=== PATIENT | female | born 1950 | race Caucasian/White ===

== ENCOUNTER 2020-04-19 12:47 | Outpatient (REF) | payer MEDICARE, SELFPAY ==
[2020-04-19 14:05] LABS: MANUAL DIFF FLAG NO
[2020-04-19 14:19] LABS: Basophils Percent Auto 0.8 % (0-2); Eosinophils Absolute Auto 0.1 X10*3/uL (0.0-0.4); Eosinophils Percent Auto 1.4 % (0-4); Hematocrit 38.6 % (37-47); Hemoglobin 12.7 g/dl (12.0-16.0); Imm Gran Abs Auto 0.01 X10*3/uL (0.00-0.03); Imm Gran Pct Auto 0.3 % (0.0-0.4); Lymphocytes Absolute Auto 1.3 X10*3/uL (1.2-4.9); Lymphocytes Percent Auto 35.4 % (20-40); Mean Corpuscular HGB Conc 32.9 g/dl (31.0-35.0); Mean Corpuscular Hemoglobin 33.9 pg (27.0-33.0); Mean Corpuscular Volume 102.9 fL (80-98); Mean Platelet Volume 9.9 fL (9.4-12.3); Monocytes Absolute Auto 0.3 X10*3/uL (0.1-1.2); Monocytes Percent Auto 8.6 % (2-11); Neutrophils Percent Auto 53.5 % (45-73); Platelet Count 273 X10*3/uL (160-400); Red Blood Count 3.75 X10*6/uL (4.20-5.50); Red Cell Distribution Width 13.2 % (11.0-16.0); White Blood Count 3.7 X10*3/uL (4.8-10.8)
[2020-04-19 14:24] LABS: Estimated Average Glucose 123 mg/dL; Hemoglobin A1c % 5.9 %
[2020-04-19 14:44] LABS: B Type Natriuretic Peptide 52 pg/mL (<100); Glucose Urine UA NEG (NEG); Leukocyte Esterase Urine NEG (NEG); Nitrite Urine NEG (NEG); Specific Gravity - Urine 1.025 (1.005-1.025); Urine Blood 1+ (NEG); Urine Ketones NEG (NEG); Urine Protein NEG (NEG-TRACE)
[2020-04-19 14:49] LABS: Alanine Aminotransferase 15 U/L (0-31); Alkaline Phosphatase 57 U/L (39-117); Anion Gap 13 (12-20); Aspartate Amino Transferase 17 U/L (5-31); Bilirubin Total 0.8 mg/dL (0.0-1.0); Blood Urea Nitrogen 22 mg/dL (9-16); Calcium 9.2 mg/dL (8.4-10.2); Carbon Dioxide 27 mmol/L (22-29); Chloride 104 mmol/L (96-108); Estimated Glomerular Filt Rate > 60; Glucose Random 115 mg/dL (60-115); Potassium 4.4 mmol/l (3.3-5.1); Sodium 140 mmol/L (135-145); Total Protein 6.9 g/dL (6.5-8.0)
[2020-04-19 14:50] LABS: Appearance Urine HAZY; Color Urine YELLOW
[2020-04-19 14:57] LABS: Mucus Urine 1+ /LPF; Squamous Epithelial Cell Urine 1+ /LPF; WBC Urine 0 /HPF (0-4)
[2020-04-19 15:10] LABS: TSH reflex Free T4 0.91 mIU/mL (0.32-4.0); Vitamin D 25-OH Total 26.2 ng/mL (>30)
[2020-04-19 15:11] LABS: Vitamin B12 515 pg/mL (200-900)
[2020-04-19 15:25] LABS: Cholesterol 230 mg/dL; HDL Cholesterol 84 mg/dL; LDL Cholesterol Calculated 129 mg/dl; Triglycerides 85 mg/dL
== END 2020-04-19 12:48 | disposition home or self-care (01) ==
LOC: HO.10HDL 12:47
PROVIDERS: Visit Provider Internal Medicine
DX: E11.65 Type 2 diabetes mellitus with hyperglycemia (principal); I42.9 Cardiomyopathy, unspecified; E78.00 Pure hypercholesterolemia, unspecified; F41.9 Anxiety disorder, unspecified; F32.9 Major depressive disorder, single episode, unspecified; R35.0 Frequency of micturition
CPT/HCPCS: 36415; 80053; 80061; 81001; 82306; 82607; 83036; 83880; 84443; 85025

== ENCOUNTER → 2020-06-22 10:16 | Outpatient (BNVA) | payer MEDICARE, SELFPAY | PROVIDERS: PCP Internal Medicine; Visit Provider Urology | DX: N32.81 Overactive bladder (principal) | CPT/HCPCS: 81002; 99202 ==

== ENCOUNTER → 2020-07-22 14:57 | Outpatient (BNVA) | payer MEDICARE, SELFPAY | PROVIDERS: PCP Internal Medicine; Visit Provider Urology | DX: Z13.89 Encounter for screening for other disorder (principal) | CPT/HCPCS: 99212 ==

== ENCOUNTER → 2020-08-10 14:52 | Outpatient (BNVA) | payer MEDICARE, SELFPAY | PROVIDERS: PCP Internal Medicine; Visit Provider Surgery | DX: C50.911 Malignant neoplasm of unspecified site of right female breast (principal); Z91.89 Other specified personal risk factors, not elsewhere classified; Z80.3 Family history of malignant neoplasm of breast; Z86.000 Personal history of in-situ neoplasm of breast | CPT/HCPCS: 99212 ==

== ENCOUNTER → 2020-08-22 12:58 | Outpatient (REF) | payer MEDICARE, SELFPAY ==
--- NOTE | 2020-08-22 13:11 | CA_ITS ---
Transthoracic Echocardiogram Patient (Last, First, Middle): Susan Raya A Gender: Female Date of : 1950 Age: 70 Procedure Date: 08/22/2020 Procedure Type: Transthoracic Echocardiogram Location: OP Height: 172.72 cm Weight: 61.24 kg BSA: 1.73 m2 Heart Rate: bpm BP: 134 / 80 mmHg Cutter Operator: Referring MD: Heber King MD Symptoms: LBBB,CARDIOMYOPATHY Study Quality: Good ECG Rhythm: Sinus with extra beats Conclusions: - 1. [id number] LV systolic dysfunction with impaired relaxation filling pattern 2. Mild mitral regurgitation 3. Normal RV systolic pressure 4. No pericardial effusion Findings Left Ventricle Normal left ventricular cavity size. There is normal left ventricular wall thickness. The left ventricular systolic function is mild to moderately decreased. The visually estimated ejection fraction is between 40-45%. There is paradoxical septal motion consistent with a left bundle branch block. Spectral Doppler is indicative of an impaired relaxation filling pattern. E/E prime ratio is between 8 and 15 consistent with indeterminate filling pressures. Right Ventricle Normal right ventricular cavity size and systolic function. Atria The left atrium is normal in size. There is no evidence of interatrial shunt. The right atrium is normal in size. Aortic Valve The aortic valve was not well visualized. There is no aortic valve stenosis. There is no aortic valve regurgitation. Mitral Valve Normal mitral valve structure and function. There is mild mitral valve regurgitation. There is no mitral valve stenosis. Pulmonic Valve The pulmonic valve was not well visualized. Tricuspid Valve Likely normal tricuspid valve structure and function. There is trace tricuspid valve regurgitation. The right ventricular systolic pressure is normal. The right ventricular systolic pressure is 26 mmHg. Normal right atrial pressure. There is no evidence of pulmonary hypertension. Great Vessels All visible segments of the aorta are normal in size. The pulmonary artery was not well visualized. Venous The inferior vena cava is normal in size and collapses greater than 50% with inspiration. Pericardium/Pleural There is no evidence of pericardial effusion. Prior Study Comparison Changes noted compared to prior study dated: 07/30/2018. LV systolic function appears to be further reduced Measurements 2D Linear Measurements IVSd: 0.86 0.6-0.9/0.6-1.0 cm LVIDd: 3.84 3.9-5.3/4.2-5.9 cm LVIDd Index: 2.22 2.4-3.2/2.2-3.1 cm/m2 LVIDs: 2.86 2.0-3.6 cm LVPWd: 0.79 0.7-1.1 cm Ao Root: 2.60 2.1-3.5 cm LA Diam: 3.20 2.7-3.8/3.0-4.0 cm LAIDs Index: 1.85 1.5-2.3 cm/m2 LV Mass: 202.40 67-162/88-224 g LV Mass Index: 116.99 43-95/49-115 g/m2 LVOT Diam: 1.90 3.0+(-)1.3 cm 2D Systolic Function EF 4C: 39.60 >55% EF 2C: 33.80 >55% Mitral Valve MV Pk E: 0.68 MV PK A: 0.90 MV Decel Time: 169.00 E/A: 0.80 E'Lateral: 7.06 E'Medial: 5.32 E/E' Med: 12.90 E/E' Lat: 9.70 PHT: 49.00 MVA PHT: 4.49 Decel [place]: 4.05 Aortic Valve AoV Pk Reed: 1.45 AoV Mn Reed: 0.96 AoV VTI: 0.30 AoV Pk Grad: 8.00 Aov Mn Grad: 4.00 CALEB Cont.VTI: 1.84 LVOT LVOT Pk Reed: 0.90 LVOT Mn Reed: 0.59 LVOT VTI: 0.19 LVOT Pk Grad: 3.00 LVOT Mn Grad: 2.00 LVOT Diam: 1.90 LVOT Area: 2.84 Diastolic Function MV Pk E: 0.68 MV Pk A: 0.90 E/A: 0.80 E'Medial: 5.32 E/E' Med: 12.90 E' Laterial: 7.06 E/E' Lat: 9.70 Tricuspid Valve TR Pk Reed: 2.42 TR Pk Grad: 23.00 RA Press: 3.00 RVSP: 26.00 Great Vessels Aorta Ao Root-2D: 2.60 2.0-3.7 cm Updated in Other Vendor System with Status of Final Oswaldo Tracy MD electronically signed on 08/22/2020 5:46:32 PM with status of Final
== END ==
LOC: HO.CARD 12:58
PROVIDERS: Visit Provider Internal Medicine
DX: I42.8 Other cardiomyopathies (principal)
CPT/HCPCS: 93306

== ENCOUNTER → 2020-09-07 13:57 | Outpatient (BNVA) | payer MEDICARE, SELFPAY | PROVIDERS: PCP Internal Medicine; Visit Provider Internal Medicine | DX: I42.8 Other cardiomyopathies (principal); I44.7 Left bundle-branch block, unspecified | CPT/HCPCS: 93005; 99212 ==

== ENCOUNTER 2020-12-07 13:07 | Outpatient (REF) | payer MEDICARE, SELFPAY ==
--- NOTE | ~2020-12-07 | MM_ITS ---
EXAMINATION: MM SCREENING DIGITAL BREAST TOMOSYNTHESIS, BILATERAL CLINICAL INFORMATION: Screening. Asymptomatic. Right breast cancer 1999. 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 Due for yearly. COMPARISON: Mammography: 11/02/2019, 10/30/2019, 07/24/2018, 01/22/2018, 07/25/2017 TECHNIQUE: Digital breast tomosynthesis is performed in both the craniocaudal and mediolateral oblique views along with computer-aided detection (CAD). Synthesized 2D images are generated from the tomosynthesis. Additional exaggerated right CC view is provided. FINDINGS: There are scattered areas of fibroglandular density (ACR BI-RADS breast composition Category b). Parenchymal pattern is similar to prior exams. There is no interval mass or architectural abnormality or interval abnormal calcifications. Left breast has biopsy clip marker central 3:00 position. Right breast has stable post therapy changes including scarring and old biopsy clip marker and reduced breast size. There are no significant changes. MM/MM tomosynthesis screening BI IMPRESSION: No significant changes from prior studies. ASSESSMENT: BI-RADS 2: Benign RECOMMENDATION: Routine annual mammography screening. This patient's information was entered into a reminder system with a target due date for their next mammogram.
--- NOTE | ~2020-12-07 | MM_ITS ---
EXAMINATION: BONE DENSITOMETRY CLINICAL INDICATION: Asymptomatic menopausal state. COMPARISON: Previous BD dated 06/26/2018 and baseline BD dated 08/05/2015. TECHNIQUE: Using a [employer] DXA System (software version: 13.1) manufactured by [employer], dual-energy x-ray absorptiometry was performed of the lumbar spine and left hip. The images are of good technical quality. Summary results are attached. FINDINGS: AP SPINE L1-L4: Current: BMD 1.078 g/cm2, Z-score 1.0, T-score -0.8, normal, 3.0% decrease from previous, 4.5% decrease from baseline (<5% change is not significant). Prior: BMD 1.111 g/cm2. Baseline: BMD 1.129 g/cm2. LEFT FEMUR, NECK: Current: BMD 0.764 g/cm2, Z-score -0.1, T-score -2.0, osteopenia. Prior: BMD 0.855 g/cm2. Baseline: BMD 0.908 g/cm2. LEFT FEMUR, TOTAL: Current: BMD 0.827 g/cm2, Z-score 0.2, T-score -1.4, osteopenia, 9.6% decrease from previous, 14.7% decrease from baseline (<5% change is not significant). Prior: BMD 0.915 g/cm2. Baseline: BMD 0.969 g/cm2. IDENTIFIED RISK FACTORS: Osteoporosis. Early menopause, secondary osteoporosis. HISTORY OF FRACTURE: None listed. MEDICATIONS: Calcium supplements or multivitamin, vitamin D. MM/XR DEXA axial skeleton IMPRESSION: 1. DIAGNOSIS: Osteopenia based on the lowest T-score value of -2.0 in the femoral neck applying World Health Organization criteria. 2. 10-YEAR FRACTURE RISK PREDICTION, FRAX: Major osteoporotic fracture (clinical spine, forearm, hip or shoulder) 10.7%. Hip fracture 2.2%. 3. Treatment Recommendations: NOF guidelines recommend consideration for treatment in postmenopausal women and men age 50 and older presenting with the following: -A hip or vertebral (clinical or morphometric) fracture. -T-score less than or equal to -2.5 at the femoral neck or spine after appropriate evaluation to exclude secondary causes. -Low bone mass at the hip or spine and a 10-year fracture probability by FRAX of greater than or equal to 3% for hip fracture or greater than or equal to 20% for major osteoporotic fracture based on the [place] adapted WHO algorithm. 4. Other Recommendations: All treatment decisions require clinical judgment and consideration of individual patient factors, including patient preferences, comorbidities, previous drug use, risk factors not captured in the FRAX model (e.g. frailty, falls, vitamin D deficiency, increased bone turnover, interval significant decline in bone density) and possible under or overestimation of fracture risk by FRAX. Additional medical evaluation for secondary cause of low bone mineral density may be appropriate. FUTURE SCAN RECOMMENDATION: People with diagnosed cases of osteoporosis or at high risk for fracture should have regular bone mineral density tests. For patients eligible for Medicare, routine testing is allowed once every 2 years. The testing frequency can be increased to one year for patients who have rapidly progressing disease, those who are receiving or discontinuing medical therapy to restore bone mass, or have additional risk factors.
== END 2020-12-07 13:08 | disposition home or self-care (01) ==
LOC: HO.MAMMO 13:07
PROVIDERS: PCP Internal Medicine; Visit Provider Nurse Practitioner Family
DX: Z12.31 Encounter for screening mammogram for malignant neoplasm of breast (principal); Z13.820 Encounter for screening for osteoporosis; M81.0 Age-related osteoporosis without current pathological fracture; M85.80 Other specified disorders of bone density and structure, unspecified site; Z78.0 Asymptomatic menopausal state; Z79.899 Other long term (current) drug therapy
CPT/HCPCS: 77063; 77067; 77080

== ENCOUNTER 2020-12-08 14:52 | Outpatient (REF) | payer MEDICARE, SELFPAY ==
--- NOTE | ~2020-12-08 | CT_ITS ---
EXAMINATION: CT HEAD WITHOUT CONTRAST CLINICAL INFORMATION: Vertigo, tinnitus. COMPARISON: None TECHNIQUE: Contiguous axial imaging was performed from the skull base to vertex without intravenous administration of contrast. This CT examination was performed using dose optimization techniques as appropriate, variously including the following: *Automated exposure control *Adjustment of mA and/or kV according to patient size (this includes techniques or standardized protocols for targeted exams where dose is matched to indication/reason for exam; i.e. extremities or head) *Use of iterative reconstruction technique DLP: 638 mGy-cm FINDINGS: There is no evidence of acute intracranial hemorrhage or territorial infarction. No abnormal mass effect or midline shift is seen. Wang to white matter differentiation is well preserved. No extra-axial fluid collections are identified. The ventricles are normal in size. There is no abnormal attenuation within the brain parenchyma. The osseous structures and soft tissues are normal. The mastoid air cells and visualized portions of the paranasal sinuses are well aerated. CT/CT head/brain wo con IMPRESSION: No acute intracranial process seen.
== END 2020-12-08 14:53 | disposition home or self-care (01) ==
LOC: HO.CT 14:52
PROVIDERS: Visit Provider Otolaryngology
DX: H81.4 Vertigo of central origin (principal); H93.19 Tinnitus, unspecified ear; R51.9 Headache, unspecified
CPT/HCPCS: 70450

== ENCOUNTER 2020-12-16 08:04 | Day surgery (SDC) | payer MEDICARE, SELFPAY ==
--- NOTE | 2020-12-15 08:25 | P.CONAN_ITS ---
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 (Acute) Tinnitus (Acute) COVID-19 vaccine series completed (Acute) NICM (nonischemic cardiomyopathy) (Acute) Adult general medical exam (Acute) Post-menopausal (Acute) Infiltrating ductal carcinoma of right breast (Acute) Anxiety and depression (Acute) Hypercholesterolemia (Acute) Cardiomyopathy (Acute) Type 2 diabetes mellitus with hyperglycemia (Acute) Past Medical History Medical History (Updated 12/09/20 @ 14:02 by Ivana Mead) Anxiety and depression Cardiomyopathy History of breast cancer History of breast cancer Hypercholesterolemia Infiltrating ductal carcinoma of right breast Left bundle branch block Post-menopausal Tubular adenoma of colon Type 2 diabetes mellitus with hyperglycemia Family History Family History Father CVD (cardiovascular disease) Myocardial infarct Mother HTN (hypertension) Cancer Uterine cancer Paternal Aunt Myocardial infarct Paternal Uncle Myocardial infarct Brother No problems noted. Surgical History Surgical History (Updated 12/09/20 @ 14:02 by Ivana Mead) H/O left breast biopsy History of colonoscopy History of lumpectomy of right breast Social History Social History Alcohol intake: current Alcohol intake frequency: holidays/special occasions only Patient Tobacco Use Status: Never used Tobacco Cigarette Packs Per Day: 0 Cigarettes Per Day: 0 Years Smoked: 0 Use of substances other than those prescribed or required for medical reasons: No Are you DNR?: No Advance Directives: No Advance Directives Information Provided: Yes Meds Allergies Allergy/AdvReac Type Severity Reaction Status Date / Time morphine [MORPHINE] AdvReac Mild VOMITING, Verified 12/09/20 14:04 sensitivity atorvastatin AdvReac Unknown Unknown Verified 12/09/20 14:04 rosuvastatin [Crestor] AdvReac Unknown muscle ache Verified 12/09/20 14:04 simvastatin AdvReac Unknown Unknown Verified 12/09/20 14:04 Home Medications Medication Instructions Recorded Confirmed Last Taken Type aspirin 81 mg tablet,delayed 81 mg PO DAILY 02/23/20 12/09/20 Unknown History release (Adult Aspirin Regimen) lisinopril 2.5 mg tablet 2.5 mg PO DAILY 02/23/20 12/09/20 Unknown History melatonin 3 mg capsule 3 mg PO BEDTIME PRN 02/23/20 12/09/20 Unknown History multivitamin 1 tab PO DAILY 02/23/20 12/09/20 Unknown History Exam Exam Date and Time: December 15, 2020 0825 Narrative Narrative: EKG 08/2020 sinus rhythm at 80/Min; nonspecific intraventricular defect but appearing more towards left bundle. Per recent cardiac visit: Recent echocardiogram shows LVEF 40-45%.? In 2019, it was 45-50%.? In 2018, it was 35-40%.? In 2014, 40-45%.? Overall, it has been up and down.? Coronary CTA did not reveal any significant coronary disease.? There was mild eccentric distal left main plaque; minimal disease elsewhere. ECHO 08/2020 Conclusions: -? 1. [id number]-[id number] LV systolic dysfunction with impaired ? ? relaxation filling pattern, EF 40-45%? 2. Mild mitral regurgitation ? 3. Normal RV systolic pressure ? 4. No pericardial effusion ? ? Assessment and Plan Assessment Anesthesia Assessment: Chart Reviewed Documented by User: Julisa Littlejohn 12/16/20 08:36 [facility] Past Medical History Medical History (Updated 12/09/20 @ 14:02 by Ivana Mead) Anxiety and depression Cardiomyopathy History of breast cancer History of breast cancer Hypercholesterolemia Infiltrating ductal carcinoma of right breast Left bundle branch block Post-menopausal Tubular adenoma of colon Type 2 diabetes mellitus with hyperglycemia Family History Family History Father CVD (cardiovascular disease) Myocardial infarct Mother HTN (hypertension) Cancer Uterine cancer Paternal Aunt Myocardial infarct Paternal Uncle Myocardial infarct Brother No problems noted. Family history of problems with anesthesia: No Surgical History Surgical History (Updated 12/09/20 @ 14:02 by Ivana Mead) H/O left breast biopsy History of colonoscopy History of lumpectomy of right breast History of Problems with Anesthesia: No Social History Social History Alcohol intake: current Alcohol intake frequency: holidays/special occasions only Patient Tobacco Use Status: Never used Tobacco Cigarette Packs Per Day: 0 Cigarettes Per Day: 0 Years Smoked: 0 Use of substances other than those prescribed or required for medical reasons: No Are you DNR?: No Advance Directives: No Advance Directives Information Provided: Yes Meds Allergies Allergy/AdvReac Type Severity Reaction Status Date / Time morphine [MORPHINE] AdvReac Mild VOMITING, Verified 12/09/20 14:04 sensitivity atorvastatin AdvReac Unknown Unknown Verified 12/09/20 14:04 rosuvastatin [Crestor] AdvReac Unknown muscle ache Verified 12/09/20 14:04 simvastatin AdvReac Unknown Unknown Verified 12/09/20 14:04 Home Medications Medication Instructions Recorded Confirmed Last Taken Type aspirin 81 mg tablet,delayed 81 mg PO DAILY 02/23/20 12/09/20 Unknown History release (Adult Aspirin Regimen) lisinopril 2.5 mg tablet 2.5 mg PO DAILY 02/23/20 12/09/20 Unknown History melatonin 3 mg capsule 3 mg PO BEDTIME PRN 02/23/20 12/09/20 Unknown History multivitamin 1 tab PO DAILY 02/23/20 12/09/20 Unknown History Exam Airway Mallampati Class: II (Implant and cap top) TM Dist: >3cm Neck ROM: Full Heart: rrr Lungs: cta Assessment and Plan Assessment Anesthesia Assessment: Anesthesia Plan Discussed and Chart Reviewed Final Anesthetic Review Family History of Problems with Anesthesia: No History of Problems with Anesthesia: No NPO: Yes ASA Class: III Final Preanesthetic Review: No Changes in Pt Med Stat, Meds/Allgs Chart Reviewed and Consent Obtained/Reviewed Patient Risk: Intermediate Procedure Risk: Intermediate Anesthetic Plan Anesthetic Plan: MAC: Disposition: Standard PACU
[2020-12-16 08:26] VITALS: BP 117/57; PULSE 84; RESP 16; TEMP 36.3; O2SAT 96; BMI 20.9
[2020-12-16 08:35] LABS: Glucose, Whole Blood 135 mg/dL (60-115)
[2020-12-16] MEDS: Lactated Ringers 1,000 ML 50 ML IVCONT (08:39)
[2020-12-16 10:40] VITALS: BP 100/47; PULSE 78; RESP 16; TEMP 36.2; O2SAT 97
--- NOTE | 2020-12-16 10:43 | P.BOP_ITS ---
Brief Operative Note Date of Service: 12/16/20 Pre-op diagnosis: Screening, Hx of polyps Post-op diagnosis: other (Diverticulosis, Internal hemorrhoids) Procedure: Colonoscopy to cecum and TI Surgeon: Noel Blanco Anesthesia: MAC Was an Animal Control Specialist used for this Procedure?: No Estimated blood loss (mL): 0 Pathology: none sent Condition: stable Disposition: PACU
[2020-12-16 10:55] VITALS: BP 115/55; PULSE 65; RESP 17; TEMP 36.2; O2SAT 100
--- NOTE | 2020-12-16 11:01 | OP_ITS ---
SURGEON: Noel Blanco MD INDICATIONS: The patient presents for evaluation of personal history of tubular adenoma of the colon, and need for colorectal cancer screening. Full consent has been obtained from her for this, including risks of bleeding and perforation. PREOPERATIVE DIAGNOSIS: POSTOPERATIVE DIAGNOSIS: PROCEDURE PERFORMED: Colonoscopy to the cecum and terminal ileum. ESTIMATED BLOOD LOSS: COMPLICATIONS: ANESTHESIA: Monitored anesthesia care. ASSISTANTS: SPECIMENS: PREOPERATIVE DIAGNOSES: Colorectal cancer screening and personal history of tubular adenoma of the colon. POSTOPERATIVE DIAGNOSES: Colorectal cancer screening and personal history of tubular adenoma of the colon, diverticulosis and internal hemorrhoids. DESCRIPTION OF PROCEDURE: The patient was placed in the left lateral decubitus position. The digital rectal exam revealed no abnormalities. The Olympus video pediatric colonoscope was entered into the rectum and advanced easily to the cecum. Once in the cecum, I did identify normal-appearing cecal pouch with appendiceal orifice and a normal-appearing ileocecal valve. The terminal ileum was cannulated and appeared normal. Scope was withdrawn back in the colon. The entire cecum and ileocecal valve appeared normal. The scope was then slowly withdrawn assessing all mucosal surfaces carefully. Preparation was excellent. I did not visualize any sign of polyps, colitis, nor angiodysplasias. There was a mild amount of sigmoid diverticulosis. In the rectum, scope was retroflexed visualizing internal hemorrhoids, but no other pathology. The rectal mucosa appeared normal. The scope was straightened out and withdrawn from the patient. She tolerated the procedure well and was returned to the recovery area in stable condition. IMPRESSION: 1. Diverticulosis. 2. Internal hemorrhoids. PLAN: I would recommend a repeat colonoscopy in 5 years for further screening and surveillance. She will otherwise see me on a p.r.n. basis. She was advised to resume her aspirin today. MD GABRIELE Lira/DEJA / [phone]
== END 2020-12-16 11:45 | disposition home or self-care (01) ==
PROVIDERS: PCP Internal Medicine; Visit Provider Internal Medicine
PROC: 0DJD8ZZ Inspection of Lower Intestinal Tract, Via Natural or Artificial Opening Endoscopic (ICD-10-PCS; CPT 45378; principal; 2020-12-16 09:20)
DX: Z12.11 Encounter for screening for malignant neoplasm of colon (principal); Z86.010 Personal history of colon polyps; K57.30 Diverticulosis of large intestine without perforation or abscess without bleeding; K64.8 Other hemorrhoids; I10 Essential (primary) hypertension; E11.9 Type 2 diabetes mellitus without complications; Z85.3 Personal history of malignant neoplasm of breast; Z92.21 Personal history of antineoplastic chemotherapy; Z92.3 Personal history of irradiation; Z79.82 Long term (current) use of aspirin; Z79.899 Other long term (current) drug therapy
CPT/HCPCS: G0105; 82947

== ENCOUNTER 2020-12-19 10:35 | Outpatient (REF) | payer MEDICARE, SELFPAY ==
[2020-12-19 11:37] LABS: MANUAL DIFF FLAG NO
[2020-12-19 11:51] LABS: Basophils Percent Auto 0.3 % (0-2); Eosinophils Absolute Auto 0.1 X10*3/uL (0.0-0.4); Eosinophils Percent Auto 1.2 % (0-4); Hematocrit 38.2 % (37-47); Hemoglobin 12.5 g/dl (12.0-16.0); Imm Gran Abs Auto 0.02 X10*3/uL (0.00-0.03); Imm Gran Pct Auto 0.3 % (0.0-0.4); Lymphocytes Absolute Auto 1.1 X10*3/uL (1.2-4.9); Lymphocytes Percent Auto 14.7 % (20-40); Mean Corpuscular HGB Conc 32.7 g/dl (31.0-35.0); Mean Corpuscular Volume 103.8 fL (80-98); Mean Platelet Volume 9.8 fL (9.4-12.3); Monocytes Absolute Auto 0.4 X10*3/uL (0.1-1.2); Monocytes Percent Auto 5.4 % (2-11); NRBC Pct Auto 0.3 /100WBC (0.0-0.2); Neutrophils Absolute Auto 5.6 X10*3/uL (2.0-8.3); Neutrophils Percent Auto 78.1 % (45-73); Platelet Count 279 X10*3/uL (160-400); Red Blood Count 3.68 X10*6/uL (4.20-5.50); Red Cell Distribution Width 13.1 % (11.0-16.0); White Blood Count 7.2 X10*3/uL (4.8-10.8)
[2020-12-19 11:52] LABS: Glucose Urine UA NEG (NEG); Leukocyte Esterase Urine NEG (NEG); Nitrite Urine NEG (NEG); PH 5.5 (5.0-8.0); Specific Gravity - Urine >= 1.030 (1.005-1.025); Urine Blood TRACE (NEG); Urine Ketones NEG (NEG); Urine Protein NEG (NEG-TRACE)
[2020-12-19 12:30] LABS: Alanine Aminotransferase 12 U/L (0-31); Albumin Level 4.3 g/dL (3.5-5.0); Alkaline Phosphatase 50 U/L (39-117); Anion Gap 15 (12-20); Aspartate Amino Transferase 17 U/L (5-31); Bilirubin Total 0.5 mg/dL (0.0-1.0); Blood Urea Nitrogen 19 mg/dL (9-16); Calcium 10.2 mg/dL (8.4-10.2); Carbon Dioxide 25 mmol/L (22-29); Chloride 106 mmol/L (96-108); Estimated Glomerular Filt Rate > 60; Glucose Random 126 mg/dL (60-115); Potassium 4.6 mmol/L (3.3-5.1); Sodium 141 mmol/L (135-145); Total Protein 7.3 g/dL (6.5-8.0)
[2020-12-19 12:51] LABS: Thyroid Stimulating Hormone 1.12 uIU/mL (0.32-4.0)
[2020-12-19 12:52] LABS: Appearance Urine CLEAR; Color Urine YELLOW
[2020-12-19 13:04] LABS: RBC Urine 0-2 /HPF (0); Squamous Epithelial Cell Urine TRACE /LPF
[2020-12-19 13:05] LABS: Mucus Urine 1+ /LPF
[2020-12-19 13:20] LABS: Folate > 20.0 ng/mL (> or = 4.0); Vitamin B12 884 pg/mL (200-900)
== END 2020-12-19 10:36 | disposition home or self-care (01) ==
LOC: HO.LAB 10:35
PROVIDERS: PCP Internal Medicine; Visit Provider Internal Medicine
DX: H93.19 Tinnitus, unspecified ear (principal)
CPT/HCPCS: 36415; 80053; 81001; 82607; 82746; 84443; 85025

== ENCOUNTER 2021-02-25 14:12 | Emergency (ER) | payer MEDICARE, SELFPAY ==
--- NOTE | ~2021-02-25 | XR_ITS ---
EXAMINATION: XR ELBOW, LEFT CLINICAL INFORMATION: Pain after fall COMPARISON: None TECHNIQUE: AP, lateral, and oblique views of the left elbow. FINDINGS: Bones have normal alignment and joint spaces are maintained. No fracture, subluxation or elbow joint effusion. Incidentally noted is mild osseous hypertrophy of the radial tuberosity (the site of insertion of the biceps tendon). There are no avulsion fractures. XR/XR elbow LT 2V IMPRESSION: No acute abnormality. No fracture or subluxation at the left elbow.
--- NOTE | ~2021-02-25 | XR_ITS ---
EXAMINATION: LEFT HAND AND WRIST X-RAY CLINICAL INFORMATION: Fall COMPARISON: Previous x-ray May 2018 TECHNIQUE: 4 views of the left hand and wrist FINDINGS: There is a transverse slightly impacted fracture of the left distal radius. No other fracture is seen. There is arthritis at the first LONG-TERM and trapezoid trapezium scaphoid joints. There is mild soft tissue swelling about the wrist. XR/XR hand wrist LT IMPRESSION: Transverse slightly impacted left distal radius fracture.
[2021-02-25 14:57] VITALS: BP 133/61; PULSE 83; RESP 18; TEMP 36.2; O2SAT 100; BMI 19.8
[2021-02-25] MEDS: Acetaminophen 325 MG TABLET 650 MG PO (15:01)
--- NOTE | 2021-02-25 16:29 | ED.FALL ---
HPI - Fall General Chief Complaint: Fall Stated Complaint: lt hand injury Time Seen by Provider: 02/25/21 16:06 Source: patient Mode of arrival: ambulatory Limitations: no limitations History of Present Illness HPI Narrative: 70-year-old female here with complaints of left wrist pain after a mechanical fall today. NO head strike or LOC. Not on AC therapy. Related Data Home Medications Medication Instructions Recorded Confirmed aspirin 81 mg tablet,delayed 81 mg PO DAILY 02/23/20 12/22/20 release (Adult Aspirin Regimen) melatonin 3 mg capsule 3 mg PO BEDTIME PRN 02/23/20 12/22/20 multivitamin 1 tab PO DAILY 02/23/20 12/22/20 Previous Rx's Medication Instructions Recorded ezetimibe 10 mg tablet 10 mg PO DAILY #30 tab 05/17/20 carvedilol 3.125 mg tablet 3.125 mg PO BID #180 tab 12/04/20 alprazolam 0.5 mg tablet 0.5 mg PO BID 90 Days #180 tab 12/22/20 paroxetine HCl 10 mg tablet 10 mg PO DAILY #30 tab 12/22/20 lisinopril 2.5 mg tablet 2.5 mg PO DAILY #90 tab 01/11/21 amitriptyline 25 mg tablet 25 mg PO BEDTIME #30 tab 01/13/21 hydrochlorothiazide 12.5 mg tablet 12.5 mg PO DAILY #30 tab 01/13/21 mastectomy bra #6 ea 01/27/21 oxycodone 5 mg tablet 5 mg PO Q6H PRN #8 tab 02/25/21 Allergies Allergy/AdvReac Type Severity Reaction Status Date / Time morphine [MORPHINE] AdvReac Mild VOMITING, Verified 12/22/20 16:08 sensitivity atorvastatin AdvReac Unknown Unknown Verified 12/22/20 16:08 rosuvastatin [Crestor] AdvReac Unknown muscle ache Verified 12/22/20 16:08 simvastatin AdvReac Unknown Unknown Verified 12/22/20 16:08 Review of Systems Review of Systems: Yes all other systems are reviewed and are negative Constitutional: Constitutional: Reports no additional constitutional complaints, Denies body ache(s), Denies chills, Denies fever(s), Denies headache(s) and Denies weakness Eyes: Eyes: Reports no additional eye complaints and Denies change in vision ENT: Reports system reviewed and no additional complaints, except as documented, Denies dizziness, Denies headache(s), Denies nasal congestion, Denies nasal discharge and Denies neck pain Cardiovascular: Cardiovascular: Reports no additional cardiovascular complaints, Denies chest pain, Denies leg edema and Denies dyspnea Respiratory: Respiratory: Reports no additional respiratory complaints, Denies cough and Denies dyspnea Gastrointestinal: Gastrointestinal: Reports no additional gastrointestinal complaints, Denies abdominal pain, Denies diarrhea, Denies nausea and Denies vomiting Genitourinary: Genitourinary: Reports no additional female genitourinary complaints and Denies urinary incontinence Musculoskeletal: Musculoskeletal: Reports no additional musculoskeletal complaints, Denies back pain, Reports arthralgias, Reports joint swelling, Reports limited range of motion, Denies neck pain, Denies numbness and Denies tingling Integumentary/Breasts: Skin/Breast: Reports system reviewed and no additional complaints, except as docu and Denies rash Neurologic: Reports system reviewed and no additional complaints, except as documented, Denies Abnormal speech present, Denies dizziness, Denies headache(s), Denies numbness, Denies tingling and Denies weakness PMFSH Past Medical History Attestation statement: The following information was validated with the patient. Source: old records reviewed and nursing notes reviewed Medical History Anxiety and depression Cardiomyopathy History of breast cancer History of breast cancer Hypercholesterolemia Infiltrating ductal carcinoma of right breast Left bundle branch block Post-menopausal Tubular adenoma of colon Type 2 diabetes mellitus with hyperglycemia Surgical History (Updated 12/09/20 @ 14:02 by Ivana Mead RN) H/O left breast biopsy History of colonoscopy History of lumpectomy of right breast Family History Family History Father CVD (cardiovascular disease) Myocardial infarct Mother HTN (hypertension) Cancer Uterine cancer Paternal Aunt Myocardial infarct Paternal Uncle Myocardial infarct Brother No problems noted. Social History Social History Housing: House Alcohol intake: current Alcohol intake frequency: holidays/special occasions only Patient Tobacco Use Status: Never used Tobacco Cigarette Packs Per Day: 0 Cigarettes Per Day: 0 Years Smoked: 0 e-Cigarette/Vaping Use: Never Used Second Hand Smoke Exposure: No Advance Directives: No Advance Directives Information Provided: Yes service: No Current occupational status: retired Physical Exam Vital Signs: Vital Signs: Last Vital Signs Temp 97.1 F 02/25/21 14:57 Pulse 83 02/25/21 14:57 Resp 18 02/25/21 14:57 BP 133/61 02/25/21 14:57 Pulse Ox 100 02/25/21 14:57 Body Mass Index 19.8 Const: General: cooperative, healthy appearing, comfortable and no acute distress Orientation/consciousness: patient oriented x3 Limitations: no limitations HENMT: Head: Yes normal to inspection Ears: hearing grossly normal bilaterally General nose exam: Normal external nose present Face and sinus: Yes normal facial exam Mouth: Normal oral and palatal mucosa present Throat: Yes posterior oropharynx normal Eyes: General: appearance normal, both eyes and all related structures Pupils: Equal, round and reactive pupils present Neck: Neck: Yes normal visual inspection Chest: Chest palpation & inspection: normal inspection of the chest Resp: Effort & Inspection: normal respiratory effort Auscultation: clear to auscultation bilaterally Cardio: Rate: regular rate Rhythm: regular rhythm Peripheral pulses: Peripheral pulses 2+ throughout GI: Inspection: Yes normal to inspection Palpation (GI): Soft to palpation and nontender Auscultation: normal bowel sounds Back/Spine/Pelvis: Thoracic/Lumbar Spine: thoracic and lumbar spine normal to inspection Skin: General skin exam: no rashes or lesions noted Neuro: General: patient oriented x3, no focal motor deficits and normal sensation to monofilament Cranial nerves: Yes CN's II-XII intact bilaterally, Yes Equal, round and reactive pupils present, Yes Bilaterally intact EOM present, Yes Nystagmus not present, Yes Normal facial strength present and Yes Midline tongue present Cognition (Neuro): normal cognition Speech: No Abnormal speech present Gait exam (Neuro): Normal gait present Motor exam (neuro): 5/5 motor strength present throughout Sensory Exam: Normal double simultaneous stimulation for sensation Coordination: dlrhlb-nq-[id number] test normal, qroq-cu-[id number] test normal and tandem gait normal Extrem: Other: swelling, ecchymosis, tenderness to left dorsal wrist with limited ROM d/t pain +distal pulse Mild tenderness over lateral elbow. FROM. NO swelling or deformity noted. General: Yes normal to inspection Course Course Course Narrative: 70yo female here with LUE pain s/p mechanical fall. No head strike or loss of consciousness. Normal neurological exam. Will need x-rays. 1739-x-ray of the left wrist shows Transverse slightly impacted left distal radius fracture.? Patient was placed in a sugar tongs splint and a sling. She will be referred to Orthopedics for follow-up.. Procedures Orthopedic Splinting/Casting Injury #1: Side: left Upper Extremity Injury Location: wrist Upper Extremity Immobilizer: sugar tong splint Additional Comments: Sling MDM - Fall Medical Records Attestation: I reviewed the patient's medical records. Lab Data Attestation: I reviewed the patient's lab results. Imaging Data left wrist xray: Attestation: I personally reviewed and interpreted this imaging study as follows: Radiologist's impression: [address] [address] XRay Report Signed Patient: Susan Raya MR#: [id number] : 1950 Acct:[id number] Age/Sex: 70 / F ADM Date: 02/25/21 Loc: .ED Attending Dr: Ordering Physician: Generic ED Physician Date of Service: 02/25/21 Procedure(s): XR hand wrist LT Accession Number(s): [id number] cc: Generic ED Physician~ EXAMINATION: LEFT HAND AND WRIST X-RAY CLINICAL INFORMATION: Fall? COMPARISON: Previous x-ray May 2018? TECHNIQUE: 4 views of the left hand and wrist? FINDINGS: There is a transverse slightly impacted fracture of the left distal radius. No other fracture is seen. There is arthritis at the first INTERMEDIATE and trapezoid trapezium scaphoid joints. There is mild soft tissue swelling about the wrist.? XR/XR hand wrist LT IMPRESSION: Transverse slightly impacted left distal radius fracture.? left elbow xray: Attestation: I personally reviewed and interpreted this imaging study as follows: Radiologist's impression: COMPARISON: None? TECHNIQUE: AP, lateral, and oblique views of the left elbow. FINDINGS: Bones have normal alignment and joint spaces are maintained. No fracture, subluxation or elbow joint effusion. Incidentally noted is mild osseous hypertrophy of the radial tuberosity (the site of insertion of the biceps tendon). There are no avulsion fractures. XR/XR elbow LT 2V IMPRESSION: No acute abnormality. No fracture or subluxation at the left elbow. Discharge Plan Discharge Clinical Impression: Fracture of wrist Patient Disposition: Home, Self-Care Instructions: Wrist Fracture in Adults (ED) Additional Instructions: Sling for comfort only Splint on at all times. DO not get it wet Call orthopedics Saturday for a follow-up appointment Take tylenol every four hours for pain as discussed Prescriptions: New oxycodone 5 mg tablet 5 mg PO Q6H PRN (Reason: pain) Qty: 8 RF: 0 No Action ezetimibe 10 mg tablet 10 mg PO DAILY Qty: 30 RF: 11 carvedilol 3.125 mg tablet 3.125 mg PO BID Qty: 180 RF: 2 lisinopril 2.5 mg tablet 2.5 mg PO DAILY Qty: 90 RF: 3 hydrochlorothiazide 12.5 mg tablet 12.5 mg PO DAILY Qty: 30 RF: 0 amitriptyline 25 mg tablet 25 mg PO BEDTIME Qty: 30 RF: 0 (DME) mastectomy bra Crystals See Rx Instructions .Route Qty: 6 RF: 0 multivitamin Tablet 1 tab PO DAILY RF: 0 melatonin 3 mg capsule 3 mg PO BEDTIME PRN (Reason: Sleep) RF: 0 aspirin [Adult Aspirin Regimen] 81 mg tablet,delayed release (DR/EC) 81 mg PO DAILY RF: 0 paroxetine HCl 10 mg tablet 10 mg PO DAILY Qty: 30 RF: 2 alprazolam 0.5 mg tablet 0.5 mg PO BID 90 Days Qty: 180 RF: 1 Referrals: Sarbjit Sawyer MD [Physician] - 2 days Interventions: ED Discharge Assessment Last Done: 02/25/21 17:22 Discharge Date/Time: 02/25/21 17:36
== END 2021-02-25 17:36 | disposition home or self-care (01) ==
PROVIDERS: Emergency Provider Emergency Medicine; PCP Internal Medicine
DX: S62.102A Fracture of unspecified carpal bone, left wrist, initial encounter for closed fracture (principal); M25.532 Pain in left wrist; W01.0XXA Fall on same level from slipping, tripping and stumbling without subsequent striking against object, initial encounter; Y93.9 Activity, unspecified; Y92.9 Unspecified place or not applicable; Y99.9 Unspecified external cause status
CPT/HCPCS: 29125; 73070; 73110; 73130; 99284

== ENCOUNTER 2021-02-26 17:20 | Emergency (ER) | payer MEDICARE, SELFPAY ==
--- NOTE | ~2021-02-26 | XR_ITS ---
EXAMINATION: XR FOREARM, LEFT CLINICAL INFORMATION: Pain status post fall COMPARISON: 02/25/2021 TECHNIQUE: AP and lateral views of the left forearm were obtained. FINDINGS: The distal radial metaphyseal fracture is again noted. Alignment is unchanged with mild impaction. No additional fractures are seen. Alignment at the elbow maintained. Soft tissue swelling of the wrist. XR/XR forearm LT 2V IMPRESSION: Unchanged alignment of the mildly impacted distal radial fracture. No additional fractures.
[2021-02-26 17:40] VITALS: BP 138/69; PULSE 74; RESP 18; TEMP 36.6; O2SAT 99; BMI 19.8
--- NOTE | 2021-02-26 19:07 | PC.NURSE ---
WHILE WAITING FOR DOCTOR CHECKED CASE AND LOOSEN THE AIRAM WRAP CASTE NOT ON TIGHT ABLE TO PUT 2 FINGERS IN LOOSENED TO AIRAM WRAP. FINGER PINK AND WARM THEY DO APPEAR SWOLLEN AND SOME BRUISING AT THUMB AREA.
[2021-02-26] MEDS: Acetaminophen 325 MG TABLET 975 MG PO (20:06)
--- NOTE | 2021-02-26 21:35 | PC.NURSE ---
PT SPLINT REMOVED VOLAR SPLINT IN PLACE +CMS TO FINGERS CHECKED BY YARITZA CEE.
--- NOTE | 2021-02-26 21:41 | ED_ITS ---
HPI - Extremity Problem General Chief complaint: Extremity Injury, Upper Stated complaint: Hand swelling Time Seen by Provider: 02/26/21 19:16 Source: patient Mode of arrival: ambulatory Limitations: no limitations History of Present Illness HPI Narrative: 70-year-old female who presents to emergency room for wrist fracture yesterday and was found to have a left transverse impacted distal radius fracture and was put in a sugar-tong splint with a sling, presents today for worsening left forearm pain. Patient has been taking Tylenol, but was unable to fill her oxycodone until this afternoon. Patient took 1 oxycodone at 4:00 p.m. this afternoon, this is our 1st opioid for this injury. Patient states the pain is worse than it was during her original fall, and her fingers are swollen. No numbness or tingling. Her forearm is painful. Related Data Home Medications Medication Instructions Recorded Confirmed aspirin 81 mg tablet,delayed 81 mg PO DAILY 02/23/20 12/22/20 release (Adult Aspirin Regimen) melatonin 3 mg capsule 3 mg PO BEDTIME PRN 02/23/20 12/22/20 multivitamin 1 tab PO DAILY 02/23/20 12/22/20 Previous Rx's Medication Instructions Recorded ezetimibe 10 mg tablet 10 mg PO DAILY #30 tab 05/17/20 carvedilol 3.125 mg tablet 3.125 mg PO BID #180 tab 12/04/20 alprazolam 0.5 mg tablet 0.5 mg PO BID 90 Days #180 tab 12/22/20 paroxetine HCl 10 mg tablet 10 mg PO DAILY #30 tab 12/22/20 lisinopril 2.5 mg tablet 2.5 mg PO DAILY #90 tab 01/11/21 amitriptyline 25 mg tablet 25 mg PO BEDTIME #30 tab 01/13/21 hydrochlorothiazide 12.5 mg tablet 12.5 mg PO DAILY #30 tab 01/13/21 mastectomy bra #6 ea 01/27/21 oxycodone 5 mg tablet 5 mg PO Q6H PRN #8 tab 02/25/21 Allergies Allergy/AdvReac Type Severity Reaction Status Date / Time morphine [MORPHINE] AdvReac Mild VOMITING, Verified 02/26/21 17:40 sensitivity atorvastatin AdvReac Unknown Unknown Verified 02/26/21 17:40 rosuvastatin [Crestor] AdvReac Unknown muscle ache Verified 02/26/21 17:40 simvastatin AdvReac Unknown Unknown Verified 02/26/21 17:40 Review of Systems Review of Systems: Constitutional : No Weight loss, No Fever, No Chills, No Night Sweats,No Fatigue, No Malaise ENT/Mouth : No Hearing loss, No Ear Pain, No Nasal Congestion, NoSinus Pain, No Hoarseness, No sore throat, No Rhinorrhea, NoSwallowing Difficulty Eyes: No Eye Pain, No Swelling, No Redness, No Foreign Body, NoDischarge, No Vision Changes Cardiovascular : No Chest Pain, No SOB, No Dyspnea on Exertion, NoOrthopnea, No Edema, No Palpitations Respiratory : No Cough, No Sputum, No Wheezing, No Smoke Exposure, No Dyspnea Gastrointestinal : No Nausea, No Vomiting, No Diarrhea, NoConstipation, No abdominal Pain, No Hematochezia, No Melena Musculoskeletal : left wrist and forearm pain Skin : No Skin Lesions, No rash Neuro : No Weakness, No Numbness, No Paresthesias, No Loss ofConsciousness, No Dizziness, No Headache Neurologic: Denies Sensory deficit (Neuro) [facility] Past Medical History Medical History Anxiety and depression Cardiomyopathy History of breast cancer History of breast cancer Hypercholesterolemia Infiltrating ductal carcinoma of right breast Left bundle branch block Post-menopausal Tubular adenoma of colon Type 2 diabetes mellitus with hyperglycemia Surgical History (Updated 12/09/20 @ 14:02 by Ivana Mead RN) H/O left breast biopsy History of colonoscopy History of lumpectomy of right breast Family History Family History Father CVD (cardiovascular disease) Myocardial infarct Mother HTN (hypertension) Cancer Uterine cancer Paternal Aunt Myocardial infarct Paternal Uncle Myocardial infarct Brother No problems noted. Social History Social History Housing: House Alcohol intake: current Alcohol intake frequency: holidays/special occasions only Patient Tobacco Use Status: Never used Tobacco Cigarette Packs Per Day: 0 Cigarettes Per Day: 0 Years Smoked: 0 e-Cigarette/Vaping Use: Never Used Second Hand Smoke Exposure: No Advance Directives: No Advance Directives Information Provided: No service: No Current occupational status: retired Physical Exam Vital Signs: Vital Signs: Last Vital Signs Temp 97.9 F 02/26/21 17:40 Pulse 74 02/26/21 17:40 Resp 18 02/26/21 17:40 BP 138/69 02/26/21 17:40 Pulse Ox 99 02/26/21 17:40 Body Mass Index 19.8 Const: General: healthy appearing, well developed, alert and awake Nutritional Appearance: well nourished Orientation/consciousness: patient oriented x3 Limitations: no limitations Eyes: Pupils: Equal, round and reactive pupils present EOM: EOMs intact bilaterally Resp: Effort & Inspection: normal respiratory effort and able to speak in complete sentences Auscultation: clear to auscultation bilaterally, no crackles, no rales, no rhonchi and no wheezes Cardio: Rate: regular rate Rhythm: regular rhythm Heart sounds: S1 normal heart sound present and S2 normal heart sound present Skin: General skin exam: no rashes or lesions noted Neuro: General: patient oriented x3 Cranial nerves: Yes Equal, round and reactive pupils present Sensory Exam: No Sensory deficit (Neuro) Extrem: Left upper extremity: normal capillary refill, elbow/forearm Details: tenderness Location: of the mid-shaft forearm and wrist (distal radius); No no cyanosis and no edema Course Course Course Narrative: 70-year-old female presents with worsening pain after sustaining a left distal radius fracture yesterday. Patient is in a sugar-tong splint. Patient has only started taking oxycodone this afternoon. On exam, patient has mildly swollen left wrist, has intact sensation and pulses in left upper extremity. Patient is very tender over entire forearm. Forearm is not swollen or hard. XR forearm today: Unchanged alignment of the mildly impacted distal radial fracture. No additional fractures. X-ray elbow unremarkable yesterday. X-ray wrist shows transverse impacted left distal radius fracture. Discussed with Dr Diehl if this could be compartment syndrome, due to her increased pain Unlikely compartment syndrome due to be only fracture being in her distal radius. Splinted patient in volar splint, counseled her to use her sling, follow up with Ortho, and continue to take her oxycodone as scheduled. Encouraged patient to return if she had worsening pain that was uncontrolled with the oxycodone. Patient verbalized agreement understanding of the plan. ? Discharge Plan Discharge Clinical Impression: Distal radius fracture, right Qualifiers: Encounter type: initial encounter Fracture type: closed Fracture morphology: other fracture Qualified Code(s): S52.591A - Other fractures of lower end of right radius, initial encounter for closed fracture Patient Disposition: Home, Self-Care Instructions: Wrist Fracture in Adults (ED), Splint Care (ED), R.I.C.E. Treatment (ED) Additional Instructions: There are no new fractures from your x-rays today. Please take the oxycodone your prescribed. Please take 1 pill every 4-6 hours. Please return to the emergency room if you have pain out of proportion despite taking oxycodone. Please rest your left arm, elevate your left arm. Please you leave the splint on until you are seen and released by Orthopedics. Please call Orthopedics at [phone] as planned. Prescriptions: No Action ezetimibe 10 mg tablet 10 mg PO DAILY Qty: 30 RF: 11 carvedilol 3.125 mg tablet 3.125 mg PO BID Qty: 180 RF: 2 lisinopril 2.5 mg tablet 2.5 mg PO DAILY Qty: 90 RF: 3 hydrochlorothiazide 12.5 mg tablet 12.5 mg PO DAILY Qty: 30 RF: 0 amitriptyline 25 mg tablet 25 mg PO BEDTIME Qty: 30 RF: 0 (DME) mastectomy bra Crystals See Rx Instructions .Route Qty: 6 RF: 0 oxycodone 5 mg tablet 5 mg PO Q6H PRN (Reason: pain) Qty: 8 RF: 0 multivitamin Tablet 1 tab PO DAILY RF: 0 melatonin 3 mg capsule 3 mg PO BEDTIME PRN (Reason: Sleep) RF: 0 aspirin [Adult Aspirin Regimen] 81 mg tablet,delayed release (DR/EC) 81 mg PO DAILY RF: 0 paroxetine HCl 10 mg tablet 10 mg PO DAILY Qty: 30 RF: 2 alprazolam 0.5 mg tablet 0.5 mg PO BID 90 Days Qty: 180 RF: 1 Referrals: Sarbjit Sawyer MD [Physician] - 2 days Interventions: ED Discharge Assessment Last Done: 02/26/21 21:54 Discharge Date/Time: 02/26/21 21:56
== END 2021-02-26 21:56 | disposition home or self-care (01) ==
PROVIDERS: Emergency Provider Internal Medicine; PCP Internal Medicine
DX: S52.591A Other fractures of lower end of right radius, initial encounter for closed fracture (principal); E11.9 Type 2 diabetes mellitus without complications; X58.XXXA Exposure to other specified factors, initial encounter; Y93.9 Activity, unspecified; Y92.9 Unspecified place or not applicable; Y99.9 Unspecified external cause status
CPT/HCPCS: 29125; 73090; 99284

== ENCOUNTER 2021-02-28 10:57 | Outpatient (REF) | payer MEDICARE, SELFPAY ==
--- NOTE | ~2021-02-28 | XR_ITS ---
EXAMINATION: XR WRIST, LEFT CLINICAL INFORMATION: Left wrist pain. COMPARISON: Left hand and wrist radiographs dated 02/25/2021. TECHNIQUE: PA, lateral, and oblique views of the left wrist. FINDINGS: Mildly displaced and comminuted distal radial fracture in unchanged anatomic alignment. Severe joint space narrowing with subchondral sclerosis at the triscaphe joint with more mild osteophyte arthritis at the 1st carpometacarpal and radiocarpal joints. No osseous erosion. No abnormal soft tissue calcification. XR/XR wrist LT min 3V IMPRESSION: Distal radial fracture in unchanged anatomic alignment.
== END 2021-02-28 10:58 | disposition home or self-care (01) ==
LOC: HO.HOSX 10:57
PROVIDERS: Visit Provider Orthopaedic Surgery
DX: S52.502A Unspecified fracture of the lower end of left radius, initial encounter for closed fracture (principal)
CPT/HCPCS: 73110; 99202

== ENCOUNTER 2021-03-07 10:05 | Outpatient (REF) | payer MEDICARE, SELFPAY ==
--- NOTE | ~2021-03-07 | XR_ITS ---
EXAMINATION: XR WRIST, LEFT CLINICAL INFORMATION: Left wrist pain. COMPARISON: Left forearm radiographs 02/28/2021. TECHNIQUE: PA, lateral, and oblique views of the left wrist. FINDINGS: Again seen is a distal radial fracture which is comminuted with mild impaction and dorsal angulation of the distal fracture fragment. There has been no interval change when compared to the study from 7 days ago on 02/28/2021. No other fractures are seen. XR/XR wrist LT min 3V IMPRESSION: Distal left radial fracture unchanged.
== END 2021-03-07 10:06 | disposition home or self-care (01) ==
LOC: HO.HOSX 10:05
PROVIDERS: Visit Provider Orthopaedic Surgery
DX: M25.532 Pain in left wrist (principal)
CPT/HCPCS: 73110

== ENCOUNTER 2021-03-28 08:53 | Outpatient (REF) | payer MEDICARE, SELFPAY ==
--- NOTE | ~2021-03-28 | XR_ITS ---
EXAMINATION: XR WRIST, LEFT CLINICAL INFORMATION: Pain in left wrist COMPARISON: 02/25/2021 and 03/07/2021 TECHNIQUE: PA, lateral, and oblique views of the left wrist. FINDINGS: The bones appear to be diffusely osteopenic. Again noted is the transversely oriented impaction fracture of the distal radial metaphysis with increased sclerosis, consistent with healing response. No significant displacement of fragments. There is some persistent fracture lucency in the injured cortex. There is approximately 8 degrees dorsal tilt of the radial articular surface. No significant loss of the radial length. No carpal bone fracture. Soft tissues are mildly swollen around the injured radius. Mild osteoarthritis of the DRUJ and radioscaphoid joint. Moderate osteoarthritis of the triscaphe joint and mild osteoarthritis of the first carpometacarpal joint. XR/XR wrist LT min 3V IMPRESSION: There is a healing, mildly impacted fracture of the distal radial metaphysis.
== END 2021-03-28 08:54 | disposition home or self-care (01) ==
LOC: HO.HOSX 08:53
PROVIDERS: Visit Provider Orthopaedic Surgery
DX: S52.502D Unspecified fracture of the lower end of left radius, subsequent encounter for closed fracture with routine healing (principal); M25.632 Stiffness of left wrist, not elsewhere classified
CPT/HCPCS: 73110; 99212

== ENCOUNTER 2021-04-25 14:23 | Outpatient (REF) | payer MEDICARE, SELFPAY ==
--- NOTE | ~2021-04-25 | XR_ITS ---
EXAMINATION: XR HAND, LEFT CLINICAL INFORMATION: Left hand pain. COMPARISON: Left wrist radiographs dated 03/28/2021. TECHNIQUE: PA, lateral, and oblique views of the left hand. FINDINGS: There is generalized osteopenia. Mild interphalangeal and first carpometacarpal as well as moderate triscaphe degenerative joint changes are seen. There is no acute fracture or dislocation. The carpal bones are normally aligned. Mild deformity seen at the level of the distal radial metaphysis. The distal ulna is intact. Mild distal radial ulnar degenerative joint changes are seen. There is mild soft tissue swelling. XR/XR hand LT min 3V IMPRESSION: 1. Progressive healing of distal radial metaphysis fracture. The transverse fracture line is still visualized. 2. Mild to moderate degenerative joint changes suggesting osteoarthritis.
== END 2021-04-25 14:24 | disposition home or self-care (01) ==
LOC: HO.HOSX 14:23
PROVIDERS: PCP Internal Medicine; Visit Provider Orthopaedic Surgery
DX: S52.502D Unspecified fracture of the lower end of left radius, subsequent encounter for closed fracture with routine healing (principal)
CPT/HCPCS: 73130; 99212

== ENCOUNTER 2021-06-01 14:00 | Outpatient (RCR) | payer MEDICARE, SELFPAY ==
--- NOTE | 2021-04-04 13:24 | MHC.OT.OEV ---
[address] [phone] F: [phone] Occupational Therapy Evaluation Diagnosis: Left Distal Radius Fracture Date of Onset: 02/25/21 Date of Surgery: Attending Provider: Dr Damon Prescribed Treatment: Eval and Treat MD Follow Up Appointment: 04/25/21 History of Current Condition: 70 yo female fell while doing yard work, landed on outstretched hand resulting in left distal radius fracture. She was seen in the ED, splinted and referred to ortho, but returned to ED x2 for splint adjustments prior to visit. She has since been seen by Dr Damon and placed in cast until follow up 03/28/21, placed in removable prefab orthosis. Significant Medical History: HTN, OA, DM, Left BBB Precautions/Contraindications: 5 wks s/p fx Patient Goals: Be able to use hand normally like before the fracture Hand Dominance: Right Observations: Pre-giancarlo orthosis left wrist QuickDASH Score: 86 Prior Level of Function and Occupation Self Care, Employment, Leisure: Retired, goes to [employer] 3-5 x/wk, enjoys daily walking, volunteers at [facility] (in short stay surgery) Bowling, Pickleball Living Situation, Family and/or Social Support: Lives alone, recently Current Level of Function and Occupation Self Care, Employment, Leisure: Uses dominant right hand primarily, difficulty w/ bimanual tasks (opening jars, opening jeans) Not doing activities at this moment (bowling, pickleball) Sleep: Wakes her up at night, difficulty sleeping in general Driving: Unable to drive until [address] Damon Pain Assessment Pain Score: 2 Pain Scale Used: Numeric (0 - 10) Pain Location and Description: Low pain at rest, left hand dorsum, left ulnar wrist radiating to forearm Pain increased w/ movement Aggravating Factors: Light activities (dished, dusting) Alleviating Factors: Tylenol Wrist orthosis Skin and Soft Tissue Assessment Skin and Soft Tissue: Swelling Sensory Assessment Comments: Pt reports decreased light touch in median nerve distribution of left hand Edema Assessment Comments: Figure 8: R 38.5 L 41 Wrist crease: R 15.5 L 16.8 Dexterity Assessment Dexterity: B/L Impaired Comments: Difficulty w/ buttons AROM(PROM) Strength Shoulder Flexion: Extension: Abduction: Internal Rotation: External Rotation: Comments: WFL Flexion: Extension: Abduction: Internal Rotation: External Rotation: Comments: Elbow Flexion: Extension: Pronation: Supination: Comments: WFL Flexion: Extension: Pronation: R 85 L 65 Supination: R 85 L 55 Comments: Wrist Flexion: R 45 L 20 Extension: R 60 L 40 Ulnar Deviation: R 50 L 10 Radial Deviation: R 10 L 10 Comments: Flexion: Extension: Ulnar Deviation: Radial Deviation: Comments: Thumb Thumb CMC Flexion: Thumb MCP Flexion: Thumb IP Flexion: Radial Abduction: Palmar Abduction: [place] ([place] 0-10): R 10 L 7 Comments: Digits Index MCP: PIP: DIP: Long MCP: PIP: DIP: Ring MCP: PIP: DIP: Small MCP: PIP: DIP: Comments: Slight decreased end range composite flexion, intrinsic tightness B/L'ly, L > R Gross Grasp: Lateral Pinch: Two-Point Pinch: Three-Jaw Maulik: Comments: Patient Education Primary Language: Citizen Of [place] Service Correspondent Required: No Current Knowledge: Understands information with skills for self-management Teaching Method: Demonstration Handouts Verbal Education Needs Identified on Evaluation: ADL's Disease Information Equipment Use Exercise Pain Safety How did patient/family demonstrate learning? Patient demonstrates Patient verbalizes Barriers to Learning: None Readiness for Learning: Accepting Who was educated? Patient Comments: Plan of Care Assessment: 70 yo right hand dominant female presents just over five weeks s/p fall w/ FOOSH injury, resulting in left distal radius fracture w/ minimal displacement. She was casted for about four weeks, now wearing removable pre-giancarlo orthosis and cleared to start AROM and OT. On assessment, she has edema presents in digits, hand and wrist, with decreased range in all planes. She reports mild sensation changes, decreased light touch specificially in median nerve distribution of digits, not present in thenar eminance. She reports pain in hand dorsum, thumb base and ulnar wrist radiaitng at times to upper arm. She will benefit from cont'd therapy services to address these issues and regain optimal functional use of left hand. STG Duration: 2 weeks Short Term Goals: Ind w/ HEP Ind w/ edema management techniques Pt to complete gross grasp assessment w/ strength >10lb Left forearm AROM 70/70 Left wrist AROM 50/30 LTG Duration: 6 weeks Long-Term Goals: Pain free left hand/wrist w/ light daily activities Left gross grasp 35lb QuickDASH score <40 pts Wrist rotation 80/80 pain free Wrist AROM 55/45 Frequency and Duration: The patient will be seen 2x/wk for 6 weeks Treatment Plan: Therapeutic Exercise Therapeutic Activity Home Exercise Program Splinting Patient Education Edema Control ADL Training Ultrasound Iontophoresis Paraffin Fluidotherapy MHP Cold Packs Joint Mobilization Soft Tissue Mobilization Kinesiotaping Electronically Signed By: Jaelyn Hunter OTR/L Reviewed/agree with student documentation: N/A Therapist: Please sign and return to therapist, Thank you for your referral.
--- NOTE | 2021-04-24 14:55 | MHC.OT.OP ---
[address] [phone] F: [phone] Occupational Therapy Progress Note Diagnosis: Left Distal Radius Fracture Date of Evaluation: 04/04/21 Treatments to Date: 6 Subjective: It's not so bad today Pain Score: 3 Pain Location: Left ulnar wrist up to 7/10 w/ movement Objective Measures: Ext/Flex 42/42 (post-tx ext/flex 50/55) Pro/Sup 72/80 Gross grasp R 45lb L 12b Edema: Figure 8: 40 cm Wrist crease 16 cm Status: Progressing Assessment: Susan is now 8 weeks s/p left distal radius fracture w/ non-op conservative management. She is very motivated and good follow through w/ joint protection and HEP, she continues to report pain in ulnar wrist, but less than on initial assessment. She demos good improvements with range during treatment, but decreased carry over with gains between visits and still w/ low strength. She will benefit from cont'd therapy to progress range and strength for optimal functional return. Short Term Goals: Ind w/ HEP (met) Ind w/ edema management techniques (met) Pt to complete gross grasp assessment w/ strength >10lb Left forearm AROM 70/70 (met) Left wrist AROM 50/30 Risk Reduction Counselor Goals: Pain free left hand/wrist w/ light daily activities Left gross grasp 35lb QuickDASH score <40 pts Wrist rotation 80/80 pain free Wrist AROM 55/45 Frequency and Duration: The patient will be seen 2x/wk for 4 weeks Treatment Plan: Therapeutic Exercise Therapeutic Activity Home Exercise Program Patient Education Edema Control ADL Training Ultrasound Paraffin Fluidotherapy MHP Cold Packs Joint Mobilization Soft Tissue Mobilization Kinesiotaping Electronically Signed By: Jaelyn Hunter OTR/L Reviewed/agree with student documentation: N/A Therapist:
--- NOTE | 2021-06-01 14:57 | MHC.OT.DC ---
[address] [phone] F: [phone] Occupational Therapy Discharge Note Provider: Dr Damon Diagnosis: Left Distal Radius Fracture Date of Evaluation: 04/04/21 Date of Discharge: 06/01/21 Treatments to Date: 15 Discharge Status: Achieved Goals Improved Function Independent with HEP Discharge Summary: Susan is now 14 weeks s/p DRF, doing well w/ daily activities, progressing to light gym classes for conditioning and balance. Wrist range WFL, strength is functional but weak, continues to progress, some difficulties due to CMC arthritis. Goals met and independent with HEP. Electronically Signed By: Jaelyn Hunter OTR/Shoshana CHT Reviewed/agree with student documentation: N/A Please Sign and return to therapist, thank you for your referral.
== END 2021-06-01 14:58 | disposition home or self-care (01) ==
LOC: HO.OT 14:00
PROVIDERS: PCP Internal Medicine; Visit Provider Orthopaedic Surgery
DX: S52.502D Unspecified fracture of the lower end of left radius, subsequent encounter for closed fracture with routine healing (principal); M25.632 Stiffness of left wrist, not elsewhere classified
CPT/HCPCS: 29130; 97035; 97110; 97112; 97140; 97166; 97530; 97760

== ENCOUNTER → 2021-06-06 13:43 | Outpatient (BNVA) | payer MEDICARE, SELFPAY | PROVIDERS: PCP Internal Medicine; Visit Provider Orthopaedic Surgery | DX: S52.502D Unspecified fracture of the lower end of left radius, subsequent encounter for closed fracture with routine healing (principal); M79.642 Pain in left hand | CPT/HCPCS: 99212 ==

== ENCOUNTER 2021-06-09 13:07 | Outpatient (REF) | payer MEDICARE, SELFPAY ==
--- NOTE | ~2021-06-09 | MR_ITS ---
EXAMINATION: MR BREAST WITHOUT AND WITH CONTRAST, BILATERAL CLINICAL INFORMATION: Personal history of right breast carcinoma, status post lumpectomy. Personal history of left breast ALH, history of excision. COMPARISON: Bilateral breast MRI 12/22/2019, bilateral mammogram 12/07/2020. TECHNIQUE: Imaging was performed with a dedicated breast coil. Prior to the administration of contrast, bilateral axial T1 and bilateral axial T2 weighted sequences were obtained. After the uneventful administration of?6 mL of Gadavist, dynamic contrast-enhanced VIBRANT series through the breasts in the axial plane were performed. Subtracted images were performed and reviewed. A delayed sagittal sequence through both breasts was acquired. Additionally, CAD post-processing, including maximum intensity projections, 3-D reconstructions and kinetic analysis, were performed at an independent workstation and reviewed by the interpreting radiologist and is a portion of this exam. FINDINGS: The patient's fibroglandular tissue demonstrates moderate background enhancement. LEFT BREAST: There is clumped nodular [id number] enhancement in the 9 o'clock position, medial to the postsurgical scar and area of magnetic susceptibility artifact (in the 3 o'clock position) at a middle depth measuring 1.2 x 0.7 cm (subtracted sequence image 72 of 114). Although this does not demonstrate suspicious enhancement kinetics, the morphology of this finding is indeterminate. Review of most recent prior mammograms does not demonstrate a discrete mammographic correlate for this finding. There is no skin thickening or nipple retraction present. RIGHT BREAST: Postlumpectomy change is present centrally, the right breast is distorted in morphology due to postsurgical change. There is no suspicious enhancing mass or ductal-type enhancement on the right. No skin thickening or skin enhancement is seen. There is no suspicious internal mammary chain or axillary adenopathy. Postsurgical scarring is noted in the right axilla. Limited views of the chest and abdomen are unremarkable. There are a few scattered nonenhancing cysts in the left lobe of the liver. MR/MR breast BI wo/w con IMPRESSION: New olh-hths-ayak enhancement in the 9 o'clock position of the left breast is indeterminate in appearance. This medially abuts the area of postsurgical change and magnetic susceptibility in the 3 o'clock/central position. ASSESSMENT: LEFT BREAST: BI-RADS 4, suspicious. RIGHT BREAST: BI-RADS 2, benign findings. RECOMMENDATIONS: MR guided core biopsy of left breast [id number], nodular enhancement. Results were called to PIO Bangura on 06/15/21 at 10:04 am.
[2021-06-09 13:18] LABS: Blood Urea Nitrogen 17 mg/dL (9-16); Estimated Glomerular Filt Rate > 60
== END 2021-06-09 13:08 | disposition home or self-care (01) ==
LOC: HO.MRI 13:07
PROVIDERS: PCP Internal Medicine; Visit Provider Surgery
DX: C50.911 Malignant neoplasm of unspecified site of right female breast (principal)
CPT/HCPCS: 36415; 77049; 82565; 84520; A9585

== ENCOUNTER 2021-06-29 07:43 | Outpatient (REF) | payer MEDICARE, SELFPAY ==
--- NOTE | ~2021-06-29 | MR_ITS ---
EXAMINATION: MR GUIDED VACUUM-ASSISTED CORE BIOPSY BREAST, LEFT MM DIGITAL MAMMOGRAPHY POST BIOPSY, LEFT CLINICAL INFORMATION: Prior history right breast cancer status post lumpectomy. Prior history left breast ALH with fixation 2010. Recent MR shows enhancement medial to the prior benign biopsy clip marker central left breast, unremarkable kinetics. COMPARISON: Bilateral breast MR without and with gadolinium 06/09/2021, digital breast tomosynthesis 12/07/2020. TECHNIQUE/PROCEDURE: Informed consent was obtained from the patient after discussion of the benefits, risks, and alternatives to biopsy today. Patient appeared to understand. Gave opportunity for questions. Patient signed consent form. Biopsy is performed under MRI guidance using breast surface coil. Imaging is performed without and with use of 6 mL Gadavist gadolinium contrast. [employer]Seed introducer localization system is used with grid. LESION: Non mass enhancement central 9:00 right breast 0.7 x 1.2 cm. LOCAL ANESTHESIA: 7 mL carbonated 1% lidocaine; 10 mL 1% lidocaine with epinephrine. NEEDLE: [employer] 9-gauge vacuum assisted core biopsy device. APPROACH: Lateral medial. Grids were placed on both the medial and lateral sides. Unable to access targeted area from the medial side. CORES: 10. CLIP: TriMark barbell shaped. POSTPROCEDURE UNILATERAL DIGITAL MAMMOGRAM: Mammography is performed using digital mammography in CC and ML views. There are scattered areas of fibroglandular density (ACR BI-RADS breast composition Category b). The new barbell shaped clip marker is in position. There is a prior cylinder shaped clip marker also left breast mid depth lateral to midline. No gross hematoma. The patient tolerated the procedure well. No immediate complications. Home instructions reviewed with the patient. Final pathology results are pending. MR/MR guided breast biopsy LT IMPRESSION: 1. Status post MRI guided vacuum-assisted core biopsy left breast with clip placement. 2. Final pathology results pending. An addendum report will be issued.
[2021-06-29] MEDS: Lidocaine HCl 1%/Epi 1:100,000 20 ML VIAL INFILTRATI (10:17)
[2021-06-29] MEDS: Lidocaine HCl 1 % MPF 5 ML VIAL SUBCUT ×2 (10:25→10:26)
== END 2021-06-29 07:44 | disposition home or self-care (01) ==
LOC: HO.MRI 07:43
PROVIDERS: Visit Provider Surgery
DX: N63.25 Unspecified lump in the left breast, overlapping quadrants (principal); R92.8 Other abnormal and inconclusive findings on diagnostic imaging of breast; Z86.000 Personal history of in-situ neoplasm of breast
CPT/HCPCS: 19085; 77065; 88305; A4648; A9585

== ENCOUNTER → 2021-07-04 10:37 | Outpatient (BNVA) | payer MEDICARE, SELFPAY | PROVIDERS: PCP Internal Medicine; Visit Provider Surgery | DX: Z85.3 Personal history of malignant neoplasm of breast (principal); Z86.000 Personal history of in-situ neoplasm of breast; Z80.3 Family history of malignant neoplasm of breast; Z91.89 Other specified personal risk factors, not elsewhere classified; Z92.21 Personal history of antineoplastic chemotherapy; Z92.3 Personal history of irradiation | CPT/HCPCS: 99212 ==

== ENCOUNTER → 2021-10-09 15:03 | Outpatient (REF) | payer MEDICARE, SELFPAY ==
--- NOTE | 2021-10-09 15:07 | CA_ITS ---
Transthoracic Echocardiogram Patient (Last, First, Middle): Susan Raya A Gender: Female Date of : 1950 Age: 71 Procedure Date: 10/09/2021 Procedure Type: Transthoracic Echocardiogram Location: OP Height: 172.72 cm Weight: 58.97 kg BSA: 1.70 m2 Heart Rate: bpm BP: 132 / 80 mmHg Production Clerk: HADLEY Referring MD: Heber King MD Symptoms: I42.8 - Other cardiomyopathies Study Quality: Fair ECG Rhythm: Sinus Conclusions: - The left ventricular systolic function is mild to moderately decreased. The visually estimated ejection fraction is between 40-45%. - No obvious valvular pathology seen on this study. Findings Left Ventricle Normal left ventricular cavity size. There is normal left ventricular wall thickness. The left ventricular systolic function is mild to moderately decreased. The visually estimated ejection fraction is between 40-45%. There is paradoxical septal motion consistent with a left bundle branch block. Diastolic function is normal for age. Right Ventricle Normal right ventricular cavity size and systolic function. Atria Both atria are normal in size. Aortic Valve The aortic valve was not well visualized. There is no aortic valve stenosis. There is no aortic valve regurgitation. Mitral Valve The mitral valve appears normal. There is trace mitral valve regurgitation. There is no mitral valve stenosis. Pulmonic Valve The pulmonic valve is likely normal. Tricuspid Valve There is trace tricuspid valve regurgitation. The pulmonary artery systolic pressure is normal. Great Vessels The aortic annulus, sinuses of valsalva, asc aorta, and aortic arch are normal in size. Venous The inferior vena cava is normal in size and collapses greater than 50% with inspiration. Pericardium/Pleural There is no evidence of pericardial effusion. Prior Study Comparison No significant change compared to prior study dated: 08/22/2020. Recommendations, Care & Conclusions No obvious valvular pathology seen on this study. Measurements 2D Linear Measurements IVSd: 0.95 0.6-0.9/0.6-1.0 cm LVIDd: 4.12 3.9-5.3/4.2-5.9 cm LVIDd Index: 2.42 2.4-3.2/2.2-3.1 cm/m2 LVIDs: 3.18 2.0-3.6 cm LVPWd: 0.91 0.7-1.1 cm LA Diam: 3.00 2.7-3.8/3.0-4.0 cm LAIDs Index: 1.76 1.5-2.3 cm/m2 LV Mass: 149.11 67-162/88-224 g LV Mass Index: 87.71 43-95/49-115 g/m2 LVOT Diam: 2.00 3.0+(-)1.3 cm 2D Systolic Function EF 4C: 47.40 >55% EF 2C: 53.70 >55% EF BiP: 50.80 >55% Mitral Valve MV Pk E: 0.67 MV PK A: 0.72 MV Decel Time: 258.00 E/A: 0.90 E'Lateral: 7.51 E'Medial: 6.09 E/E' Med: 11.00 E/E' Lat: 8.90 PHT: 76.00 MVA PHT: 2.89 Decel Nelson: 2.59 Aortic Valve AoV Pk Reed: 1.46 AoV Mn Reed: 0.88 AoV VTI: 0.30 AoV Pk Grad: 9.00 Aov Mn Grad: 4.00 CALEB Cont.VTI: 2.00 LVOT LVOT Pk Reed: 0.96 LVOT Mn Reed: 0.63 LVOT VTI: 0.19 LVOT Pk Grad: 4.00 LVOT Mn Grad: 2.00 LVOT Diam: 2.00 LVOT Area: 3.14 Diastolic Function MV Pk E: 0.67 MV Pk A: 0.72 E/A: 0.90 E'Medial: 6.09 E/E' Med: 11.00 E' Laterial: 7.51 E/E' Lat: 8.90 Right Ventricle TAPSE (mm): 22.70 TVS' Reed: 12.90 Tricuspid Valve TR Pk Reed: 2.39 TR Pk Grad: 23.00 RA Press: 3.00 RVSP: 26.00 Great Vessels Aorta Ao Asc: 2.90 2.1-3.4 cm Ao Arch: 3.00 Updated in Other Vendor System with Status of Final Heber King MD electronically signed on 10/10/2021 4:22:47 PM with status of Final
== END ==
LOC: HO.CARD 15:03
PROVIDERS: Visit Provider Internal Medicine
DX: I42.8 Other cardiomyopathies (principal)
CPT/HCPCS: 93306

== ENCOUNTER → 2021-10-17 13:50 | Outpatient (BNVA) | payer MEDICARE, SELFPAY | PROVIDERS: PCP Internal Medicine; Referring Provider Internal Medicine; Visit Provider Internal Medicine | DX: I42.8 Other cardiomyopathies (principal); I44.7 Left bundle-branch block, unspecified; R20.9 Unspecified disturbances of skin sensation | CPT/HCPCS: 93005; 99212 ==

== ENCOUNTER → 2021-11-23 12:43 | Outpatient (BNVA) | payer MEDICARE, SELFPAY | PROVIDERS: PCP Internal Medicine; Visit Provider Surgery Vascular Surgery | DX: I73.00 Raynaud's syndrome without gangrene (principal) | CPT/HCPCS: 99202 ==

== ENCOUNTER 2021-12-18 15:49 | Outpatient (REF) | payer MEDICARE, SELFPAY ==
--- NOTE | ~2021-12-18 | MM_ITS ---
EXAMINATION: MM SCREENING DIGITAL BREAST TOMOSYNTHESIS, BILATERAL CLINICAL INFORMATION: Screening. Asymptomatic. Right breast cancer status post lumpectomy, 2000. 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 Benign left MR biopsy 06/29/2021. COMPARISON: Mammography: 06/29/2021, 06/09/2020, 11/02/2019, 1220, 07/24/2018 TECHNIQUE: Digital breast tomosynthesis is performed in both the craniocaudal and mediolateral oblique views along with computer-aided detection (CAD). Synthesized 2D images are generated from the tomosynthesis. Additional right CC and exaggerated right CC views are provided. FINDINGS: The breasts are heterogeneously dense, which may obscure small masses (ACR BI-RADS breast composition Category c). Breast tissue composition borders on average fibroglandular. Parenchymal pattern is similar to prior studies. There is no developing density or interval mass or architectural. There are again post therapy changes on the right with reduced breast size and stable scarring, and benign dystrophic calcification, surgical clips, and a biopsy clip marker. Left breast has 2 biopsy clip markers and some stable scattered fine calcifications. MM/MM tomosynthesis screening BI IMPRESSION: No significant changes from prior studies. ASSESSMENT: BI-RADS 2: Benign RECOMMENDATION: Routine annual mammography screening. This patient's information was entered into a reminder system with a target due date for their next mammogram.
== END 2021-12-18 15:50 | disposition home or self-care (01) ==
LOC: HO.MAMMO 15:49
PROVIDERS: Visit Provider Internal Medicine
DX: Z12.31 Encounter for screening mammogram for malignant neoplasm of breast (principal)
CPT/HCPCS: 77063; 77067

== ENCOUNTER 2022-02-12 09:41 | Outpatient (REF) | payer MEDICARE, SELFPAY ==
[2022-02-12 11:18] LABS: MANUAL DIFF FLAG NO
[2022-02-12 11:35] LABS: Basophils Percent Auto 0.5 % (0-2); Eosinophils Absolute Auto 0.1 X10*3/uL (0.0-0.4); Eosinophils Percent Auto 2.9 % (0-4); Hematocrit 37.7 % (37.0-47.0); Hemoglobin 12.2 g/dl (12.0-16.0); Imm Gran Abs Auto 0.01 X10*3/uL (0.00-0.03); Imm Gran Pct Auto 0.2 % (0.0-0.4); Lymphocytes Absolute Auto 0.8 X10*3/uL (1.2-4.9); Lymphocytes Percent Auto 18.4 % (20-40); Mean Corpuscular HGB Conc 32.4 g/dl (31.0-35.0); Mean Corpuscular Hemoglobin 33.4 pg (27.0-33.0); Mean Corpuscular Volume 103.3 fL (80.0-98.0); Mean Platelet Volume 9.7 fL (9.4-12.3); Monocytes Absolute Auto 0.3 X10*3/uL (0.1-1.2); NRBC Pct Auto 0.5 /100WBC (0.0-0.2); Neutrophils Absolute Auto 3.1 x10*3/uL (2.0-8.3); Platelet Count 297 X10*3/uL (160-400); Red Blood Count 3.65 X10*6/uL (4.20-5.50); Red Cell Distribution Width 13.5 % (11.0-16.0); White Blood Count 4.4 X10*3/uL (4.8-10.8)
[2022-02-12 12:15] LABS: Appearance Urine Clear; Color Urine Yellow; Glucose Urine UA Negative (Negative); Leukocyte Esterase Urine Small (1+) (Negative); Nitrite Urine Negative (Negative); UMIC TRIGGER UA YES; Urine Blood Moderate (2+) (Negative); Urine Ketones Negative (Negative); Urine Protein Negative (Neg-Trace)
[2022-02-12 12:17] LABS: Erythrocyte Sedimentation Rate 23 MM/HR (0-20)
[2022-02-12 12:47] LABS: Bacteria Urine None Seen (None Seen); Hyaline Casts Urine 0-2 /LPF (0-2); WBC Urine 0-5 /HPF (0-5)
[2022-02-12 13:00] LABS: Alanine Aminotransferase 14 U/L (0-31); Albumin Level 4.3 g/dL (3.5-5.0); Alkaline Phosphatase 61 U/L (39-117); Anion Gap 16 (12-20); Aspartate Amino Transferase 17 U/L (5-31); Bilirubin Total 0.4 mg/dL (0.0-1.0); Blood Urea Nitrogen 22 mg/dL (9-16); C Reactive Protein 0.07 mg/dL (< or = 0.50); Calcium 9.3 mg/dL (8.4-10.2); Carbon Dioxide 25 mmol/L (22-29); Chloride 105 mmol/L (96-108); Cholesterol 227 mg/dL; Estimated Glomerular Filt Rate > 60; Glucose Random 115 mg/dL (60-115); HDL Cholesterol 77 mg/dL; LDL Cholesterol Calculated 131 mg/dl; Potassium 4.4 mmol/L (3.3-5.1); Sodium 142 mmol/L (135-145); Total Protein 7.3 g/dL (6.5-8.0); Triglycerides 96 mg/dL
[2022-02-12 13:08] LABS: Free T4 (Free Thyroxine) 0.96 ng/dL (0.71-1.85); Thyroid Stimulating Hormone 2.01 uIU/mL (0.32-4.0); Vitamin D 25-OH Total 26.2 ng/mL (>30)
[2022-02-12 13:36] LABS: Folate 15.5 ng/mL (> or = 4.0); Vitamin B12 500 pg/mL (200-900)
== END 2022-02-12 09:42 | disposition home or self-care (01) ==
LOC: HO.WFDLDS 09:41
PROVIDERS: Visit Provider Internal Medicine
DX: E78.00 Pure hypercholesterolemia, unspecified (principal); M79.10 Myalgia, unspecified site; I42.8 Other cardiomyopathies
CPT/HCPCS: 36415; 80053; 80061; 81001; 82306; 82607; 82746; 84439; 84443; 85025; 85652; 86140

== ENCOUNTER 2022-04-06 14:37 | Outpatient (REF) | payer MEDICARE, SELFPAY ==
[2022-04-06 15:33] LABS: Appearance Urine Clear; Color Urine Yellow; Glucose Urine UA Negative (Negative); Leukocyte Esterase Urine Negative (Negative); Nitrite Urine Negative (Negative); UMIC TRIGGER UA YES; Urine Blood Trace (Negative); Urine Ketones Negative (Negative); Urine Protein Negative (Neg-Trace)
[2022-04-06 15:36] LABS: Bacteria Urine None Seen (None Seen); Hyaline Casts Urine 0-2 /LPF (0-2); Squamous Epithelial Cell Urine 0-2 /HPF (0-2); WBC Urine 0-5 /HPF (0-5)
[2022-04-06 16:08] LABS: Creatinine Urine 106.66 mg/dL; Total Protein Urine Random < 7 mg/dL (<12)
[2022-04-06 16:08] LABS: C Reactive Protein < 0.10 mg/dL (< or = 0.50); Lactate Dehydrogenase 197 U/L (122-220); Rheumatoid Factor < 13.0 IU/mL (<15.0)
[2022-04-06 16:59] LABS: Erythrocyte Sedimentation Rate 23 MM/HR (0-20)
[2022-04-07 23:27] LABS: Prot Elec - Albumin 4.5 g/dL (3.8-4.8); Prot Elec - Alpha1 0.3 g/dL (0.2-0.3); Prot Elec - Alpha2 0.7 g/dL (0.5-0.9); Prot Elec - Beta 1 0.6 g/dL (0.4-0.6); Prot Elec - Beta 2 0.5 g/dL (0.2-0.5); Prot Elec - Gamma 1.1 g/dL (0.8-1.7); Prot Elec - Total Protein 7.7 g/dL (6.1-8.1)
[2022-04-08 13:01] LABS: Cyclic Citrullinated Peptide <16 UNITS
[2022-04-09 05:15] LABS: HBS Num1 0.58 mIU/mL (0-7.99); HBc Num1 0.14 S/CO (0.00-0.79); HBsAGNum1 0.25 S/CO (0.00-0.99); Hepatitis B Core Antibody Nonreactive (Nonreactive); Hepatitis B Surface Antigen Negative (Negative); ~HepC Num1 0.07 S/CO (0.00-0.79); ~Hepatitis B Surface Antibody NONREACTIVE (Nonreactive); ~Hepatitis C Antibody Nonreactive (Nonreactive)
[2022-04-09 10:51] LABS: Complement C3 121 mg/dL (83-193)
[2022-04-09 13:46] LABS: Anti DNA DS Antibody <1 IU/mL; Antibody to SS-A Antigen <1.0 NEG AI (<1.0 NEG); Antibody to SS-B Antigen <1.0 NEG AI (<1.0 NEG); Myeloperoxidase Antibody <1.0 AI; Proteinase 3 PR3 Antibodies <1.0 AI; SM/Ribonucleoprotein Ab <1.0 NEG AI (<1.0 NEG); Scleroderma 70 Antibody <1.0 NEG AI (<1.0 NEG); Smith Protein <1.0 NEG AI (<1.0 NEG)
[2022-04-09 16:02] LABS: TS Negative Control Passed; TS Panel A 0; TS Panel B 0; TS Positive Control Passed; TSpotTB Negative (Negative)
[2022-04-10 12:11] LABS: IgA 422 mg/dL (70-320); IgG 1193 mg/dL (600-1540); IgM 89 mg/dL (50-300)
[2022-04-11 04:47] LABS: Hepatitis A Antibody IgM 0.14 Index (0-0.79); ~Hepatitis A Antibody IgM Nonreactive (Nonreactive)
[2022-04-11 05:26] LABS: Anti-Centromere B Antibodies <1.0 NEG AI (<1.0 NEG)
[2022-04-11 06:56] LABS: PTT (LAC) Screen 35 sec (<=40)
[2022-04-11 12:02] LABS: Anti Nuclear Antibody Pattern Nuclear, Homogeneous; Anti Nuclear Antibody Screen POSITIVE (NEGATIVE); Anti Nuclear Antibody Titer 1:40 titer
[2022-04-12 14:27] LABS: DNAds, Crithidia Antibody Negative (Negative)
[2022-04-13 12:26] LABS: Cardiolipin IgG Ab <2.0 GPL-U/mL; Cardiolipin IgM Ab <2.0 MPL-U/mL
[2022-04-13 20:41] LABS: Beta-2 Glycoprotein IgA <2.0 U/mL (<20.0); Beta-2 Glycoprotein IgG <2.0 U/mL (<20.0); Beta-2 Glycoprotein IgM <2.0 U/mL (<20.0)
[2022-04-14 05:17] LABS: Aldolase 4.3 U/L (<=8.1)
== END 2022-04-06 14:38 | disposition home or self-care (01) ==
LOC: HO.LAB 14:37
PROVIDERS: PCP Internal Medicine; Visit Provider Student in an Organized Health Care Education/Training Program
DX: Z11.59 Encounter for screening for other viral diseases (principal); Z11.7 Encounter for testing for latent tuberculosis infection; I73.00 Raynaud's syndrome without gangrene; M34.9 Systemic sclerosis, unspecified; G72.9 Myopathy, unspecified; M85.80 Other specified disorders of bone density and structure, unspecified site; F41.9 Anxiety disorder, unspecified; Z79.899 Other long term (current) drug therapy; Z72.89 Other problems related to lifestyle
CPT/HCPCS: 81001; 82085; 82784; 83615; 84156; 84165; 85597; 85613; 85652; 85730; 86021; 86038; 86039; 86140; 86146; 86147; 86160; 86200; 86225; 86235; 86255; 86334; 86431; 86481; 86704; 86706; 86709; 86803; 87340; 99202

== ENCOUNTER → 2022-04-10 14:09 | Outpatient (BNVA) | payer MEDICARE, SELFPAY | PROVIDERS: PCP Internal Medicine; Referring Provider Internal Medicine; Visit Provider Internal Medicine | DX: I42.8 Other cardiomyopathies (principal); I44.7 Left bundle-branch block, unspecified; I73.00 Raynaud's syndrome without gangrene | CPT/HCPCS: 99212 ==

== ENCOUNTER → 2022-05-08 08:47 | Outpatient (BNVA) | payer MEDICARE, SELFPAY | PROVIDERS: PCP Internal Medicine; Visit Provider Student in an Organized Health Care Education/Training Program | DX: I73.00 Raynaud's syndrome without gangrene (principal); M79.18 Myalgia, other site; M85.80 Other specified disorders of bone density and structure, unspecified site; D75.89 Other specified diseases of blood and blood-forming organs; Z78.0 Asymptomatic menopausal state | CPT/HCPCS: 36415; 80053; 82550; 85025; 99212 ==

== ENCOUNTER 2022-05-08 10:08 | Outpatient (REF) | payer MEDICARE, SELFPAY ==
[2022-05-08 13:55] LABS: MANUAL DIFF FLAG NO
[2022-05-08 13:58] LABS: Basophils Absolute Auto 0.1 X10*3/uL (0.0-0.2); Basophils Percent Auto 0.9 % (0-2); Eosinophils Absolute Auto 0.1 X10*3/uL (0.0-0.4); Eosinophils Percent Auto 2.1 % (0-4); Hematocrit 37.2 % (37.0-47.0); Hemoglobin 11.8 g/dl (12.0-16.0); Imm Gran Abs Auto 0.02 X10*3/uL (0.00-0.03); Imm Gran Pct Auto 0.4 % (0.0-0.4); Lymphocytes Absolute Auto 1.1 X10*3/uL (1.2-4.9); Mean Corpuscular HGB Conc 31.7 g/dl (31.0-35.0); Mean Corpuscular Volume 103.9 fL (80.0-98.0); Mean Platelet Volume 9.8 fL (9.4-12.3); Monocytes Absolute Auto 0.4 X10*3/uL (0.1-1.2); Monocytes Percent Auto 7.7 % (2-11); Neutrophils Absolute Auto 3.9 x10*3/uL (2.0-8.3); Neutrophils Percent Auto 69.9 % (45-73); Platelet Count 300 X10*3/uL (160-400); Red Blood Count 3.58 X10*6/uL (4.20-5.50); Red Cell Distribution Width 13.6 % (11.0-16.0); White Blood Count 5.6 X10*3/uL (4.8-10.8)
[2022-05-08 15:28] LABS: Alanine Aminotransferase 15 U/L (0-31); Albumin Level 4.2 g/dL (3.5-5.0); Alkaline Phosphatase 55 U/L (39-117); Anion Gap 12 (12-20); Aspartate Amino Transferase 18 U/L (5-31); Bilirubin Total 0.6 mg/dL (0.0-1.0); Blood Urea Nitrogen 24 mg/dL (9-16); Calcium 9.6 mg/dL (8.4-10.2); Carbon Dioxide 31 mmol/L (22-29); Chloride 106 mmol/L (96-108); Estimated Glomerular Filt Rate > 60; Glucose Random 119 mg/dL (60-115); Potassium 4.8 mmol/L (3.3-5.1); Sodium 144 mmol/L (135-145); Total Protein 6.9 g/dL (6.5-8.0)
== END 2022-05-08 10:09 | disposition home or self-care (01) ==
LOC: HO.10HDL 10:08
PROVIDERS: Visit Provider Student in an Organized Health Care Education/Training Program
DX: G72.9 Myopathy, unspecified (principal); M79.18 Myalgia, other site; I73.00 Raynaud's syndrome without gangrene; D75.89 Other specified diseases of blood and blood-forming organs; M85.80 Other specified disorders of bone density and structure, unspecified site; Z78.0 Asymptomatic menopausal state
CPT/HCPCS: 36415; 80053; 82550; 85025

== ENCOUNTER → 2022-05-18 11:24 | Outpatient (BNV) | payer MEDICARE, SELFPAY | PROVIDERS: PCP Internal Medicine; Referring Provider Student in an Organized Health Care Education/Training Program; Visit Provider Internal Medicine | DX: D75.89 Other specified diseases of blood and blood-forming organs (principal) | CPT/HCPCS: 99204; 99213; 99214; G2211 ==

== ENCOUNTER 2022-06-08 16:14 | Outpatient (REF) | payer MEDICARE, SELFPAY | END 2022-06-08 16:15 | disposition home or self-care (01) | LOC: HO.LAB 16:14 | PROVIDERS: PCP Internal Medicine; Visit Provider Internal Medicine | DX: M79.7 Fibromyalgia (principal); H93.19 Tinnitus, unspecified ear; D75.89 Other specified diseases of blood and blood-forming organs; M79.10 Myalgia, unspecified site | CPT/HCPCS: 36415; 82785; 86003 ==

== ENCOUNTER → 2022-07-06 14:13 | Outpatient (BNVA) | payer MEDICARE, SELFPAY | PROVIDERS: PCP Internal Medicine; Visit Provider Surgery | DX: C50.911 Malignant neoplasm of unspecified site of right female breast (principal); Z86.000 Personal history of in-situ neoplasm of breast; Z80.3 Family history of malignant neoplasm of breast; Z91.89 Other specified personal risk factors, not elsewhere classified | CPT/HCPCS: 99212 ==

== ENCOUNTER 2022-08-08 14:57 | Outpatient (REF) | payer MEDICARE, SELFPAY ==
--- NOTE | ~2022-08-08 | XR_ITS ---
EXAMINATION: XR THORACIC SPINE CLINICAL INFORMATION: Dorsalgia. COMPARISON: None available. TECHNIQUE: Frontal, lateral and swimmer's views of the thoracic spine were obtained. FINDINGS: There is bony demineralization. There is a moderate lower thoracic dextroscoliosis. The thoracic disc spaces are well-maintained. No acute fracture or spondylolisthesis is seen. This multi-level mild thoracic spondylosis. The posterior elements are intact. There are axillary surgical clips. XR/XR lumbar spine 4V min IMPRESSION: 1. No acute fracture or spondylolisthesis is seen. 2. There is a moderate lower thoracic dextroscoliosis. 3. The thoracic disc spaces are well-maintained. 4. There is multi-level mild thoracic spondylosis. EXAMINATION: XR LUMBOSACRAL SPINE CLINICAL INFORMATION: Back pain. COMPARISON: None TECHNIQUE: AP and lateral views of the lumbar spine and lateral view of the lumbosacral junction. FINDINGS: There is bony demineralization. Vertebral body heights and alignment are normal. At L3-L4, there is mild posterior disc space narrowing. There is moderately severe disc space narrowing L4-L5. The remaining disc spaces are relatively well-maintained. No acute fracture or spondylolisthesis is seen. There is multi-level mild lumbar spondylosis. There is facet arthropathy at L5-S1. There are aortoiliac atherosclerotic calcifications. IMPRESSION: 1. There is mild degenerative disc disease at L3-L4, and marked degenerative disc disease at L4-L5. 2. There is multi-level lumbar spondylosis. 3. There is facet arthropathy at L5-S1.
--- NOTE | ~2022-08-08 | XR_ITS ---
EXAMINATION: XR THORACIC SPINE CLINICAL INFORMATION: Dorsalgia. COMPARISON: None available. TECHNIQUE: Frontal, lateral and swimmer's views of the thoracic spine were obtained. FINDINGS: There is bony demineralization. There is a moderate lower thoracic dextroscoliosis. The thoracic disc spaces are well-maintained. No acute fracture or spondylolisthesis is seen. This multi-level mild thoracic spondylosis. The posterior elements are intact. There are axillary surgical clips. XR/XR elbow RT min 3V IMPRESSION: 1. No acute fracture or spondylolisthesis is seen. 2. There is a moderate lower thoracic dextroscoliosis. 3. The thoracic disc spaces are well-maintained. 4. There is multi-level mild thoracic spondylosis. EXAMINATION: XR LUMBOSACRAL SPINE CLINICAL INFORMATION: Back pain. COMPARISON: None TECHNIQUE: AP and lateral views of the lumbar spine and lateral view of the lumbosacral junction. FINDINGS: There is bony demineralization. Vertebral body heights and alignment are normal. At L3-L4, there is mild posterior disc space narrowing. There is moderately severe disc space narrowing L4-L5. The remaining disc spaces are relatively well-maintained. No acute fracture or spondylolisthesis is seen. There is multi-level mild lumbar spondylosis. There is facet arthropathy at L5-S1. There are aortoiliac atherosclerotic calcifications. IMPRESSION: 1. There is mild degenerative disc disease at L3-L4, and marked degenerative disc disease at L4-L5. 2. There is multi-level lumbar spondylosis. 3. There is facet arthropathy at L5-S1.
--- NOTE | ~2022-08-08 | XR_ITS ---
EXAMINATION: XR WRIST, RIGHT XR HAND, RIGHT CLINICAL INFORMATION: Pain. COMPARISON: None available. TECHNIQUE: PA, lateral, and oblique views of the right wrist and PA, lateral, and oblique views of the right hand FINDINGS: Bony alignment and mineralization are normal. There are mild to moderate osteoarthritic changes of the interphalangeal joints of the first through fifth fingers. Very mild osteoarthritic change is seen of the first through fifth metacarpophalangeal joints. There are periarticular calcifications of the second metacarpophalangeal joint. There is mild osteoarthritic change of the first carpometacarpal joint. There are degenerative changes of the triscaphe joint. The proximal and distal carpal rows are intact. No fracture or dislocation is seen. There is no abnormal bone erosion. No focal soft tissue swelling, gas or foreign body is seen. 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 No fracture or dislocation is seen. There is no abnormal bone erosion.
--- NOTE | ~2022-08-08 | XR_ITS ---
EXAMINATION: XR THORACIC SPINE CLINICAL INFORMATION: Dorsalgia. COMPARISON: None available. TECHNIQUE: Frontal, lateral and swimmer's views of the thoracic spine were obtained. FINDINGS: There is bony demineralization. There is a moderate lower thoracic dextroscoliosis. The thoracic disc spaces are well-maintained. No acute fracture or spondylolisthesis is seen. This multi-level mild thoracic spondylosis. The posterior elements are intact. There are axillary surgical clips. XR/XR thoracic spine 3V IMPRESSION: 1. No acute fracture or spondylolisthesis is seen. 2. There is a moderate lower thoracic dextroscoliosis. 3. The thoracic disc spaces are well-maintained. 4. There is multi-level mild thoracic spondylosis. EXAMINATION: XR LUMBOSACRAL SPINE CLINICAL INFORMATION: Back pain. COMPARISON: None TECHNIQUE: AP and lateral views of the lumbar spine and lateral view of the lumbosacral junction. FINDINGS: There is bony demineralization. Vertebral body heights and alignment are normal. At L3-L4, there is mild posterior disc space narrowing. There is moderately severe disc space narrowing L4-L5. The remaining disc spaces are relatively well-maintained. No acute fracture or spondylolisthesis is seen. There is multi-level mild lumbar spondylosis. There is facet arthropathy at L5-S1. There are aortoiliac atherosclerotic calcifications. IMPRESSION: 1. There is mild degenerative disc disease at L3-L4, and marked degenerative disc disease at L4-L5. 2. There is multi-level lumbar spondylosis. 3. There is facet arthropathy at L5-S1.
== END 2022-08-08 14:58 | disposition home or self-care (01) ==
LOC: HO.XRAY 14:57
PROVIDERS: PCP Internal Medicine; Visit Provider Student in an Organized Health Care Education/Training Program
DX: M25.541 Pain in joints of right hand (principal); M25.521 Pain in right elbow; M54.9 Dorsalgia, unspecified; M81.0 Age-related osteoporosis without current pathological fracture; I73.00 Raynaud's syndrome without gangrene; M79.18 Myalgia, other site; M85.80 Other specified disorders of bone density and structure, unspecified site; D75.89 Other specified diseases of blood and blood-forming organs; M54.6 Pain in thoracic spine; Z78.0 Asymptomatic menopausal state; Z79.899 Other long term (current) drug therapy
CPT/HCPCS: 72072; 72110; 73080; 73110; 73130; 99212

== ENCOUNTER 2022-08-20 10:12 | Outpatient (REF) | payer MEDICARE, SELFPAY ==
[2022-08-20 10:44] LABS: MANUAL DIFF FLAG NO
[2022-08-20 11:54] LABS: Estimated Average Glucose 126 mg/dL
[2022-08-20 12:01] LABS: Basophils Absolute Auto 0.1 X10*3/uL (0.0-0.2); Basophils Percent Auto 1.1 % (0-2); Eosinophils Absolute Auto 0.1 X10*3/uL (0.0-0.4); Eosinophils Percent Auto 2.2 % (0-4); Hematocrit 37.5 % (37.0-47.0); Hemoglobin 12.1 g/dl (12.0-16.0); Imm Gran Abs Auto 0.01 X10*3/uL (0.00-0.03); Imm Gran Pct Auto 0.2 % (0.0-0.4); Immature Retic Fraction 13.4 % (3.0-15.9); Lymphocytes Absolute Auto 1.1 X10*3/uL (1.2-4.9); Lymphocytes Percent Auto 24.9 % (20-40); Mean Corpuscular HGB Conc 32.3 g/dl (31.0-35.0); Mean Corpuscular Hemoglobin 33.6 pg (27.0-33.0); Mean Corpuscular Volume 104.2 fL (80.0-98.0); Mean Platelet Volume 9.7 fL (9.4-12.3); Monocytes Absolute Auto 0.4 X10*3/uL (0.1-1.2); Monocytes Percent Auto 7.9 % (2-11); Neutrophils Absolute Auto 2.8 x10*3/uL (2.0-8.3); Neutrophils Percent Auto 63.7 % (45-73); Platelet Count 277 X10*3/uL (160-400); Red Cell Distribution Width 13.9 % (11.0-16.0); Retic HGB Equivalent 37.6 pg (30.0-35.0); Reticulocyte Percent 1.4 % (0.5-1.8); White Blood Count 4.5 X10*3/uL (4.8-10.8)
[2022-08-20 12:15] LABS: Alanine Aminotransferase 16 U/L (0-31); Albumin Level 4.2 g/dL (3.5-5.0); Alkaline Phosphatase 52 U/L (39-117); Anion Gap 12 (12-20); Aspartate Amino Transferase 19 U/L (5-31); Bilirubin Total 0.7 mg/dL (0.0-1.0); Blood Urea Nitrogen 24 mg/dL (9-16); Calcium 9.8 mg/dL (8.4-10.2); Carbon Dioxide 30 mmol/L (22-29); Chloride 106 mmol/L (96-108); Cholesterol 251 mg/dL; Estimated Glomerular Filt Rate > 60; Glucose Random 131 mg/dL (60-115); HDL Cholesterol 86 mg/dL; Iron 139 mcg/dL (30-160); LDL Cholesterol Calculated 148 mg/dl; Percent Iron Saturation 43 % (15-50); Sodium 143 mmol/L (135-145); Total Iron Binding Capacity 323 mcg/dL (228-428); Triglycerides 87 mg/dL; Unsaturated Iron Binding 184 ug/dL
[2022-08-20 13:01] LABS: Ferritin 109 ng/mL (10-250); Folate > 20.0 ng/mL (> or = 4.0); Free T4 (Free Thyroxine) 0.84 ng/dL (0.71-1.85); Thyroid Stimulating Hormone 1.48 uIU/mL (0.32-4.0); Vitamin B12 860 pg/mL (200-900)
== END 2022-08-20 10:13 | disposition home or self-care (01) ==
LOC: HO.LAB 10:12
PROVIDERS: PCP Internal Medicine; Visit Provider Internal Medicine
DX: E11.65 Type 2 diabetes mellitus with hyperglycemia (principal); E78.00 Pure hypercholesterolemia, unspecified; E55.9 Vitamin D deficiency, unspecified
CPT/HCPCS: 36415; 80053; 80061; 82306; 82550; 82607; 82728; 82746; 83036; 83540; 84439; 84443; 85025; 85045

== ENCOUNTER 2022-12-12 12:49 | Outpatient (REF) | payer MEDICARE, SELFPAY ==
--- NOTE | ~2022-12-12 | MM_ITS ---
EXAMINATION: BONE DENSITOMETRY CLINICAL INDICATION: Other specified disorders of bone density and structure, unspecified site. COMPARISON: Previous BD dated 12/07/2020 and baseline BD dated 08/05/2015. TECHNIQUE: Using a [employer] DXA System (software version: 13.1) manufactured by [employer], dual-energy x-ray absorptiometry was performed of the lumbar spine and left hip. The images are of good technical quality. Summary results are attached. FINDINGS: LEFT FEMUR, NECK: Current: BMD 0.774 g/cm2, Z-score 0.0, T-score -1.9, osteopenia. Prior: BMD 0.764 g/cm2. Baseline: BMD 0.908 g/cm2. LEFT FEMUR, TOTAL: Current: BMD 0.833 g/cm2, Z-score 0.3, T-score -1.4, osteopenia, 0.7% increase from previous, 14.0% decrease from baseline (<5% change is not significant). Prior: BMD 0.827 g/cm2. Baseline: BMD 0.969 g/cm2. AP SPINE L1-L2 (excluding L3 and L4): The data of L1-L4 has been changed to exclude the L3 and L4 vertebral bodies, because degenerative changes at these levels may cause overestimation of lumbar spine density. Current: BMD 0.944 g/cm2, Z-score 0.1, T-score -1.8, osteopenia, 2.9% decrease from previous, 9.7% decrease from baseline (<5% change is not significant). Prior: BMD 0.972 g/cm2. Baseline: BMD 1.045 g/cm2. IDENTIFIED RISK FACTORS: Early menopause, history of fracture (adult), hyperthyroid, rheumatoid arthritis, secondary osteoporosis. HISTORY OF FRACTURE: Wrist. MEDICATIONS: History of radiation within tamoxifen, multivitamin. MM/XR DEXA axial skeleton IMPRESSION: 1. DIAGNOSIS: Osteopenia based on the lowest T-score value of -1.9 in the femoral neck applying World Health Organization criteria. 2. 10-YEAR FRACTURE RISK PREDICTION, FRAX: Major osteoporotic fracture (clinical spine, forearm, hip or shoulder) 21.0%. Hip fracture 5.0%. 3. Treatment Recommendations: NOF guidelines recommend consideration for treatment in postmenopausal women and men age 50 and older presenting with the following: -A hip or vertebral (clinical or morphometric) fracture. -T-score less than or equal to -2.5 at the femoral neck or spine after appropriate evaluation to exclude secondary causes. -Low bone mass at the hip or spine and a 10-year fracture probability by FRAX of greater than or equal to 3% for hip fracture or greater than or equal to 20% for major osteoporotic fracture based on the [place] adapted WHO algorithm. 4. Other Recommendations: All treatment decisions require clinical judgment and consideration of individual patient factors, including patient preferences, comorbidities, previous drug use, risk factors not captured in the FRAX model (e.g. frailty, falls, vitamin D deficiency, increased bone turnover, interval significant decline in bone density) and possible under or overestimation of fracture risk by FRAX. Additional medical evaluation for secondary cause of low bone mineral density may be appropriate. FUTURE SCAN RECOMMENDATION: People with diagnosed cases of osteoporosis or at high risk for fracture should have regular bone mineral density tests. For patients eligible for Medicare, routine testing is allowed once every 2 years. The testing frequency can be increased to one year for patients who have rapidly progressing disease, those who are receiving or discontinuing medical therapy to restore bone mass, or have additional risk factors.
== END 2022-12-12 12:50 | disposition home or self-care (01) ==
LOC: HO.MAMMO 12:49
PROVIDERS: PCP Internal Medicine; Visit Provider Nurse Practitioner Family
DX: Z13.820 Encounter for screening for osteoporosis (principal); Z78.0 Asymptomatic menopausal state; M85.80 Other specified disorders of bone density and structure, unspecified site
CPT/HCPCS: 77080

== ENCOUNTER → 2022-12-12 12:56 | Outpatient (BNV) | payer MEDICARE, SELFPAY | PROVIDERS: PCP Internal Medicine; Visit Provider Radiology Diagnostic Radiology | DX: M85.80 Other specified disorders of bone density and structure, unspecified site (principal) | CPT/HCPCS: 77080 ==

== ENCOUNTER 2022-12-25 14:39 | Outpatient (REF) | payer MEDICARE, SELFPAY ==
--- NOTE | ~2022-12-25 | MM_ITS ---
EXAMINATION: MM SCREENING DIGITAL BREAST TOMOSYNTHESIS, BILATERAL CLINICAL INFORMATION: Screening. Asymptomatic. The patient has history of right breast cancer treated with lumpectomy in 1999. The patient also had left breast surgery in 2010 for atypical lobular hyperplasia. She has a history of a benign left breast MR biopsy in June 2021. COMPARISON: Mammography: This study is compared with prior exams dating back to 2019. TECHNIQUE: Digital breast tomosynthesis is performed in both the craniocaudal and mediolateral oblique views along with computer-aided detection (CAD). Synthesized 2D images are generated from the tomosynthesis. FINDINGS: There are scattered areas of fibroglandular density (ACR BI-RADS breast composition Category b). There are no significant masses, abnormal calcifications, or other abnormalities. There are 2 tissue markers in the left breast and one tissue marker in the right breast. These are from prior benign percutaneous biopsies. There is postsurgical change in the upper outer quadrant of the right breast. MM/MM tomosynthesis screening BI IMPRESSION: No mammographic evidence of malignancy. ASSESSMENT: BI-RADS BI-RADS 2 - Benign Findings RECOMMENDATION: Routine annual mammography screening. 1 year F/U This examination should not preclude the clinical evaluation of a suspicious palpable abnormality. This patient's information was entered into a reminder system with a target due date for their next mammogram.
== END 2022-12-25 14:40 | disposition home or self-care (01) ==
LOC: HO.MAMMO 14:39
PROVIDERS: PCP Internal Medicine; Visit Provider Internal Medicine
DX: Z12.31 Encounter for screening mammogram for malignant neoplasm of breast (principal)
CPT/HCPCS: 77063; 77067

== ENCOUNTER → 2022-12-25 14:45 | Outpatient (BNV) | payer MEDICARE, SELFPAY | PROVIDERS: PCP Internal Medicine; Visit Provider Radiology Diagnostic Radiology | DX: Z12.31 Encounter for screening mammogram for malignant neoplasm of breast (principal) | CPT/HCPCS: 77063; 77067 ==

== ENCOUNTER 2023-02-12 15:15 | Outpatient (AMB) | payer MEDICARE, SELFPAY ==
[2023-02-12 15:20] VITALS: BP 152/96; PULSE 70; O2SAT 97; BMI 19.9
--- NOTE | 2023-02-12 15:20 | A.OFFPC_ITS ---
Vital Signs 02/12/23 15:20 Height 5 ft 8 in Weight 131 lb BMI 19.9 BP 152/96 H Blood Pressure Location Lt brachial Position Sitting Pulse 70 Pulse Source Pulse Oximeter Pulse Oximetry (%) 97 Oxygen Delivery Method Room Air Intake Visit Reasons: HTN, cholesterol Charging Board Operator: Not Required per policy Accompanied by: Self / Same As Patient Allergies morphine [MORPHINE] Adverse Reaction (Mild, Verified 02/12/23 15:21) VOMITING, sensitivity atorvastatin Adverse Reaction (Unknown, Verified 02/12/23 15:21) Muscle cramps rosuvastatin [Crestor] Adverse Reaction (Unknown, Verified 02/12/23 15:21) muscle ache simvastatin Adverse Reaction (Unknown, Verified 02/12/23 15:21) Muscle cramps Tobacco use date assessed: 06/08/22 Fall risk assessment: No Falls in past year Last assessed Fall Risk: 02/12/23 Dental Screening Dental Screen Date: 02/12/23 Did you have a dental visit in the last 12 months?: No Did you have a dental problem in the last 6 months where you did not have access to dental care?: No Was dental information given to patient?: Patient has dentist HPI HTN, cholesterol HPI Details 72-year-old female with osteopenia hyper cholesterolemia diabetes mellitus controlled and generalized anxiety disorder last seen in October 2022. Patient is here for follow-up. Patient colonoscopy is up-to-date mammograms up-to-date bone density is up-to-date. teary in office due to husbands passing away- call this services -forgot ashes to be given to her. hence the BP elevated today. does exercises in Y. - joint pain- hand and knee - has seen rheuma- voltaren gel and advised glucosamine [facility] Medical History Screening for viral disease Distal radius fracture, left Post-menopausal Infiltrating ductal carcinoma of right breast History of breast cancer Anxiety and depression Left bundle branch block Tubular adenoma of colon History of breast cancer Hypercholesterolemia Cardiomyopathy Type 2 diabetes mellitus with hyperglycemia Surgical History History of colonoscopy H/O left breast biopsy History of lumpectomy of right breast Family History Father CVD (cardiovascular disease) Myocardial infarct Mother HTN (hypertension) Cancer Uterine cancer Arthritis Paternal Aunt Myocardial infarct Paternal Uncle Myocardial infarct Brother No problems noted. Social History Household Members: None Housing: House Alcohol intake: current Alcohol intake frequency: holidays/special occasions only Patient Tobacco Use Status: Never used Tobacco e-Cigarette/Vaping Use: Never Used Second Hand Smoke Exposure: No service: No Current occupational status: retired Current occupation: rt hand Cognitive needs: No Hearing needs: No Vision needs: Yes Questionnaire PHQ-9 Over the last 2 weeks, how often have you been bothered by any of the following problems? 1. Little interest or pleasure in doing things: not at all 2. Feeling down, depressed, or hopeless: not at all 3. Trouble falling or staying asleep, or sleeping too much: not at all 4. Feeling tired or having little energy: not at all 5. Poor appetite or overeating: not at all 6. Feeling bad about yourself - or that you are a failure or have let yourself or your family down: not at all 7. Trouble concentrating on things, such as reading the newspaper or watching television: not at all 8. Moving or speaking so slowly that other people could have noticed. Or the opposite - being so fidgety or restless that you have been moving around a lot more than usual: not at all 9. Thoughts that you would be better off or of hurting yourself in some way: not at all Total score: 0 Depression Screening Interpretation: Negative 18815 - PHQ-9 Billing: Yes Source: Developed by Drs. Noel Rouse, Gulshan Vidal and colleagues, with an educational [email or web address] from [employer]. Thrive Questionnaire Date Thrive assessed: 08/10/22 AUDIT C Alcohol Use Questionnaire (AUDIT-C) 1. How often do you have a drink containing alcohol?: Never Total Score: 0 ROBER-7 AMB Questionnaire ROBER-7 Date ROBER - 7 assessed: 08/10/22 Source: Developed by Drs. Noel Rouse, Brenda Sheffield, Gulshan Jamison and colleagues, with an educational kimberley from [employer]. Physical exam (Primary Care) Vital Signs: Last Vital Signs Pulse 70 02/12/23 15:20 BP 152/96 H 02/12/23 15:20 Pulse Ox 97 02/12/23 15:20 Oxygen Delivery Method Room Air 02/12/23 15:20 BMI result Body Mass Index 19.9 Tobacco/Smoking Status: Tobacco use Status Tobacco use date assessed 06/08/22 02/12/23 15:22 Patient Tobacco Use Status Never used Tobacco 02/12/23 15:22 e-Cigarette/Vaping Use Never Used 02/12/23 15:22 PHQ-9: PHQ-9 Score PHQ-9: Total score 0 02/12/23 15:41 Depression Screening Interpretation: Negative Thrive Assessment: Date of Thrive Assessment Date Thrive assessed 08/10/22 02/12/23 15:22 Const General: alert; No acute distress Eyes Conjunctivae: conjunctivae normal Resp Auscultation: clear to auscultation bilaterally Cardio Rate: regular rate Rhythm: regular rhythm GI Inspection: Yes normal to inspection Extrem General: Yes normal to inspection and No edema Results AMB Hemoglobin A1c AMB Hemoglobin A1c 6.3 % Last Edit by ADY Anthony on 02/12/23 15:54 Assessment and Plan Assessment & Plan (1) Type 2 diabetes mellitus with hyperglycemia: Code(s): E11.65 - Type 2 diabetes mellitus with hyperglycemia Qualifiers: Diabetes mellitus residential insulin use: without termination clerk use Qualified Code(s): E11.65 - Type 2 diabetes mellitus with hyperglycemia Plan: Decrease the amount of carbohydrate intake, pasta, bread, rice and potatoes are all sugar and that is aside from all the sweet stuff, remember that fruits are good but they are Sweet also. Hemoglobin A1c goal of less than 7.0 patient is diet controlled (2) Cardiomyopathy: Comment: Sees Dr. King Code(s): I42.9 - Cardiomyopathy, unspecified Qualifiers: Cardiomyopathy type: unspecified Qualified Code(s): I42.9 - Cardiomyopathy, unspecified Plan: Control the cholesterol, weight, blood pressure, diabetes (3) Hypercholesterolemia: Code(s): E78.00 - Pure hypercholesterolemia, unspecified Plan: Avoid fried foods, chicken skin, eggs, butter margarine, pastries and meat. Be it pork or beef they have a lot of cholesterol LDL goal of less than 100 and tr iglyceride of less than 150. Patient is statin intolerant and on Zetia only (4) Recurrent major depression: Comment: decline referral for now 07/2022 Code(s): F33.9 - Major depressive disorder, recurrent, unspecified Plan: Continue with therapy mirtazapine alprazolam (5) History of breast cancer: Comment: 2000 right lumpectomy chemo and radiation Dr. Moody, MRI November 2015 Code(s): Z85.3 - Personal history of malignant neoplasm of breast Plan: Patient is up-to-date with mammogram Orders: Orders Comprehensive Met. Panel Today E78.00 - Pure hypercholesterolemia, unspecified Free T4 (Free Thyroxine) Today E78.00 - Pure hypercholesterolemia, unspecified Thyroid Stimulating Hormone Today E78.00 - Pure hypercholesterolemia, unspecified Lipid Panel Today E78.00 - Pure hypercholesterolemia, unspecified IRON PROFILE Today E11.65 - Type 2 diabetes mellitus with hyperglycemia Reticulocyte Count Today E11.65 - Type 2 diabetes mellitus with hyperglycemia Microalbumin, Random (w Creat) Today E11.65 - Type 2 diabetes mellitus with hyperglycemia AMB Hemoglobin A1c Today E11.65 - Type 2 diabetes mellitus with hyperglycemia Complete Blood Count Auto Diff Today E78.00 - Pure hypercholesterolemia, unspecified Vitamin B12 and Folate Today E78.00 - Pure hypercholesterolemia, unspecified Ferritin Today E11.65 - Type 2 diabetes mellitus with hyperglycemia Creatinine Urine Today E11.65 - Type 2 diabetes mellitus with hyperglycemia Medications: New alprazolam 0.5 mg PO DAILY PRN 90 tabs 0RF Anxiety F41.9 - Anxiety disorder, unspecified Refilled mirtazapine (Remeron) 15 mg PO BEDTIME 90 tabs 1RF E11.65 - Type 2 diabetes mellitus with hyperglycemia Coding Level of Care Code Est Pt Level 4 (25232) Diagnoses Type 2 diabetes mellitus with hyperglycemia, without long-term current use of insulin E11.65 Diabetes mellitus termination clerk insulin use: without residential use Cardiomyopathy, unspecified type I42.9 Cardiomyopathy type: unspecified Hypercholesterolemia E78.00 Recurrent major depression F33.9 History of breast cancer Z85.3
== END 2023-02-12 16:09 | disposition home or self-care (01) ==
PROVIDERS: Visit Provider Internal Medicine
DX: E11.65 Type 2 diabetes mellitus with hyperglycemia (principal); I42.9 Cardiomyopathy, unspecified; F33.9 Major depressive disorder, recurrent, unspecified; Z85.3 Personal history of malignant neoplasm of breast; E78.00 Pure hypercholesterolemia, unspecified
CPT/HCPCS: 83036; 99214

== ENCOUNTER → 2023-03-29 14:56 | Outpatient (REF) | payer MEDICARE, SELFPAY ==
--- NOTE | 2023-03-29 14:59 | CA_ITS ---
Transthoracic Echocardiogram Patient (Last, First, Middle): Susan Raya A Gender: Female Date of : 1950 Age: 72 Procedure Date: 03/29/2023 Procedure Type: Transthoracic Echocardiogram Location: OP Height: 170.18 cm Weight: 58.97 kg BSA: 1.68 m2 Heart Rate: bpm BP: 122 / 70 mmHg Wrapper Layer: Referring MD: Heber King MD Android Programmer: Oswaldo Tracy MD Symptoms: I42.8 - Other cardiomyopathies Study Quality: Fair ECG Rhythm: Sinus, LBBB Conclusions: - 1. [id number] LV systolic dysfunction with LVEF of 40-45% with mild LVH with impaired relaxation filling pattern 2. Cardiac valvular Dopplers within normal limits 3. Normal RV systolic pressure 4. No gross pericardial effusion Findings Left Ventricle Normal left ventricular cavity size. There is mildly increased left ventricular wall thickness. The left ventricular systolic function is mild to moderately decreased. The visually estimated ejection fraction is between 40-45%. There is paradoxical septal motion consistent with a left bundle branch block. Spectral Doppler is indicative of an impaired relaxation filling pattern. E/E prime ratio is between 8 and 15 consistent with indeterminate filling pressures. Right Ventricle Normal right ventricular cavity size and systolic function. Atria The left atrium is likely dilated. There is lipomatous hypertrophy of the interatrial septum. There is no evidence of interatrial shunt. The right atrium is normal in size. Aortic Valve The aortic valve structure and function is likely normal. There is no aortic valve stenosis. There is no aortic valve regurgitation. Mitral Valve There is mild anterior and posterior mitral leaflet thickening. There is trace mitral valve regurgitation. There is no mitral valve stenosis. Pulmonic Valve The pulmonic valve is likely normal. Tricuspid Valve Normal tricuspid valve structure. There is trace tricuspid valve regurgitation. The right ventricular systolic pressure is normal. The right ventricular systolic pressure is 25 mmHg. Normal right atrial pressure. There is no evidence of pulmonary hypertension. Great Vessels The aorta was not well visualized. The pulmonary artery was not well visualized. Venous The inferior vena cava is normal in size and collapses greater than 50% with inspiration. Pericardium/Pleural There is no evidence of pericardial effusion. Prior Study Comparison No significant change compared to prior study dated: 10/09/2021. Measurements 2D Linear Measurements IVSd: 1.24 0.6-0.9/0.6-1.0 cm LVIDd: 4.07 3.9-5.3/4.2-5.9 cm LVIDd Index: 2.42 2.4-3.2/2.2-3.1 cm/m2 LVIDs: 3.04 2.0-3.6 cm LVPWd: 1.23 0.7-1.1 cm LA Diam: 3.50 2.7-3.8/3.0-4.0 cm LAIDs Index: 2.08 1.5-2.3 cm/m2 LV Mass: 220.80 67-162/88-224 g LV Mass Index: 131.43 43-95/49-115 g/m2 2D Systolic Function EF 4C: 43.00 >55% EF 2C: 44.50 >55% EF BiP: 41.60 >55% Mitral Valve MV Pk E: 0.50 MV PK A: 0.81 MV Decel Time: 70.00 E/A: 0.60 E'Lateral: 5.22 E'Medial: 4.46 E/E' Med: 11.20 E/E' Lat: 9.60 PHT: 20.00 MVA PHT: 11.00 Decel [place]: 7.18 Aortic Valve AoV Pk Reed: 1.35 AoV Mn Reed: 0.86 AoV VTI: 0.25 AoV Pk Grad: 7.00 Aov Mn Grad: 4.00 LVOT LVOT Pk Reed: 0.62 LVOT Mn Reed: 0.39 LVOT VTI: 0.13 LVOT Pk Grad: 2.00 LVOT Mn Grad: 1.00 Diastolic Function MV Pk E: 0.50 MV Pk A: 0.81 E/A: 0.60 E'Medial: 4.46 E/E' Med: 11.20 E' Laterial: 5.22 E/E' Lat: 9.60 Right Ventricle TAPSE (mm): 31.00 TVS' Reed: 11.00 Tricuspid Valve TR Pk Reed: 2.36 TR Pk Grad: 22.00 RA Press: 3.00 RVSP: 25.00 Pulmonary Valve PV Pk Reed: 1.42 Peak PV Grad: 8.00 Updated in Other Vendor System with Status of Final Oswaldo Tracy MD electronically signed on 03/29/2023 7:02:02 PM with status of Final
== END ==
LOC: HO.CARD 14:56
PROVIDERS: PCP Internal Medicine; Visit Provider Internal Medicine
DX: I42.8 Other cardiomyopathies (principal)
CPT/HCPCS: 93306

== ENCOUNTER → 2023-03-29 14:59 | Outpatient (BNV) | payer MEDICARE, SELFPAY | PROVIDERS: PCP Internal Medicine; Visit Provider Internal Medicine Cardiovascular Disease | DX: I34.89 Other nonrheumatic mitral valve disorders (principal); I42.8 Other cardiomyopathies | CPT/HCPCS: 93306 ==

== ENCOUNTER 2023-04-09 14:40 | Outpatient (AMB) | payer MEDICARE, SELFPAY ==
--- NOTE | 2023-04-09 14:46 | MHC.OFFVIS ---
Intake Vital Signs 04/09/23 14:47 Height 5 ft 8 in Weight 130 lb 1.164 oz BMI 19.8 BP 138/66 Blood Pressure Location Lt brachial Position Sitting Pulse 65 Intake Visit Reasons: 1 yr s/p echo Intake Note: 1 year follow up w/ EKG Dry Cure Worker Required: No Accompanied by: Self / Same As Patient Allergies morphine [MORPHINE] Adverse Reaction (Mild, Verified 04/09/23 14:50) VOMITING, sensitivity atorvastatin Adverse Reaction (Unknown, Verified 04/09/23 14:50) Muscle cramps rosuvastatin [Crestor] Adverse Reaction (Unknown, Verified 04/09/23 14:50) muscle ache simvastatin Adverse Reaction (Unknown, Verified 04/09/23 14:50) Muscle cramps Medication List - Last Reconciled 04/09/23 by Heber King MD alprazolam 0.5 mg PO DAILY PRN calcium carbonate (Oyster Shell Calcium) 500 mg PO DAILY carvedilol 3.125 mg PO BID cholecalciferol (vitamin D3) 25 mcg PO DAILY ezetimibe (Zetia) 10 mg PO DAILY lisinopril 2.5 mg PO DAILY mastectomy bra As directed mirtazapine (Remeron) 15 mg PO BEDTIME PRN multivitamin 1 tab PO DAILY HPI HPI Comments History of Present Illness Details Susan returns for follow-up regarding cardiomyopathy as well as left bundle-branch block. She lost her couple of years ago and since then has been quite depressed. She does not have any clear-cut cardiac symptoms. Some shortness of breath off and on but that has been the same for many years now. Otherwise, no issues like angina. Nonspecific aches and pains all over the body. Other issues like feeling tinnitus. She relates that to COVID vaccine. REPLACED BY [facility] Medical History Screening for viral disease Distal radius fracture, left Post-menopausal Infiltrating ductal carcinoma of right breast History of breast cancer Anxiety and depression Left bundle branch block Tubular adenoma of colon History of breast cancer Hypercholesterolemia Cardiomyopathy Type 2 diabetes mellitus with hyperglycemia Surgical History History of colonoscopy H/O left breast biopsy History of lumpectomy of right breast Family History Father CVD (cardiovascular disease) Myocardial infarct Mother HTN (hypertension) Cancer Uterine cancer Arthritis Paternal Aunt Myocardial infarct Paternal Uncle Myocardial infarct Brother No problems noted. Household Members: None Housing: House Alcohol intake: current Alcohol intake frequency: holidays/special occasions only Patient Tobacco Use Status: Never used Tobacco e-Cigarette/Vaping Use: Never Used Second Hand Smoke Exposure: No service: No Current occupational status: retired Current occupation: rt hand Cognitive needs: No Hearing needs: No Vision needs: Yes Review of Systems Const Denies weakness ENT Denies dizziness Card Denies chest pain, Denies chest pain with activity, Denies syncope, Denies rapid heart rate, Denies pedal edema, Denies edema, Denies leg edema, Denies lightheadedness, Denies palpitations, Denies dyspnea, Denies dyspnea on exertion and Denies orthopnea Resp Denies cough, Denies dyspnea and Denies dyspnea on exertion GI Denies hematochezia and Denies change in stool character Musc Denies abnormal gait, Denies muscle cramps, Denies muscle weakness, Denies numbness, Denies radiating pain into limb and Denies tingling Neuro Denies abnormal gait, Denies dizziness, Denies syncope, Denies numbness, Denies tingling and Denies weakness Endo Denies palpitations Physical Exam Vital Signs: Last Vital Signs Pulse 65 04/09/23 14:47 BP 138/66 04/09/23 14:47 BMI result Body Mass Index 19.8 Const General: comfortable and no acute distress Orientation/consciousness: patient oriented x3 HEENT Other: Unremarkable Head: Yes normal to inspection Neck Neck: Yes normal visual inspection Chest Chest palpation & inspection: normal inspection of the chest Resp Auscultation: clear to auscultation bilaterally Cardio Palpation: normal PMI Heart sounds: S1 normal heart sound present, S2 normal heart sound present, no gallops, no murmurs and no rubs GI Palpation (GI): Soft to palpation Back/Spine/Pelvis Other: unremarkable Skin General skin exam: no rashes or lesions noted Neuro General: patient oriented x3 Extrem General: Yes normal to inspection Psych Mental Status: mental status grossly normal Office Procedures EKG Details: EKG with sinus rhythm and left bundle-branch block. 65/min. [id number], Complete Assessment & Plan Assessment & Plan (1) NICM (nonischemic cardiomyopathy): Code(s): I42.8 - Other cardiomyopathies (2) Left bundle branch block: Code(s): I44.7 - Left bundle-branch block, unspecified Plan In the most recent echocardiogram, LVEF is 40-45%. Overall, the trend is mostly the same for the last few years with slight changes, up or down. Left bundle-branch block and septal movement also interferes with interpretation. Coronary CTA in the past did not reveal any significant coronary disease. There was mild eccentric distal left main plaque; minimal disease elsewhere. Overall, stable from cardiac standpoint. She is only on small dose of medications due to lowish blood pressures at different times. Hence no changes with the carvedilol/lisinopril. Total time spent including review of data, counseling, documentation, coordination of care-32 minutes. Medications: Changed From mirtazapine (Remeron) 15 mg PO BEDTIME 90 tabs 1RF E11.65 - Type 2 diabetes mellitus with hyperglycemia To mirtazapine (Remeron) 15 mg PO BEDTIME PRN E11.65 - Type 2 diabetes mellitus with hyperglycemia Coding Level of Care Code Est Pt Level 4 (68418) Diagnoses NICM (nonischemic cardiomyopathy) I42.8 Left bundle branch block I44.7 CPT Codes EKG - CPT: 13280-Xwmiczalybeltsioy, Complete ([id number])
[2023-04-09 14:47] VITALS: BP 138/66; PULSE 65; BMI 19.8
== END 2023-04-09 15:11 | disposition home or self-care (01) ==
PROVIDERS: Visit Provider Internal Medicine
DX: I42.8 Other cardiomyopathies (principal); I44.7 Left bundle-branch block, unspecified
CPT/HCPCS: 93010; 99214

== ENCOUNTER → 2023-04-09 14:40 | Outpatient (BNVA) | payer MEDICARE, SELFPAY | PROVIDERS: Visit Provider Internal Medicine | DX: I44.7 Left bundle-branch block, unspecified (principal); I42.8 Other cardiomyopathies; E11.65 Type 2 diabetes mellitus with hyperglycemia | CPT/HCPCS: 93005; 99212 ==

== ENCOUNTER 2023-05-08 15:00 | Outpatient (REF) | payer MEDICARE, SELFPAY ==
[2023-05-08 18:05] LABS: Appearance Urine Clear; Color Urine Yellow; Glucose Urine UA Negative (Negative); Leukocyte Esterase Urine Negative (Negative); Nitrite Urine Negative (Negative); PH 7.5 (5.0-9.0); Specific Gravity - Urine 1.025 (1.005-1.025); UMIC TRIGGER UACC YES; Urine Blood Trace (Negative); Urine Ketones Negative (Negative); Urine Protein Negative (Neg-Trace)
[2023-05-08 18:22] LABS: Bacteria Urine None Seen (None Seen); Hyaline Casts Urine 0-2 /LPF (0-2); Squamous Epithelial Cell Urine 0-2 /HPF (0-2); WBC Urine 0-5 /HPF (0-5)
== END 2023-05-08 15:01 | disposition home or self-care (01) ==
LOC: HO.LAB 15:00
PROVIDERS: PCP Internal Medicine; Visit Provider Internal Medicine
DX: G72.9 Myopathy, unspecified (principal)
CPT/HCPCS: 81001

== ENCOUNTER 2023-05-16 15:35 | Outpatient (REF) | payer MEDICARE, SELFPAY ==
[2023-05-16 17:15] LABS: Urine Cytology See Pathology rpt
[2023-05-16 17:21] LABS: Appearance Urine Clear; Color Urine Yellow; Glucose Urine UA Negative (Negative); Leukocyte Esterase Urine Negative (Negative); Nitrite Urine Negative (Negative); Specific Gravity - Urine 1.025 (1.005-1.025); Urine Blood Negative (Negative); Urine Ketones Negative (Negative); Urine Protein Negative (Neg-Trace)
== END 2023-05-16 15:36 | disposition home or self-care (01) ==
LOC: HO.LAB 15:35
PROVIDERS: PCP Internal Medicine; Visit Provider Internal Medicine
DX: R35.0 Frequency of micturition (principal); R39.9 Unspecified symptoms and signs involving the genitourinary system
CPT/HCPCS: 74018; 81003; 88112

== ENCOUNTER → 2023-06-04 15:39 | Outpatient (AMB) | payer MEDICARE, SELFPAY ==
--- NOTE | 2023-06-04 15:40 | MHC.PC.OV ---
Intake Visit Reasons: cholesterol / [phone] Palliative Medicine Physician Required: No Allergies morphine [MORPHINE] Adverse Reaction (Mild, Verified 06/04/23 15:40) VOMITING, sensitivity atorvastatin Adverse Reaction (Unknown, Verified 06/04/23 15:40) Muscle cramps rosuvastatin [Crestor] Adverse Reaction (Unknown, Verified 06/04/23 15:40) muscle ache simvastatin Adverse Reaction (Unknown, Verified 06/04/23 15:40) Muscle cramps Medication List - Last Reconciled 06/04/23 by Savana Del Castillo MD alprazolam 0.5 mg PO DAILY PRN amitriptyline 25 mg PO BEDTIME PRN calcium carbonate (Oyster Shell Calcium) 500 mg PO DAILY carvedilol 3.125 mg PO BID cholecalciferol (vitamin D3) 25 mcg PO DAILY ezetimibe (Zetia) 10 mg PO DAILY lisinopril 2.5 mg PO DAILY mastectomy bra As directed mirtazapine (Remeron) 15 mg PO BEDTIME PRN multivitamin 1 tab PO DAILY Tobacco use date assessed: 06/04/23 Fall risk assessment: No Falls in past year Last assessed Fall Risk: 06/04/23 Dental Screening Dental Screen Date: 06/04/23 Did you have a dental visit in the last 12 months?: Yes Did you have a dental problem in the last 6 months where you did not have access to dental care?: No Was dental information given to patient?: Patient has dentist HPI cholesterol / [phone] HPI Details 72-year-old female with controlled diabetes mellitus cardiomyopathy hypercholesterolemia depression and history of breast cancer last seen in January 2023. Patient is up-to-date with mammogram bone density and colonoscopy. Patient does follow-up with hematology oncology April 2023 right breast invasive ductal carcinoma 1999 patient also has macrocytosis since this anemia and leukopenia are mild continuing to monitor. Patient also follows up with Cardiology recent echocardiogram left ventricular ejection fraction 40-45% coronary CTA in the past did not reveal any coronary disease with the echocardiogram March [id number] LV systolic dysfunction with LVEF of 40-45% with mild LVH with impaired relaxation filling pattern 2. Cardiac valvular Dopplers within normal limits 3. Normal RV systolic pressure 4. No gross pericardial effusion states had dysuria but UA is negative. states after the rsv shot feels more dizzy. Patient was advised to hold off from any vaccinations for now and referral to be done to neurology. Does have some dysuria also although last urine that was done was negative. With the hematuria history referral to urology. [facility] Medical History Screening for viral disease Distal radius fracture, left Post-menopausal Infiltrating ductal carcinoma of right breast History of breast cancer Anxiety and depression Left bundle branch block Tubular adenoma of colon History of breast cancer Hypercholesterolemia Cardiomyopathy Type 2 diabetes mellitus with hyperglycemia Surgical History History of colonoscopy H/O left breast biopsy History of lumpectomy of right breast Family History Father CVD (cardiovascular disease) Myocardial infarct Mother HTN (hypertension) Cancer Uterine cancer Arthritis Paternal Aunt Myocardial infarct Paternal Uncle Myocardial infarct Brother No problems noted. Social History Household Members: None Housing: House Alcohol intake: current Alcohol intake frequency: holidays/special occasions only Patient Tobacco Use Status: Never used Tobacco e-Cigarette/Vaping Use: Never Used Second Hand Smoke Exposure: No service: No Current occupational status: retired Current occupation: rt hand Cognitive needs: No Hearing needs: No Vision needs: Yes Questionnaire Thrive Questionnaire Date Thrive assessed: 06/04/23 I am a: Patient What is your living situation today?: I have a steady place to live Within the past 12 months, did the food you bought not last and you didn't have the money to get more?: Never true Within the past 12 months, did you worry whether your food would run out before you got money to buy more?: Never true Do you have trouble paying for medicines?: No Do you have trouble getting transportation to medical appointments?: No Do you have trouble paying your heating and electricity bill?: No Do you have trouble taking care of your child, family member or friend?: No Do you have trouble with day-to-day activities such as bathing, preparing meals, shopping, managing finances, etc.?: No Are you currently unemployed and looking for a job?: No Are you interested in more education?: No AUDIT C Alcohol Use Questionnaire (AUDIT-C) 1. How often do you have a drink containing alcohol?: Never 3. How often do you have six or more drinks on one occasion?: Never Total Score: 0 ROBER-7 AMB Questionnaire ROBER-7 Date ROBER - 7 assessed: 06/04/23 Source: Developed by Drs. Noel Rouse, Brenda Sheffield, Gulshan Jamison and colleagues, with an educational [email or web address] from [employer] Physical exam (Primary Care) Tobacco/Smoking Status: Tobacco use Status Tobacco use date assessed 06/04/23 06/04/23 15:42 Patient Tobacco Use Status Never used Tobacco 06/04/23 15:42 e-Cigarette/Vaping Use Never Used 06/04/23 15:42 Thrive Assessment: Date of Thrive Assessment Date Thrive assessed 06/04/23 06/04/23 15:42 Telehealth Telehealth Location of provider rendering services: practice address Location of patient: address on file Patient Identification confirmed using: Name, : Yes Telehealth method: video Assessment and Plan Assessment & Plan (1) Cardiomyopathy: Comment: Sees Dr. King echocardiogram March 2023 Code(s): I42.9 - Cardiomyopathy, unspecified Qualifiers: Cardiomyopathy type: unspecified Qualified Code(s): I42.9 - Cardiomyopathy, unspecified Plan: Patient is being followed up by Cardiology. (2) Type 2 diabetes mellitus with hyperglycemia: Code(s): E11.65 - Type 2 diabetes mellitus with hyperglycemia Qualifiers: Diabetes mellitus correction insulin use: without terminal system operator use Qualified Code(s): E11.65 - Type 2 diabetes mellitus with hyperglycemia Plan: Decrease the amount of carbohydrate intake, pasta, bread, rice and potatoes are all sugar and that is aside from all the sweet stuff, remember that fruits are good but they are Sweet also. Hemoglobin A1c goal of less than 7.0. Patient is on diet control (3) Hypercholesterolemia: Code(s): E78.00 - Pure hypercholesterolemia, unspecified Plan: Avoid fried foods, chicken skin, eggs, butter margarine, pastries and meat. Be it pork or beef they have a lot of cholesterol LDL goal of less than 70 and triglyceride of less than 150. Patient is statin intolerant will need blood work for this year (4) Recurrent major depression: Comment: decline referral for now 07/2022 Code(s): F33.9 - Major depressive disorder, recurrent, unspecified Plan: Continue with mirtazapine and alprazolam as needed only (5) History of breast cancer: Comment: 2000 right lumpectomy chemo and radiation Dr. Moody, MRI November 2015 Code(s): Z85.3 - Personal history of malignant neoplasm of breast Plan: Up-to-date with mammogram (6) Dysuria: Code(s): R30.0 - Dysuria Plan: Referral to urology done as well as urinalysis repeat (7) Dizziness: Code(s): R42 - Dizziness and giddiness Plan: will do referral to neurology- has been having this for years and has not gotten any answer. Will do a referral to Neurology (8) Hematuria: Code(s): R31.9 - Hematuria, unspecified Plan: Referral to urology cytology is negative x-ray no stones noted. Patient has been seen by Urology before and has had workup revealing negative results. Orders: Orders Comprehensive Met. Panel 3 Months E11.65 - Type 2 diabetes mellitus with hyperglycemia Free T4 (Free Thyroxine) 3 Months E11.65 - Type 2 diabetes mellitus with hyperglycemia Creatinine Urine 3 Months E11.65 - Type 2 diabetes mellitus with hyperglycemia Microalbumin, Random (w Creat) 3 Months E11.65 - Type 2 diabetes mellitus with hyperglycemia Vitamin B12 and Folate 3 Months E11.65 - Type 2 diabetes mellitus with hyperglycemia UA CC w/rflx Micro + Cult Today R30.0 - Dysuria Complete Blood Count Auto Diff 3 Months E11.65 - Type 2 diabetes mellitus with hyperglycemia Hemoglobin A1c 3 Months E11.65 - Type 2 diabetes mellitus with hyperglycemia Lipid Panel 3 Months E11.65 - Type 2 diabetes mellitus with hyperglycemia, E78.00 - Pure hypercholesterolemia, unspecified Thyroid Stimulating Hormone 3 Months E11.65 - Type 2 diabetes mellitus with hyperglycemia Vitamin D 25-OH Total 3 Months E11.65 - Type 2 diabetes mellitus with hyperglycemia Referrals Neurology Referral H93.19 - Tinnitus, unspecified ear, R42 - Dizziness and giddiness Urology Referral R31.9 - Hematuria, unspecified Medications: New amitriptyline 25 mg PO BEDTIME PRN 20 tabs 0RF insomnia H93.19 - Tinnitus, unspecified ear Coding Level of Care Code Tele Est Pt Level 4 (04642) Diagnoses Cardiomyopathy, unspecified type I42.9 Cardiomyopathy type: unspecified Type 2 diabetes mellitus with hyperglycemia, without long-term current use of insulin E11.65 Diabetes mellitus terminal system operator insulin use: without terminal system operator use Hypercholesterolemia E78.00 Recurrent major depression F33.9 History of breast cancer Z85.3 Dysuria R30.0 Dizziness R42 Hematuria R31.9
== END ==
PROVIDERS: PCP Internal Medicine; Visit Provider Internal Medicine
DX: E78.00 Pure hypercholesterolemia, unspecified (principal); I42.9 Cardiomyopathy, unspecified; E11.65 Type 2 diabetes mellitus with hyperglycemia; F33.9 Major depressive disorder, recurrent, unspecified; Z85.3 Personal history of malignant neoplasm of breast; R30.0 Dysuria; R42 Dizziness and giddiness; R31.9 Hematuria, unspecified
CPT/HCPCS: 99214

== ENCOUNTER 2023-06-13 09:36 | Outpatient (REF) | payer MEDICARE, SELFPAY ==
[2023-06-13 11:48] LABS: MANUAL DIFF FLAG NO
[2023-06-13 11:55] LABS: Basophils Percent Auto 0.8 % (0-2); Eosinophils Absolute Auto 0.2 X10*3/uL (0.0-0.4); Eosinophils Percent Auto 3.8 % (0-4); Hematocrit 36.7 % (37.0-47.0); Hemoglobin 12.1 g/dl (12.0-16.0); Imm Gran Abs Auto 0.01 X10*3/uL (0.00-0.03); Imm Gran Pct Auto 0.3 % (0.0-0.4); Immature Retic Fraction 12.4 % (3.0-15.9); Lymphocytes Absolute Auto 0.9 X10*3/uL (1.2-4.9); Lymphocytes Percent Auto 23.8 % (20-40); Mean Corpuscular Hemoglobin 34.2 pg (27.0-33.0); Mean Corpuscular Volume 103.7 fL (80.0-98.0); Mean Platelet Volume 9.7 fL (9.4-12.3); Monocytes Absolute Auto 0.4 X10*3/uL (0.1-1.2); Monocytes Percent Auto 10.3 % (2-11); NRBC Pct Auto 0.5 /100WBC (0.0-0.2); Neutrophils Absolute Auto 2.4 x10*3/uL (2.0-8.3); Platelet Count 277 X10*3/uL (160-400); Red Blood Count 3.54 X10*6/uL (4.20-5.50); Red Cell Distribution Width 13.8 % (11.0-16.0); Retic HGB Equivalent 37.1 pg (30.0-35.0); Reticulocyte Percent 1.3 % (0.5-1.8); Reticulocytes Absolute 0.047 X10*6/uL (0.026-0.095); White Blood Count 3.9 X10*3/uL (4.8-10.8)
[2023-06-13 12:20] LABS: Estimated Average Glucose 128 mg/dL; Hemoglobin A1c % 6.1 % (<6.0)
[2023-06-13 12:32] LABS: Alanine Aminotransferase 14 U/L (0-31); Alkaline Phosphatase 54 U/L (39-117); Anion Gap 11 (12-20); Aspartate Amino Transferase 18 U/L (5-31); Bilirubin Total 0.4 mg/dL (0.0-1.0); Blood Urea Nitrogen 21 mg/dL (9-16); Calcium 9.3 mg/dL (8.4-10.2); Carbon Dioxide 28 mmol/L (22-29); Chloride 106 mmol/L (96-108); Cholesterol 224 mg/dL (<200); Estimated Glomerular Filt Rate 56; Glucose Random 138 mg/dL (60-115); HDL Cholesterol 78 mg/dL (>40); Iron 86 mcg/dL (30-160); LDL Cholesterol Calculated 129 mg/dL (<100); Percent Iron Saturation 29 % (15-50); Potassium 4.4 mmol/L (3.3-5.1); Sodium 141 mmol/L (135-145); Total Iron Binding Capacity 300 mcg/dL (228-428); Total Protein 7.3 g/dL (6.5-8.0); Triglycerides 85 mg/dL (<150); Unsaturated Iron Binding 214 ug/dL
[2023-06-13 12:47] LABS: Folate > 20.0 ng/mL (> or = 4.0); Vitamin B12 959 pg/mL (200-900)
[2023-06-13 12:51] LABS: Ferritin 69 ng/mL (10-250); Free T4 (Free Thyroxine) 0.89 ng/dL (0.71-1.85); Thyroid Stimulating Hormone 1.51 uIU/mL (0.32-4.0); Vitamin D 25-OH Total 35.8 ng/mL (>30)
== END 2023-06-13 09:37 | disposition home or self-care (01) ==
LOC: HO.WFDLDS 09:36
PROVIDERS: Visit Provider Internal Medicine
DX: E11.65 Type 2 diabetes mellitus with hyperglycemia (principal); E78.00 Pure hypercholesterolemia, unspecified
CPT/HCPCS: 36415; 80053; 80061; 82306; 82607; 82728; 82746; 83036; 83540; 84439; 84443; 85025; 85045

== ENCOUNTER 2023-06-14 12:06 | Outpatient (REF) | payer MEDICARE, SELFPAY ==
[2023-06-14 15:02] LABS: Appearance Urine Clear; Color Urine Dark Yellow; Glucose Urine UA Negative (Negative); Leukocyte Esterase Urine Negative (Negative); Nitrite Urine Negative (Negative); Specific Gravity - Urine 1.025 (1.005-1.025); Urine Blood Negative (Negative); Urine Ketones Negative (Negative); Urine Protein Negative (Neg-Trace)
[2023-06-14 17:14] LABS: Creatinine Urine 186.24 mg/dL
== END 2023-06-14 12:07 | disposition home or self-care (01) ==
LOC: HO.WFDLDS 12:06
PROVIDERS: Visit Provider Internal Medicine
DX: E11.65 Type 2 diabetes mellitus with hyperglycemia (principal); R30.0 Dysuria
CPT/HCPCS: 81003; 82043; 82570

== ENCOUNTER 2023-07-04 14:46 | Outpatient (AMB) | payer MEDICARE, SELFPAY ==
--- NOTE | 2023-07-04 14:49 | A.OFFVIS_ITS ---
Intake Vital Signs 3 07/04/23 15:20 Height 5 ft 8 in Weight 136 lb BMI 20.7 BP 130/68 Blood Pressure Location Lt brachial Position Sitting Pulse 66 Intake Visit Reasons: Yearly breast exam Intake Note: Patient is seen in office for yearly breast exam. Pt c/o: denies any concerns at the time of visit mm: 12/25/22 Management Aide Required: No Wing Mailer Machine Operator: Wing Mailer Machine Operator Present Accompanied by: Self / Same As Patient Allergies morphine [MORPHINE] Adverse Reaction (Mild, Verified 07/04/23 15:21) VOMITING, sensitivity atorvastatin Adverse Reaction (Unknown, Verified 07/04/23 15:21) Muscle cramps rosuvastatin [Crestor] Adverse Reaction (Unknown, Verified 07/04/23 15:21) muscle ache simvastatin Adverse Reaction (Unknown, Verified 07/04/23:) Muscle cramps HPI HPI Comments 2 History of Present Illness0 Details 72-year-old female patient presenting fo r her yearly breast examination after a previous right breast cancer. Patient was found to have a focus of invasive ductal carcinoma of the right breast measuring approximately 4 mm and subsequently underwent a right lumpectomy followed by chemotherapy. 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 She has been undergoing yearly mammograms and breast MRIs. She feels reasonably well but continues to complain of tinnitus which she feels may be related to a new antidepressant or the COVID (Moderna) vaccine. She is still dealing with the loss of her . She denies any new breast symptoms in either breast. She underwent a breast MRI on 06/09/2021 which revealed a suspicious non mass like enhancement in the left breast at the 9 o'clock position. This was felt to be suspicious for malignancy and biopsy recommended. A MRI guided core biopsy was performed on 06/29/2021 and pathology revealed benign breast tissue without atypia or malignancy. Screening mammogram of 12/25/2022 revealed no significant change from her prior mammogram (BI-RADS 2). Annual mammogram is recommended. [facility] Medical History Screening for viral disease Distal radius fracture, left Post-menopausal Infiltrating ductal carcinoma of right breast History of breast cancer Anxiety and depression Left bundle branch block Tubular adenoma of colon History of breast cancer Hypercholesterolemia Cardiomyopathy Type 2 diabetes mellitus with hyperglycemia Surgical History History of colonoscopy H/O left breast biopsy History of lumpectomy of right breast Family History Father CVD (cardiovascular disease) Myocardial infarct Mother HTN (hypertension) Cancer Uterine cancer Arthritis Paternal Aunt Myocardial infarct Paternal Uncle Myocardial infarct Brother No problems noted. Social History Household Members: None Housing: House Alcohol intake: current Alcohol intake frequency: holidays/special occasions only Patient Tobacco Use Status: Never used Tobacco e-Cigarette/Vaping Use: Never Used Second Hand Smoke Exposure: No service: No Current occupational status: retired Current occupation: rt hand Cognitive needs: No Hearing needs: No Vision needs: Yes Review of Systems Const All systems reviewed & are unremarkable except as noted in HPI and below Denies nipple discharge Skin/Breast Denies breast swelling, Denies breast skin changes, Denies breast pain, Denies breast mass and Denies nipple discharge Brandon/Lymph Denies lymphadenopathy Physical Exam Vital Signs: Last Vital Signs Pulse 66 07/04/23 15:20 BP 130/68 07/04/23 15:20 BMI result Body Mass Index 20.7 Const General: no acute distress and well developed Nutritional Appearance: well nourished Orientation/consciousness: patient oriented x3 Limitations: no limitations HEENT Head: Yes normocephalic and Yes atraumatic Ears: hearing grossly normal bilaterally Neck Neck: Yes normal visual inspection, Yes no lymphadenopathy, Yes trachea midline and Yes supple Chest Other: Left breast: No skin change, no nipple retraction, no nipple discharge, no palpable mass, no enlarged lymph nodes, well-healed periauricular incision Right breast: No skin change, no nipple retraction, no nipple discharge, no palpable mass, no enlarged lymph nodes, well-healed breast incisions as noted below Chest/axillae images: 2 1. 2. 3. 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 She is status post right breast lumpectomy with chemotherapy and radiation therapy. her most recent mammogram dated 12/25/2022 revealed no mammographic evidence of malignancy ( BI-RADS 2). She is due for an MRI but will wait until the new MRI is online. She will follow-up in 1 year, sooner p.r.n.. 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
[2023-07-04 15:20] VITALS: BP 130/68; PULSE 66; BMI 20.7
== END 2023-07-04 15:25 | disposition home or self-care (01) ==
PROVIDERS: PCP Internal Medicine; Visit Provider Surgery
DX: C50.911 Malignant neoplasm of unspecified site of right female breast (principal); Z86.000 Personal history of in-situ neoplasm of breast; Z80.3 Family history of malignant neoplasm of breast; Z91.89 Other specified personal risk factors, not elsewhere classified
CPT/HCPCS: 99213

== ENCOUNTER → 2023-07-04 14:46 | Outpatient (BNVA) | payer MEDICARE, SELFPAY | PROVIDERS: PCP Internal Medicine; Visit Provider Surgery | DX: C50.911 Malignant neoplasm of unspecified site of right female breast (principal); Z86.000 Personal history of in-situ neoplasm of breast; Z80.3 Family history of malignant neoplasm of breast; Z91.89 Other specified personal risk factors, not elsewhere classified | CPT/HCPCS: 99212 ==

== ENCOUNTER 2023-08-28 14:54 | Outpatient (AMB) | payer MEDICARE, SELFPAY ==
--- NOTE | 2023-08-28 15:12 | A.OFFVIS_ITS ---
Intake Intake Visit Reasons: Hematuria, unspecified Intake Note: New Patient presents for initial visit for hematuria Urology Medications: none Blood Thinner: none House Director Required: No Accompanied by: Self / Same As Patient Allergies morphine [MORPHINE] Adverse Reaction (Mild, Verified 08/28/23 21:29) VOMITING, sensitivity atorvastatin Adverse Reaction (Unknown, Verified 08/28/23 21:29) Muscle cramps rosuvastatin [Crestor] Adverse Reaction (Unknown, Verified 08/28/23 21:29) muscle ache simvastatin Adverse Reaction (Unknown, Verified 08/28/23 21:29) Muscle cramps Medication List - Last Reconciled 08/28/23 by LULU Costa- alprazolam 0.5 mg PO DAILY PRN amitriptyline 25 mg PO BEDTIME PRN calcium carbonate (Oyster Shell Calcium) 500 mg PO DAILY carvedilol 3.125 mg PO BID cholecalciferol (vitamin D3) 25 mcg PO DAILY ezetimibe (Zetia) 10 mg PO DAILY lisinopril 2.5 mg PO DAILY mastectomy bra As directed mirtazapine (Remeron) 15 mg PO BEDTIME PRN multivitamin 1 tab PO DAILY HPI HPI Comments History of Present Illness Details Susan Coronado is a 73-year-old female patient of Dr. Del Castillo. She has a past medical history of breast cancer undergoing right-sided lumpectomy in 2000, anxiety, depression, hypercholesteremia, cardiomyopathy, and borderline diabetes. She presents to the office today as a new patient for intermittent ongoing lower urinary tract symptoms she has been experiencing. In discussion with the patient today she reports to be doing and feeling well. She reports having followed up with her PCP recently has she had been feeling and experiencing UTI like symptoms at which time a urinalysis was obtain and noted microscopic blood however no infection. She reports a longstanding history of microscopic blood in her urine with previous cystoscopies in the past. She reports following up with Dr. Kumar approximately 6 years ago in his [place] office and undergoing in office cystoscopy that was normal. She reports in termittent episodes of dysuria however has not experienced this in the last 2 days. She discusses being very active in her health and goes to the [facility] in [place] where she works out. She otherwise denies urinary urgency, urinary frequency, incontinence, foul smelling urine, changes to urinary stream, flank pain, fever, and or chills. She does report episodes of nocturia however does not find this bothersome. She is happy with her current voiding parameters. In office urinalysis results reviewed with the patient today 2+ microscopic hematuria otherwise within normal limits. PVR 0 mL. Discussed at length potential causes for microscopic hematuria. When asked she denies any previous history of smoking and or known work place chemical exposure. Discussed reasons for blood in the urine may include but are not limited to kidney stones, cancer in the urinary tract, kidney stone disease or inflammatory conditions of the urinary tract. She discusses the loss of her right before COVID to cancer. She reports to be coping well. She discusses being active in [employer]. She otherwise offers no other issues or concerns at this time. [facility] Medical History Screening for viral disease Distal radius fracture, left Post-menopausal Infiltrating ductal carcinoma of right breast History of breast cancer Anxiety and depression Left bundle branch block Tubular adenoma of colon History of breast cancer Hypercholesterolemia Cardiomyopathy Type 2 diabetes mellitus with hyperglycemia Surgical History History of colonoscopy H/O left breast biopsy History of lumpectomy of right breast Family History Father CVD (cardiovascular disease) Myocardial infarct Mother HTN (hypertension) Cancer Uterine cancer Arthritis Paternal Aunt Myocardial infarct Paternal Uncle Myocardial infarct Brother No problems noted. Social History Household Members: None Housing: House Alcohol intake: current Alcohol intake frequency: holidays/special occasions only Patient Tobacco Use Status: Never used Tobacco e-Cigarette/Vaping Use: Never Used Second Hand Smoke Exposure: No service: No Current occupational status: retired Current occupation: rt hand Cognitive needs: No Hearing needs: No Vision needs: Yes Review of Systems Const Reports no additional complaints Eyes Reports no additional complaints ENT Reports no additional complaints Card Reports as per HPI Resp Reports no additional complaints GI Reports no additional complaints Reports as per HPI Musc Reports no additional complaints Skin/Breast Reports as per HPI Neuro Reports no additional complaints Psych Reports as per HPI Endo Reports no additional complaints Physical Exam Const General: cooperative, healthy appearing, comfortable, no acute distress, well developed, alert and awake Nutritional Appearance: thin Orientation/consciousness: patient oriented x3 Limitations: no limitations HEENT Head: Yes normal to inspection, Yes normocephalic and Yes atraumatic Ears: hearing grossly normal bilaterally Eyes General: appearance normal, both eyes and all related structures Neck Neck: Yes normal visual inspection and Yes trachea midline Chest Chest palpation & inspection: normal inspection of the chest Resp Effort & Inspection: normal respiratory effort and able to speak in complete sentences Cardio Rate: regular rate GI Inspection: Yes normal to inspection General: Yes no CVA tenderness Back/Spine/Pelvis Back: no CVA tenderness Skin General skin exam: no rashes or lesions noted Neuro General: patient oriented x3 Extrem General: Yes normal to inspection Psych Appearance: grossly normal and well kempt Mental Status: mental status grossly normal Speech and movement: Normal speech and movement present and Clear speech present Affect: normal affect Attitude: cooperative Thought process: Normal thought process present Thought content: Normal thought content present Insight: Fair insight present (Psych) Judgement: Fair judgement present (Psych) Results AMB Urinalysis, Automated UA Leukoctes 0 Richard/uL Last Edit by [employer] on 08/28/23 15:32 UA Nitrite Negative Last Edit by [employer] on 08/28/23 15:32 UA Urobilinogen 0.2 mg/dL Last Edit by [employer] on 08/28/23 15:32 UA Protein 0 mg/dL Last Edit by [employer] on 08/28/23 15:32 UA pH 5.5 Last Edit by [employer] on 08/28/23 15:32 UA Blood 80 Troy/uL Last Edit by [employer] on 08/28/23 15:32 UA Specific Wyckoff 1.025 Last Edit by [employer] on 08/28/23 15:32 UA Ketone Negative Last Edit by [employer] on 08/28/23 15:32 UA Bilirubin 0 mg/dL Last Edit by [employer] on 08/28/23 15:32 UA Glucose 0 mg/dL Last Edit by [employer] on 08/28/23 15:32 Results Reviewed Results Reviewed: Laboratory Last Values Urine pH (Auto) 5.5 08/28/23 15:19 Specific Wyckoff (Auto) 1.025 08/28/23 15:19 Urine Protein (Auto) 0 mg/dL 08/28/23 15:19 Glucose (UA)(Auto) 0 mg/dL 08/28/23 15:19 Urine Ketones (Auto) Negative 08/28/23 15:19 Urine Blood (Auto) 80 Troy/uL 08/28/23 15:19 Urine Nitrite (Auto) Negative 08/28/23 15:19 Urine Bilirubin (Auto) 0 mg/dL 08/28/23 15:19 Urine Urobilinogen (Auto) 0.2 mg/dL 08/28/23 15:19 Leukocyte Esterase (Auto) 0 Richard/uL 08/28/23 15:19 Assessment & Plan Assessment & Plan (1) Microscopic hematuria: Code(s): R31.29 - Other microscopic hematuria (2) Dysuria: Code(s): R30.0 - Dysuria Plan In office urinalysis results reviewed with the patient today; as noted above; will send for urine culture. PVR 0 mL. Discussed at length potential causes of microscopic hematuria; discussed further microscopic hematuria with imaging, cytology, and in office cystoscopy. Discussed and stressed the importance of drinking water daily. Patient with a history of breast cancer therefore will not initiate Estrace cream however this was discussed. She currently denies any bothersome urinary issues or concerns. She reports be happy with current voiding parameters. Will obtain retroperitoneal ultrasound for further assessment evaluation. Follow-up in 1-3 months with imaging to be completed prior; or sooner with any issues, concerns, and or questions. Orders: Orders AMB Urinalysis Automated Today Z13.9 - Encounter for screening, unspecified Urine Cytology Today R31.9 - Hematuria, unspecified US retroperitoneal comp Today R30.0 - Dysuria, R31.29 - Other microscopic hematuria Patient Instructions: The patient had an opportunity to ask questions regarding the treatment plan. All questions were answered. Physical exam, labs, and imaging were discussed and reviewed in detail. As well as risks, benefits, and discussion of treatment choices. No major barriers to understanding were identified. The patient expressed understanding and agreement with the above treatment plan. The patient was made aware they should contact our office by phone for worsening of their current condition, the appearance of new symptoms, or with any questions or concerns. Compliance is encouraged with any medications and follow up testing that is ordered. It is a privilege to be allowed the opportunity to participate in? your urological care.? Again, if you have any questions or concerns If you have any questions or concerns please do not hesitate to contact me. The office is [phone]. This note is constructed using voice recognition software. While every effort has been made to ensure accuracy bottom presser errors may have been included. Yours sincerely, DAE Costa Coding Level of Care Code New Pt Level 4 (43686) Diagnoses Microscopic hematuria R31.29 Dysuria R30.0 Time Spent (min) 30
== END 2023-08-28 15:56 | disposition home or self-care (01) ==
PROVIDERS: PCP Internal Medicine; Visit Provider Nurse Practitioner Family
DX: R31.29 Other microscopic hematuria (principal); R30.0 Dysuria
CPT/HCPCS: 99204

== ENCOUNTER 2023-08-28 14:54 | Outpatient (REF) | payer MEDICARE, SELFPAY ==
[2023-08-28 16:37] LABS: Urine Cytology See Pathology rpt
== END 2023-08-28 14:55 | disposition home or self-care (01) ==
LOC: HO.LNP 14:54
PROVIDERS: PCP Internal Medicine; Visit Provider Nurse Practitioner Family
DX: R31.29 Other microscopic hematuria (principal); R30.0 Dysuria; Z79.899 Other long term (current) drug therapy
CPT/HCPCS: 81003; 88112; 99202

== ENCOUNTER 2023-09-25 10:43 | Outpatient (AMB) | payer MEDICARE, SELFPAY ==
--- NOTE | 2023-09-25 11:02 | A.OFFVIS_ITS ---
Vital Signs 09/25/23 11:05 Height 5 ft 8 in Weight 135 lb BMI 20.5 BP 110/56 L Blood Pressure Location Lt brachial Position Sitting Respiration 16 Pulse 66 Pulse Source Pulse Oximeter Pulse Oximetry (%) 96 Intake Visit Reasons: INP-Dizziness/guiddiness/Tinnitus - LVM w/add Intake Note: Pt presents for new pt evaluation for tinnitus which she reports has been going on for 3 years. She also c/o dizziness intermittently for 3 years as well after getting the Covid vaccine. Corporate Treasurer Required: No Allergies morphine [MORPHINE] Adverse Reaction (Mild, Verified 09/25/23 11:04) VOMITING, sensitivity atorvastatin Adverse Reaction (Unknown, Verified 09/25/23 11:04) Muscle cramps rosuvastatin [Crestor] Adverse Reaction (Unknown, Verified 09/25/23 11:04) muscle ache simvastatin Adverse Reaction (Unknown, Verified 09/25/23 11:04) Muscle cramps HPI Comments Details: 73y/o female comes for evaluation of tinnitus and dizziness. SHe reports dizziness started about 7 years ago when she was started on lisinopril and carvedilol for left bundle branch block. she had an episode of syncope at that time and was seen by cardiology. Her dizziness has worsened since then. she feels like she is not stable in space. she has to concentrate when walking and usually bumps into others. she feels like she is in a fog. No spinning sensation.3 1/2 years when she had Moderna ( COVID)vaccine - 2 nd dose she had headaches , flu like symptoms and buzzing noise . she still has buzzing noise in her head and has headaches in her parietal region. she says it is constant and cannot sleep because of that. 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 No double vision SHe is depressed and anxious . she feels he rmemory is worse as well. 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 COUNTS INCLUDE 234 BEDS AT THE [facility] Medical History (Updated 09/25/23 @ 11:37 by Kerry Castro MD) Anxiety Depression Gait disorder Sleep disorder Screening for viral disease Distal radius fracture, left Post-menopausal Infiltrating ductal carcinoma of right breast History of breast cancer Anxiety and depression Left bundle branch block Tubular adenoma of colon History of breast cancer Hypercholesterolemia Cardiomyopathy Type 2 diabetes mellitus with hyperglycemia Surgical History History of colonoscopy H/O left breast biopsy History of lumpectomy of right breast Family History Father CVD (cardiovascular disease) Myocardial infarct Mother HTN (hypertension) Cancer Uterine cancer Arthritis Paternal Aunt Myocardial infarct Paternal Uncle Myocardial infarct Brother No problems noted. Social History Household Members: None Housing: House Alcohol intake: current Alcohol intake frequency: holidays/special occasions only Patient Tobacco Use Status: Never used Tobacco e-Cigarette/Vaping Use: Never Used Second Hand Smoke Exposure: No service: No Current occupational status: retired Current occupation: rt hand Cognitive needs: No Hearing needs: No Vision needs: Yes Physical Exam Vital Signs: Last Vital Signs Pulse 66 09/25/23 11:05 Resp 16 09/25/23 11:05 BP 110/56 L 09/25/23 11:05 Pulse Ox 96 09/25/23 11:05 BMI result Body Mass Index 20.5 Const General: cooperative, healthy appearing, comfortable and anxious Nutritional Appearance: average body habitus Orientation/consciousness: patient oriented x3 HEENT Head: Yes normal to inspection Neck Other: tight trapezius lauren , left laterocollis Neuro Other: retrognathia mallampatti grade 4 General: patient oriented x3, tone normal, moves all extremities and no focal motor deficits Cranial nerves: Yes Facial sensation intact/muscles of mastication intact, Yes Bilaterally intact EOM present, Yes Nystagmus not present, Yes Normal facial strength present, Yes Midline tongue present and Yes Ability to bilaterally elevate shoulders present Cognition (Neuro): normal cognition Gait exam (Neuro): Antalgic gait present Motor exam (neuro): 5/5 motor strength present throughout and Normal motor muscle tone present throughout Deep tendon reflexes (DTR's): Right triceps reflex intensity grade: 2+, Left triceps reflex intensity grade: 2+, Rt Biceps (C5, C6): 2+, Left biceps reflex intensity grade: 2+, Right brachioradialis reflex intensity grade: 2+, Left brachioradialis reflex intensity grade: 2+, Right patellar reflex intensity grade: 2+ and Left patellar reflex intensity grade: 2+ Coordination: [id number] test normal Psych Speech and movement: Pressured speech present Affect: Anxious affect present Assessment & Plan Assessment & Plan (1) Tinnitus: Comment: chronic - relate dto hearing loss, anxiety Code(s): H93.19 - Tinnitus, unspecified ear Category: Medical (2) Sleep disorder: Comment: snoring , frequent arousals and hypersomnia Code(s): G47.9 - Sleep disorder, unspecified Category: Medical (3) Gait disorder: Comment: off balance , slowness - multifactorial - musculoskeletal , ? neuropathy ? Code(s): R26.9 - Unspecified abnormalities of gait and mobility Category: Medical (4) Depression: Code(s): F32.A - Depression, unspecified Category: Medical (5) Anxiety: Code(s): F41.9 - Anxiety disorder, unspecified Category: Medical Plan MRI brain to evaluate gait abnormality , dizziness Psyhcology referral - for anxiety depression and tinnitus Home sleep test - to r/o sleep apnea Psychiatry evaluation PT for gait training and balance Alprazolam as needed Orders: Orders RT home sleep study Today G47.10 - Hypersomnia, unspecified, R06.83 - Snoring MR head/brain wo con Today H93.19 - Tinnitus, unspecified ear, R26.9 - Unspecified abnormalities of gait and mobility PT Evaluation and Treatment Today R26.9 - Unspecified abnormalities of gait and mobility Referrals Psychology Referral F32.A - Depression, unspecified, F41.9 - Anxiety disorder, unspecified, H93.19 - Tinnitus, unspecified ear Medications: Changed From mirtazapine (Remeron) 15 mg PO BEDTIME PRN Insomnia E11.65 - Type 2 diabetes mellitus with hyperglycemia, F32.A - Depression, unspecified To mirtazapine (Remeron) 15 mg PO BEDTIME 90 tabs 6RF Insomnia E11.65 - Type 2 diabetes mellitus with hyperglycemia, F32.A - Depression, unspecified Coding Level of Care Code New Pt Level 4 (19416) Diagnoses Tinnitus H93.19 Sleep disorder G47.9 Gait disorder R26.9 Depression F32.A Anxiety F41.9
[2023-09-25 11:05] VITALS: BP 110/56; PULSE 66; RESP 16; O2SAT 96; BMI 20.5
== END 2023-09-25 11:51 | disposition home or self-care (01) ==
PROVIDERS: PCP Internal Medicine; Visit Provider Psychiatry & Neurology Neurology
DX: H93.19 Tinnitus, unspecified ear (principal); G47.9 Sleep disorder, unspecified; R26.9 Unspecified abnormalities of gait and mobility; F32.A Depression, unspecified; F41.9 Anxiety disorder, unspecified
CPT/HCPCS: 99204

== ENCOUNTER → 2023-09-25 10:43 | Outpatient (BNVA) | payer MEDICARE, SELFPAY | PROVIDERS: PCP Internal Medicine; Visit Provider Psychiatry & Neurology Neurology | DX: H93.19 Tinnitus, unspecified ear (principal); G47.9 Sleep disorder, unspecified; R26.9 Unspecified abnormalities of gait and mobility; F32.A Depression, unspecified; F41.9 Anxiety disorder, unspecified | CPT/HCPCS: 99202 ==

== ENCOUNTER 2023-10-15 14:25 | Outpatient (REF) | payer MEDICARE, SELFPAY ==
--- NOTE | ~2023-10-15 | US_ITS ---
EXAMINATION: US RETROPERITONEAL COMPLETE (RENAL) CLINICAL INFORMATION: Other microscopic hematuria. COMPARISON: X-ray [facility] 05/16/2023 and 08/17/2014. CT abdomen and pelvis 02/26/2015. TECHNIQUE: Real-time imaging of the kidneys and bladder. FINDINGS: RIGHT KIDNEY: 10.7 x 4.9 x 5.1 cm (SAG x AP x TRV). The kidney is normal in size, contour, and echogenicity. Renal cortical thickness is normal. No renal calculi or hydronephrosis. Multiple parapelvic benign Bosniak class I renal cysts are noted the largest of which measures 2.1 cm which require no additional imaging or follow-up. No solid renal masses are seen. LEFT KIDNEY: 11.2 x 4.8 x 4.5 cm (SAG x AP x TRV). The kidney is normal in size, contour, and echogenicity. Renal cortical thickness is normal. No renal calculi or hydronephrosis. Multiple benign parapelvic and cortical Bosniak class I renal cysts are noted, the largest measuring 1.7 cm which require no additional imaging or follow-up. No solid renal masses are seen. BLADDER: Well distended and normal. Bilateral ureteral jets are demonstrated. Prevoid bladder volume is 177.0 mL. Postvoid bladder volume is 3.6 mL. US/US retroperitoneal comp IMPRESSION: Negative exam. A cause for the patient's microscopic hematuria has not been found.
== END 2023-10-15 14:26 | disposition home or self-care (01) ==
LOC: HO.US 14:25
PROVIDERS: PCP Internal Medicine; Visit Provider Nurse Practitioner Family
DX: R31.29 Other microscopic hematuria (principal); R30.0 Dysuria
CPT/HCPCS: 76770

== ENCOUNTER 2023-10-28 15:33 | Outpatient (REF) | payer MEDICARE, SELFPAY ==
--- NOTE | ~2023-10-28 | MR_ITS ---
EXAMINATION: MR BRAIN WITHOUT CONTRAST CLINICAL INFORMATION: Tinnitus. COMPARISON: MRI scan of the brain 01/06/2015. CT scan of the head 12/08/2020. TECHNIQUE: MRI of the brain was obtained using routine sequences without contrast. FINDINGS: No diffusion abnormalities are identified to suggest an acute or subacute infarct. No mass effect or midline shift is seen. There is mild commensurate prominence of the ventricles and sulci consistent with diffuse volume loss. There are a few nonspecific foci of hyperintense T2 and FLAIR signal in the deep white matter. No extra-axial fluid collections are seen. The brainstem appears normal. No pathologic magnetic susceptibility artifact is identified on the gradient refocused acquisition. The cerebellar tonsils have normal contour and position, and the craniocervical junction appears normal. There are degenerative changes of the bilateral temporomandibular joints. The midline structures appear normal. There is an area of low T1 signal in the right supraorbital calvarium with corresponding hyperintense T2 signal, new compared to prior imaging. There is coarse calcification of the 1.1 cm pituitary gland, seen on the more recent CT scan. There is no mass effect on the tectal plate. The major intracranial flow-voids at the level of the torres martinez of [place] are preserved. The dural venous sinus flow-voids are maintained. The mastoid air cells are well-aerated. There is mucoperiosteal thickening with likely proteinaceous secretions in the right maxillary sinus. There is opacification of the posterior right ethmoid air cells. MR/MR head/brain wo con IMPRESSION: 1. There are no acute bleeds or territorial infarcts. No masses are demonstrated. 2. There are chronic microvascular ischemic changes and there is diffuse volume loss. 3. There is an area of low T1 and hyperintense T2 signal in the right supraorbital calvarium, new compared to prior imaging, possibly consistent with an area of marrow infiltration. The patient has a history of right breast cancer. Recommend follow-up with nuclear medicine bone scan for further assessment.
== END 2023-10-28 15:34 | disposition home or self-care (01) ==
LOC: HO.MRI 15:33
PROVIDERS: PCP Internal Medicine; Visit Provider Psychiatry & Neurology Neurology
DX: H93.19 Tinnitus, unspecified ear (principal); R26.9 Unspecified abnormalities of gait and mobility
CPT/HCPCS: 70551

== ENCOUNTER 2023-10-29 13:29 | Outpatient (AMB) | payer MEDICARE, SELFPAY ==
--- NOTE | 2023-10-29 13:36 | MHC.OFFVIS ---
Intake Visit Reasons: 2M/US(set) Intake Note: Patient presents today for follow up visit on: Hematuria Urology Medications: none Blood Thinner: none Application Software Engineer Required: No Accompanied by: Self / Same As Patient Allergies morphine [MORPHINE] Adverse Reaction (Mild, Verified 10/29/23 15:11) VOMITING, sensitivity atorvastatin Adverse Reaction (Unknown, Verified 10/29/23 15:11) Muscle cramps rosuvastatin [Crestor] Adverse Reaction (Unknown, Verified 10/29/23 15:11) muscle ache simvastatin Adverse Reaction (Unknown, Verified 10/29/23 15:11) Muscle cramps Medication List - Last Reconciled 10/29/23 by LULU Costa- alprazolam 0.5 mg PO DAILY PRN calcium carbonate (Oyster Shell Calcium) 500 mg PO DAILY carvedilol 3.125 mg PO BID cholecalciferol (vitamin D3) 25 mcg PO DAILY ezetimibe (Zetia) 10 mg PO DAILY lisinopril 2.5 mg PO DAILY mastectomy bra As directed mirtazapine (Remeron) 15 mg PO BEDTIME multivitamin 1 tab PO DAILY HPI Comments Details: Susan Coronado is a 73-year-old female patient of Dr. Del Castillo. She has a past medical history of breast cancer undergoing right-sided lumpectomy in 2000, anxiety, depression, hypercholesteremia, cardiomyopathy, and borderline diabetes. She presents to the office today for follow-up. Of note, patient was seen approximately 2 months ago as a new patient for intermittent ongoing lower urinary tract symptoms she has been experiencing at which time a retroperitoneal ultrasound was ordered for further assessment evaluation. These results reviewed with the patient today. Bilateral kidneys with no hydronephrosis or renal calculi. Multiple bilateral peripelvic benign Bosniak class 1 Renal cysts are noted which require no imaging follow-up per radiology report. The bladder is well distended and normal. Bladder jets are demonstrated. Pre void bladder volume is approximately 180 mL. Postvoid bladder volume is approximately 5 mL. In discussion with the patient today she reports to be doing and feeling well. She currently denies any bothersome urinary issues or concerns. She has a longstanding history of microscopic hematuria and undergoing microscopic hematuria with Dr. José payne proximally 6 years ago in his [place] office and undergoing in office cystoscopy that was normal. She reports intermittent episodes of dysuria however has not experienced in the last 3 months. She discusses being very active in her health and goes to the [facility] in [place] where she works out. She otherwise denies urinary urgency, urinary frequency, incontinence, foul smelling urine, changes to urinary stream, flank pain, fever, and or chills. She does report episodes of nocturia however does not find this bothersome. She is happy with her current voiding parameters. In office urinalysis results reviewed with the patient today 2+ microscopic hematuria otherwise within normal limits. Urine cytology from last office visit reviewed with the patient today. 09/10 Negative for high-grade urothelial carcinoma. Discussed potential causes for microscopic hematuria. When asked she denies any previous history of smoking and or known work place chemical exposure. Discussed reasons for blood in the urine may include but are not limited to kidney stones, cancer in the urinary tract, kidney stone disease or inflammatory conditions of the urinary tract. She discusses the loss of her right before COVID to cancer. She reports to be coping well. She discusses being active in protestant. She otherwise offers no other issues or concerns at this time. [facility] Medical History Anxiety Depression Gait disorder Sleep disorder Screening for viral disease Distal radius fracture, left Post-menopausal Infiltrating ductal carcinoma of right breast History of breast cancer Anxiety and depression Left bundle branch block Tubular adenoma of colon History of breast cancer Hypercholesterolemia Cardiomyopathy Type 2 diabetes mellitus with hyperglycemia Surgical History History of colonoscopy H/O left breast biopsy History of lumpectomy of right breast Family History Father CVD (cardiovascular disease) Myocardial infarct Mother HTN (hypertension) Cancer Uterine cancer Arthritis Paternal Aunt Myocardial infarct Paternal Uncle Myocardial infarct Brother No problems noted. Social History Household Members: None Housing: House Alcohol intake: current Alcohol intake frequency: holidays/special occasions only Patient Tobacco Use Status: Never used Tobacco e-Cigarette/Vaping Use: Never Used Second Hand Smoke Exposure: No service: No Current occupational status: retired Current occupation: rt hand Cognitive needs: No Hearing needs: No Vision needs: Yes Review of Systems Const Reports no additional complaints Eyes Reports no additional complaints ENT Reports no additional complaints Card Reports as per [facility] Resp Reports no additional complaints GI Reports no additional complaints Reports as per [facility] Musc Reports no additional complaints Skin/Breast Reports as per [facility] Neuro Reports no additional complaints Psych Reports as per [facility] Endo Reports no additional complaints Physical Exam Const General: cooperative, healthy appearing, comfortable, no acute distress, well developed, alert and awake Nutritional Appearance: thin Orientation/consciousness: patient oriented x3 Limitations: no limitations HEENT Head: Yes normal to inspection, Yes normocephalic and Yes atraumatic Ears: hearing grossly normal bilaterally Eyes General: appearance normal, both eyes and all related structures Neck Neck: Yes normal visual inspection and Yes trachea midline Chest Chest palpation & inspection: normal inspection of the chest Resp Effort & Inspection: normal respiratory effort and able to speak in complete sentences Cardio Rate: regular rate GI Inspection: Yes normal to inspection General: Yes no CVA tenderness Back/Spine/Pelvis Back: no CVA tenderness Skin General skin exam: no rashes or lesions noted Neuro General: patient oriented x3 Extrem General: Yes normal to inspection Psych Appearance: grossly normal and well kempt Mental Status: mental status grossly normal Speech and movement: Normal speech and movement present and Clear speech present Affect: normal affect Attitude: cooperative Thought process: Normal thought process present Thought content: Normal thought content present Insight: Fair insight present (Psych) Judgement: Fair judgement present (Psych) Results AMB Urinalysis, Automated UA Leukoctes 0 Richard/uL Last Edit by [employer] [facility] [employer] on 10/29/23 13:51 UA Nitrite Negative Last Edit by [facility] on 10/29/23 13:51 UA Urobilinogen 0.2 mg/dL Last Edit by [facility] on 10/29/23 13:51 UA Protein 0 mg/dL Last Edit by [facility] on 10/29/23 13:51 UA pH 5.5 Last Edit by [facility] on 10/29/23 13:51 UA Blood 80 Troy/uL Last Edit by [facility] on 10/29/23 13:51 UA Specific Stafford 1.025 Last Edit by [facility] on 10/29/23 13:51 UA Ketone Negative Last Edit by [facility] on 10/29/23 13:51 UA Bilirubin 0 mg/dL Last Edit by [employer] [facility] on 10/29/23 13:51 UA Glucose 0 mg/dL Last Edit by [employer] [facility] on 10/29/23 13:51 Results Reviewed Results Reviewed: Laboratory Last Values Urine pH (Auto) 5.5 10/29/23 13:43 Specific Stafford (Auto) 1.025 10/29/23 13:43 Urine Protein (Auto) 0 mg/dL 10/29/23 13:43 Glucose (UA)(Auto) 0 mg/dL 10/29/23 13:43 Urine Ketones (Auto) Negative 10/29/23 13:43 Urine Blood (Auto) 80 Troy/uL 10/29/23 13:43 Urine Nitrite (Auto) Negative 10/29/23 13:43 Urine Bilirubin (Auto) 0 mg/dL 10/29/23 13:43 Urine Urobilinogen (Auto) 0.2 mg/dL 10/29/23 13:43 Leukocyte Esterase (Auto) 0 Richard/uL 10/29/23 13:43 Date of Service: 10/15/23 EXAMINATION: US RETROPERITONEAL COMPLETE (RENAL) FINDINGS: RIGHT KIDNEY: 10.7 x 4.9 x 5.1 cm (SAG x AP x TRV). The kidney is normal in size, contour, and echogenicity. Renal cortical thickness is normal. No renal calculi or hydronephrosis. Multiple parapelvic benign Bosniak class I renal cysts are noted the largest of which measures 2.1 cm which require no additional imaging or follow-up. No solid renal masses are seen. LEFT KIDNEY: 11.2 x 4.8 x 4.5 cm (SAG x AP x TRV). The kidney is normal in size, contour, and echogenicity. Renal cortical thickness is normal. No renal calculi or hydronephrosis. Multiple benign parapelvic and cortical Bosniak class I renal cysts are noted, the largest measuring 1.7 cm which require no additional imaging or follow-up. No solid renal masses are seen. BLADDER: Well distended and normal. Bilateral ureteral jets are demonstrated. Prevoid bladder volume is 177.0 mL. Postvoid bladder volume is 3.6 mL. IMPRESSION: Negative exam. A cause for the patient's microscopic hematuria has not been found. Assessment & Plan Assessment & Plan (1) Microscopic hematuria: Code(s): R31.29 - Other microscopic hematuria Category: Medical (2) Dysuria: Code(s): R30.0 - Dysuria Category: Medical (3) Renal cyst: Code(s): N28.1 - Cyst of kidney, acquired Category: Medical Plan In office urinalysis results reviewed with the patient today; as noted above. Recent retroperitoneal ultrasound results reviewed with the patient today; as noted above. Discussed classifications of renal cysts. Discussed at length potential causes of microscopic hematuria. Discussed and stressed the importance of drinking adequate amount of water daily. Patient with a history of breast cancer therefore will not initiate Estrace cream however this was discussed. She currently denies any bothersome urinary issues or concerns. She reports be happy with current voiding parameters. Follow-up in 1 year with [facility]; or sooner with any issues, concerns, and or questions. Orders: Orders AMB Urinalysis Automated 10/29/23 Z13.9 - Encounter for screening, unspecified Patient Instructions: The patient had an opportunity to ask questions regarding the treatment plan. All questions were answered. Physical exam, labs, and imaging were discussed and reviewed in detail. As well as risks, benefits, and discussion of treatment choices. No major barriers to understanding were identified. The patient expressed understanding and agreement with the above treatment plan. The patient was made aware they should contact our office by phone for worsening of their current condition, the appearance of new symptoms, or with any questions or concerns. Compliance is encouraged with any medications and follow up testing that is ordered. It is a privilege to be allowed the opportunity to participate in? your urological care.? Again, if you have any questions or concerns If you have any questions or concerns please do not hesitate to contact me. The office is [phone]. This note is constructed using voice recognition software. While every effort has been made to ensure accuracy graining press operator errors may have been included. Yours sincerely, DAE Costa Coding Level of Care Code Est Pt Level 3 (34291) Diagnoses Microscopic hematuria R31.29 Dysuria R30.0 Renal cyst N28.1
== END 2023-10-29 14:12 | disposition home or self-care (01) ==
PROVIDERS: PCP Internal Medicine; Visit Provider Nurse Practitioner Family
DX: R31.29 Other microscopic hematuria (principal); R30.0 Dysuria; N28.1 Cyst of kidney, acquired
CPT/HCPCS: 99213

== ENCOUNTER → 2023-10-29 13:29 | Outpatient (BNVA) | payer MEDICARE, SELFPAY | PROVIDERS: PCP Internal Medicine; Visit Provider Nurse Practitioner Family | DX: R31.29 Other microscopic hematuria (principal); R30.0 Dysuria; N28.1 Cyst of kidney, acquired | CPT/HCPCS: 81003; 99212 ==

== ENCOUNTER 2023-11-25 13:00 | Outpatient (RCR) | payer MEDICARE, SELFPAY ==
[2023-10-10 15:11] VITALS: BP 127/60; PULSE 69
--- NOTE | 2023-10-11 12:37 | MHC.PT.EP ---
[facility] [place] Office [place] Office [place] Office [address] [phone] F: [phone] F: [phone] F: [phone] F: [phone] Physical Therapy Plan of Care Date of Evaluation: 10/10/23 Date of Surgery: Diagnosis: gait instability/abnormality Assessment: Patient is a pleasant 73 y.o. female who is referred to PT by Dr. Kerry Castro MD with Dx of gait instability. Her PMHx includes DMT2 and hx of neuropathy in bilateral feet and lower legs from Hx of chemotherapy from breast cancer treatment. Patient impairments includes poor satic and dynamic balance, limited ROM and strength in ankles. Patient current functional limitations are walking at [employer] for communion, walking outside, prolonged standing. Patient will benefit from skilled PT to address aforementioned impairments and functional limitations to meet established goals. Frequency and Duration: The patient will be seen 2x/week for 4 weeks Short Term Goals: 2 weeks Patient demonstrates consistency and independence with HEP to self manage symptoms. Pulverizer Goals: 4 weeks 4 weeks Patient presents with increased ankle DF AROM to neutral to improve gait to reduce fall risk/tripping hazard. Patient presents with increased hip flexion strength 4+/5 to improve prolonged standing endurance. Treatment Plan: Modalities to reduce pain, spasms and effusion. Manual therapy to restore motion and function. Therapeutic exercise to improve strength and flexibility. Neuromuscular re-education for posture and balance. Therapeutic activities to return to functional activities of daily living. Electronically signed by: Cinthia Hernandez, PT, DPT Please sign and return to therapist. Thank you for your referral.
--- NOTE | 2024-01-15 10:58 | MHC.PT.DC ---
[facility] [place] Office [place] Office [place] Office [address] Marissa Rothman [address] [phone] F: [phone] F: [phone] F: [phone] F: [phone] Physical Therapy Discharge Report Diagnosis: gait instability/abnormalityx Date of Surgery: Date of Evaluation: 10/10/23 Date of Discharge: 01/15/24 Treatments to Date: 7 Cancellations to Date: 0 No Shows to Date: 0 Discharge Status: Improved Function Independent with HEP Patient Elected to Stop Discharge Summary: Pt did well with PT interventions. She ceased attending on her own accord. Her last visit was on 11/25/23 and the assessment reads, She did not need seated rest breaks today, notes soreness and fatigues in her legs to end session. She did need UE support when performing any single leg stance exercises on uneven surface. She is discharged from PT at this time. Electronically signed by: Cinthia Hernandez, PT, DPT Please sign and return to therapist. Thank you for your referral.
== END 2024-01-15 10:55 | disposition home or self-care (01) ==
LOC: HO.PT 13:00
PROVIDERS: PCP Internal Medicine; Visit Provider Psychiatry & Neurology Neurology
DX: R26.9 Unspecified abnormalities of gait and mobility (principal)
CPT/HCPCS: 97110; 97112; 97162; 97530

== ENCOUNTER 2023-12-31 15:06 | Outpatient (REF) | payer MEDICARE, SELFPAY ==
--- NOTE | ~2023-12-31 | MM_ITS ---
EXAMINATION: MM SCREENING DIGITAL BREAST TOMOSYNTHESIS, BILATERAL CLINICAL INFORMATION: Screening. Asymptomatic. Patient has a history of right breast cancer diagnosed in 1999 and atypical lobular hyperplasia of the left breast diagnosed in 2010. COMPARISON: Mammography: This study is compared with prior exams dating back to 2019. TECHNIQUE: Digital breast tomosynthesis is performed in both the craniocaudal and mediolateral oblique views along with computer-aided detection (CAD). Synthesized 2D images are generated from the tomosynthesis. FINDINGS: The breasts are heterogeneously dense, which may obscure small masses (ACR BI-RADS breast composition Category c). There are no significant masses, abnormal calcifications, or other abnormalities. Bilateral post surgical changes are present. There is a biopsy tissue marker in the right breast and 2 biopsy tissue markers in the left breast. Few, coarse, benign calcifications are also present. MM/MM tomosynthesis screening BI IMPRESSION: No mammographic evidence of malignancy. ASSESSMENT: BI-RADS BI-RADS 2 - Benign Findings RECOMMENDATION: Routine annual mammography screening. 1 year F/U This examination should not preclude the clinical evaluation of a suspicious palpable abnormality. This patient's information was entered into a reminder system with a target due date for their next mammogram.
== END 2023-12-31 15:07 | disposition home or self-care (01) ==
LOC: HO.MAMMO 15:06
PROVIDERS: PCP Internal Medicine; Visit Provider Surgery
DX: Z12.31 Encounter for screening mammogram for malignant neoplasm of breast (principal)
CPT/HCPCS: 77063; 77067

== ENCOUNTER → 2023-12-31 15:15 | Outpatient (BNV) | payer MEDICARE, SELFPAY | PROVIDERS: PCP Internal Medicine; Visit Provider Radiology Diagnostic Radiology | DX: Z12.31 Encounter for screening mammogram for malignant neoplasm of breast (principal) | CPT/HCPCS: 77063; 77067 ==

== ENCOUNTER → 2024-01-23 10:01 | Outpatient (REF) | payer MEDICARE, SELFPAY ==
--- NOTE | ~2024-01-23 | NM_ITS ---
EXAMINATION: NM BONE SCAN OF THE WHOLE BODY CLINICAL INFORMATION: Malignant neoplasm of breast. Abnormal brain MRI in the form of decreased T1 and increased T2 signal at the right supraorbital frontal calvarium seen on 10/28/2023. For follow-up. COMPARISON: MRI of the brain done on 10/28/2023. TECHNIQUE: Multiple gamma scintillation camera images of the whole body were performed 2.25 hours following the intravenous administration of 23 mCi Tc-99m MDP. The radiotracer was injected through a left hand superficial vein without complications. FINDINGS: In the head, there is indeed subtle asymmetric focal tracer activity identified at the site of previous MR detected abnormality of the left frontal calvarium in the supraorbital region, best seen in the AP projection. Subtle asymmetric increased tracer activity is also noted involving the right maxillary region, given the presence of mild mucoperiosteal thickening on recent MRI study done on 10/28/2023, may represent reactive changes. In the thoracic cage and upper extremities, no suspicious focal lesion. In the spine, no suspicious focal lesion. Lower thoracic dextroscoliosis is present. Mildly increased tracer activity at the right lower lumbar spine likely represent degenerative changes. In the pelvis, certainly subtle focal asymmetric increased tracer activity projecting in the region of the right SI joint corresponding to the posterosuperior aspect of the right iliac bone is nonspecific. In the lower extremities, no suspicious focal abnormality. No other definite bony abnormalities are noted. The urinary bladder and faint visualization of both kidneys are noted. NM/NM bone scan whole body IMPRESSION: * Compared to most recent prior MRI of the brain done on 10/28/2023, there is indeed subtle asymmetric increased focal tracer activity identified at the right frontal calvarium at the supra orbital region. Although nonspecific, subtle early changes of metastasis may have similar scintigraphic appearance. * There is symmetric mild increased is elevated involving the right maxilla, when correlating with the prior MRI study likely representing the images given the presence of nonspecific mucoperiosteal thickening. * Asymmetric subtle focal increased tracer activity involving the posterior superior medial aspect of the right iliac bone at the level of the SI joint is noted, for which follow-up anatomical imaging correlation is recommended (either CT or MRI as appropriate). Electronically signed by: Sharon Hanna MD 01/24/2024 01:00 PM EDT
== END ==
LOC: HO.NUCMED 10:01
PROVIDERS: PCP Internal Medicine; Visit Provider Internal Medicine
DX: Z85.3 Personal history of malignant neoplasm of breast (principal)
CPT/HCPCS: 78306; A9503

== ENCOUNTER 2024-02-03 08:55 | Outpatient (REF) | payer MEDICARE, SELFPAY ==
--- NOTE | ~2024-02-03 | CT_ITS ---
EXAMINATION: CT PELVIS WITHOUT CONTRAST CLINICAL INFORMATION: Abnormal bone scan. Breast cancer. COMPARISON: Bone scan 01/23/2024 TECHNIQUE: Helical scanning was performed with submillimeter collimation through the pelvis. Sagittal and coronal multiplanar 2-D reconstructions were obtained. This CT examination was performed using dose optimization techniques as appropriate, variously including the following: *Automated exposure control *Adjustment of mA and/or kV according to patient size (this includes techniques or standardized protocols for targeted exams where dose is matched to indication/reason for exam; i.e. extremities or head) *Use of iterative reconstruction technique DLP: 390 mGy-cm FINDINGS: There is an asymmetric focus of degenerative sclerosis at the posterior aspect of the right sacroiliac joint which most likely accounts for the focus of increased radiotracer uptake on the bone scan. No suspicious lesions are evident. Mild bilateral hip osteoarthritis. Enthesopathy of the greater trochanters. Severe degenerative disc disease at L4-L5. CT/CT bony pelvis IMPRESSION: No suspicious bone lesion is demonstrated. There is an asymmetric focus of degenerative sclerosis of the right sacroiliac joint which most likely corresponds to the abnormal radiotracer uptake on the recent bone scan. Electronically signed by: Buster Grajeda MD 02/07/2024 01:22 PM EDT RP
== END 2024-02-03 08:56 | disposition home or self-care (01) ==
LOC: HO.CT 08:55
PROVIDERS: PCP Internal Medicine; Visit Provider Internal Medicine
DX: Z85.3 Personal history of malignant neoplasm of breast (principal)
CPT/HCPCS: 72192

== ENCOUNTER 2024-02-25 14:25 | Outpatient (REF) | payer MEDICARE, SELFPAY ==
--- NOTE | ~2024-02-25 | CT_ITS ---
EXAMINATION: CT HEAD WITHOUT CONTRAST CLINICAL INFORMATION: Right supraorbital frontal bone lesions seen on MRI, evaluate lesion for potential biopsy. Patient has history of breast CA. COMPARISON: MR head 10/28/2023, CT head 12/08/2020, and 07/16/2017. TECHNIQUE: Contiguous axial imaging was performed from the skull base to vertex without intravenous administration of contrast. This CT examination was performed using dose optimization techniques as appropriate, variously including the following: *Automated exposure control *Adjustment of mA and/or kV according to patient size (this includes techniques or standardized protocols for targeted exams where dose is matched to indication/reason for exam; i.e. extremities or head) *Use of iterative reconstruction technique DLP: 662 mGy-cm FINDINGS: There is no evidence of intracranial hemorrhage or extra-axial fluid collection. There is no mass effect, or edema. No CT evidence of acute territorial infarct. Ventricles, sulci, and cisterns are normal in size and configuration for patient age. No hydrocephalus. No midline shift. There are relatively mild supratentorial white matter hypodensities, consistent with small vessel ischemic changes. There are old lacunar type infarcts in the bilateral ganglial capsular regions, including both caudate heads, and both thalami. Normal-appearing sella and pituitary. Heavy calcification of the pineal with a stable 7 mm pineal cyst with sclerotic calcified sesay. Stability suggests benignity. No mass affect upon the tectal plate. Midline structures are otherwise normal in appearance. Mild atheromatous calcification of the bilateral carotid siphons. Globes and orbital contents image normally. No extracranial soft tissue abnormalities. Within the right frontal bone just anterior to the coronal suture, above the orbit, there is a subtle sclerotic focus (series 3, image 13) within the calvarium without diploic expansion, distortion of the trabecular bone, endosteal scalloping or lytic changes. In comparison with 12/08/2020, this is unchanged and stable and most certainly benign. It may be an early sclerotic phase of Paget's, however is nonspecific. This correlates perfectly with the findings on MRI. There are no additional calvarial abnormalities or bony findings. There is a small benign calvarial osteoma in the paramedian left frontal region. There are findings of incompletely imaged chronic sinusitis in the right maxillary antrum, with thickened sclerotic sinus sesay, and partially imaged inspissated partially calcified dense material centrally, opacifying approximately 50% of the antrum. Mild opacification of a solitary posterior right ethmoid air cell is present. The remainder of the paranasal sinuses are normally aerated. There is mild left nasal septal deviation posteriorly. No spur. Mastoids and tympanic cavities are aerated normally. There are moderate to severe degenerative changes in both TM joints. No extracranial soft tissue abnormalities. CT/CT head/brain wo IV con IMPRESSION: 1. No acute intracranial abnormalities. Mild chronic small vessel ischemic findings as described. 2. Focus of extremely subtle sclerosis in the right frontal bone just anterior to the coronal suture correlates well with the finding on MRI, and has a benign appearance as described. It is unchanged from 12/08/2020 CT. This does NOT represent a metastasis. 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 3. Chronic-appearing sinusitis of the right maxillary antrum. 4. Moderate to severe degenerative TM joint changes. 5. 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 It has a benign appearance and is stable. Findings discussed with Dr. Longoria 02/25/2024 at 3:30 PM. Electronically signed by: Cezar Armas MD 02/26/2024 09:27 AM EDT
== END 2024-02-25 14:26 | disposition home or self-care (01) ==
LOC: HO.CT 14:25
PROVIDERS: PCP Internal Medicine; Visit Provider Internal Medicine
DX: M89.9 Disorder of bone, unspecified (principal)
CPT/HCPCS: 70450

== ENCOUNTER → 2024-02-25 14:26 | Outpatient (BNV) | payer MEDICARE, SELFPAY | PROVIDERS: PCP Internal Medicine; Visit Provider Radiology Diagnostic Radiology | DX: M85.88 Other specified disorders of bone density and structure, other site (principal) | CPT/HCPCS: 70450 ==

== ENCOUNTER 2024-04-01 12:14 | Outpatient (AMB) | payer MEDICARE, SELFPAY ==
--- NOTE | 2024-04-01 12:36 | A.OFFVIS_ITS ---
Vital Signs 04/01/24 12:37 Height 5 ft 8 in Weight 135 lb BMI 20.5 Intake Visit Reasons: 4 mon follow up Intake Note: patient presents for follow up. since seeing the doctor last she's had a lot of things going on patient seeing a neuro surgeon. Allergies morphine [MORPHINE] Adverse Reaction (Mild, Verified 04/01/24 12:38) VOMITING, sensitivity atorvastatin Adverse Reaction (Unknown, Verified 04/01/24 12:38) Muscle cramps rosuvastatin [Crestor] Adverse Reaction (Unknown, Verified 04/01/24 12:38) muscle ache simvastatin Adverse Reaction (Unknown, Verified 04/01/24 12:38) Muscle cramps Medication List - Last Reconciled 04/01/24 by Kerry Castro MD alprazolam 0.5 mg PO DAILY PRN calcium carbonate (Oyster Shell Calcium) 500 mg PO DAILY carvedilol 3.125 mg PO BID cholecalciferol (vitamin D3) 25 mcg PO DAILY ezetimibe (Zetia) 10 mg PO DAILY lisinopril 2.5 mg PO DAILY mastectomy bra As directed mirtazapine 30 mg PO BEDTIME multivitamin 1 tab PO DAILY HPI Comments Details: 73y/o female comes for f/u of tinnitus and dizziness. she is very anxious and says her tinnitus is worse, her neuropathy is worse. she reports tingling, pain and difficulty walking . she feels like she is in a fog . she has left parietal pain - with buzzing noise. she takes tylenol 2 tabs bid for 3 years . In the interim MRI brain-There is an area of low T1 and hyperintense T2 signal in the right supraorbital calvarium, new compared to prior imaging, possibly consistent with an area of marrow infiltration. The patient has a history of right breast cancer. she was evaluated by Dr. Longoria and found to have macrocytosis , had bone scan, seen by who thought it was benign. History from initial history- SHe reports dizziness started about 7 years ago when she was started on lisinopril and carvedilol for left bundle branch block. she had an episode of syncope at that time and was seen by cardiology. Her dizziness has worsened since then. she feels like she is not stable in space. she has to concentrate when walking and usually bumps into others. she feels like she is in a fog. No spinning sensation.3 1/2 years when she had Moderna ( COVID)vaccine - 2 nd dose she had headaches , flu like symptoms and buzzing noise . she still has buzzing noise in her head and has headaches in her parietal region. she says it is constant and cannot sleep because of that. 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 No double vision SHe is depressed and anxious . she feels he rmemory is worse as well. 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 [facility] Medical History (Updated 04/02/24 @ 08:29 by Kerry Castro MD) Alteration in cognition Neuropathy Cervicalgia Anxiety Depression Gait disorder Sleep disorder Screening for viral disease Distal radius fracture, left Post-menopausal Infiltrating ductal carcinoma of right breast History of breast cancer Anxiety and depression Left bundle branch block Tubular adenoma of colon History of breast cancer Hypercholesterolemia Cardiomyopathy Type 2 diabetes mellitus with hyperglycemia Surgical History History of colonoscopy H/O left breast biopsy History of lumpectomy of right breast Family History Father CVD (cardiovascular disease) Myocardial infarct Mother HTN (hypertension) Cancer Uterine cancer Arthritis Paternal Aunt Myocardial infarct Paternal Uncle Myocardial infarct Brother No problems noted. Social History Household Members: None Housing: House Alcohol intake: current Alcohol intake frequency: holidays/special occasions only Patient Tobacco Use Status: Never used Tobacco e-Cigarette/Vaping Use: Never Used Second Hand Smoke Exposure: No service: No Current occupational status: retired Current occupation: rt hand Cognitive needs: No Hearing needs: No Vision needs: Yes Physical Exam Vital Signs: BMI result Body Mass Index 20.5 Const General: healthy appearing, comfortable and anxious Nutritional Appearance: average body habitus Orientation/consciousness: patient oriented x3 HEENT Head: Yes normal to inspection Neck Other: tight trapezius lauren , left laterocollis Neuro Other: retrognathia mallampatti grade 4 General: patient oriented x3, tone normal, moves all extremities and no focal motor deficits Cranial nerves: Yes Facial sensation intact/muscles of mastication intact, Yes Bilaterally intact EOM present, Yes Nystagmus not present, Yes Normal facial strength present, Yes Midline tongue present and Yes Ability to bilaterally elevate shoulders present Gait exam (Neuro): Antalgic gait present Motor exam (neuro): 5/5 motor strength present throughout and Normal motor muscle tone present throughout Coordination: [id number] test normal Psych Speech and movement: Pressured speech present Affect: Anxious affect present Assessment & Plan Assessment & Plan (1) Tinnitus: Comment: chronic - relate dto hearing loss, anxiety Code(s): H93.19 - Tinnitus, unspecified ear Category: Medical Qualifiers: Laterality: bilateral Qualified Code(s): H93.13 - Tinnitus, bilateral (2) Sleep disorder: Comment: snoring , frequent arousals and hypersomnia Code(s): G47.9 - Sleep disorder, unspecified Category: Medical (3) Gait disorder: Comment: off balance , slowness - multifactorial - musculoskeletal , ? neuropathy ? Code(s): R26.9 - Unspecified abnormalities of gait and mobility Category: Medical (4) Depression: Code(s): F32.A - Depression, unspecified Category: Medical Qualifiers: Depression Type: other depression Qualified Code(s): F32.89 - Other specified depressive episodes (5) Anxiety: Code(s): F41.9 - Anxiety disorder, unspecified Category: Medical Plan This was a counseling predominated session- patient and her friend were very anxious and upset that she had to wait for 6 mths to r/o cancer in her brain . On checking her chart , there were multiple communications with the patient about her CT , MRI , referral to Hemonc , bone scan and neurosurgeon etc. Patient does not seem to recall any of this conversations. During todays visit she was worried about her family h/o dementia and her cognitive difficulties. she requested a scan - i ordered PET amyloid but declan did not recall this information while she was checking out. Call sleep lab to schedule home sleep test F/u oncology EMG/ NCS LE - to evaluate neuropathy Increase mirtazapine 30mg qhs PT for neck Psychiatry ref for mood- poorly controlled PET amyloid for fh/o dementia Orders: Orders NE nerve conduction velocity 04/01/24 G62.9 - Polyneuropathy, unspecified PET Brain beta amyloid 04/01/24 R41.89 - Other symptoms and signs involving cognitive functions and awareness PT Evaluation and Treatment 04/01/24 M54.2 - Cervicalgia NE electromyogram (EMG) 04/01/24 G62.9 - Polyneuropathy, unspecified Referrals Psychology Referral F32.A - Depression, unspecified, F41.9 - Anxiety disorder, unspecified Psychiatry Outpatient Consultation Service F32.A - Depression, unspecified, F41.9 - Anxiety disorder, unspecified Medications: Changed From mirtazapine (Remeron) 15 mg PO BEDTIME 90 tabs 6RF Insomnia F32.A - Depression, unspecified To mirtazapine 30 mg PO BEDTIME 30 tabs 6RF Insomnia F32.A - Depression, unspecified Coding Level of Care Code Est Pt Level 5 (61669) Complex EM visit Add On G2211 Diagnoses Tinnitus of both ears H93.13 Laterality: bilateral Sleep disorder G47.9 Gait disorder R26.9 Other depression F32.89 Depression Type: other depression Anxiety F41.9 Time Spent (min) 50
[2024-04-01 12:37] VITALS: BMI 20.5
== END 2024-04-01 13:45 | disposition home or self-care (01) ==
PROVIDERS: PCP Internal Medicine; Visit Provider Psychiatry & Neurology Neurology
DX: H93.13 Tinnitus, bilateral (principal); G47.9 Sleep disorder, unspecified; R26.9 Unspecified abnormalities of gait and mobility; F32.89 Other specified depressive episodes; F41.9 Anxiety disorder, unspecified
CPT/HCPCS: 99215; G2211

== ENCOUNTER → 2024-04-01 12:14 | Outpatient (BNVA) | payer MEDICARE, SELFPAY | PROVIDERS: PCP Internal Medicine; Visit Provider Physician Assistant Medical | DX: H93.13 Tinnitus, bilateral (principal); G47.9 Sleep disorder, unspecified; R26.9 Unspecified abnormalities of gait and mobility; F32.89 Other specified depressive episodes; F41.9 Anxiety disorder, unspecified; G62.9 Polyneuropathy, unspecified; R41.89 Other symptoms and signs involving cognitive functions and awareness; M54.2 Cervicalgia | CPT/HCPCS: 99212 ==

== ENCOUNTER 2024-04-07 14:43 | Outpatient (AMB) | payer MEDICARE, SELFPAY ==
[2024-04-07 14:46] VITALS: BP 122/62; PULSE 77; BMI 20.8
--- NOTE | 2024-04-07 14:46 | MHC.OFFVIS ---
Vital Signs 04/07/24 14:46 Height 5 ft 8 in Weight 136 lb 10.986 oz BMI 20.8 BP 122/62 Blood Pressure Location Lt brachial Position Sitting Pulse 77 Pulse Source Monitor Intake Visit Reasons: 1 yr f/up Allergies morphine [MORPHINE] Adverse Reaction (Mild, Verified 04/01/24 12:38) VOMITING, sensitivity atorvastatin Adverse Reaction (Unknown, Verified 04/01/24 12:38) Muscle cramps rosuvastatin [Crestor] Adverse Reaction (Unknown, Verified 04/01/24 12:38) muscle ache simvastatin Adverse Reaction (Unknown, Verified 04/01/24 12:38) Muscle cramps Medication List - Last Reconciled 04/07/24 by Heber King MD alprazolam 0.5 mg PO DAILY PRN calcium carbonate (Oyster Shell Calcium) 500 mg PO DAILY carvedilol 3.125 mg PO BID cholecalciferol (vitamin D3) 25 mcg PO DAILY ezetimibe (Zetia) 10 mg PO DAILY lisinopril 2.5 mg PO DAILY mastectomy bra As directed mirtazapine 30 mg PO BEDTIME multivitamin 1 tab PO DAILY HPI Comments Details: Susan returns for follow-up regarding cardiomyopathy as well as left bundle-branch block. She lost her few years ago and since then has been quite depressed. Lots of nonspecific complaints including tinnitus, musculoskeletal complaints extra. She does not have any clear-cut exertional angina. Some exertional intolerance which could be multifactorial. [facility] Medical History (Updated 04/02/24 @ 08:29 by Kerry Castro MD) Alteration in cognition Neuropathy Cervicalgia Anxiety Depression Gait disorder Sleep disorder Screening for viral disease Distal radius fracture, left Post-menopausal Infiltrating ductal carcinoma of right breast History of breast cancer Anxiety and depression Left bundle branch block Tubular adenoma of colon History of breast cancer Hypercholesterolemia Cardiomyopathy Type 2 diabetes mellitus with hyperglycemia Surgical History History of colonoscopy H/O left breast biopsy History of lumpectomy of right breast Family History Father CVD (cardiovascular disease) Myocardial infarct Mother HTN (hypertension) Cancer Uterine cancer Arthritis Paternal Aunt Myocardial infarct Paternal Uncle Myocardial infarct Brother No problems noted. Social History Household Members: None Housing: House Alcohol intake: current Alcohol intake frequency: holidays/special occasions only Patient Tobacco Use Status: Never used Tobacco e-Cigarette/Vaping Use: Never Used Second Hand Smoke Exposure: No service: No Current occupational status: retired Current occupation: rt hand Cognitive needs: No Hearing needs: No Vision needs: Yes Review of Systems Const Denies weakness ENT Denies dizziness Card Denies chest pain, Denies chest pain with activity, Denies syncope, Denies rapid heart rate, Denies pedal edema, Denies edema, Denies leg edema, Denies lightheadedness, Denies palpitations, Denies dyspnea, Denies dyspnea on exertion and Denies orthopnea Resp Denies cough, Denies dyspnea and Denies dyspnea on exertion GI Denies hematochezia and Denies change in stool character Musc Denies abnormal gait, Denies muscle cramps, Denies muscle weakness, Denies numbness, Denies radiating pain into limb and Denies tingling Neuro Denies abnormal gait, Denies dizziness, Denies syncope, Denies numbness, Denies tingling and Denies weakness Endo Denies palpitations Physical Exam Vital Signs: Last Vital Signs Pulse 77 04/07/24 14:46 BP 122/62 04/07/24 14:46 BMI result Body Mass Index 20.8 Const General: comfortable and no acute distress Orientation/consciousness: patient oriented x3 HEENT Other: Unremarkable Head: Yes normal to inspection Neck Neck: Yes normal visual inspection Chest Chest palpation & inspection: normal inspection of the chest Resp Auscultation: clear to auscultation bilaterally Cardio Palpation: normal PMI Heart sounds: S1 normal heart sound present, S2 normal heart sound present, no gallops, no murmurs and no rubs GI Palpation (GI): Soft to palpation Back/Spine/Pelvis Other: unremarkable Skin General skin exam: no rashes or lesions noted Neuro General: patient oriented x3 Extrem General: Yes normal to inspection Psych Mental Status: mental status grossly normal Office Procedures EKG Details: EKG with underlying sinus rhythm at 77/Min; left ventricle hypertrophy/repolarization changes. PVC. [id number], Complete Assessment & Plan Assessment & Plan (1) NICM (nonischemic cardiomyopathy): Code(s): I42.8 - Other cardiomyopathies Category: Medical (2) Left bundle branch block: Code(s): I44.7 - Left bundle-branch block, unspecified Category: Medical Plan In the echocardiogram from 2022, LVEF is 40-45%. Overall, the trend is mostly the same for the last few years with slight changes, up or down. Left bundle-branch block and septal movement also interferes with interpretation. Coronary CTA in the past did not reveal any significant coronary disease. There was mild eccentric distal left main plaque; minimal disease elsewhere. Overall, most of her complaints are noncardiac in nature. Some degree of exertional intolerance is likely multifactorial with possibly some cardiac components. However, clinically she has got no signs whatsoever to suggest congestive heart failure. She is on a small dose of carvedilol/lisinopril. Unable to tolerate higher doses because of low blood pressure issues. Hence no further changes today. Otherwise, advised her to contact us with any ongoing concerns. We will see her back in 1 year with an echocardiogram. Orders: Orders CA echo transthoracic complete 1 Year I42.8 - Other cardiomyopathies Coding Level of Care Code Est Pt Level 4 (62835) Diagnoses NICM (nonischemic cardiomyopathy) I42.8 Left bundle branch block I44.7 CPT Codes EKG - CPT: 86451-[id number], Complete ([id number])
== END 2024-04-07 15:25 | disposition home or self-care (01) ==
PROVIDERS: PCP Internal Medicine; Visit Provider Internal Medicine
DX: I42.8 Other cardiomyopathies (principal); I44.7 Left bundle-branch block, unspecified
CPT/HCPCS: 93010; 99214

== ENCOUNTER → 2024-04-07 14:43 | Outpatient (BNVA) | payer MEDICARE, SELFPAY | PROVIDERS: PCP Internal Medicine; Visit Provider Internal Medicine | DX: I42.8 Other cardiomyopathies (principal); I44.7 Left bundle-branch block, unspecified | CPT/HCPCS: 93005; 99212 ==

== ENCOUNTER 2024-04-13 13:03 | Outpatient (AMB) | payer MEDICARE, SELFPAY ==
--- NOTE | 2024-04-13 13:05 | MHC.PC.OV ---
Vital Signs 04/13/24 13:06 Height 5 ft 8 in Weight 137 lb BMI 20.8 BP 122/62 Blood Pressure Location Lt brachial Position Sitting Pulse 70 Pulse Source Pulse Oximeter Pulse Oximetry (%) 97 Oxygen Delivery Method Room Air Intake Visit Reasons: review mammogram screening, follow up Allergies gabapentin Adverse Reaction (Intermediate, Unverified 04/13/24 13:37) Nausea morphine [MORPHINE] Adverse Reaction (Mild, Verified 04/13/24 13:06) VOMITING, sensitivity atorvastatin Adverse Reaction (Unknown, Verified 04/13/24 13:06) Muscle cramps rosuvastatin [Crestor] Adverse Reaction (Unknown, Verified 04/13/24 13:06) muscle ache simvastatin Adverse Reaction (Unknown, Verified 04/13/24 13:06) Muscle cramps Tobacco use date assessed: 06/04/23 Fall risk assessment: No Falls in past year Last assessed Fall Risk: 04/13/24 Dental Screening Dental Screen Date: 06/04/23 HPI review mammogram screening, follow up HPI Details 73-year-old female with a history of cardiomyopathy diabetes mellitus hypercholesterolemia depression history of breast cancer coming in for follow-up. Last seen in June 04 2023. Mammogram is due colonoscopy is up-to-date 12/06/2020 bone density is up-to-date 01/06/2023. Review of the notes has seen Cardiology April 07 2024 echocardiogram in 2022 EF of 40-45% coronary CTA did not reveal any significant coronary disease.. Patient has also seen Neurology tinnitus MRI showing low T1 and hyperintense T2 signal right supraorbital calvarium question of marrow infiltration advised to schedule for sleep study increase mirtazapine done 230 mg at bedtime referral to Psychiatry. Neurosurgeon notes regarding the skull lesion continuing to monitor. Patient also has seen urology for the hematuria negative.Was told not pagets. PETSCAN pending. has hyperaesthesia. still having preoblem of tinnitus but has seen ENT multiple with no relief. Patient is very anxious discussing about friends passing away. [facility] Medical History (Updated 04/13/24 @ 13:31 by Savana Del Castillo MD) Alteration in cognition Neuropathy Cervicalgia Anxiety Depression Gait disorder Sleep disorder Screening for viral disease Distal radius fracture, left Post-menopausal Infiltrating ductal carcinoma of right breast History of breast cancer Anxiety and depression Left bundle branch block Tubular adenoma of colon History of breast cancer Hypercholesterolemia Cardiomyopathy Type 2 diabetes mellitus with hyperglycemia Surgical History History of colonoscopy H/O left breast biopsy History of lumpectomy of right breast Family History Father CVD (cardiovascular disease) Myocardial infarct Mother HTN (hypertension) Cancer Uterine cancer Arthritis Paternal Aunt Myocardial infarct Paternal Uncle Myocardial infarct Brother No problems noted. Social History Household Members: None Housing: House Alcohol intake: current Alcohol intake frequency: holidays/special occasions only Patient Tobacco Use Status: Never used Tobacco e-Cigarette/Vaping Use: Never Used Second Hand Smoke Exposure: No service: No Current occupational status: retired Current occupation: rt hand Cognitive needs: No Hearing needs: No Vision needs: Yes Questionnaire PHQ-9 Over the last 2 weeks, how often have you been bothered by any of the following problems? 1. Little interest or pleasure in doing things: not at all 2. Feeling down, depressed, or hopeless: not at all 3. Trouble falling or staying asleep, or sleeping too much: not at all 4. Feeling tired or having little energy: not at all 5. Poor appetite or overeating: not at all 6. Feeling bad about yourself - or that you are a failure or have let yourself or your family down: not at all 7. Trouble concentrating on things, such as reading the newspaper or watching television: not at all 8. Moving or speaking so slowly that other people could have noticed. Or the opposite - being so fidgety or restless that you have been moving around a lot more than usual: not at all 9. Thoughts that you would be better off or of hurting yourself in some way: not at all Total score: 0 Depression Screening Interpretation: Negative Depression Screening Done: Yes 66292 - PHQ-9 Billing: Yes Source: Developed by Drs. Noel Rouse, Brenda Sheffield, Guslhan Jamison and colleagues, with an educational kimberley from [employer]. Thrive Questionnaire Date Thrive assessed: 06/04/23 AUDIT C Alcohol Use Questionnaire (AUDIT-C) 1. How often do you have a drink containing alcohol?: Never 3. How often do you have six or more drinks on one occasion?: Never Total Score: 0 ROBER-7 AMB Questionnaire ROBER-7 Date ROBER - 7 assessed: 06/04/23 Source: Developed by Drs. Noel Rouse, Brenda Sheffield, Gulshan Jamison and colleagues, with an educational kimberley from [employer]. Physical exam (Primary Care) Vital Signs: Last Vital Signs Pulse 70 04/13/24 13:06 BP 122/62 04/13/24 13:06 Pulse Ox 97 04/13/24 13:06 Oxygen Delivery Method Room Air 04/13/24 13:06 BMI result Body Mass Index 20.8 Tobacco/Smoking Status: Tobacco use Status Tobacco use date assessed 06/04/23 04/13/24 13:07 Patient Tobacco Use Status Never used Tobacco 04/13/24 13:07 e-Cigarette/Vaping Use Never Used 04/13/24 13:07 PHQ-9: PHQ-9 Score PHQ-9: Total score 0 04/13/24 13:07 Depression Screening Interpretation: Negative Thrive Assessment: Date of Thrive Assessment Date Thrive assessed 06/04/23 04/13/24 13:07 Const General: alert; No acute distress Eyes Conjunctivae: conjunctivae normal Resp Auscultation: clear to auscultation bilaterally Cardio Rate: regular rate Rhythm: regular rhythm GI Inspection: Yes normal to inspection Extrem General: Yes normal to inspection and No edema Coding Level of Care Code Est Pt Level 4 (80309) Diagnoses History of breast cancer Z85.3 Cardiomyopathy, unspecified type I42.9 Cardiomyopathy type: unspecified Type 2 diabetes mellitus with hyperglycemia, without long-term current use of insulin E11.65 Diabetes mellitus retirement insulin use: without termite exterminator use Hypercholesterolemia E78.00 Moderate episode of recurrent major depressive disorder F33.1 Active/Remission status: currently active Major depression episode severity: moderate Additional Codes PHQ-9 - 85261 - PHQ-9 Billing: Yes ([id number]) Assessment & Plan Assessment & Plan (1) History of breast cancer: Comment: 2000 right lumpectomy chemo and radiation Dr. Moody, MRI November 2015 Code(s): Z85.3 - Personal history of malignant neoplasm of breast Category: Medical Plan: Continue to follow-up with Hematology-Oncology and the surgeon and reminded about the mammogram (2) Cardiomyopathy: Comment: Sees Dr. King echocardiogram March 2023 Code(s): I42.9 - Cardiomyopathy, unspecified Category: Medical Qualifiers: Cardiomyopathy type: unspecified Qualified Code(s): I42.9 - Cardiomyopathy, unspecified Plan: Patient follows up with Cardiology. Stable echocardiogram ordered (3) Type 2 diabetes mellitus with hyperglycemia: Code(s): E11.65 - Type 2 diabetes mellitus with hyperglycemia Category: Medical Qualifiers: Diabetes mellitus termite exterminator insulin use: without retirement use Qualified Code(s): E11.65 - Type 2 diabetes mellitus with hyperglycemia Plan: Decrease the amount of carbohydrate intake, pasta, bread, rice and potatoes are all sugar and that is aside from all the sweet stuff, remember that fruits are good but they are Sweet also. Hemoglobin A1c goal of less than 7.0. Diet controlled (4) Hypercholesterolemia: Code(s): E78.00 - Pure hypercholesterolemia, unspecified Category: Medical Plan: Avoid fried foods, chicken skin, eggs, butter margarine, pastries and meat. Be it pork or beef they have a lot of cholesterol LDL goal of less than 100 and triglyceride of less than 150. (5) Recurrent major depression: Comment: decline referral for now 07/2022 Code(s): F33.9 - Major depressive disorder, recurrent, unspecified Category: Medical Qualifiers: Active/Remission status: currently active Major depression episode severity: moderate Qualified Code(s): F33.1 - Major depressive disorder, recurrent, moderate Plan: This is continued to be monitored on mirtazapine Orders: Orders Hemoglobin A1c Today E11.65 - Type 2 diabetes mellitus with hyperglycemia Comprehensive Met. Panel Today E11.65 - Type 2 diabetes mellitus with hyperglycemia Thyroid Stimulating Hormone Today E11.65 - Type 2 diabetes mellitus with hyperglycemia Vitamin D 25-OH Total Today E11.65 - Type 2 diabetes mellitus with hyperglycemia Microalbumin, Random (w Creat) Today E11.65 - Type 2 diabetes mellitus with hyperglycemia Complete Blood Count Auto Diff Today E11.65 - Type 2 diabetes mellitus with hyperglycemia Lipid Panel Today E11.65 - Type 2 diabetes mellitus with hyperglycemia, E78.00 - Pure hypercholesterolemia, unspecified Vitamin B12 and Folate Today E11.65 - Type 2 diabetes mellitus with hyperglycemia Free T4 (Free Thyroxine) Today E11.65 - Type 2 diabetes mellitus with hyperglycemia Creatinine Urine Today E11.65 - Type 2 diabetes mellitus with hyperglycemia UA CC w/rflx Micro + Cult Today E11.65 - Type 2 diabetes mellitus with hyperglycemia, R30.0 - Dysuria
[2024-04-13 13:06] VITALS: BP 122/62; PULSE 70; O2SAT 97; BMI 20.8
== END 2024-04-13 13:53 | disposition home or self-care (01) ==
PROVIDERS: PCP Internal Medicine; Visit Provider Internal Medicine
DX: I42.9 Cardiomyopathy, unspecified (principal); E11.65 Type 2 diabetes mellitus with hyperglycemia; F33.1 Major depressive disorder, recurrent, moderate; Z85.3 Personal history of malignant neoplasm of breast; E78.00 Pure hypercholesterolemia, unspecified

== ENCOUNTER → 2024-04-13 13:03 | Outpatient (BNVA) | payer MEDICARE, SELFPAY | PROVIDERS: PCP Internal Medicine; Visit Provider Internal Medicine | DX: E11.65 Type 2 diabetes mellitus with hyperglycemia (principal); I42.9 Cardiomyopathy, unspecified; E78.00 Pure hypercholesterolemia, unspecified; F33.1 Major depressive disorder, recurrent, moderate; Z85.3 Personal history of malignant neoplasm of breast | CPT/HCPCS: 96127; 99212 ==

== ENCOUNTER 2024-04-21 09:58 | Outpatient (REF) | payer MEDICARE, SELFPAY ==
--- NOTE | 2024-04-21 10:01 | EMG_ITS ---
FINDINGS: Bilateral tibial and peroneal motor studies were performed. Bilateral superficial peroneal and sural sensory studies were performed. Tibial H reflexes were obtained and paraspinal muscles were tested with a needle. 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 MD OVIDIO Drake/DEJA / [id number]
== END 2024-04-21 09:59 | disposition home or self-care (01) ==
LOC: HO.NEURO 09:58
PROVIDERS: PCP Internal Medicine; Visit Provider Psychiatry & Neurology Neurology
DX: G62.9 Polyneuropathy, unspecified (principal); G61.81 Chronic inflammatory demyelinating polyneuritis
CPT/HCPCS: 95886; 95911

== ENCOUNTER 2024-04-24 14:02 | Outpatient (AMB) | payer MEDICARE, SELFPAY ==
--- NOTE | 2024-04-24 14:03 | A.OFFVIS_ITS ---
Intake Visit Reasons: MMSE Intake Note: Patient presents for MMSE Allergies gabapentin Adverse Reaction (Intermediate, Unverified 04/13/24 13:37) Nausea morphine [MORPHINE] Adverse Reaction (Mild, Verified 04/13/24 13:06) VOMITING, sensitivity atorvastatin Adverse Reaction (Unknown, Verified 04/13/24 13:06) Muscle cramps rosuvastatin [Crestor] Adverse Reaction (Unknown, Verified 04/13/24 13:06) muscle ache simvastatin Adverse Reaction (Unknown, Verified 04/13/24 13:06) Muscle cramps HPI Comments Details: 73 year old female f/u for cognitive decline. She is an active [email or web address], at her nondenominational and seen many members age and pass-away recently. Her Noble, passed 5 years ago, d/t Pancreatic Cancer, her brother passed 6 years ago. She c/o being more forgetful daily, misses appointments, tasks, walks into the bedroom 3 x forgets why she is there. ADLs indepent living, can bathe hersef, dress herself, cooks, cleans, pays bills, volunteers at the [facility]. NCS Neuropathy, EMG was done, now continues to have pain in R. Leg, back of the leg and all the way. No back surgery, had sciatica L leg, feels off balance when walking slow, and dizzy, off kilter, fast walking is good. Since Covid, she had RSV 2020, feels like she is in a fog, with memory difficulties. Her Symptoms worsened as she lost her support network. [facility] 3-5 x per week, introduces herself to new-comers at the [facility], the coaches call to follow up with and check on her. Has friends here, but no family and she goes out, takes care of her 92 year old neighbor as extended family. Mood is at baseline happy and jokes around all the time. Diet is good, she had syncope, A1c is well controlled now and still eats junk food like ice cream once in a while, knows she is genetically predisposed to th robbi diseases, run in her family, Parkinsons and dementia. Denies anxiety and depression, however gets very concerned about going out in public spaces, especially now with the winter season. Grief support group at [place] every saturday, and 2x a month, takes Alprazolam 0.5mg PRN. Sleep difficulties when she goes to the bathroom then at 2am difficulty tinnitus, takes Mirtazapine for sleep and mood. Motivation to work out dwindles, she tries very hard and pushes herself to go exercise. [facility] Medical History Alteration in cognition Neuropathy Cervicalgia Anxiety Depression Gait disorder Sleep disorder Screening for viral disease Distal radius fracture, left Post-menopausal Infiltrating ductal carcinoma of right breast History of breast cancer Anxiety and depression Left bundle branch block Tubular adenoma of colon History of breast cancer Hypercholesterolemia Cardiomyopathy Type 2 diabetes mellitus with hyperglycemia Surgical History History of colonoscopy H/O left breast biopsy History of lumpectomy of right breast Family History Father CVD (cardiovascular disease) Myocardial infarct Mother HTN (hypertension) Cancer Uterine cancer Arthritis Paternal Aunt Myocardial infarct Paternal Uncle Myocardial infarct Brother No problems noted. Social History Household Members: None Housing: House Alcohol intake: current Alcohol intake frequency: holidays/special occasions only Patient Tobacco Use Status: Never used Tobacco e-Cigarette/Vaping Use: Never Used Second Hand Smoke Exposure: No service: No Current occupational status: retired Current occupation: rt hand Cognitive needs: No Hearing needs: No Vision needs: Yes Review of Systems Const All systems reviewed & are unremarkable except as noted in HPI and below Physical Exam Patient is here for MMSE d/t Cognitive Decline. Const General: cooperative, comfortable and no acute distress Nutritional Appearance: average body habitus Orientation/consciousness: patient oriented x3 Resp Effort & Inspection: normal respiratory effort and able to speak in complete sentences Neuro General: patient oriented x3, tone normal and moves all extremities Motor exam (neuro): 5/5 motor strength present throughout Psych Appearance: grossly normal Speech and movement: Normal speech and movement present Affect: Anxious affect present Attitude: cooperative Insight: Fair insight present (Psych) Judgement: Fair judgement present (Psych) Orientation What is the (year) (season) (date) (day) (month)?: year, season, day and month Where are we (state) (county) (town or city) (hospital) (floor)?: state, county, town or city, hospital/clinic and floor Registration Name of 3 unrelated objects clearly and slowly, then ask patient to repeat all 3 of them. (1st repeat determines score. Make sure they can repeat all three): object 1, object 2 and object 3 Attention & Calculation (CHOOSE ONE) Ask pt to begin with 100 & count backward by 7. Stop after 5 repeats. If pt cannot ask them to spell the word WORLD backward.: 93, 86 and 79 Recall Ask patient to repeat the 3 items from question #3.: object 1, object 2 and object 3 Language Show patient a wristwatch & ask what it is. Repeat for pencil.: watch and pencil Ask the patient to repeat the phrase 'No ifs, ands, or buts' after you.: incorrect Ask the patient to 'take a piece of paper with their right hand' 'fold paper in half' 'place paper on floor': take paper in right hand, fold paper in half and place paper on floor Print the sentence 'CLOSE YOUR EYES' on a piece. If patient actually closes eyes then score.: followed written direction Give patient a blank piece of paper & ask to write a sentence. Score if it contains a noun & verb.: sentence contains subject and verb Score Score: 25 Assessment & Plan Assessment & Plan (1) Anxiety: Code(s): F41.9 - Anxiety disorder, unspecified Category: Medical (2) Alteration in cognition: Code(s): R41.89 - Other symptoms and signs involving cognitive functions and awareness Category: Medical (3) Memory change: Code(s): R41.3 - Other amnesia Category: Medical Plan MMSE per Cognitive Decline Patient Education: Anxiety and depression play a major role with memory deficits. Continue to stay actively engaged with the [employer] and social circles. Contine to take Alprazolam 0.5mg PRN Continue to take Mirtazapine 30mg PO at bedtime to help with mood and sleep. Complete all Labs, follow up with office via portal or phone call if you have any concerns. Coding Level of Care Code Est Pt Level 3 (60944) Diagnoses Anxiety F41.9 Alteration in cognition R41.89 Memory change R41.3 Time Spent (min) 30 Comment Baseline cognitive decline
== END 2024-04-24 14:44 | disposition home or self-care (01) ==
LOC: HO.HSMS 14:02
PROVIDERS: PCP Internal Medicine; Visit Provider Physician Assistant Medical
DX: F41.9 Anxiety disorder, unspecified (principal); R41.89 Other symptoms and signs involving cognitive functions and awareness; R41.3 Other amnesia
CPT/HCPCS: 99213

== ENCOUNTER → 2024-04-24 14:02 | Outpatient (BNVA) | payer MEDICARE, SELFPAY | PROVIDERS: PCP Internal Medicine; Visit Provider Physician Assistant Medical | DX: F41.9 Anxiety disorder, unspecified (principal); R41.89 Other symptoms and signs involving cognitive functions and awareness; R41.3 Other amnesia | CPT/HCPCS: 99212 ==

== ENCOUNTER 2024-05-26 13:01 | Outpatient (REF) | payer MEDICARE, SELFPAY ==
--- NOTE | ~2024-05-26 | MR_ITS ---
EXAMINATION: MR BREAST WITHOUT AND WITH CONTRAST, BILATERAL CLINICAL INFORMATION: History of right breast cancer in 2000 and status post lumpectomy and left breast atypical lobular hyperplasia in 2010. Status post excisional biopsy. COMPARISON: Mammography December 2023 January 06 09 January 2022. MRI June 2021, December 22, 2019. June 04 2018. TECHNIQUE: MR imaging of the breast was performed using T1, T2 and fat saturated techniques. Dynamic multiphase imaging was also performed after the administration of intravenous gadolinium contrast agent. Computer generated 3-D reconstruction was utilized by the radiologist. FINDINGS: There is heterogeneous fibroglandular breast tissue with moderate background enhancement. LEFT BREAST: Artifacts from marker clips. No suspicious enhancing mass or areas of nonmass enhancement. No architectural distortion. No internal mammary or axillary adenopathy. RIGHT BREAST: Artifact from marker clips. Postsurgical changes. No suspicious enhancing masses or areas of nonmass enhancement. No unexplained areas of architectural distortion. No internal mammary or axillary adenopathy. Limited views of the chest and abdomen are unremarkable. MR/MR breast BI wo/w con IMPRESSION: Status post bilateral postsurgical changes. No MRI evidence of malignancy bilateral breasts. ASSESSMENT: LEFT BREAST: BI-RADS 2 benign. RIGHT BREAST: BI-RADS 2 benign. RECOMMENDATIONS: Recommend yearly screening mammogram. Recommend yearly MRI screening surveillance. Electronically signed by: Analy Hall DO 05/27/2024 11:53 AM EST
[2024-05-26] MEDS: gadobutroL 7.5 ML VIAL IVPUSH (14:43)
== END 2024-05-26 13:02 | disposition home or self-care (01) ==
LOC: HO.MRI 13:01
PROVIDERS: PCP Internal Medicine; Visit Provider Surgery
DX: C50.911 Malignant neoplasm of unspecified site of right female breast (principal)
CPT/HCPCS: 77049; A9585

== ENCOUNTER → 2024-05-26 13:07 | Outpatient (BNV) | payer MEDICARE, SELFPAY | PROVIDERS: PCP Internal Medicine; Visit Provider Internal Medicine | DX: Z85.3 Personal history of malignant neoplasm of breast (principal) | CPT/HCPCS: 77049 ==

== ENCOUNTER 2024-06-19 13:56 | Outpatient (RCR) | payer MEDICARE, SELFPAY ==
--- NOTE | 2024-06-19 17:23 | MHC.PT.EP ---
[facility] [place] [facility] [place] [facility] [place] Office [address] Marissa Rothman [address] [phone] F: [phone] F: [phone] F: [phone] F: [phone] Physical Therapy Plan of Care Date of Evaluation: 05/26/24 Date of Surgery: Diagnosis: Cervicalgia Assessment: Pt is a 73 y/o female with Hx significant for osteoporosis, breast CA, Neuropathy, Anxiety and depression, Left bundle branch block, Type 2 diabetes who is referred to PT for eval and treat of cervicalgia who presents with L cervical and shoulder dysfunction resulting in decreased tolerance for driving, concentrating, reading, participating in senior exercise classes, reaching high shelves with her L arm, as well as disturbed sleep, NUNN and pain secondary to decreased cervical ROM, decreased scapular and cervical posture, TTP and increased tissue tension L UT area, decreased L shoulder ROM and strength, possible contributory sleeping habits and pain. Pt is deemed an appropriate candidate to receive skilled PT services to address their physical impairments in order to improve their functional ability. Frequency and Duration: The patient will be seen 2 x / wk x 4 wks. Short Term Goals: Initiate home program. improve baseline cervical pain to < 5/10; initial: 8/10. Longterm Goals: I with home program. Pt will report no longer disturbed d/t cervical pain; initial: 1/4 disturbed. Pt will be able to place objects on high shelf with L shoulder with managed Sx. Pt will improve NDI outcome by at least 9 points. Treatment Plan: Modalities to reduce pain, spasms and effusion. Manual therapy to restore motion and function. Therapeutic exercise to improve strength and flexibility. Neuromuscular re-education for posture and balance. Therapeutic activities to return to functional activities of daily living. Electronically signed by: Chun Sparrow PT. Please sign and return to therapist. Thank you for your referral.
== END 2024-06-19 17:22 | disposition home or self-care (01) ==
LOC: HO.PT 13:56
PROVIDERS: PCP Internal Medicine; Visit Provider Psychiatry & Neurology Neurology
DX: M54.2 Cervicalgia (principal)
CPT/HCPCS: 97110; 97140; 97161; 97535

== ENCOUNTER 2024-07-07 09:47 | Outpatient (REF) | payer MEDICARE, SELFPAY ==
--- OUTSIDE RECORDS SUMMARY | 2024-07-07 10:32 | XMS_ITS | Patient Health Record ---
Author Organization [facility] Address [address] [place] [address] Care Team Providers Care Oil Sprayer Name Role Phone Savana Del Castillo Primary Care Provider Rivera Chavarria Unavailable [phone] Allergies Allergen (clinical drug ingredient) Drug/Non Drug Allergy documented on EMR Reaction Allergy Type Onset Date Status morphine Morphine Unknown Drug Allergy Active Substance with 2-xjveetf-4-methylgluta ryl-coenzyme A reductase inhibitor mechanism of action (substance) Statins Unknown Drug Allergy Active Reason For Referral No Information Medications Medication SIG (Take, Route, Frequency, Duration) Notes Start Date End Date Status ALPRAZolam 0.5 MG TAKE 1 TABLET BY SEJAL TH TWICE A DAY FOR 90 DAYS Oral for 90 PRN Active Aspirin 81 Not-Takin g Amitriptyline HCl 25 MG Oral for 90 Active Nitro-Bid 2 % as directed Transder mal apply bid to toes for 90 days Active Physical Therapy . . . 2-3x/week for 3- 4 weeks 12/14/2021 Active Ezetimibe 10 MG 1 tablet Orally Once a day Active Carvedilol 3.125 MG 1 tablet with food O ral Twice a day Active Multivitamin Active Lisinopril 2.5 MG 1 tablet Oral Once a day Active Immunizations Vaccine Route Administration Date Status Comme nts COVID-19 Moderna Vaccine Unknown 05/10/2021 Administered 1st 06/16/2020 2nd 07/17/2020 Booster Pfizer 05/16/21 Social History Tobacco Use: Social History Observation Description Date Details (start date - stop date) Never Smoker NA - NA Tobacco Use/Smoking Question Answer Notes Are you a: nonsmoker Alcohol Screen Question Answer Notes Did you have a drink contain ing alcohol in the past year? Yes How often did you have a dri nk containing alcohol in the past year? Monthly or less (1 point) How many drinks did you have on a typical day when you were drinking in the past year? 1 or 2 drinks (0 point) Points 1 Interpretation Negative Tobacco use other than smoking: Question Answer Notes Are you an other tobacco user? No Problems Problem Type SNOMED Code ICD Code Onset Dates Problem Status W/U Status Risk Notes Problem Acquired hallux valgus (16705310) Hallux valgus (acquired), right foot (M20.11) Active confirmed Problem Acquired hallux rigidus (6654810) Hallux rigidus, left foot (M20.22) Active confirmed Problem 899212339 Raynaud's diseas e without gangrene (I73.00) Active confirmed Problem 703950571 Preproliferative diabetic retinopathy (E11.3499) Active confirmed Plan Of Treatment Pending Test Test Name Order Date X ray : Foot, left 3V 08/16/2021 X ray : Foot, right 3V 08/16/2021 Insurance Providers Payer Name Payer Address Payer Phone Subscriber Number Group Number Insured Name Patient Relationship to Insured Coverage Start Date Coverage End Date Medicare National [employer] [address] [place] [address] [id number] [employer] Self - patient is the insured [facility] [address] [place] [address] [phone] [id number] [employer] Self - patient is the insured Medical (General) History Medical History History ICD Code Anxiety Arthritis Back,Hip,and Knee pain Broken bones CAD (Cholesterol) Cancer Depression Headaches/Migraines Heart disease High blood pressure Numbness Rheumatic fever Measles Mumps tinnitus Hot flash Left bundle branch block (LBBB) Pre type II diabetes Surgical History Surgery Date(Month/Year) Hospitalization History Reason Date(Month/Year) [facility] Broke L Wrist 02/2021
--- OUTSIDE RECORDS SUMMARY | 2024-07-07 10:32 | XMS_ITS | Patient Health Record ---
Author Organization [facility] Address [address] [place] [address] Care Team Providers Care Head Men'S Golf Coach Name Role Phone Savana Del Castillo MD Primary Care Provider Noel Meraz [phone] ALLERGIES Allergen (clinical drug ingredient) Drug/Non Drug Allergy documented on EMR Reaction Allergy Type Onset Date Status morphine Morphine Sulfate Unknown Drug Allergy Active REASON FOR REFERRAL No Information MEDICATIONS Medication SIG (Take, Route, Frequency, Duration) Notes Start Date End Date Status Carvedilol 3.125 MG 1 tablet with food O rally Twice a day Active Lisinopril 2.5 MG 1 tablet Orally Once a day Active Ezetimibe Active Aspirin Adult Low Dose 81 MG 1 tablet Orally Once a day for 30 day(s) Active Multivitamin - 1 tablet Orally Once a day for 30 day(s) Active IMMUNIZATIONS Vaccine Route Administration Date Status Comme nts Influenza Unknown 01/19/2020 Administered SOCIAL HISTORY Sex Assigned At : Social History Observation Description Sex Assigned At Unknown PROBLEMS Problem Type ICD Code Onset Dates Problem Status W/U Status Risk SNOMED Code Notes Problem Encounter for screening for malignant neoplasm of colon (Z12.11) Active confirmed 939383460 Problem History of adenomatous polyp of colon (Z86.010) Active confirmed 755281956 Problem Personal history of colonic polyps (Z86.010) Active confirmed History of poly p of colon (situation) (969719048) Problem Diverticulosis of large intestine without perforation or abscess without bleeding (K57.30) Active confirmed Diverticul ar disease of colon (814813801) Problem Preprocedural examination (Z01.818) Active confirmed 192107972124236 Problem Aspirin long-term use (Z79.82) Active confirmed 211238642990226 PLAN OF TREATMENT Future Test Test Name Order Date COLONOSCOPY 02/04/2015 COLONOSCOPY 11/23/2020 Insurance Providers Payer Name Payer Address Payer Phone Subscriber Number Group Number Insured Name Patient Relationship to Insured Coverage Start Date Coverage End Date MEDICARE OF [place] [address] [place] [address] [id number] ROJELIO ANGLIN Self - patient is the insured [employer] CLAIMS [address] [place] [address] [id number] ROJELIO ANGLIN Self - patient is the insured MEDICAL (GENERAL) HISTORY Medical History History ICD Code Dizziness/Equilibrium issues--saw Dr. Rob fitzgerald Left bundle branch block-see s cardiology [place] [facility] [place]--had an ETT and a cardiac Echo-Dr. Knig Right-sided Breast cancer--1998--2 Lumpe ctomies, chemo and XRT Negative colonoscopy in 04/[address] Phipps, except for small internal hemorrhoids Hyperlipidemia HTN Denies SD,CVA,Lung disease,renal disease Persistent Tinnitus after he r 2nd Moderna vaccine in 06/2020--seeing Dr. Contreras Colonoscopy 05/2015 with a small tubular adenoma Diet-controlled DM Surgical History Surgery Date(Month/Year) 2 lumpectomies as above for breast cance r
[2024-07-07 10:59] LABS: MANUAL DIFF FLAG NO
[2024-07-07 11:18] LABS: Basophils Percent Auto 0.9 % (0-2); Eosinophils Absolute Auto 0.1 X10*3/uL (0.0-0.4); Eosinophils Percent Auto 2.6 % (0-4); Hematocrit 36.8 % (37.0-47.0); Hemoglobin 11.8 g/dl (12.0-16.0); Imm Gran Abs Auto 0.01 X10*3/uL (0.00-0.03); Imm Gran Pct Auto 0.2 % (0.0-0.4); Lymphocytes Absolute Auto 1.5 X10*3/uL (1.2-4.9); Lymphocytes Percent Auto 31.7 % (20-40); Mean Corpuscular HGB Conc 32.1 g/dl (31.0-35.0); Mean Corpuscular Hemoglobin 33.5 pg (27.0-33.0); Mean Corpuscular Volume 104.5 fL (80.0-98.0); Mean Platelet Volume 9.8 fL (9.4-12.3); Monocytes Absolute Auto 0.3 X10*3/uL (0.1-1.2); Monocytes Percent Auto 7.4 % (2-11); Neutrophils Absolute Auto 2.6 x10*3/uL (2.0-8.3); Neutrophils Percent Auto 57.2 % (45-73); Platelet Count 289 X10*3/uL (160-400); Red Blood Count 3.52 X10*6/uL (4.20-5.50); Red Cell Distribution Width 13.4 % (11.0-16.0); White Blood Count 4.6 X10*3/uL (4.8-10.8)
[2024-07-07 11:50] LABS: Estimated Average Glucose 140 mg/dL; Hemoglobin A1C 153.7464 umol/L; Hemoglobin A1c % 6.5 % (<6.0); Total Hemoglobin (HGBA1C) 3247.4689 umol/L
[2024-07-07 12:06] LABS: Alanine Aminotransferase 16 U/L (0-31); Alkaline Phosphatase 53 U/L (39-117); Anion Gap 11 (12-20); Aspartate Amino Transferase 23 U/L (5-31); Bilirubin Total 0.4 mg/dL (0.0-1.0); Blood Urea Nitrogen 30 mg/dL (9-16); Calcium 9.6 mg/dL (8.4-10.2); Carbon Dioxide 28 mmol/L (22-29); Chloride 107 mmol/L (96-108); Cholesterol 206 mg/dL (<200); Estimated Glomerular Filt Rate > 60; Glucose Random 127 mg/dL (60-115); HDL Cholesterol 70 mg/dL (>40); LDL Cholesterol Calculated 118 mg/dL (<100); Potassium 4.6 mmol/L (3.3-5.1); Sodium 141 mmol/L (135-145); Total Protein 7.5 g/dL (6.5-8.0); Triglycerides 92 mg/dL (<150)
[2024-07-07 12:30] LABS: Free T4 (Free Thyroxine) 0.97 ng/dL (0.71-1.85); Thyroid Stimulating Hormone 2.01 uIU/mL (0.32-4.0); Vitamin D 25-OH Total 36.5 ng/mL (>30)
[2024-07-07 12:50] LABS: Folate > 20.0 ng/mL (> or = 4.0); Vitamin B12 888 pg/mL (200-900)
[2024-07-07 14:26] LABS: Appearance Urine Clear; Color Urine Dark Yellow; Glucose Urine UA Negative (Negative); Leukocyte Esterase Urine Negative (Negative); Nitrite Urine Negative (Negative); Specific Gravity - Urine 1.025 (1.005-1.025); Urine Blood Negative (Negative); Urine Ketones Negative (Negative); Urine Protein Negative (Neg-Trace)
[2024-07-07 14:57] LABS: Creatinine Urine 147.03 mg/dL
[2024-07-07 15:00] LABS: Creatinine Urine 148.43 mg/dL; Microalbum/Creatinine Ratio Ur 6.7 ug/mg cr (<30)
== END 2024-07-07 09:48 | disposition home or self-care (01) ==
LOC: HO.WFDLDS 09:47
PROVIDERS: Visit Provider Internal Medicine
DX: E11.65 Type 2 diabetes mellitus with hyperglycemia (principal); R30.0 Dysuria; E78.00 Pure hypercholesterolemia, unspecified
CPT/HCPCS: 36415; 80053; 80061; 81003; 82043; 82306; 82570; 82607; 82746; 83036; 84439; 84443; 85025

== ENCOUNTER 2024-07-09 14:46 | Outpatient (AMB) | payer MEDICARE, SELFPAY ==
--- NOTE | 2024-07-09 15:15 | MHC.OFFVIS ---
Vital Signs 07/09/24 15:16 Height 5 ft 8 in Weight 137 lb BMI 20.8 BP 114/72 Blood Pressure Location Rt brachial Position Sitting Intake Visit Reasons: 3 mon follow up Intake Note: patient following up on results of Brain scan done 06/01/24 and EMG done 04/21/24 Allergies gabapentin Adverse Reaction (Intermediate, Unverified 07/09/24 15:17) Nausea morphine [MORPHINE] Adverse Reaction (Mild, Verified 07/09/24 15:17) VOMITING, sensitivity atorvastatin Adverse Reaction (Unknown, Verified 07/09/24 15:17) Muscle cramps rosuvastatin [Crestor] Adverse Reaction (Unknown, Verified 07/09/24 15:17) muscle ache simvastatin Adverse Reaction (Unknown, Verified 07/09/24 15:17) Muscle cramps Medication List - Last Reconciled 07/09/24 by Kerry Castro MD alpha lipoic acid 300 mg PO DAILY alprazolam 0.5 mg PO DAILY PRN calcium carbonate (Oyster Shell Calcium) 500 mg PO DAILY carvedilol 3.125 mg PO BID cholecalciferol (vitamin D3) 25 mcg PO DAILY ezetimibe (Zetia) 10 mg PO DAILY lisinopril 2.5 mg PO DAILY mastectomy bra As directed mirtazapine 30 mg PO BEDTIME multivitamin 1 tab PO DAILY HPI Comments Details: 73 year old female f/u for cognitive decline. AMyloid PET scan was not c/w Alzheimers.But patient is very unhappy that she did not get a call. she is asking if her chronic tinnitus is related to her vaccine - i asked her to discuss with ENT. Notes form last visit-She is an active [employer], at her jehovah's witness and seen many members age and pass-away recently. Her Noble, passed 5 years ago, d/t Pancreatic Cancer, her brother passed 6 years ago. She c/o being more forgetful daily, misses appointments, tasks, walks into the bedroom 3 x forgets why she is there. ADLs indepent living, can bathe hersef, dress herself, cooks, cleans, pays bills, volunteers at the [facility]. NCS Neuropathy, EMG was done, now continues to have pain in R. Leg, back of the leg and all the way. No back surgery, had sciatica L leg, feels off balance when walking slow, and dizzy, off kilter, fast walking is good. Since Covid, she had RSV 2020, feels like she is in a fog, with memory difficulties. Her Symptoms worsened as she lost her support network. [facility] 3-5 x per week, introduces herself to new-comers at the [facility], the coaches call to follow up with and check on her. Has friends here, but no family and she goes out, takes care of her 92 year old neighbor as extended family. Mood is at baseline happy and jokes around all the time. Diet is good, she had syncope, A1c is well controlled now and still eats junk food like ice cream once in a while, knows she is genetically predisposed to these diseases, run in her family, Parkinsons and dementia. Denies anxiety and depression, however gets very concerned about going out in public spaces, especially now with the winter season. Grief support group at [place] every saturday, and 2x a month, takes Alprazolam 0.5mg PRN. Sleep difficulties when she goes to the bathroom then at 2am difficulty tinnitus, takes Mirtazapine for sleep and mood. Motivation to work out dwindles, she tries very hard and pushes herself to go exercise. [facility] Medical History Alteration in cognition Neuropathy Cervicalgia Anxiety Depression Gait disorder Sleep disorder Screening for viral disease Distal radius fracture, left Post-menopausal Infiltrating ductal carcinoma of right breast History of breast cancer Anxiety and depression Left bundle branch block Tubular adenoma of colon History of breast cancer Hypercholesterolemia Cardiomyopathy Type 2 diabetes mellitus with hyperglycemia Surgical History History of colonoscopy H/O left breast biopsy History of lumpectomy of right breast Family History Father CVD (cardiovascular disease) Myocardial infarct Mother HTN (hypertension) Cancer Uterine cancer Arthritis Paternal Aunt Myocardial infarct Paternal Uncle Myocardial infarct Brother No problems noted. Social History Household Members: None Housing: House Alcohol intake: current Alcohol intake frequency: holidays/special occasions only Patient Tobacco Use Status: Never used Tobacco e-Cigarette/Vaping Use: Never Used Second Hand Smoke Exposure: No service: No Current occupational status: retired Current occupation: rt hand Cognitive needs: No Hearing needs: No Vision needs: Yes Physical Exam Vital Signs: Last Vital Signs BP 114/72 07/09/24 15:16 BMI result Body Mass Index 20.8 Patient is here for MMSE d/t Cognitive Decline. Const General: cooperative, comfortable and no acute distress Nutritional Appearance: average body habitus Orientation/consciousness: patient oriented x3 Resp Effort & Inspection: able to speak in complete sentences Neuro General: patient oriented x3, tone normal and moves all extremities Motor exam (neuro): 5/5 motor strength present throughout Psych Appearance: grossly normal Speech and movement: Normal speech and movement present Affect: Anxious affect present Attitude: cooperative Insight: Fair insight present (Psych) Judgement: Fair judgement present (Psych) Assessment & Plan Assessment & Plan (1) Anxiety: Code(s): F41.9 - Anxiety disorder, unspecified Category: Medical (2) Alteration in cognition: Code(s): R41.89 - Other symptoms and signs involving cognitive functions and awareness Category: Medical (3) Memory change: Code(s): R41.3 - Other amnesia Category: Medical Plan MMSE per Cognitive Decline Amyloid PET was negative - discussed with patient . Discussed other causes of cognitive decline including poor sleep, poorly controlled mood , vascular etc - she understands and will schedule with psychologist.. Contine to take Alprazolam 0.5mg PRN Continue to take Mirtazapine 30mg PO at bedtime to help with mood and sleep. suggested alpho lipoic acid 300mg qd Home sleep test to r/o sleep apnea Refer to [facility] for opinion regarding neuropathy Orders: Referrals Neurology Referral G62.9 - Polyneuropathy, unspecified Medications: New alpha lipoic acid 300 mg PO DAILY 90 caps 6RF Coding Level of Care Code Est Pt Level 4 (21411) Complex EM visit Add On G2211 Diagnoses Anxiety F41.9 Alteration in cognition R41.89 Memory change R41.3
[2024-07-09 15:16] VITALS: BP 114/72; BMI 20.8
--- OUTSIDE RECORDS SUMMARY | 2024-07-09 15:55 | XMS_ITS | Patient Health Record ---
Author Organization [facility] Address [address] [place] [address] Care Team Providers Care Cnc Lathe Machine Operator Name Role Phone Savana Del Castillo MD Primary Care Provider Noel Meraz [phone] ALLERGIES Allergen (clinical drug ingredient) Drug/Non Drug [...] malignant neoplasm of colon (Z12.11) Active confirmed 137097465 Problem History of adenomatous polyp of colon (Z86.010) Active confirmed 363295489 Problem Personal history of colonic polyps (Z86.010) Active confirmed History of poly p of colon (situation) (600294341) Problem Diverticulosis of large intestine without perforation or abscess without bleeding (K57.30) Active confirmed Diverticul ar disease of colon (964760630) Problem Preprocedural examination (Z01.818) Active confirmed 952115315528116 Problem Aspirin long-term use (Z79.82) Active confirmed 828830672752498 PLAN OF TREATMENT Future Test Test Name Order Date COLONOSCOPY 02/04/2015 COLONOSCOPY 11/23/2020 Insurance Providers Payer Name Payer Address Payer Phone Subscriber Number Group Number Insured Name Patient Relationship to Insured Coverage Start Date Coverage End Date MEDICARE OF [place] [address] [place] [address] [id number] ROJELIO ANGLIN Self - patient is the insured [employer] ATT[employer] CLAIMS [address] [place] [address] [id number] ROJELIO ANGLIN Self - patient is the insured MEDICAL (GENERAL) HISTORY Medical History History ICD Code Dizziness/Equilibrium issues--saw Dr. Rob fitzgerald Left bundle branch block-see s cardiology at [facility] [place]--had an ETT and a cardiac Echo-Dr. King Right-sided Breast cancer--1998--2 Lumpe ctomies, chemo and XRT Negative colonoscopy in 04/[address] Phipps, except for small internal hemorrhoids Hyperlipidemia HTN Denies [place],CVA,Lung disease,renal disease Persistent Tinnitus after he r 2nd Moderna vaccine in 06/2020--seeing Dr. Contreras Colonoscopy 05/2015 with a small tubular adenoma Diet-controlled DM Surgical History Surgery Date(Month/Year) 2 lumpectomies as above for breast cance r
--- OUTSIDE RECORDS SUMMARY | 2024-07-09 15:55 | XMS_ITS | Patient Health Record ---
Author Organization [facility] Address [address] [place] [address] Care Team Providers Care Transition Advisor Name Role Phone Savana Del Castillo Primary Care Provider Rivera Chavarria Unavailable [phone] Allergies Allergen (clinical drug ingredient) Drug/Non Drug Allergy documented on EMR Reaction Allergy Type Onset Date Status morphine Morphine Unknown Drug Allergy Active Substance with 6-ahfueso-2-methylgluta ryl-coenzyme A reductase inhibitor mechanism of action [...] Status Risk Notes Problem Acquired hallux valgus (34672640) Hallux valgus (acquired), right foot (M20.11) Active confirmed Problem Acquired hallux rigidus (5886575) Hallux rigidus, left foot (M20.22) Active confirmed Problem 816339718 Raynaud's diseas e without gangrene (I73.00) Active confirmed Problem 215872988 Preproliferative diabetic retinopathy (E11.3499) Active confirmed Plan Of Treatment Pending Test Test Name Order Date X ray : Foot, left 3V 08/16/2021 X ray : Foot, right 3V 08/16/2021 Insurance Providers Payer Name Payer Address Payer Phone Subscriber Number Group Number Insured Name Patient Relationship to Insured Coverage Start Date Coverage End Date Medicare National Govt Sv[employer] Inc [address] [facility] [place] [address] [id number] [place] Self - patient is the insured [facility] [address] [place] [address] [phone] [id number] [place] Self - patient is the insured Medical (General) History Medical History History ICD Code Anxiety Arthritis Back,Hip,and Knee pain Broken bones CAD (Cholesterol) Cancer Depression Headaches/Migraines Heart disease High blood pressure Numbness Rheumatic fever Measles Mumps tinnitus Hot flash Left bundle branch block (LBBB) Pre type II diabetes Surgical History Surgery Date(Month/Year) Hospitalization History Reason Date(Month/Year) [facility] [place] L Wrist 02/2021
== END 2024-07-09 15:53 | disposition home or self-care (01) ==
PROVIDERS: PCP Internal Medicine; Visit Provider Psychiatry & Neurology Neurology
DX: F41.9 Anxiety disorder, unspecified (principal); R41.89 Other symptoms and signs involving cognitive functions and awareness; R41.3 Other amnesia
CPT/HCPCS: 99214; G2211

== ENCOUNTER → 2024-07-09 14:46 | Outpatient (BNVA) | payer MEDICARE, SELFPAY | PROVIDERS: PCP Internal Medicine; Visit Provider Psychiatry & Neurology Neurology | DX: F41.9 Anxiety disorder, unspecified (principal); R41.89 Other symptoms and signs involving cognitive functions and awareness; R41.3 Other amnesia | CPT/HCPCS: 99212 ==

== ENCOUNTER 2024-07-13 13:38 | Outpatient (AMB) | payer MEDICARE, SELFPAY ==
--- NOTE | 2024-07-13 14:03 | A.OFFPC_ITS ---
Vital Signs 07/13/24 14:05 Height 5 ft 8 in Weight 137 lb 2 oz BMI 20.8 BP 110/70 Blood Pressure Location Lt brachial Position Sitting Pulse 67 Pulse Source Pulse Oximeter Temp 96.9 F Temp Source Temporal Artery Scan Pulse Oximetry (%) 97 Oxygen Delivery Method Room Air Intake Visit Reasons: anxiety hx of breast cancer Computer Applications Instructor Required: No Ramp Agent: Not Required per policy Accompanied by: Self / Same As Patient Allergies gabapentin Adverse Reaction (Intermediate, Verified 07/13/24 14:04) Nausea morphine [MORPHINE] Adverse Reaction (Mild, Verified 07/13/24 14:04) VOMITING, sensitivity atorvastatin Adverse Reaction (Unknown, Verified 07/13/24 14:04) Muscle cramps rosuvastatin [Crestor] Adverse Reaction (Unknown, Verified 07/13/24 14:04) muscle ache simvastatin Adverse Reaction (Unknown, Verified 07/13/24 14:04) Muscle cramps Medication List - Last Reconciled 07/13/24 by Savana Del Castillo MD alpha lipoic acid 300 mg PO DAILY alprazolam 0.5 mg PO DAILY PRN blood sugar diagnostic (FreeStyle Lite Strips) As directed check the BS QD calcium carbonate (Oyster Shell Calcium) 500 mg PO DAILY carvedilol 3.125 mg PO BID cholecalciferol (vitamin D3) 25 mcg PO DAILY ezetimibe (Zetia) 10 mg PO DAILY lisinopril 2.5 mg PO DAILY mastectomy bra As directed mirtazapine 30 mg PO BEDTIME multivitamin 1 tab PO DAILY Tobacco use date assessed: 07/13/24 Fall risk assessment: No Falls in past year Last assessed Fall Risk: 07/13/24 Dental Screening Dental Screen Date: 07/13/24 Did you have a dental visit in the last 12 months?: Yes Did you have a dental problem in the last 6 months where you did not have access to dental care?: No Was dental information given to patient?: Patient has dentist [facility] Medical History (Updated 07/09/24 @ 15:50 by Kerry Castro MD) Peripheral neuropathy Alteration in cognition Neuropathy Cervicalgia Anxiety Depression Gait disorder Sleep disorder Screening for viral disease Distal radius fracture, left Post-menopausal Infiltrating ductal carcinoma of right breast History of breast cancer Anxiety and depression Left bundle branch block Tubular adenoma of colon History of breast cancer Hypercholesterolemia Cardiomyopathy Type 2 diabetes mellitus with hyperglycemia Surgical History History of colonoscopy H/O left breast biopsy History of lumpectomy of right breast Family History Father CVD (cardiovascular disease) Myocardial infarct Mother HTN (hypertension) Cancer Uterine cancer Arthritis Paternal Aunt Myocardial infarct Paternal Uncle Myocardial infarct Brother No problems noted. Social History Household Members: None Housing: House Alcohol intake: current Alcohol intake frequency: holidays/special occasions only Patient Tobacco Use Status: Never used Tobacco e-Cigarette/Vaping Use: Never Used Second Hand Smoke Exposure: No service: No Current occupational status: retired Current occupation: rt hand Cognitive needs: No Hearing needs: No Vision needs: Yes (Glasses) Questionnaire PHQ-9 Over the last 2 weeks, how often have you been bothered by any of the following problems? 1. Little interest or pleasure in doing things: not at all 2. Feeling down, depressed, or hopeless: not at all 3. Trouble falling or staying asleep, or sleeping too much: not at all 4. Feeling tired or having little energy: not at all 5. Poor appetite or overeating: not at all 6. Feeling bad about yourself - or that you are a failure or have let yourself or your family down: not at all 7. Trouble concentrating on things, such as reading the newspaper or watching television: not at all 8. Moving or speaking so slowly that other people could have noticed. Or the opposite - being so fidgety or restless that you have been moving around a lot more than usual: not at all 9. Thoughts that you would be better off or of hurting yourself in some way: not at all Total score: 0 Depression Screening Interpretation: Negative Depression Screening Done: Yes Source: Developed by Drs. Noel Rouse, Brenda Sheffield, Gulshan Jamison and colleagues, with an educational kimberley from [employer] Thrive Questionnaire Date Thrive assessed: 07/13/24 I am a: Patient What is your living situation today?: I have a steady place to live Within the past 12 months, did the food you bought not last and you didn't have the money to get more?: Never true Within the past 12 months, did you worry whether your food would run out before you got money to buy more?: Never true Do you have trouble paying for medicines?: No Do you have trouble getting transportation to medical appointments?: No Do you have trouble paying your heating and electricity bill?: No Do you have trouble taking care of your child, family member or friend?: No Do you have trouble with day-to-day activities such as bathing, preparing meals, shopping, managing finances, etc.?: No Are you currently unemployed and looking for a job?: No Are you interested in more education?: No Please select the resources that you would like help with: None Currently or been in a relationship where the following occur: No concerns reported THRIVE Score: 0 AUDIT C Alcohol Use Questionnaire (AUDIT-C) 1. How often do you have a drink containing alcohol?: Never Total Score: 0 ROBER-7 AMB Questionnaire ROBER-7 Date ROBER - 7 assessed: 07/13/24 Feeling nervous, anxious, or on edge: 0 = Not at all Not being able to stop or control worryin = Not at all Worrying too much about different things: 0 = Not at all Trouble relaxin = Not at all Being so restless that it is hard to sit still: 0 = Not at all Becoming easily annoyed or irritable: 0 = Not at all Feeling afraid as if something awful might happen: 0 = Not at all Total ROBER-7 score (0-4 normal; 5-9 mild; 10-14 moderate; 15-21 severe): 0 Source: Developed by Drs. Noel Rouse, Brenda Sheffield, Gulshan Jamison and colleagues, with an educational kimberley from [employer] Physical exam (Primary Care) Vital Signs: Last Vital Signs Temp 96.9 F 07/13/24 14:05 Pulse 67 07/13/24 14:05 BP 110/70 07/13/24 14:05 Pulse Ox 97 07/13/24 14:05 Oxygen Delivery Method Room Air 07/13/24 14:05 BMI result Body Mass Index 20.8 Tobacco/Smoking Status: Tobacco use Status Tobacco use date assessed 07/13/24 07/13/24 14:10 Patient Tobacco Use Status Never used Tobacco 07/13/24 14:10 e-Cigarette/Vaping Use Never Used 07/13/24 14:10 PHQ-9: PHQ-9 Score PHQ-9: Total score 0 07/13/24 14:31 Depression Screening Interpretation: Negative Thrive Assessment: Date of Thrive Assessment Date Thrive assessed 07/13/24 07/13/24 14:10 Currently or been in a relationship where the following occur: No concerns reported Const General: alert; No acute distress Eyes Conjunctivae: conjunctivae normal Resp Auscultation: clear to auscultation bilaterally Cardio Rate: regular rate Rhythm: regular rhythm GI Inspection: Yes normal to inspection Extrem General: Yes normal to inspection and No edema Coding Level of Care Code Est Pt Level 4 (24430) Complex EM visit Add On G2211 Diagnoses Type 2 diabetes mellitus with hyperglycemia, without long-term current use of insulin E11.65 Diabetes mellitus joint terminal attack controller insulin use: without joint terminal attack controller use NICM (nonischemic cardiomyopathy) I42.8 Hypercholesterolemia E78.00 Moderate episode of recurrent major depressive disorder F33.1 Active/Remission status: currently active Major depression episode severity: moderate History of breast cancer Z85.3 Assessment & Plan Assessment & Plan (1) Type 2 diabetes mellitus with hyperglycemia: Code(s): E11.65 - Type 2 diabetes mellitus with hyperglycemia Category: Medical Qualifiers: Diabetes mellitus chcf insulin use: without joint terminal attack controller use Qualified Code(s): E11.65 - Type 2 diabetes mellitus with hyperglycemia Plan: Decrease the amount of carbohydrate intake, pasta, bread, rice and potatoes are all sugar and that is aside from all the sweet stuff, remember that fruits are good but they are Sweet also. Hemoglobin A1c goal of less than 7.0. Patient is diet controlled but noted increase in A1c (2) NICM (nonischemic cardiomyopathy): Code(s): I42.8 - Other cardiomyopathies Category: Medical Plan: Continue with carvedilol. Keep well hydrated, decrease salt intake (3) Hypercholesterolemia: Code(s): E78.00 - Pure hypercholesterolemia, unspecified Category: Medical Plan: Avoid fried foods, chicken skin, eggs, butter margarine, pastries and meat. Be it pork or beef they have a lot of cholesterol on Zetia but patient can not tolerate statins. LDL goal of less than 100 (4) Recurrent major depression: Comment: decline referral for now 07/2022 Code(s): F33.9 - Major depressive disorder, recurrent, unspecified Category: Medical Qualifiers: Active/Remission status: currently active Major depression episode severity: moderate Qualified Code(s): F33.1 - Major depressive disorder, recurrent, moderate Plan: Continue with present therapy discussed about counseling (5) History of breast cancer: Comment: 2000 right lumpectomy chemo and radiation Dr. Moody, MRI November 2015 Code(s): Z85.3 - Personal history of malignant neoplasm of breast Category: Medical Plan: Continue to be monitored by hematology oncology as well as the surgeon. Plan History of Present Illness The patient is a 73-year-old female presenting with a follow-up for multiple chronic health conditions and management of neuropathy and depression. The patient has a history of diabetes mellitus with an HbA1c of 6.5% in June 2024, signifying a slight increase yet still controlled. This condition is currently diet-controlled. Previous HbA1c reports: 5.9% in 2019, progressively increasing to 6.5%. The patient experiences worsening neuropathy, described as moderate to severe with tingling pain extending to the knees, potentially secondary to the long-standing diabetes. Gabapentin was previously trialed with nausea as a side effect. Cognitive decline was noted, with a recent Mini-Mental State Examination (MMSE) score of 25/30, although beta-amyloid testing was negative, suggesting non-Alzheimer's type involvement and hinting at possible vascular dementia. The patient?s anemia, with hemoglobin at 11.8 g/dL, was noted to be chronic but stable. Breast cancer in 2000 is in remission; she follows up with hematology/oncology. An MRI in May 2024 of the breast followed the same indications, and a head CT in February 2024 revealed benign bone scarring with no size increase since 2020, indicating absence of malignancy. The patient indicated dissatisfaction with past communication issues from healthcare professionals, resulting in anxiety and stress. Neurological symptoms include Tinnitus and dizziness with unremarkable objective findings. Health Maintenance - Last bone density test was in December 2022. - Mammogram was completed in December 2022. - Colonoscopy was last performed in 2020. - Regular follow-ups with hematology and oncology for breast cancer surveillance. Social History - The patient participates in exercise classes 5 days per week at a local [facility]. - Experiences anxiety and stress related to health management and communication with healthcare providers. - Cooks meals and controls diet due to diabetes; however, emotional eating is a concern. - Widowhood noted, with prior concerns about 's hospitalization contributing to distrust of certain medical facilities and providers. Review of Systems - Neurological: Reports dizziness, memory deterioration. - Musculoskeletal: Reports worsening neuropathy with burning and tingling sensation up to the knees. - Endocrine: Reports issues with blood sugar control. Physical Exam - Ears- Thin film of earwax noted, both ears open. Results - Labs: Hemoglobin 11.8 g/dL, A1c 6.5%, with normal electrolytes, normal renal and liver function. - Imaging: Breast MRI (May 2024) showed no malignant progression; bone scan noted asymmetric increased tracer in the right calvarium but otherwise negative. Plan - Discussed ongoing management of diabetes with diet control and monitoring HbA1c levels. - For neuropathy, patient to trial alpha-lipoic acid, with the potential introduction of duloxetine for nerve pain if no improvement. - Continue current management strategy for hypercholesterolemia, targeting LDL under 100 mg/dL without statins due to intolerance. - Cognitive decline to be managed with ongoing support and sleep improvement strategies. - Address anxiety as part of managing depression with therapeutic adjustments if necessary. Patient was informed and verbally consented to the use of an ambient scribe for clinic note documentation during this visit. Discussion Notes I discussed with the patient her history of anemia and the ongoing management of her chronic health conditions, emphasizing the need to maintain controlled glucose levels with dietary adjustments. Potential benefits of starting alpha- lipoic acid for neuropathy relief were proposed, assessing the effect over a month before escalating interventions. Duloxetine was discussed as an option for neuropathy and depression management. We reviewed the ramifications of cognitive decline, likely vascular dementia, and acknowledged the negative amyloid results. I encouraged the patient to continue regular screenings and to stay active with exercise to aid in overall health management. Reassurances were provided regarding non-progressive status of bone findings on imaging. The necessity of vigilant communication with healthcare teams was reiterated. Patient Instructions - Continue current diet control for diabetes and monitor blood sugar levels regularly. - Trial alpha-lipoic acid for neuropathy; evaluate response over one month. - Maintain exercise routine; stay well-hydrated and monitor symptoms. - Practice stress-reducing techniques and monitor mood for exacerbations of depression. - Report any significant changes in memory or new symptoms promptly. - Schedule timely follow-ups with neurology, and continue to engage with concerns related to previous healthcare interactions. Medications: New blood sugar diagnostic (FreeStyle Lite Strips) As directed check the BS QD 100 ea 3RF E11.65 - Type 2 diabetes mellitus with hyperglycemia
[2024-07-13 14:05] VITALS: BP 110/70; PULSE 67; TEMP 36.1; O2SAT 97; BMI 20.8
--- OUTSIDE RECORDS SUMMARY | 2024-07-13 15:38 | XMS_ITS | Patient Health Record ---
Author Organization [facility] Address [address] [place] [address] Care Team Providers Care Floor Winder Name Role Phone Savana Del Castillo MD Primary Care Provider Noel Meraz [phone] ALLERGIES Allergen (clinical drug ingredient) Drug/Non Drug [...] malignant neoplasm of colon (Z12.11) Active confirmed 460722919 Problem History of adenomatous polyp of colon (Z86.010) Active confirmed 989916105 Problem Personal history of colonic polyps (Z86.010) Active confirmed History of poly p of colon (situation) (035830282) Problem Diverticulosis of large intestine without perforation or abscess without bleeding (K57.30) Active confirmed Diverticul ar disease of colon (574046590) Problem Preprocedural examination (Z01.818) Active confirmed 053205732694542 Problem Aspirin long-term use (Z79.82) Active confirmed 081062589659658 PLAN OF TREATMENT Future Test Test Name Order Date COLONOSCOPY 02/04/2015 COLONOSCOPY 11/23/2020 Insurance Providers Payer Name Payer Address Payer Phone Subscriber Number Group Number Insured Name Patient Relationship to Insured Coverage Start Date Coverage End Date MEDICARE OF [place] [address] [place] [address] [id number] RJOELIO ANGLIN Self - patient is the insured [employer] ATT[employer] CLAIMS [address] [place] [address] [id number] ROJELIO ANGLIN Self - patient is the insured MEDICAL (GENERAL) HISTORY Medical History History ICD Code Dizziness/Equilibrium issues--saw Dr. Rob fitzgerald Left bundle branch block-see s cardiology at [facility] [place]--had an ETT and a cardiac Echo-Dr. King Right-sided Breast cancer--1998--2 Lumpe ctomies, chemo and XRT Negative colonoscopy in 04/[address] Phipps, except for small internal hemorrhoids Hyperlipidemia HTN Denies [place],CVA,Lung disease,renal disease Persistent Tinnitus after he r 2nd Moderna vaccine in 06/2020--seeing Dr. Contreras Colonoscopy 05/2015 with a small tubular adenoma Diet-controlled DM Surgical History Surgery Date(Month/Year) 2 lumpectomies as above for breast cance r
--- OUTSIDE RECORDS SUMMARY | 2024-07-13 15:38 | XMS_ITS | Patient Health Record ---
Author Organization [facility] Address [address] [place] [address] Care Team Providers Care Truant Officer Name Role Phone Savana Del Castillo Primary Care Provider Rivera Chavarria Unavailable [phone] Allergies Allergen (clinical drug ingredient) Drug/Non Drug Allergy documented on EMR Reaction Allergy Type Onset Date Status morphine Morphine Unknown Drug Allergy Active Substance with 5-wwuzmfd-3-methylgluta ryl-coenzyme A reductase inhibitor mechanism of action [...] Status Risk Notes Problem Acquired hallux valgus (72570615) Hallux valgus (acquired), right foot (M20.11) Active confirmed Problem Acquired hallux rigidus (3040409) Hallux rigidus, left foot (M20.22) Active confirmed Problem 505710885 Raynaud's diseas e without gangrene (I73.00) Active confirmed Problem 210060029 Preproliferative diabetic retinopathy (E11.3499) Active confirmed Plan Of Treatment Pending Test Test Name Order Date X ray : Foot, left 3V 08/16/2021 X ray : Foot, right 3V 08/16/2021 Insurance Providers Payer Name Payer Address Payer Phone Subscriber Number Group Number Insured Name Patient Relationship to Insured Coverage Start Date Coverage End Date Medicare National Govt Sv[employer] Inc [address] [place] [address] [id number] [place] Self - patient is the insured [facility] [address] [place] [address] [id number] [place] Self - patient is the insured Medical (General) History Medical History History ICD Code Anxiety Arthritis Back,Hip,and Knee pain Broken bones CAD (Cholesterol) Cancer Depression Headaches/Migraines Heart disease High blood pressure Numbness Rheumatic fever Measles Mumps tinnitus Hot flash Left bundle branch block (LBBB) Pre type II diabetes Surgical History Surgery Date(Month/Year) Hospitalization History Reason Date(Month/Year[place] [facility] [place]
== END 2024-07-13 15:00 | disposition home or self-care (01) ==
PROVIDERS: PCP Internal Medicine; Visit Provider Internal Medicine
DX: E11.65 Type 2 diabetes mellitus with hyperglycemia (principal); I42.8 Other cardiomyopathies; E78.00 Pure hypercholesterolemia, unspecified; F33.1 Major depressive disorder, recurrent, moderate; Z85.3 Personal history of malignant neoplasm of breast

== ENCOUNTER → 2024-07-13 13:38 | Outpatient (BNVA) | payer MEDICARE, SELFPAY | PROVIDERS: PCP Internal Medicine; Visit Provider Internal Medicine | DX: E11.65 Type 2 diabetes mellitus with hyperglycemia (principal); I42.8 Other cardiomyopathies; E78.00 Pure hypercholesterolemia, unspecified; F33.1 Major depressive disorder, recurrent, moderate; Z85.3 Personal history of malignant neoplasm of breast | CPT/HCPCS: 99212 ==

== ENCOUNTER 2024-07-23 14:22 | Outpatient (AMB) | payer MEDICARE, SELFPAY ==
--- NOTE | 2024-07-23 14:23 | MHC.OFFVIS ---
Vital Signs 07/23/24 14:33 Height 5 ft 8 in Weight 134 lb 8 oz BMI 20.4 BP 138/65 Blood Pressure Location Lt brachial Position Sitting Pulse 71 Intake Visit Reasons: yearly breast exam Intake Note: Patient is seen in office for yearly breast exam. Pt c/o: couple of wks ago while sleeping felt a stabbing pain in the left breast near the axilla, pain continued on and off for a few days MRI:06/01/24 MM: 12/31/23 Missile Technician Required: No Crime Analyst: Crime Analyst Present Accompanied by: Self / Same As Patient Allergies gabapentin Adverse Reaction (Intermediate, Verified 07/23/24 14:33) Nausea morphine [MORPHINE] Adverse Reaction (Mild, Verified 07/23/24 14:33) VOMITING, sensitivity atorvastatin Adverse Reaction (Unknown, Verified 07/23/24 14:33) Muscle cramps rosuvastatin [Crestor] Adverse Reaction (Unknown, Verified 07/23/24 14:33) muscle ache simvastatin Adverse Reaction (Unknown, Verified 07/23/24 14:33) Muscle cramps HPI Comments Details: 72-year-old female patient presenting for her yearly breast examination after a previous right breast cancer. Patient was found to have a focus of invasive ductal carcinoma of the right breast measuring approximately 4 mm and subsequently underwent a right lumpectomy followed by chemotherapy. 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 She has been undergoing yearly mammograms and breast MRIs. She feels reasonably well but continues to complain of tinnitus which she feels may be related to a new antidepressant or the COVID (Moderna) vaccine. She is still dealing with the loss of her . She denies any new breast symptoms in either breast. She underwent a breast MRI on 06/09/2021 which revealed a suspicious non mass like enhancement in the left breast at the 9 o'clock position. This was felt to be suspicious for malignancy and biopsy recommended. A MRI guided core biopsy was performed on 06/29/2021 and pathology revealed benign breast tissue without atypia or malignancy. Screening mammogram of 12/25/2022 revealed no significant change from her prior mammogram (BI-RADS 2). Annual mammogram is recommended. [facility] Medical History (Updated 07/09/24 @ 15:50 by Kerry Castro MD) Peripheral neuropathy Alteration in cognition Neuropathy Cervicalgia Anxiety Depression Gait disorder Sleep disorder Screening for viral disease Distal radius fracture, left Post-menopausal Infiltrating ductal carcinoma of right breast History of breast cancer Anxiety and depression Left bundle branch block Tubular adenoma of colon History of breast cancer Hypercholesterolemia Cardiomyopathy Type 2 diabetes mellitus with hyperglycemia Surgical History History of colonoscopy H/O left breast biopsy History of lumpectomy of right breast Family History Father CVD (cardiovascular disease) Myocardial infarct Mother HTN (hypertension) Cancer Uterine cancer Arthritis Paternal Aunt Myocardial infarct Paternal Uncle Myocardial infarct Brother No problems noted. Social History Household Members: None Housing: House Alcohol intake: current Alcohol intake frequency: holidays/special occasions only Patient Tobacco Use Status: Never used Tobacco e-Cigarette/Vaping Use: Never Used Second Hand Smoke Exposure: No service: No Current occupational status: retired Current occupation: rt hand Cognitive needs: No Hearing needs: No Vision needs: Yes (Glasses) Review of Systems Const All systems reviewed & are unremarkable except as noted in HPI and below Denies nipple discharge Skin/Breast Denies breast swelling, Denies breast skin changes, Denies breast pain, Denies breast mass and Denies nipple discharge Brandon/Lymph Denies lymphadenopathy Physical Exam Const General: no acute distress and well developed Nutritional Appearance: well nourished Orientation/consciousness: patient oriented x3 Limitations: no limitations HEENT Head: Yes normocephalic and Yes atraumatic Ears: hearing grossly normal bilaterally Neck Neck: Yes normal visual inspection, Yes no lymphadenopathy, Yes trachea midline and Yes supple Chest Other: Left breast: No skin change, no nipple retraction, no nipple discharge, no palpable mass, no enlarged lymph nodes, well-healed periauricular incision Right breast: No skin change, no nipple retraction, no nipple discharge, no palpable mass, no enlarged lymph nodes, well-healed breast incisions; volume loss right breast Resp Effort & Inspection: normal respiratory effort, no audible wheezes, no cough and no respiratory distress GI Inspection: Yes normal to inspection Skin General skin exam: no rashes or lesions noted Neuro Other: Mobility Assessment: 1. 3 meter assessment time (seconds) 6 2. 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 She is status post right breast lumpectomy with chemotherapy and radiation therapy. Her most recent mammogram dated 12/31/2023 revealed no mammographic evidence of malignancy (BI-RADS 2). Her most recent breast MRI performed on 05/26/2024 also revealed no MR specific evidence of malignancy (BI-RADS 2 bilaterally). She continues to complain of tinnitus after a immunization and feels more unsteady on her feet. She also complains of neuropathy. She is now on alpha lipoic acid for the neuropathy. She will follow-up in 1 year for routine breast examination. Coding Level of Care Code Est Pt Level 3 (61792) Complex EM visit Add On G2211 Diagnoses Infiltrating ductal carcinoma of right breast C50.911 History of lobular carcinoma in situ (LCIS) of breast Z86.000 Family history of breast cancer Z80.3 At high risk for breast cancer Z91.89
[2024-07-23 14:33] VITALS: BP 138/65; PULSE 71; BMI 20.4
--- OUTSIDE RECORDS SUMMARY | 2024-07-23 17:39 | XMS_ITS | Patient Health Record ---
Author Organization [facility] Address [address] [place] [address] Care Team Providers Care Diesel Motor Mechanic Name Role Phone Savana Del Castillo Primary Care Provider Rivera Chavarria Unavailable [phone] Allergies Allergen (clinical drug ingredient) Drug/Non Drug Allergy documented on EMR Reaction Allergy Type Onset Date Status morphine Morphine Unknown Drug Allergy Active Substance with 9-iyrqhqo-0-methylgluta ryl-coenzyme A reductase inhibitor mechanism of action [...] Status Risk Notes Problem Acquired hallux valgus (97331823) Hallux valgus (acquired), right foot (M20.11) Active confirmed Problem Acquired hallux rigidus (3750497) Hallux rigidus, left foot (M20.22) Active confirmed Problem 907529367 Raynaud's diseas e without gangrene (I73.00) Active confirmed Problem 272438926 Preproliferative diabetic retinopathy (E11.3499) Active confirmed Plan Of Treatment Pending Test Test Name Order Date X ray : Foot, left 3V 08/16/2021 X ray : Foot, right 3V 08/16/2021 Insurance Providers Payer Name Payer Address Payer Phone Subscriber Number Group Number Insured Name Patient Relationship to Insured Coverage Start Date Coverage End Date Medicare National [employer] [address] [place] [address] [id number] [place] Self - patient is the insured [facility] [address] [place] [address] [phone] [id number] [place] Self - patient is the insured Medical (General) History Medical History History ICD Code Anxiety Arthritis Back,Hip,and Knee pain Broken bones CAD (Cholesterol) Cancer Depression Headaches/Migraines Heart disease High blood pressure Numbness Rheumatic fever Measles Mumps tinnitus Hot flash Left bundle branch block (LBBB) Pre type II diabetes Surgical History Surgery Date(Month/Year) Hospitalization History Reason Date(Month/Year) [facility] [place] ER- Broke L Wrist 02/2021
--- OUTSIDE RECORDS SUMMARY | 2024-07-23 17:39 | XMS_ITS | Patient Health Record ---
Author Organization [facility] Address [address] [place] [address] [place] [address] Care Team Providers Care Client Services Vice President Name Role Phone Savana Del Castillo MD Primary Care Provider Noel Meraz [phone] Allergies Allergen (clinical drug ingredient) Drug/Non Drug Allergy documented on EMR Reaction Allergy Type Onset Date Status morphine Morphine Sulfate Unknown Drug Allergy Active Reason For Referral [...] Once a day for 30 day(s) Active Immunizations Vaccine Route Administration Date Status Comme nts Influenza Unknown 01/19/2020 Administered Problems Problem Type SNOMED Code ICD Code Onset Dates Problem Status W/U Status Risk Notes Problem 555701156 Encounter for screening for malignant neoplasm of colon (Z12.11) Active confirmed Problem 899518870 History of adenomatous polyp of colon (Z86.010) Active confirmed Problem History of polyp of colon (situation) (235661875) Personal history of colonic polyps (Z86.010) Active confirmed Problem Diverticular disease of colon (408975115) Diverticulosis of large intestine without perforation or abscess without bleeding (K57.30) Active confirmed Problem 058422038060342 Preprocedural examination (Z01.818) Active confirmed Problem 244434440025779 Aspirin long-ter m use (Z79.82) Active confirmed Plan Of Treatment Future Test Test Name Order Date COLONOSCOPY 02/04/2015 COLONOSCOPY 11/23/2020 Insurance Providers Payer Name Payer Address Payer Phone Subscriber Number Group Number Insured Name Patient Relationship to Insured Coverage Start Date Coverage End Date MEDICARE OF [place] [address] [place] [address] [phone] [id number] ROJELIO ANGLIN Self - patient is the insured [employer] [address] [place] [address] [id number] ROJELIO ANGLIN Self - patient is the insured Medical (General) History Medical History History ICD Code Dizziness/Equilibrium issues--saw Dr. Rob fitzgerald Left bundle branch block-see s cardiology at [facility] [place]--had an ETT and a cardiac Echo-Dr. King Right-sided Breast cancer--1998--2 Lumpe ctomies, chemo and XRT Negative colonoscopy in 04/[address] Phipps, except for small internal hemorrhoids Hyperlipidemia HTN Denies ND,CVA,Lung disease,renal disease Persistent Tinnitus after he r 2nd Moderna vaccine in 06/2020--seeing Dr. Contreras Colonoscopy 05/2015 with a small tubular adenoma Diet-controlled DM Surgical History Surgery Date(Month/Year) 2 lumpectomies as above for breast cance r
== END 2024-07-23 14:51 | disposition home or self-care (01) ==
PROVIDERS: PCP Internal Medicine; Visit Provider Surgery
DX: C50.911 Malignant neoplasm of unspecified site of right female breast (principal); Z86.000 Personal history of in-situ neoplasm of breast; Z80.3 Family history of malignant neoplasm of breast; Z91.89 Other specified personal risk factors, not elsewhere classified
CPT/HCPCS: 99213; G2211

== ENCOUNTER → 2024-07-23 14:22 | Outpatient (BNVA) | payer MEDICARE, SELFPAY | PROVIDERS: PCP Internal Medicine; Visit Provider Surgery | DX: Z85.3 Personal history of malignant neoplasm of breast (principal); Z86.000 Personal history of in-situ neoplasm of breast; Z80.3 Family history of malignant neoplasm of breast; Z91.89 Other specified personal risk factors, not elsewhere classified; Z92.21 Personal history of antineoplastic chemotherapy; Z92.3 Personal history of irradiation | CPT/HCPCS: 99212 ==

== ENCOUNTER 2024-09-16 14:02 | Outpatient (AMB) | payer MEDICARE, SELFPAY ==
[2024-09-16 14:25] VITALS: BP 132/62; PULSE 69; TEMP 36.3; O2SAT 97; BMI 20.2
--- NOTE | 2024-09-16 14:25 | MHC.PC.OV ---
Vital Signs 09/16/24 14:25 Height 5 ft 8 in Weight 133 lb 2 oz BMI 20.2 BP 132/62 Blood Pressure Location Lt brachial Position Sitting Pulse 69 Pulse Source Pulse Oximeter Temp 97.3 F Temp Source Temporal Artery Scan Pulse Oximetry (%) 97 Oxygen Delivery Method Room Air Intake Visit Reasons: [facility] - Brain bleed, remove roni Product Safety Associate Required: No Accompanied by: Friend Allergies gabapentin Adverse Reaction (Intermediate, Verified 09/16/24 14:25) Nausea morphine [MORPHINE] Adverse Reaction (Mild, Verified 09/16/24 14:25) VOMITING, sensitivity atorvastatin Adverse Reaction (Unknown, Verified 09/16/24 14:25) Muscle cramps rosuvastatin [Crestor] Adverse Reaction (Unknown, Verified 09/16/24 14:25) muscle ache simvastatin Adverse Reaction (Unknown, Verified 09/16/24 14:25) Muscle cramps Tobacco use date assessed: 07/13/24 Fall risk assessment: 1 Fall in past year Last assessed Fall Risk: 09/16/24 Dental Screening Dental Screen Date: 07/13/24 [facility] Medical History Peripheral neuropathy Alteration in cognition Neuropathy Cervicalgia Anxiety Depression Gait disorder Sleep disorder Screening for viral disease Distal radius fracture, left Post-menopausal Infiltrating ductal carcinoma of right breast History of breast cancer Anxiety and depression Left bundle branch block Tubular adenoma of colon History of breast cancer Hypercholesterolemia Cardiomyopathy Type 2 diabetes mellitus with hyperglycemia Surgical History History of colonoscopy H/O left breast biopsy History of lumpectomy of right breast Family History Father CVD (cardiovascular disease) Myocardial infarct Mother HTN (hypertension) Cancer Uterine cancer Arthritis Paternal Aunt Myocardial infarct Paternal Uncle Myocardial infarct Brother No problems noted. Social History Household Members: None Housing: House Alcohol intake: current Alcohol intake frequency: holidays/special occasions only Patient Tobacco Use Status: Never used Tobacco e-Cigarette/Vaping Use: Never Used Second Hand Smoke Exposure: No service: No Current occupational status: retired Current occupation: rt hand Cognitive needs: No Hearing needs: No Vision needs: Yes (Glasses) Questionnaire PHQ-9 Over the last 2 weeks, how often have you been bothered by any of the following problems? 1. Little interest or pleasure in doing things: more than half the days 2. Feeling down, depressed, or hopeless: more than half the days 3. Trouble falling or staying asleep, or sleeping too much: more than half the days 4. Feeling tired or having little energy: more than half the days 5. Poor appetite or overeating: several days 6. Feeling bad about yourself - or that you are a failure or have let yourself or your family down: not at all 7. Trouble concentrating on things, such as reading the newspaper or watching television: several days 8. Moving or speaking so slowly that other people could have noticed. Or the opposite - being so fidgety or restless that you have been moving around a lot more than usual: not at all 9. Thoughts that you would be better off or of hurting yourself in some way: not at all Total score: 10 Source: Developed by Drs. Noel Rouse, Brenda Sheffield, Gulshan Jamison and colleagues, with an educational kimberley from [employer]. Thrive Questionnaire Date Thrive assessed: 07/13/24 I am a: Patient What is your living situation today?: I have a steady place to live Within the past 12 months, did the food you bought not last and you didn't have the money to get more?: Never true Within the past 12 months, did you worry whether your food would run out before you got money to buy more?: Never true Do you have trouble paying for medicines?: No Do you have trouble getting transportation to medical appointments?: No Do you have trouble paying your heating and electricity bill?: No Do you have trouble taking care of your child, family member or friend?: No Do you have trouble with day-to-day activities such as bathing, preparing meals, shopping, managing finances, etc.?: Yes Are you currently unemployed and looking for a job?: No Are you interested in more education?: No Please select the resources that you would like help with: None Currently or been in a relationship where the following occur: No concerns reported THRIVE Score: 0 AUDIT C Alcohol Use Questionnaire (AUDIT-C) 1. How often do you have a drink containing alcohol?: Never Total Score: 0 ROBER-7 AMB Questionnaire ROBER-7 Date ROBER - 7 assessed: 07/13/24 Feeling nervous, anxious, or on edge: 1 = Several days Not being able to stop or control worryin = Several days Worrying too much about different things: 1 = Several days Trouble relaxin = Several days Being so restless that it is hard to sit still: 0 = Not at all Becoming easily annoyed or irritable: 1 = Several days Feeling afraid as if something awful might happen: 0 = Not at all Total ROBER-7 score (0-4 normal; 5-9 mild; 10-14 moderate; 15-21 severe): 5 Source: Developed by Drs. Noel Rouse, Brenda Sheffield, Gulshan Jamison and colleagues, with an educational kimberley from [employer]. Physical exam (Primary Care) Vital Signs: Last Vital Signs Temp 97.3 F 09/16/24 14:25 Pulse 69 09/16/24 14:25 BP 132/62 09/16/24 14:25 Pulse Ox 97 09/16/24 14:25 Oxygen Delivery Method Room Air 09/16/24 14:25 BMI result Body Mass Index 20.2 Tobacco/Smoking Status: Tobacco use Status Tobacco use date assessed 07/13/24 09/16/24 14:26 Patient Tobacco Use Status Never used Tobacco 09/16/24 14:26 e-Cigarette/Vaping Use Never Used 09/16/24 14:26 PHQ-9: PHQ-9 Score PHQ-9: Total score 10 09/16/24 15:04 Thrive Assessment: Date of Thrive Assessment Date Thrive assessed 07/13/24 09/16/24 14:26 Currently or been in a relationship where the following occur: No concerns reported Const General: alert; No acute distress Eyes Conjunctivae: conjunctivae normal Neck Neck images: 1. 3 roni taken off Resp Auscultation: clear to auscultation bilaterally Cardio Rate: regular rate Rhythm: regular rhythm GI Inspection: Yes normal to inspection Extrem General: Yes normal to inspection and No edema Coding Level of Care Code Est Pt Level 4 (30605) Diagnoses Syncope R55 CVA (cerebral vascular accident) I63.9 History of breast cancer Z85.3 Cardiomyopathy, unspecified type I42.9 Cardiomyopathy type: unspecified Type 2 diabetes mellitus with hyperglycemia, without long-term current use of insulin E11.65 Diabetes mellitus continuous churn buttermaker insulin use: without prison use Hypercholesterolemia E78.00 Dizziness R42 Scalp laceration S01.01XA Removal of staple Z48.02 Assessment & Plan Assessment & Plan (1) Syncope: Code(s): R55 - Syncope and collapse Category: Medical Plan: Patient has a follow-up with Neurology. Had EEG showing slowing diffuse but no epileptiform signals (2) CVA (cerebral vascular accident): Comment: August 2024 intraparenchymal hemorrhage with SAH Code(s): I63.9 - Cerebral infarction, unspecified Category: Medical Plan: Patient is advised to follow-up with Neurology. Concern about a skull lesion question of relation to breast cancer (3) History of breast cancer: Comment: 2000 right lumpectomy chemo and radiation Dr. Moody, MRI November 2015 Code(s): Z85.3 - Personal history of malignant neoplasm of breast Category: Medical Plan: Patient was advised to follow-up with Hematology-Oncology (4) Cardiomyopathy: Comment: Sees Dr. King echocardiogram March 2023 Code(s): I42.9 - Cardiomyopathy, unspecified Category: Medical Qualifiers: Cardiomyopathy type: unspecified Qualified Code(s): I42.9 - Cardiomyopathy, unspecified Plan: Continue with present medication carvedilol (5) Type 2 diabetes mellitus with hyperglycemia: Code(s): E11.65 - Type 2 diabetes mellitus with hyperglycemia Category: Medical Qualifiers: Diabetes mellitus continuous churn buttermaker insulin use: without continuous churn buttermaker use Qualified Code(s): E11.65 - Type 2 diabetes mellitus with hyperglycemia Plan: Decrease the amount of carbohydrate intake, pasta, bread, rice and potatoes are all sugar and that is aside from all the sweet stuff, remember that fruits are good but they are Sweet also. Hemoglobin A1c goal of less than 7.0. (6) Hypercholesterolemia: Code(s): E78.00 - Pure hypercholesterolemia, unspecified Category: Medical Plan: Avoid fried foods, chicken skin, eggs, butter margarine, pastries and meat. Be it pork or beef they have a lot of cholesterol LDL goal of less than 70 and triglyceride of less than 150 patient can not tolerate statins (7) Dizziness: Code(s): R42 - Dizziness and giddiness Category: Medical (8) Scalp laceration: Comment: 08/2024 Code(s): S01.01XA - Laceration without foreign body of scalp, initial encounter Category: Medical Plan: 3 roni taken off (9) Removal of staple: Code(s): Z48.02 - Encounter for removal of sutures Category: Medical Plan History of Present Illness The patient is a 74-year-old female presenting with a follow-up consultation for intracranial hemorrhage and associated dizziness. In August 2024, she experienced a syncope while performing exercises, specifically jumping jacks, which led to subsequent head trauma and intracranial hemorrhage affecting the right parietal region and a trace of subarachnoid hemorrhage. The incident was followed by persistent nausea, vomiting, and vertigo, which gradually improved after a week-long hospital treatment. A recent MRI identified an acute infarct with hemorrhagic characteristics and a lesion within the right frontal bone, raising concerns about potential linkage to previous breast cancer history. Meanwhile, an EEG demonstrated mild generalized slowing, indicating potential diffuse cerebral disturbances, though lacking focal epileptiform activity. The patient?s diabetes mellitus remains well-controlled with an A1c of 6.4%, whereas hypercholesterolemia management via statins proves challenging. Bloodwork from July 07 showed anemia and mild leukopenia. She reported a concern about the tinnitus she has had over five years, noting a potential correlation with cranial lesions seen on imaging, though not confirmed. Health Maintenance - Diabetes mellitus controlled with current A1c at 6.4% - Blood pressure management with caution for orthostasis - Annual follow-up with cardiology noted - Monitoring of cholesterol levels with LDL goal below 70 mg/dL - Continuation of statins despite tolerance issues - Continued surveillance of weight and hydration status advised Social History - Regular engagement in exercise, specifically noted incidents during exercise activities at a gym or class setting - Utilizes a walker and occasionally a cane for stability indoors - Reports having community support and interactions with peers Review of Systems - Neurologic: Reports dizziness, vertigo; denies convulsions - Ears: Reports tinnitus - Skin: Denies rashes or lesions - Musculoskeletal: Reports use of mobility aids - Vascular: Reports history of syncope Physical Exam - Neurologic- Shown to squeeze provider's finger and shrug shoulders appropriately - Cranial- Observed roni in place, removal without complications. Results - CT head: Right parietal interparenchymal hemorrhage, trace subarachnoid hemorrhage - MRI brain: Acute infarct with hemorrhage, 18mm x 5mm enhancing right frontal bone lesion - EEG: Mild generalized slowing, no epileptiform activity - Bloodwork (Jul 07): Anemia with Hb 11.8, mild leukopenia, normal electrolytes, and renal function Plan 1. 4%, whereas cholesterol management may need alternative strategies pending statin tolerance. Further emphasis on consistent healthcare access, especially regarding after-hours medication requisition, should align with her well-being and proactive disease management.: Patient was informed and verbally consented to the use of an ambient scribe for clinic note documentation during this visit. Discussion Notes In our discussion, we reviewed the patient's ongoing management post-occurrence of intracranial hemorrhage and explored options concerning her neurological symptoms. I advised continuing with neurology consultations given her EEG results reflecting generalized slowing. We examined the syncopal episodes linked with physical activities and reiterated the importance of hydration and possible modifications to antihypertensive therapy. Concerns about the discovered frontal bone lesion were addressed, coordinating oncology follow-up to ascertain cancer correlation. Pharmacological interventions for vertigo, such as meclizine, alongside weighing sedation risks, were discussed. I emphasized cholesterol management with possible alternatives to consider her statin intolerance issue, balancing the benefits and potential need for additional cardiovascular risk mitigation. We also addressed care continuity, especially in the event of after-hours emergent medication needs. Patient Instructions - Continue follow-up with neurology for cerebral symptoms and monitoring - Stay hydrated, especially during activities - Use the walker or cane as needed for stability - Follow up with oncology for further assessment of the brain lesion - Take prescribed medications as directed, including managing vertigo with advised meclizine - Monitor blood pressure, report significant variations or concerns - Maintain cholesterol and glucose levels with ongoing management and diet control - Adhere to all medical follow-ups and precautions with return instructions if symptoms worsen or new symptoms arise Orders: Orders Complete Blood Count Auto Diff Today R42 - Dizziness and giddiness Lipid Panel Today E78.00 - Pure hypercholesterolemia, unspecified, R42 - Dizziness and giddiness Vitamin B12 and Folate Today R42 - Dizziness and giddiness Vitamin D 25-OH Total Today R42 - Dizziness and giddiness Creatinine Urine Today E11.65 - Type 2 diabetes mellitus with hyperglycemia, R42 - Dizziness and giddiness Microalbumin, Random (w Creat) Today E11.65 - Type 2 diabetes mellitus with hyperglycemia, R42 - Dizziness and giddiness Magnesium Today R42 - Dizziness and giddiness Comprehensive Met. Panel Today R42 - Dizziness and giddiness Free T4 (Free Thyroxine) Today R42 - Dizziness and giddiness Thyroid Stimulating Hormone Today R42 - Dizziness and giddiness Hemoglobin A1c Today R42 - Dizziness and giddiness Referrals Neurology Referral I63.9 - Cerebral infarction, unspecified Medications: New meclizine 25 mg PO TID 30 tabs 0RF R42 - Dizziness and giddiness
--- OUTSIDE RECORDS SUMMARY | 2024-09-16 15:15 | XMS_ITS | Patient Health Record ---
Author Organization [facility] Address [address] [place] [address] Care Team Providers Care Elevators Inspector Name Role Phone Savana Del Castillo Primary Care Provider Rivera Chavarria Unavailable [phone] Allergies Allergen (clinical drug ingredient) Drug/Non Drug Allergy documented on EMR Reaction Allergy Type Onset Date Status morphine Morphine Unknown Drug Allergy Active Substance with 4-csthwsv-9-methylgluta ryl-coenzyme A reductase inhibitor mechanism of action [...] Status Risk Notes Problem Acquired hallux valgus (50620359) Hallux valgus (acquired), right foot (M20.11) Active confirmed Problem Acquired hallux rigidus (6654412) Hallux rigidus, left foot (M20.22) Active confirmed Problem [id number] Raynaud's diseas e without gangrene (I73.00) Active confirmed Problem [id number] Preproliferative diabetic retinopathy (E11.3499) Active confirmed Plan Of Treatment Pending Test Test Name Order Date X ray : Foot, left 3V 08/16/2021 X ray : Foot, right 3V 08/16/2021 Insurance Providers Payer Name Payer Address Payer Phone Subscriber Number Group Number Insured Name Patient Relationship to Insured Coverage Start Date Coverage End Date Medicare [employer] [address] [place] [address] [id number] [place] Self - patient is the insured [facility] [address] [place] [address] [id number] [place] Self - patient is the insured Medical (General) History Medical History History ICD Code Anxiety Arthritis Back,Hip,and Knee pain Broken bones CAD (Cholesterol) Cancer Depression Headaches/Migraines Heart disease High blood pressure Numbness Rheumatic fever Measles Mumps tinnitus Hot flash Left bundle branch block (LBBB) Pre type II diabetes Surgical History Surgery Date(Month/Year) Hospitalization History Reason Date(Month/Year) [facility] [place] [facility]- Broke L Wrist 02/2021
== END 2024-09-16 15:37 | disposition home or self-care (01) ==
LOC: HO.HMCH 14:03
PROVIDERS: PCP Internal Medicine; Visit Provider Internal Medicine
DX: E11.65 Type 2 diabetes mellitus with hyperglycemia (principal); I63.9 Cerebral infarction, unspecified; I42.9 Cardiomyopathy, unspecified; R55 Syncope and collapse; Z85.3 Personal history of malignant neoplasm of breast; E78.00 Pure hypercholesterolemia, unspecified; R42 Dizziness and giddiness; S01.01XA Laceration without foreign body of scalp, initial encounter; Z48.02 Encounter for removal of sutures

== ENCOUNTER → 2024-09-16 14:02 | Outpatient (BNVA) | payer MEDICARE, SELFPAY | PROVIDERS: PCP Internal Medicine; Visit Provider Internal Medicine | DX: Z48.02 Encounter for removal of sutures (principal); S01.01XD Laceration without foreign body of scalp, subsequent encounter; R55 Syncope and collapse; I63.9 Cerebral infarction, unspecified; I42.9 Cardiomyopathy, unspecified; E11.65 Type 2 diabetes mellitus with hyperglycemia; E78.00 Pure hypercholesterolemia, unspecified; R42 Dizziness and giddiness; Z86.2 Personal history of diseases of the blood and blood-forming organs and certain disorders involving the immune mechanism | CPT/HCPCS: 99212 ==

== ENCOUNTER → 2024-09-23 23:59 | Outpatient (BNV) | payer MEDICARE, SELFPAY | PROVIDERS: PCP Internal Medicine; Visit Provider Internal Medicine | DX: I95.1 Orthostatic hypotension (principal); N17.9 Acute kidney failure, unspecified; I10 Essential (primary) hypertension | CPT/HCPCS: G0180 ==

== ENCOUNTER 2024-09-24 12:34 | Outpatient (AMB) | payer MEDICARE, SELFPAY ==
[2024-09-24 12:48] VITALS: BP 128/78; PULSE 78; BMI 20.1
--- NOTE | 2024-09-24 12:48 | A.OFFVIS_ITS ---
Vital Signs 09/24/24 12:48 Height 5 ft 8 in Weight 132 lb 4.438 oz BMI 20.1 BP 128/78 Blood Pressure Location Lt brachial Position Sitting Pulse 78 Pulse Source Pulse Oximeter Intake Visit Reasons: follow up bmc d/c Allergies gabapentin Adverse Reaction (Intermediate, Verified 09/16/24 14:25) Nausea morphine [MORPHINE] Adverse Reaction (Mild, Verified 09/16/24 14:25) VOMITING, sensitivity atorvastatin Adverse Reaction (Unknown, Verified 09/16/24 14:25) Muscle cramps rosuvastatin [Crestor] Adverse Reaction (Unknown, Verified 09/16/24 14:25) muscle ache simvastatin Adverse Reaction (Unknown, Verified 09/16/24 14:25) Muscle cramps Medication List - Last Reconciled 09/24/24 by Heber King MD alpha lipoic acid 300 mg PO DAILY alprazolam 0.5 mg PO DAILY PRN blood sugar diagnostic (FreeStyle Lite Strips) As directed check the BS QD calcium carbonate (Oyster Shell Calcium) 500 mg PO DAILY carvedilol 3.125 mg PO BID cholecalciferol (vitamin D3) 25 mcg PO DAILY ezetimibe (Zetia) 10 mg PO DAILY lisinopril 2.5 mg PO DAILY mastectomy bra As directed meclizine 25 mg PO TID mirtazapine 30 mg PO BEDTIME multivitamin 1 tab PO DAILY HPI Comments Details: Susan returns for follow-up regarding cardiomyopathy as well as left bundle- branch block. She lost her few years ago and since then has been quite depressed. In prior visits, she has had lots of nonspecific complaints including tinnitus, musculoskeletal complaints extra. Recently, it seems that she was in an exercise class that she has done for a long time. She was doing jumping jacks and in that setting, had a syncopal episode. She fell down and was taken to [facility]. Workup had shown intraparenchymal hemorrhage /subarachnoid hemorrhage. However, with conservative care she improved and she was eventually discharged home. not entirely clear if it is like an orthostatic type picture that led to the syncope. However, blood pressure is rather in the normal range and not too low. She is however on Coreg/ lisinopril for the cardiomyopathy itself. She has also had some chest tightness off and on. However, atypical for angina. [facility] Medical History Peripheral neuropathy Alteration in cognition Neuropathy Cervicalgia Anxiety Depression Gait disorder Sleep disorder Screening for viral disease Distal radius fracture, left Post-menopausal Infiltrating ductal carcinoma of right breast History of breast cancer Anxiety and depression Left bundle branch block Tubular adenoma of colon History of breast cancer Hypercholesterolemia Cardiomyopathy Type 2 diabetes mellitus with hyperglycemia Surgical History History of colonoscopy H/O left breast biopsy History of lumpectomy of right breast Family History Father CVD (cardiovascular disease) Myocardial infarct Mother HTN (hypertension) Cancer Uterine cancer Arthritis Paternal Aunt Myocardial infarct Paternal Uncle Myocardial infarct Brother No problems noted. Social History Household Members: None Housing: House Alcohol intake: current Alcohol intake frequency: holidays/special occasions only Patient Tobacco Use Status: Never used Tobacco e-Cigarette/Vaping Use: Never Used Second Hand Smoke Exposure: No service: No Current occupational status: retired Current occupation: rt hand Cognitive needs: No Hearing needs: No Vision needs: Yes (Glasses) Review of Systems Const Denies weakness ENT Reports dizziness Card Denies chest pain, Denies chest pain with activity, Denies syncope, Denies rapid heart rate, Denies pedal edema, Denies edema, Denies leg edema, Denies lightheadedness, Denies palpitations, Denies dyspnea, Denies dyspnea on exertion and Denies orthopnea Resp Denies cough, Denies dyspnea and Denies dyspnea on exertion GI Denies hematochezia and Denies change in stool character Musc Denies abnormal gait, Denies muscle cramps, Denies muscle weakness, Denies numbness, Denies radiating pain into limb and Denies tingling Neuro Denies abnormal gait, Reports dizziness, Denies syncope, Denies numbness, Denies tingling and Denies weakness Endo Denies palpitations Physical Exam Vital Signs: Last Vital Signs Pulse 78 09/24/24 12:48 BP 128/78 09/24/24 12:48 BMI result Body Mass Index 20.1 Const General: comfortable and no acute distress Orientation/consciousness: patient oriented x3 HEENT Other: Unremarkable Head: Yes normal to inspection Neck Neck: Yes normal visual inspection Chest Chest palpation & inspection: normal inspection of the chest Resp Auscultation: clear to auscultation bilaterally Cardio Palpation: normal PMI Heart sounds: S1 normal heart sound present, S2 normal heart sound present, no gallops, no murmurs and no rubs GI Palpation (GI): Soft to palpation Back/Spine/Pelvis Other: unremarkable Skin General skin exam: no rashes or lesions noted Neuro General: patient oriented x3 Extrem General: Yes normal to inspection Psych Mental Status: mental status grossly normal Office Procedures EKG Details: Error [id number], Complete (Do not bill) Assessment & Plan Assessment & Plan (1) Syncope and collapse: Code(s): R55 - Syncope and collapse Category: Medical (2) NICM (nonischemic cardiomyopathy): Code(s): I42.8 - Other cardiomyopathies Category: Medical (3) Left bundle branch block: Code(s): I44.7 - Left bundle-branch block, unspecified Category: Medical Plan In the echocardiogram from [facility] 08/2024, LVEF is 50-55%. Mild mitral regurgitation. Previously, LVEF 40-45% from [place] echocardiogram 2022. Carotid ultrasound from [facility] with no significant stenosis. Coronary CTA in the past did not reveal any significant coronary disease. There was mild eccentric distal left main plaque; minimal disease elsewhere. Overall, recent syncope leading to intracranial hemorrhage in the setting of jumping jacks type physical activity in the gym. Not clear if she had any orthostatic type presentation as she essentially states that she did not eat breakfast that day. Hence we will plan on stopping her carvedilol/ lisinopril completely and see how she does. With the blood pressure does rebound, then may have to initiate at least one of these. We will do a 30 day monitor for completion but doubt any true arrhythmogenic etiology like complete heart block. With regard to the chest tightness type symptoms, doubt if it is truly cardiac but again because of the left bundle-branch block as well as recent syncope, worthwhile repeating her stress test as it has been a few years since her last coronary assessment. Discussion Notes During our discussion, I explained the rationale for using a heart monitor and conducting a stress test to evaluate potential cardiac arrhythmias. The discontinuation of lisinopril and carvedilol was discussed concerning their side effect profile, and I advised careful monitoring of blood pressure to guide future medication needs. We discussed the need for hydration as a dorantes strategy to manage her dizziness, especially during exercise. The patient expressed understanding and compliance with the outlined plan and adjustments in her current therapy. Patient was informed and verbally consented to the use of an ambient scribe for clinic note documentation during this visit. Orders: Orders ECG 30 day event monitor Today I44.7 - Left bundle-branch block, unspecified, R55 - Syncope and collapse NM cardiolite stress test Today R07.2 - Precordial pain CA lexiscan stress w tamia Today I20.9 - Angina pectoris, unspecified Medications: Discontinued carvedilol Discontinued Reason: Doctor's Order 3.125 mg PO BID 180 tabs 2RF lisinopril Discontinued Reason: Doctor's Order 2.5 mg PO DAILY 90 tabs 3RF Patient Instructions: - Monitor your blood pressure regularly and ensure it stays below 140/80 mmHg. - Increase your fluid intake daily to help with dizziness. - Use the heart monitor as instructed and keep notes of any symptoms. - Rest when feeling dizzy and move slowly when changing positions. - Attend your scheduled stress test appointment. - Follow up with your neurology appointment as needed. - Report any new or worsening symptoms, such as severe dizziness or syncope, immediately. Coding Level of Care Code Est Pt Level 4 (53126) Complex EM visit Add On G2211 Diagnoses Syncope and collapse R55 NICM (nonischemic cardiomyopathy) I42.8 Left bundle branch block I44.7 CPT Codes EKG - CPT: 11017-[id number], Complete ([id number])
--- OUTSIDE RECORDS SUMMARY | 2024-09-24 13:43 | XMS_ITS | Patient Health Record ---
Author Organization [facility] Address [address] [place] [address] Care Team Providers Care Yard Pilot Name Role Phone Savana Del Castillo Primary Care Provider Rivera Chavarria Unavailable [phone] Allergies Allergen (clinical drug ingredient) Drug/Non Drug Allergy documented on EMR Reaction Allergy Type Onset Date Status morphine Morphine Unknown Drug Allergy Active Substance with 8-kbzacfw-3-methylgluta ryl-coenzyme A reductase inhibitor mechanism of action [...] Status Risk Notes Problem Acquired hallux valgus (20116494) Hallux valgus (acquired), right foot (M20.11) Active confirmed Problem Hallux rigidus, left foot (M20.22) Active confirmed Problem 831446941 Raynaud's diseas e without gangrene (I73.00) Active confirmed Problem 036781095 Preproliferative diabetic retinopathy (E11.3499) Active confirmed Plan Of Treatment Pending Test Test Name Order Date X ray : Foot, left 3V 08/16/2021 X ray : Foot, right 3V 08/16/2021 Insurance Providers Payer Name Payer Address Payer Phone Subscriber Number Group Number Insured Name Patient Relationship to Insured Coverage Start Date Coverage End Date Medicare National Govt [employer] [facility] [address] [place] [address] [phone] [id number] St[place] feldman Self - patient is the insured [employer] [facility] [address] [place] [address] [phone] [id number] StGSusan feldman Self - patient is the insured Medical (General) History Medical History History ICD Code Anxiety Arthritis Back,Hip,and Knee pain Broken bones CAD (Cholesterol) Cancer Depression Headaches/Migraines Heart disease High blood pressure Numbness Rheumatic fever Measles Mumps tinnitus Hot flash Left bundle branch block (LBBB) Pre type II diabetes Surgical History Surgery Date(Month/Year) Hospitalization History Reason Date(Month/Year) [facility] [place] [facility]- Broke L Wrist 02/2021
--- OUTSIDE RECORDS SUMMARY | 2024-09-24 13:43 | XMS_ITS | Patient Health Record ---
Author Organization [facility] Address [address] [place] [address] Care Team Providers Care Lot Worker Name Role Phone Savana Del Castillo MD Primary Care Provider Noel Meraz [phone] Allergies Allergen (clinical drug ingredient) Drug/Non Drug [...] Problem Status W/U Status Risk Notes Problem 908625015 Encounter for screening for malignant neoplasm of colon (Z12.11) Active confirmed Problem 580205256 History of adenomatous polyp of colon (Z86.010) Active confirmed Problem History of polyp of colon (situation) (283057082) Personal history of colonic polyps (Z86.010) Active confirmed Problem Diverticular disease of colon (893037015) Diverticulosis of large intestine without perforation or abscess without bleeding (K57.30) Active confirmed Problem 359554114226627 Preprocedural examination (Z01.818) Active confirmed Problem 710166534303116 Aspirin long-ter m use (Z79.82) Active confirmed Plan Of Treatment Future Test Test Name Order Date COLONOSCOPY 02/04/2015 COLONOSCOPY 11/23/2020 Insurance Providers Payer Name Payer Address Payer Phone Subscriber Number Group Number Insured Name Patient Relationship to Insured Coverage Start Date Coverage End Date MEDICARE OF [place] [address] [place] [address] [id number] ROJELIO ANGLIN Self - patient is the insured [employer] CLAIMS [address] [place] [address] [id number] ROJELIO ANGLIN Self - patient is the insured Medical (General) History Medical History History ICD Code Dizziness/Equilibrium issues--saw Dr. Rob fitzgerald Left bundle branch block-see s cardiology at [facility]--had an ETT and a cardiac Echo-Dr. King Right-sided Breast cancer--1998--2 Lumpe ctomies, chemo and XRT Negative colonoscopy in 04/[address] Phipps, except for small internal hemorrhoids Hyperlipidemia HTN Denies MD,CVA,Lung disease,renal disease Persistent Tinnitus after he r 2nd Moderna vaccine in 06/2020--seeing Dr. Contreras Colonoscopy 05/2015 with a small tubular adenoma Diet-controlled DM Surgical History Surgery Date(Month/Year) 2 lumpectomies as above for breast cance r
== END 2024-09-24 13:26 | disposition home or self-care (01) ==
LOC: HO.HCS 12:35
PROVIDERS: PCP Internal Medicine; Visit Provider Internal Medicine
DX: R55 Syncope and collapse (principal); I42.8 Other cardiomyopathies; I44.7 Left bundle-branch block, unspecified
CPT/HCPCS: 93010; 99214; G2211

== ENCOUNTER → 2024-09-24 12:34 | Outpatient (BNVA) | payer MEDICARE, SELFPAY | PROVIDERS: PCP Internal Medicine; Visit Provider Internal Medicine | DX: I44.7 Left bundle-branch block, unspecified (principal); I42.8 Other cardiomyopathies; I20.9 Angina pectoris, unspecified; R55 Syncope and collapse; R07.2 Precordial pain | CPT/HCPCS: 93005; 99212 ==

== ENCOUNTER → 2024-10-02 10:50 | Outpatient (REF) | payer MEDICARE, SELFPAY ==
--- OUTSIDE RECORDS SUMMARY | 2024-10-02 11:22 | XMS_ITS | Patient Health Record ---
Author Organization [facility] Address [address] [place] [address] Care Team Providers Care Office Support Specialist Name Role Phone Savana Del Castillo Primary Care Provider Rivera Chavarria Unavailable [phone] Allergies Allergen (clinical drug ingredient) Drug/Non Drug Allergy documented on EMR Reaction Allergy Type Onset Date Status morphine Morphine Unknown Drug Allergy Active Substance with 6-mggqqyr-6-methylgluta ryl-coenzyme A reductase inhibitor mechanism of action [...] Status Risk Notes Problem Acquired hallux valgus (56634526) Hallux valgus (acquired), right foot (M20.11) Active confirmed Problem Acquired hallux rigidus (2191601) Hallux rigidus, left foot (M20.22) Active confirmed Problem 871529552 Raynaud's diseas e without gangrene (I73.00) Active confirmed Problem 754492709 Preproliferative diabetic retinopathy (E11.3499) Active confirmed Plan Of Treatment Pending Test Test Name Order Date X ray : Foot, left 3V 08/16/2021 X ray : Foot, right 3V 08/16/2021 Insurance Providers Payer Name Payer Address Payer Phone Subscriber Number Group Number Insured Name Patient Relationship to Insured Coverage Start Date Coverage End Date Medicare National Govt [employer] [address] [place] [address] [id number] [place] Self - patient is the insured [facility] [address] [place] [address] [id number] [place] Susan Self - patient is the insured Medical (General) History Medical History History ICD Code Anxiety Arthritis Back,Hip,and Knee pain Broken bones CAD (Cholesterol) Cancer Depression Headaches/Migraines Heart disease High blood pressure Numbness Rheumatic fever Measles Mumps tinnitus Hot flash Left bundle branch block (LBBB) Pre type II diabetes Surgical History Surgery Date(Month/Year) Hospitalization History Reason Date(Month/Year[place] [facility] [place]
--- OUTSIDE RECORDS SUMMARY | 2024-10-02 11:22 | XMS_ITS | Patient Health Record ---
Author Organization [facility] Address [address] [place] [address] Care Team Providers Care Valve Seater Operator Name Role Phone Savana Del Castlilo MD Primary Care Provider Noel Meraz [phone] Allergies Allergen (clinical drug ingredient) Drug/Non Drug [...] Problem Status W/U Status Risk Notes Problem 679280982 Encounter for screening for malignant neoplasm of colon (Z12.11) Active confirmed Problem 087089060 History of adenomatous polyp of colon (Z86.010) Active confirmed Problem History of polyp of colon (situation) (982937174) Personal history of colonic polyps (Z86.010) Active confirmed Problem Diverticulosis o f large intestine without perforation or abscess without bleeding (K57.30) Active confirmed Problem 738320779358645 Preprocedural examination (Z01.818) Active confirmed Problem 545215512492930 Aspirin long-ter m use (Z79.82) Active confirmed Plan Of Treatment Future Test Test Name Order Date COLONOSCOPY 02/04/2015 COLONOSCOPY 11/23/2020 Insurance Providers Payer Name Payer Address Payer Phone Subscriber Number Group Number Insured Name Patient Relationship to Insured Coverage Start Date Coverage End Date MEDICARE OF [place] [address] [place] [address] [phone] [id number] ROJELIO ANGLIN Self - patient is the insured MED[employer] ATT[employer] CLAIMS [address] [place] [address] [id number] ROJELIO ANGLIN Self - patient is the insured Medical (General) History Medical History History ICD Code Dizziness/Equilibrium issues--saw Dr. Rob fitzgerald Left bundle branch block-see s cardiology at [facility]--had an ETT and a cardiac Echo-Dr. King Right-sided Breast cancer--1998--2 Lumpe ctomies, chemo and XRT Negative colonoscopy in 04/[address] Phipps, except for small internal hemorrhoids Hyperlipidemia HTN Denies [place],CVA,Lung disease,renal disease Persistent Tinnitus after he r 2nd Moderna vaccine in 06/2020--seeing Dr. Contreras Colonoscopy 05/2015 with a small tubular adenoma Diet-controlled DM Surgical History Surgery Date(Month/Year) 2 lumpectomies as above for breast cance r
== END ==
LOC: HO.CARD 10:50
PROVIDERS: PCP Internal Medicine; Visit Provider Internal Medicine
DX: R55 Syncope and collapse (principal); I44.7 Left bundle-branch block, unspecified
CPT/HCPCS: 93270

== ENCOUNTER → 2024-10-02 10:53 | Outpatient (BNV) | payer MEDICARE, SELFPAY | PROVIDERS: PCP Internal Medicine; Visit Provider Internal Medicine | DX: I44.0 Atrioventricular block, first degree (principal) | CPT/HCPCS: 93272 ==

== ENCOUNTER 2024-10-16 14:25 | Outpatient (AMB) | payer MEDICARE, SELFPAY ==
--- OUTSIDE RECORDS SUMMARY | 2024-10-16 14:28 | XMS_ITS | Patient Health Record ---
Author Organization [facility] Address [address] [place] [address] Care Team Providers Care Waiter And Cashier Name Role Phone Savana Del Castillo Primary Care Provider Rivera Chavarria Unavailable [phone] Allergies Allergen (clinical drug ingredient) Drug/Non Drug Allergy documented on EMR Reaction Allergy Type Onset Date Status morphine Morphine Unknown Drug Allergy Active Substance with 7-wwkoxvj-3-methylgluta ryl-coenzyme A reductase inhibitor mechanism of action [...] Status Risk Notes Problem Acquired hallux valgus (44191505) Hallux valgus (acquired), right foot (M20.11) Active confirmed Problem Acquired hallux rigidus (0286963) Hallux rigidus, left foot (M20.22) Active confirmed Problem 137709733 Raynaud's diseas e without gangrene (I73.00) Active confirmed Problem 937965614 Preproliferative diabetic retinopathy (E11.3499) Active confirmed Plan Of Treatment Pending Test Test Name Order Date X ray : Foot, left 3V 08/16/2021 X ray : Foot, right 3V 08/16/2021 Insurance Providers Payer Name Payer Address Payer Phone Subscriber Number Group Number Insured Name Patient Relationship to Insured Coverage Start Date Coverage End Date Medicare National Govt Sv[employer] Inc [address] [facility] [place] [address] [id number] [place] Self - patient is the insured [facility] [address] [place] [address] [id number] [place] Self - patient is the insured Medical (General) History Medical History History ICD Code Anxiety Arthritis Back,Hip,and Knee pain Broken bones CAD (Cholesterol) Cancer Depression Headaches/Migraines Heart disease High blood pressure Numbness Rheumatic fever Measles Mumps tinnitus Hot flash Left bundle branch block (LBBB) Pre type II diabetes Surgical History Surgery Date(Month/Year) Hospitalization History Reason Date(Month/Year) [facility] [place]- Broke L Wrist 02/2021
[2024-10-16 14:34] VITALS: BP 114/68; PULSE 68; O2SAT 97; BMI 21.0
--- NOTE | 2024-10-16 14:34 | A.OFFPC_ITS ---
Vital Signs 10/16/24 14:34 Height 5 ft 8 in Weight 138 lb BMI 21.0 BP 114/68 Blood Pressure Location Lt brachial Position Sitting Pulse 68 Pulse Source Pulse Oximeter Pulse Oximetry (%) 97 Oxygen Delivery Method Room Air Intake Visit Reasons: 3month follow up Intake Note: Standing BP is 122/70 Allergies gabapentin Adverse Reaction (Intermediate, Verified 10/16/24 14:35) Nausea morphine [MORPHINE] Adverse Reaction (Mild, Verified 10/16/24 14:35) VOMITING, sensitivity atorvastatin Adverse Reaction (Unknown, Verified 10/16/24 14:35) Muscle cramps rosuvastatin [Crestor] Adverse Reaction (Unknown, Verified 10/16/24 14:35) muscle ache simvastatin Adverse Reaction (Unknown, Verified 10/16/24 14:35) Muscle cramps Medication List - Last Reconciled 10/16/24 by Savana Del Castillo MD alpha lipoic acid 300 mg PO DAILY alprazolam 0.5 mg PO DAILY PRN blood sugar diagnostic (FreeStyle Lite Strips) As directed check the BS QD calcium carbonate (Oyster Shell Calcium) 500 mg PO DAILY cholecalciferol (vitamin D3) 25 mcg PO DAILY ezetimibe (Zetia) 10 mg PO DAILY mastectomy bra As directed meclizine 25 mg PO TID mirtazapine 30 mg PO BEDTIME multivitamin 1 tab PO DAILY Tobacco use date assessed: 07/13/24 Fall risk assessment: No Falls in past year Last assessed Fall Risk: 10/16/24 Dental Screening Dental Screen Date: 07/13/24 HPI 3month follow up HPI Details event monitor presently has, November work for the xray. stopped carvedilol and other antihypertenstive. [facility] Medical History (Updated 10/16/24 @ 14:49 by Savana Del Castillo MD) Peripheral neuropathy Alteration in cognition Neuropathy Cervicalgia Gait disorder Sleep disorder Screening for viral disease Distal radius fracture, left Post-menopausal Infiltrating ductal carcinoma of right breast History of breast cancer Anxiety and depression Left bundle branch block Tubular adenoma of colon History of breast cancer Hypercholesterolemia Cardiomyopathy Type 2 diabetes mellitus with hyperglycemia Surgical History History of colonoscopy H/O left breast biopsy History of lumpectomy of right breast Family History Father CVD (cardiovascular disease) Myocardial infarct Mother HTN (hypertension) Cancer Uterine cancer Arthritis Paternal Aunt Myocardial infarct Paternal Uncle Myocardial infarct Brother No problems noted. Social History Household Members: None Housing: House Alcohol intake: current Alcohol intake frequency: holidays/special occasions o nly Patient Tobacco Use Status: Never used Tobacco Tobacco use type: Cigarette e-Cigarette/Vaping Use: Never Used Second Hand Smoke Exposure: No service: No Current occupational status: retired Current occupation: rt hand Cognitive needs: No Hearing needs: No Vision needs: Yes (Glasses) Questionnaire PHQ-9 Over the last 2 weeks, how often have you been bothered by any of the following problems? 1. Little interest or pleasure in doing things: more than half the days 2. Feeling down, depressed, or hopeless: more than half the days 3. Trouble falling or staying asleep, or sleeping too much: more than half the days 4. Feeling tired or having little energy: more than half the days 5. Poor appetite or overeating: several days 6. Feeling bad about yourself - or that you are a failure or have let yourself or your family down: not at all 7. Trouble concentrating on things, such as reading the newspaper or watching television: several days 8. Moving or speaking so slowly that other people could have noticed. Or the opposite - being so fidgety or restless that you have been moving around a lot more than usual: not at all 9. Thoughts that you would be better off or of hurting yourself in some way: not at all Total score: 10 Depression Screening Interpretation: Positive Depression Screening Done: Yes Source: Developed by Drs. Noel Rouse, Brenda Sheffield, Gulshan Jamison and colleagues, with an educational [email or web address] from [employer]. Thrive Questionnaire Date Thrive assessed: 09/16/24 I am a: Patient What is your living situation today?: I have a steady place to live Within the past 12 months, did the food you bought not last and you didn't have the money to get more?: Never true Within the past 12 months, did you worry whether your food would run out before you got money to buy more?: Never true Do you have trouble paying for medicines?: No Do you have trouble getting transportation to medical appointments?: No Do you have trouble paying your heating and electricity bill?: No Do you have trouble taking care of your child, family member or friend?: No Do you have trouble with day-to-day activities such as bathing, preparing meals, shopping, managing finances, etc.?: Yes Are you currently unemployed and looking for a job?: No Are you interested in more education?: No Please select the resources that you would like help with: None Currently or been in a relationship where the following occur: No concerns reported THRIVE Score: 0 AUDIT C Alcohol Use Questionnaire (AUDIT-C) 2. How many drinks containing alcohol do you have on a typical day when you are drinking?: 1 or 2 3. How often do you have six or more drinks on one occasion?: Never Total Score: 0 ROBER-7 AMB Questionnaire ROBER-7 Date ROBER - 7 assessed: 07/13/24 Source: Developed by Drs. Noel Rouse, Brenda Sheffield, Gulshan Jamison and colleagues, with an educational kimberley from [employer]. Physical exam (Primary Care) Vital Signs: Last Vital Signs Pulse 68 10/16/24 14:34 BP 114/68 10/16/24 14:34 Pulse Ox 97 10/16/24 14:34 Oxygen Delivery Method Room Air 10/16/24 14:34 BMI result Body Mass Index 21.0 Tobacco/Smoking Status: Tobacco use Status Tobacco use date assessed 07/13/24 10/16/24 14:36 Patient Tobacco Use Status Never used Tobacco 10/16/24 14:36 Tobacco use type Cigarette 10/16/24 14:36 e-Cigarette/Vaping Use Never Used 10/16/24 14:36 PHQ-9: PHQ-9 Score PHQ-9: Total score 10 10/16/24 14:55 Depression Screening Interpretation: Positive Thrive Assessment: Date of Thrive Assessment Date Thrive assessed 09/16/24 10/16/24 14:36 Currently or been in a relationship where the following occur: No concerns reported Const General: alert; No acute distress Eyes Conjunctivae: conjunctivae normal Resp Auscultation: clear to auscultation bilaterally Cardio Rate: regular rate Rhythm: regular rhythm GI Inspection: Yes normal to inspection Extrem General: Yes normal to inspection and No edema Results AMB Hemoglobin A1c AMB Hemoglobin A1c 6.6 % Last Edit by Glenys Ellis CMA on 10/16/24 14 :55 Results Reviewed Results Reviewed: Laboratory Last Values Hgb A1c (Clinic) 6.6 % (4.0-6.0) H 10/16/24 14:36 Coding Level of Care Code Est Pt Level 4 (00723) Complex EM visit Add On G2211 Diagnoses Type 2 diabetes mellitus with hyperglycemia, without long-term current use of insulin E11.65 Diabetes mellitus manager long term care insulin use: without manager long term care use NICM (nonischemic cardiomyopathy) I42.8 Hypercholesterolemia E78.00 Moderate episode of recurrent major depressive disorder F33.1 Active/Remission status: currently active Major depression episode severity: moderate History of breast cancer Z85.3 CVA (cerebral vascular accident) I63.9 Memory change R41.3 Assessment & Plan Assessment & Plan (1) Type 2 diabetes mellitus with hyperglycemia: Code(s): E11.65 - Type 2 diabetes mellitus with hyperglycemia Category: Medical Qualifiers: Diabetes mellitus longterm insulin use: without manager long term care use Qualified Code(s): E11.65 - Type 2 diabetes mellitus with hyperglycemia Plan: Decrease the amount of carbohydrate intake, pasta, bread, rice and potatoes are all sugar and that is aside from all the sweet stuff, remember that fruits are good but they are Sweet also. hemoglobin A1c goal of less than 7.0. (2) NICM (nonischemic cardiomyopathy): Code(s): I42.8 - Other cardiomyopathies Category: Medical Plan: Continue follow-up with Cardiology and workup being done (3) Hypercholesterolemia: Comment: danae Code(s): E78.00 - Pure hypercholesterolemia, unspecified Category: Medical Plan: Avoid fried foods, chicken skin, eggs, butter margarine, pastries and meat. Be it pork or beef they have a lot of cholesterol patient is not able to take the statins only on Zetia (4) Recurrent major depression: Comment: decline referral for now 07/2022 Code(s): F33.9 - Major depressive disorder, recurrent, unspecified Category: Medical Qualifiers: Active/Remission status: currently active Major depression episode severity: moderate Qualified Code(s): F33.1 - Major depressive disorder, recurrent, moderate Plan: continue with present therapy as needed (5) History of breast cancer: Comment: 2000 right lumpectomy chemo and radiation Dr. Moody, MRI November 2015 Code(s): Z85.3 - Personal history of malignant neoplasm of breast Category: Medical Plan: continue to follow-up with Hematology-[facility] (6) CVA (cerebral vascular accident): Comment: August 2024 intraparenchymal hemorrhage with SAH Code(s): I63.9 - Cerebral infarction, unspecified Category: Medical Plan: stable (7) Memory change: Code(s): R41.3 - Other amnesia Category: Medical Plan: MMSE 29/30 advised that stress is causing any problem . Plan History of Present Illness The patient is a 74-year-old female presenting with follow-up for cardiomyopathy and diabetes. Her cardiomyopathy has been documented with a Cardiolite stress test and echocardiogram in August 2024, demonstrating an ejection fraction between 50 to 55% with abnormal septal motion indicative of a left bundle branch block. She does not have any valve disease. The patient's diabetes is characterized by mild anemia and elevated blood glucose levels, with a hemoglobin A1c of 6.5% from labs in June. Her treatment plan includes maintaining an A1c below 7.0%. She continues management with cardiology and hematology oncology due to her cardiac and diabetic conditions. She is unable to tolerate statins, currently taking Xeria, and is scheduled for a 30-day event monitor for further cardiac evaluation. Health Maintenance - Scheduled 30-day event monitor for cardiac evaluation. - Continuous follow-up and workup with cardiology. - Hemoglobin A1c monitoring with target of less than 7.0%. - Continue management with Xeria for hypercholesterolemia. - Scheduled follow-up with hematology/oncology. Social History Review of Systems - Cardiovascular: Reports abnormal septal motion consistent with left bundle branch block. - Hematologic: Reports mild anemia. - Metabolic: Reports elevated blood sugar with a hemoglobin A1c of 6.5%. Physical Exam Results - Tests and Diagnostics: Cardiolite stress test and echocardiogram done August 2024 showing EF 50 to 55% and abnormal septal motion consistent with left bundle branch block. - Labs: Last blood work in June indicated mild anemia and an elevated hemoglobin A1c of 6.5%. Plan 1. 0%, with current levels noted at 6.5%. Continued use of Xeria is recommended, as the patient cannot tolerate statins. Regular follow-up with cardiology and hematology/oncology will help in maintaining and controlling these health aspects. Monitoring of mild anemia and hyperglycemia will continue, with any necessary adjustments to her treatment regimen.: Patient was informed and verbally consented to the use of an ambient scribe for clinic note documentation during this visit. Discussion Notes During our discussion, I reviewed the patient's cardiac condition and diabetes management strategies. I explained the purpose and benefit of the scheduled 30- day event monitor to assess her current cardiac function further. Her cardiac history, including the ejection fraction and left bundle branch block findings, were reviewed in detail to address potential triggers and appropriate management strategies. The patient?s hemoglobin A1c target was emphasized, with current levels discussed to ensure understanding of diabetes control. The reasons for continuing Xeria instead of statins due to intolerance were shared. Plans for continued follow-up with cardiology and hematology/oncology were discussed to optimize her care management. Future visits will involve monitoring her anemia and diabetes progression to make informed adjustments to her therapy. Patient Instructions - Use the 30-day event monitor as scheduled. - Continue to take Xeria as prescribed. - Keep follow-up appointments with cardiology and hematology/oncology. - Monitor blood sugar levels regularly to maintain a hemoglobin A1c below 7.0%. - Report any new symptoms or concerns immediately. Orders: Orders AMB Hemoglobin A1c Today Z13.9 - Encounter for screening, unspecified
== END 2024-10-16 15:13 | disposition home or self-care (01) ==
LOC: HO.HMCH 14:26
PROVIDERS: PCP Internal Medicine; Visit Provider Internal Medicine
DX: E11.65 Type 2 diabetes mellitus with hyperglycemia (principal); I42.8 Other cardiomyopathies; F33.1 Major depressive disorder, recurrent, moderate; I63.9 Cerebral infarction, unspecified; E78.00 Pure hypercholesterolemia, unspecified; Z85.3 Personal history of malignant neoplasm of breast; R41.3 Other amnesia

== ENCOUNTER → 2024-10-16 14:25 | Outpatient (BNVA) | payer MEDICARE, SELFPAY | PROVIDERS: PCP Internal Medicine; Visit Provider Internal Medicine | DX: E11.65 Type 2 diabetes mellitus with hyperglycemia (principal); I42.8 Other cardiomyopathies; E78.00 Pure hypercholesterolemia, unspecified; F33.1 Major depressive disorder, recurrent, moderate; I63.9 Cerebral infarction, unspecified; R41.3 Other amnesia; Z85.3 Personal history of malignant neoplasm of breast | CPT/HCPCS: 83036; 99212 ==

== ENCOUNTER → 2024-11-04 08:39 | Outpatient (REF) | payer MEDICARE, SELFPAY ==
--- NOTE | ~2024-11-04 | NM_ITS ---
Lexiscan Myocardial perfusion study Indication: Cardiomyopathy, left bundle branch block Technique: The patient was brought in for a Lexiscan perfusion study on 11/04/2024 and was injected 0.4 mg of Lexiscan intravenously. Within a minute of this injection 25 mCi of sestamibi was given intravenously. Images were obtained using the SPECT gamma camera interlaced with the gating device. Images were obtained in supine position. Resting perfusion study was performed on 11/05/2024. Patient was administered 25 mCi of sestamibi intravenously at rest. Images were then obtained in supine position. Total DLP 60 mGy-cm. Images were processed with the software and compared side to side in short axis, horizontal long axis and vertical long axis views. Findings: Raw aquisition reviewed. The stress perfusion study showed diminished tracer uptake in the distal part of anterior wall, apex and distal part of inferior wall. No major improvement with CT attenuation artifact. The gated study shows low normal LV systolic function with calculated LVEF of 53%. LV cavity is normal in size. The gated study shows reduced thickening and contractility in the distal part of anterior wall. Resting study shows diminished tracer uptake in the distal part of anterior wall, apex. No significant improvement with CT attenuation correction. Gating at rest reveals reduced thickening in the distal part of anterior wall with ejection fraction at 53%. The findings are consistent with fixed perfusion defect in the distal part of anterior wall, apex and distal inferior wall. No clear reversible defects. NM/NM cardiolite stress test Impression: 1. Myocardial perfusion imaging study shows no clear evidence of ischemia or infarction. Fixed defects possibly from left bundle branch block. 2. Gated LVEF is 53% during stress and rest. 3. Transient ischemic dilatation not present. EKG component of the test reported separately. Electronically signed by: Heber King MD 11/05/2024 04:05 PM EDT
--- NOTE | 2024-11-04 08:42 | CA_ITS ---
Acquisition Time: 2024-11-04 09:02:22 Total Exercise Time: 00:02:02 Test Indications: SYNCOPE, CARDIOMYOPATHY Medications: Protocol: TOMMY Max HR: 114 BPM 78% of Pred: 146 BPM Max BP: 140/60 mmHG Max Work Load: 1.0 METS Pharmacological stress test with Lexiscan while pt marches in her chair, with reports of SOB and lightheadedness, with frequent PVCs, with normotensive response to injection. Nondiagnostic eKG for ischemia. In recovery, pt treated with IVP Aminophylline 75 mg to reverse Lexiscan after which pt feeling back to baseline. Nuclear images pending. Test reviewed with Dr. Santizo. Referred By: Heber King Electronically Signed By: Rico Vincetn
--- OUTSIDE RECORDS SUMMARY | 2024-11-04 09:06 | XMS_ITS | Patient Health Record ---
Author Organization [facility] Address [address] [place] [address] Care Team Providers Care Slagger Name Role Phone Savana Del Castillo Primary Care Provider Rivera Chavarria Unavailable [phone] Allergies Allergen (clinical drug ingredient) Drug/Non Drug Allergy documented on EMR Reaction Allergy Type Onset Date Status morphine Morphine Unknown Drug Allergy Active Substance with 5-tyiokpx-9-methylgluta ryl-coenzyme A reductase inhibitor mechanism of action [...] Status Risk Notes Problem Acquired hallux valgus (44989416) Hallux valgus (acquired), right foot (M20.11) Active confirmed Problem Acquired hallux rigidus (8867230) Hallux rigidus, left foot (M20.22) Active confirmed Problem 821739920 Raynaud's diseas e without gangrene (I73.00) Active confirmed Problem [id number] Preproliferative diabetic retinopathy (E11.3499) Active confirmed Plan Of Treatment Pending Test Test Name Order Date X ray : Foot, left 3V 08/16/2021 X ray : Foot, right 3V 08/16/2021 Insurance Providers Payer Name Payer Address Payer Phone Subscriber Number Group Number Insured Name Patient Relationship to Insured Coverage Start Date Coverage End Date Medicare National [employer] [address] [place] [address] [id number] [place] Self - patient is the insured [facility] [address] [place] [address] [id number] [place] Self - patient is the insured Medical (General) History Medical History History ICD Code Anxiety Arthritis Back,Hip,and Knee pain Broken bones CAD (Cholesterol) Cancer Depression Headaches/Migraines Heart disease High blood pressure Numbness Rheumatic fever Measles Mumps tinnitus Hot flash Left bundle branch block (LBBB) Pre type II diabetes Surgical History Surgery Date(Month/Year) Hospitalization History Reason Date(Month/Year) [facility] [place]- Broke L Wrist 02/2021
== END ==
LOC: HO.CARD 08:39
PROVIDERS: PCP Internal Medicine; Visit Provider Internal Medicine
DX: R07.2 Precordial pain (principal); I20.9 Angina pectoris, unspecified
CPT/HCPCS: 78452; 93017; A9500; J0280; J2785

== ENCOUNTER → 2024-11-04 08:42 | Outpatient (BNV) | payer MEDICARE, SELFPAY | PROVIDERS: PCP Internal Medicine | DX: R06.02 Shortness of breath (principal); I49.3 Ventricular premature depolarization | CPT/HCPCS: 93016; 93018 ==

== ENCOUNTER 2024-11-14 08:51 | Outpatient (REF) | payer MEDICARE, SELFPAY ==
--- NOTE | ~2024-11-14 | CT_ITS ---
CLINICAL HISTORY: Syncope and collapse CT head without contrast Comparison: CT/MD/SR - CT HEAD/BRAIN WO IV CON - 02/25/24 14:54 EDT Findings: No evidence of acute territorial infarct. There is patchy low density in the periventricular and subcortical white matter. Mild volume loss is noted. No hydrocephalus. No hemorrhage, mass effect, mass lesion or midline shift. No abnormal extra-axial fluid. No calvarial fracture. Partial opacification of the right maxillary sinus, otherwise paranasal sinuses and mastoid air cells are clear. Impression: No acute intracranial process. Chronic changes as detailed. This document has been electronically signed by: Param Garcia MD on 11/17/2024 11:48:02
--- OUTSIDE RECORDS SUMMARY | 2024-11-14 08:54 | XMS_ITS | Patient Health Record ---
Author Organization [facility] Address [address] [place] [address] Care Team Providers Care Frame Builder Name Role Phone Savana Del Castillo Primary Care Provider Rivera Chavarria Unavailable [phone] Allergies Allergen (clinical drug ingredient) Drug/Non Drug Allergy documented on EMR Reaction Allergy Type Onset Date Status morphine Morphine Unknown Drug Allergy Active Substance with 1-kzarsmw-4-methylgluta ryl-coenzyme A reductase inhibitor mechanism of action (substance) Statins Unknown Drug Allergy Active Reason For Referral No Information Medications Medication SIG (Take, Route, Frequency, Duration) Notes Start Date End Date Status ALPRAZolam 0.5 MG TAKE 1 TABLET BY SEJAL TH TWICE A DAY FOR 90 DAYS Oral; Duration: 90 PRN Active Aspirin 81 Not-Takin g Amitriptyline HCl 25 MG Oral; Duration: 90 Active Nitro-Bid 2 % as directed Transder mal apply bid to toes; Duration: 90 days Active Physical Therapy . . . 2-3x/week; Durat ion: 3-4 weeks 12/14/2021 Active Ezetimibe 10 MG 1 [...] Status Risk Notes Problem Acquired hallux valgus (71427807) Hallux valgus (acquired), right foot (M20.11) Active confirmed Problem Acquired hallux rigidus (9392548) Hallux rigidus, left foot (M20.22) Active confirmed Problem Raynaud's diseas e without gangrene (I73.00) Active confirmed Problem Preproliferative diabetic retinopathy (891988193) Preproliferative diabetic retinopathy (E11.3499) Active confirmed Plan Of Treatment Pending Test Test Name Order Date X ray : Foot, left 3V 08/16/2021 X ray : Foot, right 3V 08/16/2021 Insurance Providers Payer Name Payer Address Payer Phone Subscriber Number Group Number Insured Name Patient Relationship to Insured Coverage Start Date Coverage End Date Medicare National [employer] [address] [place] [address] [id number] Susan Ann Self - patient is the insured [facility] [address] [place] [address] [phone] [id number] [place] Self - patient is the insured Medical (General) History Medical History History ICD Code Anxiety Arthritis Back,Hip,and Knee pain Broken bones CAD (Cholesterol) Cancer Depression Headaches/Migraines Heart disease High blood pressure Numbness Rheumatic fever Measles Mumps tinnitus Hot flash Left bundle branch block (LBBB) Pre type II diabetes Surgical History Surgery Date(Month/Year) Hospitalization History Reason Date(Month/Year) [facility] [place] Broke L Wrist 02/2021
== END 2024-11-14 08:52 | disposition home or self-care (01) ==
LOC: HO.CT 08:51
PROVIDERS: PCP Internal Medicine; Visit Provider Psychiatry & Neurology Neurology
DX: R55 Syncope and collapse (principal); S06.0XAA Concussion with loss of consciousness status unknown, initial encounter; X58.XXXA Exposure to other specified factors, initial encounter; Y93.9 Activity, unspecified; Y92.9 Unspecified place or not applicable; Y99.9 Unspecified external cause status
CPT/HCPCS: 70450

== ENCOUNTER → 2024-11-14 09:15 | Outpatient (BNV) | payer MEDICARE, SELFPAY | PROVIDERS: PCP Internal Medicine; Visit Provider Radiology Vascular & Interventional Radiology | DX: R55 Syncope and collapse (principal) | CPT/HCPCS: 70450 ==

== ENCOUNTER 2024-12-15 13:52 | Outpatient (AMB) | payer MEDICARE, SELFPAY ==
--- OUTSIDE RECORDS SUMMARY | 2019-06-29 16:15 | XMS_ITS | Encounter Summary ---
Author Organization [facility] Address [address] [facility] [address] [place] [address] Phone Care Team Providers Care Aircraft Manager Name Role Phone Savana Del Castillo MD Primary Care Provider [phone] Encounter Details Date Type Department Care Team (Late st Contact Info) Description 06/29/2019 3:15 PM EST Hospital Encounter [facility] [address] [place] [address] Philipp Melara, GUILLAUME [address] [place] [address] [place] [address] Social History Tobacco Use Types Packs/Day Years [...] the knee. No acute bony injury. POS [id number] Narrative 06/29/2019 3:35 PM EST 5 views. [...] the knee. No acute bony injury. POS [id number] Philipp Melara HEADRIG SAWYER IMG XR LOWER EXTREMITY Final Re sult documented in this encounter Visit Diagnoses Not on filedocumented in this encounter Additional Health Concerns Infection Onset Date Last Indicated Resolved Time CoV-Risk 07/17/2023 07/17/2023 07/28/2023 1:21 AM EST documented as of this encounter Care Teams Aircraft Manager Relationship Specialty Start Date End Date Savana Del Castillo MD [address] [place] [address] Drive [address] [place] [address] [phone] PCP - General Internal Medicine 06/29/19 documented as of this encounter Additional Source Comments The information contained in this document represents components of the legal health record. It is not the complete legal health record.[facility]
[2024-12-15 13:58] VITALS: BP 122/68; PULSE 80; BMI 20.1
--- NOTE | 2024-12-15 13:58 | A.OFFVIS_ITS ---
Vital Signs 12/15/24 13:58 Height 5 ft 8 in Weight 132 lb 4.438 oz BMI 20.1 BP 122/68 Blood Pressure Location Lt brachial Position Sitting Pulse 80 Pulse Source Pulse Oximeter Intake Visit Reasons: follow up/event monitor/holter Allergies gabapentin Adverse Reaction (Intermediate, Verified 10/16/24 14:35) Nausea morphine (MORPHINE) Adverse Reaction (Mild, Verified 10/16/24 14:35) VOMITING, sensitivity atorvastatin Adverse Reaction (Unknown, Verified 10/16/24 14:35) Muscle cramps rosuvastatin (Crestor) Adverse Reaction (Unknown, Verified 10/16/24 14:35) muscle ache simvastatin Adverse Reaction (Unknown, Verified 10/16/24 14:35) Muscle cramps Medication List - Last Reconciled 12/15/24 by Heber King MD alpha lipoic acid 300 mg PO DAILY alprazolam 0.5 mg PO DAILY PRN blood sugar diagnostic (FreeStyle Lite Strips) As directed check the BS QD calcium carbonate (Oyster Shell Calcium) 500 mg PO DAILY cholecalciferol (vitamin D3) 25 mcg PO DAILY ezetimibe (Zetia) 10 mg PO DAILY mastectomy bra As directed meclizine 25 mg PO TID mirtazapine 30 mg PO BEDTIME multivitamin 1 tab PO DAILY HPI Comments Details: Susan returns for follow-up regarding cardiomyopathy as well as left bundle- branch block. She lost her few years ago and since then has been quite depressed. In prior visits, she has had lots of nonspecific complaints including tinnitus, musculoskeletal complaints extra. More recently, she had a syncopal episode during jumping jacks exercise and in that setting she was taken to [facility]. Workup had shown intraparenchymal hemorrhage /subarachnoid hemorrhage. However, with conservative care she improved and she was eventually discharged home. Not entirely clear if it is like an orthostatic type picture that led to the syncope. However, blood pressure is rather in the normal range and not too low. Last visit, we had actually stopped her Coreg or lisinopril and she states she feels just about the same as before and no different. She thinks as though she is living in a 'fog' all the time. I am not entirely clear if she is just having balance issues extra rather than true cardiogenic syncope. [facility] Medical History (Updated 10/16/24 @ 14:49 by Savana Del Castillo MD) Peripheral neuropathy Alteration in cognition Neuropathy Cervicalgia Gait disorder Sleep disorder Screening for viral disease Distal radius fracture, left Post-menopausal Infiltrating ductal carcinoma of right breast History of breast cancer Anxiety and depression Left bundle branch block Tubular adenoma of colon History of breast cancer Hypercholesterolemia Cardiomyopathy Type 2 diabetes mellitus with hyperglycemia Surgical History History of colonoscopy H/O left breast biopsy History of lumpectomy of right breast Family History Father CVD (cardiovascular disease) Myocardial infarct Mother HTN (hypertension) Cancer Uterine cancer Arthritis Paternal Aunt Myocardial infarct Paternal Uncle Myocardial infarct Brother No problems noted. Social History Household Members: None Housing: House Alcohol intake: current Alcohol intake frequency: holidays/special occasions only Patient Tobacco Use Status: Never used Tobacco Tobacco use type: Cigarette e-Cigarette/Vaping Use: Never Used Second Hand Smoke Exposure: No service: No Current occupational status: retired Current occupation: rt hand Cognitive needs: No Hearing needs: No Vision needs: Yes (Glasses) Review of Systems Const Denies weakness ENT Reports dizziness Card Denies chest pain, Denies chest pain with activity, Denies syncope, Denies rapid heart rate, Denies pedal edema, Denies edema, Denies leg edema, Denies lightheadedness, Denies palpitations, Denies dyspnea, Denies dyspnea on exertion and Denies orthopnea Resp Denies cough, Denies dyspnea and Denies dyspnea on exertion GI Denies hematochezia and Denies change in stool character Musc Denies abnormal gait, Denies muscle cramps, Denies muscle weakness, Denies numbness, Denies radiating pain into limb and Denies tingling Neuro Denies abnormal gait, Reports dizziness, Denies syncope, Denies numbness, Denies tingling and Denies weakness Endo Denies palpitations Physical Exam Vital Signs: Last Vital Signs Pulse 80 12/15/24 13:58 BP 122/68 12/15/24 13:58 BMI result Body Mass Index 20.1 Const General: comfortable and no acute distress Orientation/consciousness: patient oriented x3 HEENT Other: Unremarkable Head: Yes normal to inspection Neck Neck: Yes normal visual inspection Chest Chest palpation & inspection: normal inspection of the chest Resp Auscultation: clear to auscultation bilaterally Cardio Palpation: normal PMI Heart sounds: S1 normal heart sound present, S2 normal heart sound present, no gallops, no murmurs and no rubs GI Palpation (GI): Soft to palpation Back/Spine/Pelvis Other: unremarkable Skin General skin exam: no rashes or lesions noted Neuro General: patient oriented x3 Extrem General: Yes normal to inspection Psych Mental Status: mental status grossly normal Assessment & Plan Assessment & Plan (1) Syncope and collapse: Code(s): R55 - Syncope and collapse Category: Medical (2) NICM (nonischemic cardiomyopathy): Code(s): I42.8 - Other cardiomyopathies Category: Medical (3) Left bundle branch block: Code(s): I44.7 - Left bundle-branch block, unspecified Category: Medical Plan In the echocardiogram from [facility] 08/2024, LVEF is 50-55%. Mild mitral regurgitation. Previously, LVEF 40-45% from [place] echocardiogram 2022. Carotid ultrasound from [facility] with no significant stenosis. Coronary CTA in the past did not reveal any significant coronary disease. There was mild eccentric distal left main plaque; minimal disease elsewhere. Myocardial perfusion imaging study from 10/2024 shows no clear ischemia or infarction. Fixed defect thought to be from left bundle-branch block. Gated LV EF was 53%. In the Holter monitor, underlying rhythm is sinus with an average rate of 77/Min. PVCs noted with a burden of about 6.7%. Otherwise unremarkable. Overall, recent syncopal episode leading to intracranial hemorrhage setting of jumping jacks exercise. Either orthostatic hypotension versus loss of balance and fall, not very clear. Less likely arrhythmogenic. Home blood pressure diary reviewed and essentially shows normal readings and do not see any hypotension anyway. She has even done sitting and standing blood pressure checks and there was no true decrease but sometimes actually goes up. We had stopped her carvedilol and lisinopril and last time and we can keep it that way just in case the syncope was from orthostatic hypotension. Advised her to start exercising slowly and avoid anything too strenuous. She will contact us if she has any further episodes. Otherwise, follow up in 4 months. She will also follow up with Neurology in the interim. Discussion Notes I discussed with the patient the nature of her premature ventricular contractions and left bundle branch block, explaining that these conditions are being monitored and currently do not require intervention. We reviewed her exercise regimen, emphasizing the importance of safety and recommending low- impact activities. I advised her to monitor her symptoms closely and to contact me if she experiences any worsening of dizziness or chest pain. Patient was informed and verbally consented to the use of an ambient scribe for clinic note documentation during this visit. Total time spent including review of data, counseling, documentation, coordination of care-33 minutes. Patient Instructions: - Continue with light exercises and walking with a friend. - Avoid strenuous activities like jumping jacks. - Monitor symptoms of dizziness and chest pain closely. - Follow up with neurology for forgetfulness concerns. - Avoid high-intensity activities that could worsen symptoms. Coding Level of Care Code Est Pt Level 4 (28585) Complex EM visit Add On G2211 Diagnoses Syncope and collapse R55 NICM (nonischemic cardiomyopathy) I42.8 Left bundle branch block I44.7
--- OUTSIDE RECORDS SUMMARY | 2024-12-15 14:37 | XMS_ITS | Patient Health Record ---
[facility] Address [address] [address] Care Team Providers Care Industrial Maintenance Tech Name Role Phone Savana Del Castillo Primary Care Provider Rivera Chavarria Unavailable [phone] Allergies Allergen (clinical drug ingredient) Drug/Non Drug Allergy documented on EMR Reaction Allergy Type Onset Date Status morphine Morphine Unknown Drug Allergy Active Substance with 5-jxksyhv-3-methylgluta ryl-coenzyme A reductase inhibitor mechanism of action (substance) Statins Unknown Drug Allergy Active Reason For Referral No Information Medications Medication SIG (Take, Route, Frequency, Duration) Notes Start Date End Date Status ALPRAZolam 0.5 MG TAKE 1 TABLET BY SEJLA TH TWICE A DAY FOR 90 DAYS [...] Status Risk Notes Problem Acquired hallux valgus (33517540) Hallux valgus (acquired), right foot (M20.11) Active confirmed Problem Acquired hallux rigidus (3372509) Hallux rigidus, left foot (M20.22) Active confirmed Problem Raynaud's disease (154849598) Raynaud's disease without gangrene (I73.00) Active confirmed Problem Preproliferative diabetic retinopathy (990939953) Preproliferative diabetic retinopathy (E11.3499) Active confirmed Plan Of Treatment Pending Test Test Name Order Date X ray : Foot, left 3V 08/16/2021 X ray : Foot, right 3V 08/16/2021 Insurance Providers Payer Name Payer Address Payer Phone Subscriber Number Group Number Insured Name Patient Relationship to Insured Coverage Start Date Coverage End Date Medicare National [employer] [address] [place] [address] [id number] Susan Ann Self - patient is the insured [facility] [address] [place] [address] [id number] Susan Ann Self - patient is the insured Medical (General) History Medical History History ICD Code Anxiety Arthritis Back,Hip,and Knee pain Broken bones CAD (Cholesterol) Cancer Depression Headaches/Migraines Heart disease High blood pressure Numbness Rheumatic fever Measles Mumps tinnitus Hot flash Left bundle branch block (LBBB) Pre type II diabetes Surgical History Surgery Date(Month/Year) [place]ization History Reason Date(Month/[place] [facility] [place]
--- OUTSIDE RECORDS SUMMARY | 2024-12-15 14:38 | XMS_ITS | Patient Health Record ---
Author Organization [facility] Address [address] [place] [address] Care Team Providers Care Family Law Legal Assistant Name Role Phone Savana Del Castillo MD Primary Care Provider Noel Meraz [phone] Allergies Allergen (clinical drug ingredient) Drug/Non Drug [...] Problem Status W/U Status Risk Notes Problem [id number] Encounter for screening for malignant neoplasm of colon (Z12.11) Active confirmed Problem 207087651 History of adenomatous polyp of colon (Z86.010) Active confirmed Problem History of polyp of colon (situation) (234617615) Personal history of colonic polyps (Z86.010) Active confirmed Problem Diverticular disease of colon (558490871) Diverticulosis of large intestine without perforation or abscess without bleeding (K57.30) Active confirmed Problem [id number] Preprocedural examination (Z01.818) Active confirmed Problem 268082603747221 Aspirin long-ter m use (Z79.82) Active confirmed Plan Of Treatment Future Test Test Name Order Date COLONOSCOPY 02/04/2015 COLONOSCOPY 11/23/2020 Insurance Providers Payer Name Payer Address Payer Phone Subscriber Number Group Number Insured Name Patient Relationship to Insured Coverage Start Date Coverage End Date MEDICARE OF [place] [address] [place] [address] [id number] ROJELIO ANGLIN Self - patient is the insured [employer] [address] [place] [address] [id number] ROJELIO ANGLIN Self - patient is the insured Medical (General) History Medical History History ICD Code Dizziness/Equilibrium issues--saw Dr. Rob fitzgerald Left bundle branch block-[place] [facility] [place]had an ETT and a cardiac Echo-Dr. King Right-sided Breast cancer--1998--2 Lumpe ctomies, chemo and XRT Negative colonoscopy in 04/[address] Phipps, except for small internal hemorrhoids Hyperlipidemia HTN Denies PA,CVA,Lung disease,renal disease Persistent Tinnitus after he r 2nd Moderna vaccine in 06/2020--seeing Dr. Contreras Colonoscopy 05/2015 with a small tubular adenoma Diet-controlled DM Surgical History Surgery Date(Month/Year) 2 lumpectomies as above for breast cance r
== END 2024-12-15 14:38 | disposition home or self-care (01) ==
LOC: HO.HCS 13:53
PROVIDERS: PCP Internal Medicine; Visit Provider Internal Medicine
DX: R55 Syncope and collapse (principal); I42.8 Other cardiomyopathies; I44.7 Left bundle-branch block, unspecified
CPT/HCPCS: 99214; G2211

== ENCOUNTER → 2024-12-15 13:52 | Outpatient (BNVA) | payer MEDICARE, SELFPAY | PROVIDERS: PCP Internal Medicine; Visit Provider Internal Medicine | DX: I42.8 Other cardiomyopathies (principal); I44.7 Left bundle-branch block, unspecified; R55 Syncope and collapse | CPT/HCPCS: 99212 ==

== ENCOUNTER 2025-01-05 15:18 | Outpatient (REF) | payer MEDICARE, SELFPAY ==
--- NOTE | ~2025-01-05 | MM_ITS ---
EXAMINATION: MM SCREENING DIGITAL BREAST TOMOSYNTHESIS, BILATERAL CLINICAL INFORMATION: Screening. Asymptomatic. History of right breast cancer in 2000 and atypical lobular hyperplasia left breast 2010. COMPARISON: Mammography: Comparison is made with available priors TECHNIQUE: Digital breast mammography with tomosynthesis is performed in both the craniocaudal and mediolateral oblique views along with computer-aided detection (CAD). FINDINGS: The breasts are heterogeneously dense, which may obscure small masses (ACR BI-RADS breast composition Category c). Right post lumpectomy changes are stable. Left marker clips. There are no significant masses, abnormal calcifications, or other abnormalities. MM/MM tomosynthesis screening BI IMPRESSION: No mammographic evidence of malignancy. ASSESSMENT: BI-RADS BI-RADS 2 - Benign Findings RECOMMENDATION: Routine annual mammography screening. 1 year F/U This examination should not preclude the clinical evaluation of a suspicious palpable abnormality. This patient's information was entered into a reminder system with a target due date for their next mammogram. Electronically signed by: Analy Hall DO 01/07/2025 08:36 AM EDT
== END 2025-01-05 15:19 | disposition home or self-care (01) ==
LOC: HO.MAMMO 15:18
PROVIDERS: PCP Internal Medicine; Visit Provider Internal Medicine
DX: Z12.31 Encounter for screening mammogram for malignant neoplasm of breast (principal)
CPT/HCPCS: 77063; 77067

== ENCOUNTER → 2025-01-05 15:30 | Outpatient (BNV) | payer MEDICARE, SELFPAY | PROVIDERS: PCP Internal Medicine; Visit Provider Internal Medicine | DX: Z12.31 Encounter for screening mammogram for malignant neoplasm of breast (principal) | CPT/HCPCS: 77063; 77067 ==

== ENCOUNTER 2025-01-06 13:24 | Outpatient (AMB) | payer MEDICARE, SELFPAY ==
--- OUTSIDE RECORDS SUMMARY | 2019-06-29 16:15 | XMS_ITS | Encounter Summary ---
Author Organization [facility] Address [address] [facility] [address] [place] [address] Phone Care Team Providers Care Senior Linux Unix Administrator Name Role Phone Savana Del Castillo MD Primary Care Provider [phone] Encounter Details Date Type Department Care Team (Late st Contact Info) Description 06/29/2019 3:15 PM EST Hospital Encounter [facility] [address] [place] [address] Philipp Melara, GUILLAUME [address] [place] [address] [place] [address] Social History Tobacco Use Types Packs/Day Years [...] the knee. No acute bony injury. POS [id number] Narrative 06/29/2019 3:35 PM EST 5 views. [...] the knee. No acute bony injury. POS [id number] Philipp Melara PLEATER IMG XR LOWER EXTREMITY Final Re sult documented in this encounter Visit Diagnoses Not on filedocumented in this encounter Additional Health Concerns Infection Onset Date Last Indicated Resolved Time CoV-Risk 07/17/2023 07/17/2023 07/28/2023 1:21 AM EST documented as of this encounter Care Teams Senior Linux Unix Administrator Relationship Specialty Start Date End Date Savana Del Castillo MD [address] [place] [address] Drive [address] [place] [phone] PCP - General Internal Medicine 06/29/19 documented as of this encounter Additional Source Comments The information contained in this document represents components of the legal health record. It is not the complete legal health record.[facility]
--- NOTE | 2025-01-06 14:05 | MHC.OFFVIS ---
Intake Visit Reasons: 3 month f/u Concussion Allergies gabapentin Adverse Reaction (Intermediate, Verified 10/16/24 14:35) Nausea morphine (MORPHINE) Adverse Reaction (Mild, Verified 10/16/24 14:35) VOMITING, sensitivity atorvastatin Adverse Reaction (Unknown, Verified 10/16/24 14:35) Muscle cramps rosuvastatin (Crestor) Adverse Reaction (Unknown, Verified 10/16/24 14:35) muscle ache simvastatin Adverse Reaction (Unknown, Verified 10/16/24 14:35) Muscle cramps Medication List - Last Reconciled 01/06/25 by Robel Chávez MD alpha lipoic acid 300 mg PO DAILY alprazolam 0.5 mg PO DAILY PRN blood sugar diagnostic (FreeStyle Lite Strips) As directed check the BS QD calcium carbonate (Oyster Shell Calcium) 500 mg PO DAILY cholecalciferol (vitamin D3) 25 mcg PO DAILY ezetimibe (Zetia) 10 mg PO DAILY mastectomy bra As directed meclizine 25 mg PO TID mirtazapine 30 mg PO BEDTIME multivitamin 1 tab PO DAILY HPI Comments Details: No further syncopal symptoms. Improving mental fog and cognitive issues since head trauma in July 2024 , she had a syncopal episode while exercises at [employer] and doing jumping jacks. She became sweaty and saw a yellow light and passed out for about a minute. Struck her occiput and had a scalp laceration. She was incoherent for 10 minutes. Was admitted to [facility] [place] for 6 days. MRI, CTA, EEG were apparently negative.She has a 30 day event monitor. She had some cerebral hemorrhages from trauma.?It really bothers her and makes her anxious and depressed. She has chronic tinnitus. Had normal hearing test. Saw Dr. Contreras and had negative CT head . Had an MRA which was normal in 2015. Vision is not clear. Syncope in October 2015? after walking 2 miles, and was standing and nauseated and everything turned yellow then passed out for a few minutes. Hands and feet get cold and painful. Sugar was OK . Has a LBBB and had cardiac workup. Feels off balance type of dizziness almost daily and has to hold on to the wall. No vertigo. Feels in a fog even sitting down. She has a 10 year numbness , tingling in both LE. NCV done 08/23/2014. and 2019 showed sensory motor neuropathy, 2020 and Apr 2024 with some worsening of numbness and pain. passed in Apr 2019. [facility] Medical History (Updated 01/06/25 @ 14:19 by Robel Chávez MD) Peripheral neuropathy Alteration in cognition Neuropathy Cervicalgia Gait disorder Sleep disorder Screening for viral disease Distal radius fracture, left Post-menopausal Infiltrating ductal carcinoma of right breast History of breast cancer Anxiety and depression Left bundle branch block Tubular adenoma of colon History of breast cancer Hypercholesterolemia Cardiomyopathy Type 2 diabetes mellitus with hyperglycemia Surgical History History of colonoscopy H/O left breast biopsy History of lumpectomy of right breast Family History Father CVD (cardiovascular disease) Myocardial infarct Mother HTN (hypertension) Cancer Uterine cancer Arthritis Paternal Aunt Myocardial infarct Paternal Uncle Myocardial infarct Brother No problems noted. Social History Household Members: None Housing: House Alcohol intake: current Alcohol intake frequency: holidays/special occasions only Patient Tobacco Use Status: Never used Tobacco Tobacco use type: Cigarette e-Cigarette/Vaping Use: Never Used Second Hand Smoke Exposure: No service: No Current occupational status: retired Current occupation: rt hand Cognitive needs: No Hearing needs: No Vision needs: Yes (Glasses) Review of Systems Const Details: Sleep:? Difficulty getting to sleepadmits.? Difficulty maintaining sleepadmits.? Urge to move legsadmits.? Teeth grindingadmits.? Shouting or Kicking during sleepdenies.? Abnormal behavior during sleepadmits.? Excessive sleepdenies.? Snoringdenies.? Daytime sleepinessdenies. ???General/Constitutional:? Change in appetitedenies.? Chillsdenies.? Fatigueadmits.? Feverdenies.? Weight gaindenies.? Weight lossdenies. ???Ophthalmologic:? Blurred visionadmits.? Diminished visual acuitydenies. ???ENT:? Stuffinessdenies.? Decreased hearingdenies.? Dry mouthdenies.? Ear paindenies.? Nosebleeddenies.? Ringing in the earsadmits.? Sinus paindenies.? Sore throatdenies.? Swollen glandsdenies. ???Endocrine:? Cold intolerancedenies.? Excessive thirstdenies.? Frequent urinationdenies.? Heat intolerancedenies. ???Respiratory:? Shortness of breathdenies.? Chest paindenies.? Coughdenies. ???Breast:? Breast lumpdenies.? Nipple dischargedenies. ???Cardiovascular:? Chest pain at restdenies.? Chest pain with exertiondenies.? Claudicationdenies.? Dizzinessdenies.? Fluid accumulation in the legsdenies.? Irregular heartbeatdenies.? Palpitationsadmits. ???Gastrointestinal:? Abdominal paindenies.? Constipationdenies.? Diarrheadenies.? Difficulty swallowingdenies.? Heartburnadmits.? Nauseadenies.? Rectal bleedingdenies. ???Hematology:? Easy bruisingadmits.? Prolonged bleedingdenies. ???Genitourinary:? Frequent urinationadmits.? Urgencydenies.? Incontinencedenies.? Erectile Dysfunctiondenies. ???Musculoskeletal:? Neck paindenies.? Back painadmits.? Muscle achesadmits.? Painful jointsadmits.? Sciaticadenies.? Weaknessdenies. ???Podiatric:? Difficulty walkingdenies.? Foot numbnessdenies. ???Neurologic:? Difficulty swallowingdenies.? Balance difficultyadmits.? Coordinationnormal.? Difficulty speakingdenies.? Dizzinessadmits.? Faintingdenies.? Gait abnormalitydenies.? Headacheadmits.? Loss of strengthdenies.? Loss of use of extremitydenies.? Low back paindenies.? Memory lossdenies.? Seizuresdenies.? Ticsdenies.? Tingling/Numbnessadmits?bilateral lower extremities.? Transient loss of visiondenies.? Tremordenies. ???Psychiatric:? Anxietyadmits.? Auditory/visual hallucinationsdenies.? Delusionsdenies.? Depressed moodadmits.? Stressorsdenies.? Substance abusedenies.? Suicidal thoughtsdenies. Physical Exam Neuro Other: Neurological: Abnormal neurological findings:??Absent ankle reflexes. Decreased vibration sensation below the ankle on the left at the mid tarsal level the right..?Mental Status:??alert and oriented X 3,?Normal attention, orientation, memory and affect.?Cranial Nerves:??Pupils are equal, round and reactive to light. Fundoscopy shows normal disc bilaterally. External occular muscles are intact. Visual call are full, no ptosis. Face is symmetrical, no facial weakness or droop. Facial sensations are normal. Tongue protrudes in midline. Palate elevates symmetrically. Shoulder shrugging is normal..?Motor Examination:??Normal muscle tone, bulk and strength,?No atrophy or fasciculations,?No drift of the extended upper extremities,?Deep tendon reflexes are 2+ with absent ankle reflexes?,?Plantars are flexor?.?Straight Leg Raising:??90 degrees.?Sensory Exam:??Normal light touch, temperature, pinprick, impaired vibration and joint-position sensations as described above?,?Rhomberg sign is absent.?Coordination:??no ataxia,?no titubation,?asbamv-[id number]-[id number], kmhe-azir-qxxp test and rapid alternating movements were normal.?Gait Exam:??Within normal limits.?Cerebellar Signs:??Gvtqxg-iw-tcha and sszi-ne-jcun is normal,?no dysdiadochokinesia?.?Extrapyramidal System:??No tremor, rigidity with normal facial expressions,?No bradykinesia, no bradyphrenia. Normal arm swing and posture. No propulsion or retropulsion.?Speech:??Normal,?no dysphasia or dysarthria..? Mini Mental Status Exam: Level of Consciousness:??Alert.?Orientation:??Knows correct year, month, date, day and season,?Knows correct city, county and state. Knows correct location and floor.?Registration:??Able to register 3 objects.?Attention:??Serial 7's performed accurately.?Recall:??Able to recall 3 out of 3 objects.?Language:??Normal spontaneous speech, fluency, repetition,naming, comprehension, reading and writing.?Total Score:??30/30.? General Examination: GENERAL APPEARANCE:??normal,?in no acute distress.?HEART:??S1, S2 normal,?no murmurs.?LUNGS:??clear anteriorly and posteriorly.?MUSCULOSKELETAL:??normal.?EXTREMITIES:??no edema.?PSYCH:??alert, oriented,?cognitive function intact,?cooperative with exam.? Results Reviewed Results Reviewed: 11/17/24 CT Brain: There is patchy low density in the periventricular and subcortical white matter. Mild volume loss is noted. No hydrocephalus.No calvarial fracture.Partial opacification of the right maxillary sinus, Assessment & Plan Assessment & Plan (1) Peripheral neuropathy: Comment: 2009 NCV and 02/07/21 Axonal sensory-motor peripheral neuropathy. 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 Code(s): G62.9 - Polyneuropathy, unspecified Category: Medical (2) Syncope: Code(s): R55 - Syncope and collapse Category: Medical Plan Trial of Pregabalin 75mg hs for 2 weeks then 1 bid for symptomatic treatment of worsening neuropathic symptoms. Medications: New pregabalin 75 mg PO BID 60 caps 3RF 30 days Coding Level of Care Code Est Pt Level 4 (12029) Diagnoses Peripheral neuropathy G62.9 Syncope R55
--- OUTSIDE RECORDS SUMMARY | 2025-01-06 14:20 | XMS_ITS | Patient Health Record ---
Author Organization [facility] Address [address] [place] [address] Care Team Providers Care Head Packager Name Role Phone Savana Del Castillo MD Primary Care Provider Noel Meraz [phone] Allergies Allergen (clinical drug ingredient) Drug/Non Drug [...] Problem Status W/U Status Risk Notes Problem 137817363 Encounter for screening for malignant neoplasm of colon (Z12.11) Active confirmed Problem 279483283 History of adenomatous polyp of colon (Z86.010) Active confirmed Problem Personal history of colonic polyps (Z86.010) Active confirmed Problem Diverticular disease of colon (222655175) Diverticulosis of large intestine without perforation or abscess without bleeding (K57.30) Active confirmed Problem [id number] Preprocedural examination (Z01.818) Active confirmed Problem 393329293522493 Aspirin long-ter m use (Z79.82) Active confirmed Plan Of Treatment Future Test Test Name Order Date COLONOSCOPY 02/04/2015 COLONOSCOPY 11/23/2020 Insurance Providers Payer Name Payer Address Payer Phone Subscriber Number Group Number Insured Name Patient Relationship to Insured Coverage Start Date Coverage End Date MEDICARE OF [place] [address] [place] [address] [id number] ROJELIO ANGLIN Self - patient is the insured [employer] CLAIM[employer] [address] [place] [phone] [id number] ROJELIO ANGLIN Self - patient is the insured Medical (General) History Medical History History ICD Code Dizziness/Equilibrium issues--saw Dr. Rob fitzgerald Left bundle branch block[place] [facility] [place]TT and a cardiac Echo-Dr. King Right-sided Breast cancer--1998--2 Lumpe ctomies, chemo and XRT Negative colonoscopy in 04/[address] Phipps, except for small internal hemorrhoids Hyperlipidemia HTN Denies [place],CVA,Lung disease,renal disease Persistent Tinnitus after he r 2nd Moderna vaccine in 06/2020--seeing Dr. Contreras Colonoscopy 05/2015 with a small tubular adenoma Diet-controlled DM Surgical History Surgery Date(Month/Year) 2 lumpectomies as above for breast cance r
--- OUTSIDE RECORDS SUMMARY | 2025-01-06 14:20 | XMS_ITS | Patient Health Record ---
[facility] Address [address] [place] [address] Care Team Providers Care Cardiology Physician Name Role Phone Savana Del Castillo Primary Care Provider Rivera Chavarria Unavailable [phone] Allergies Allergen (clinical drug ingredient) Drug/Non Drug Allergy documented on EMR Reaction Allergy Type Onset Date Status morphine Morphine Unknown Drug Allergy Active Substance with 9-mmqmtgl-4-methylgluta ryl-coenzyme A reductase inhibitor mechanism of action [...] Status Risk Notes Problem Acquired hallux valgus (76925705) Hallux valgus (acquired), right foot (M20.11) Active confirmed Problem Acquired hallux rigidus (8914378) Hallux rigidus, left foot (M20.22) Active confirmed Problem Raynaud's diseas e without gangrene (I73.00) Active confirmed Problem Preproliferative diabetic retinopathy (373232493) Preproliferative diabetic retinopathy (E11.3499) Active confirmed Plan Of Treatment Pending Test Test Name Order Date X ray : Foot, left 3V 08/16/2021 X ray : Foot, right 3V 08/16/2021 Insurance Providers Payer Name Payer Address Payer Phone Subscriber Number Group Number Insured Name Patient Relationship to Insured Coverage Start Date Coverage End Date Medicare National [employer] [address] [place] [address] [id number] Susan Ann Self - patient is the insured [facility] [address] [place] [address] [id number] StGSusan feldman Self - patient is the insured Medical (General) History Medical History History ICD Code Anxiety Arthritis Back,Hip,and Knee pain Broken bones CAD (Cholesterol) Cancer Depression Headaches/Migraines Heart disease High blood pressure Numbness Rheumatic fever Measles Mumps tinnitus Hot flash Left bundle branch block (LBBB) Pre type II diabetes Surgical History Surgery Date(Month/Year) Hospitalization History Reason Date(Month/Year) [facility] [place] [facility]- Broke L Wrist 02/2021
== END 2025-01-06 14:35 | disposition home or self-care (01) ==
LOC: HO.HSM 13:25
PROVIDERS: PCP Internal Medicine; Referring Provider Internal Medicine; Visit Provider Psychiatry & Neurology Neurology
DX: G62.9 Polyneuropathy, unspecified (principal); R55 Syncope and collapse
CPT/HCPCS: 99214

== ENCOUNTER → 2025-01-06 13:24 | Outpatient (BNVA) | payer MEDICARE, SELFPAY | PROVIDERS: PCP Internal Medicine; Referring Provider Internal Medicine; Visit Provider Psychiatry & Neurology Neurology | DX: R55 Syncope and collapse (principal); G62.9 Polyneuropathy, unspecified; Z79.899 Other long term (current) drug therapy | CPT/HCPCS: 99212 ==

== ENCOUNTER 2025-01-12 14:10 | Outpatient (AMB) | payer MEDICARE, SELFPAY ==
--- OUTSIDE RECORDS SUMMARY | 2019-06-29 16:15 | XMS_ITS | Encounter Summary ---
Author Organization [facility] Address [address] [facility] [address] [place] [address] Phone Care Team Providers Care Bereavement Coordinator Name Role Phone Savana Del Castillo MD Primary Care Provider [phone] Encounter Details Date Type Department Care Team (Late st Contact Info) Description 06/29/2019 3:15 PM EST Hospital Encounter [facility] [address] [place] [address] Philipp Melara, GUILLAUME [address] [place] [address] [place] [address] Social History Tobacco Use Types Packs/Day Years [...] the knee. No acute bony injury. POS [id number] Narrative 06/29/2019 3:35 PM EST 5 views. [...] the knee. No acute bony injury. POS [id number] Philipp Melara INDUSTRIAL/ORGANIZATIONAL PSYCHOLOGIST IMG XR LOWER EXTREMITY Final Re sult documented in this encounter Visit Diagnoses Not on filedocumented in this encounter Additional Health Concerns Infection Onset Date Last Indicated Resolved Time CoV-Risk 07/17/2023 07/17/2023 07/28/2023 1:21 AM EST documented as of this encounter Care Teams Bereavement Coordinator Relationship Specialty Start Date End Date Savana Del Castillo MD [address] [place] [address] [address] [place] [address] [phone] PCP - General Internal Medicine 06/29/19 documented as of this encounter Additional Source Comments The information contained in this document represents components of the legal health record. It is not the complete legal health record.[facility]
--- NOTE | 2025-01-12 14:23 | MHC.PC.OV ---
Vital Signs 01/12/25 14:26 Height 5 ft 8 in Weight 134 lb 8 oz BMI 20.4 BP 110/66 Blood Pressure Location Lt brachial Position Sitting Pulse 75 Pulse Source Pulse Oximeter Temp 97.3 F Temp Source Temporal Artery Scan Pulse Oximetry (%) 98 Oxygen Delivery Method Room Air Intake Visit Reasons: Cerebrovascular accident Intake Note: Patient is here to follow up on CVA. Field Operations Coordinator Required: No Jukebox Coin Collector: Present Allergies gabapentin Adverse Reaction (Intermediate, Verified 01/12/25 14:25) Nausea morphine (MORPHINE) Adverse Reaction (Mild, Verified 01/12/25 14:25) VOMITING, sensitivity atorvastatin Adverse Reaction (Unknown, Verified 01/12/25 14:25) Muscle cramps rosuvastatin (Crestor) Adverse Reaction (Unknown, Verified 01/12/25 14:25) muscle ache simvastatin Adverse Reaction (Unknown, Verified 01/12/25 14:25) Muscle cramps Medication List - Last Reconciled 01/12/25 by Savana Del Castillo MD alpha lipoic acid 300 mg PO DAILY alprazolam 0.5 mg PO DAILY PRN blood sugar diagnostic (FreeStyle Lite Strips) As directed check the BS QD calcium carbonate (Oyster Shell Calcium) 500 mg PO DAILY cholecalciferol (vitamin D3) 25 mcg PO DAILY ezetimibe (Zetia) 10 mg PO DAILY mastectomy bra As directed meclizine 25 mg PO TID mirtazapine 30 mg PO BEDTIME multivitamin 1 tab PO DAILY pregabalin 75 mg PO BID 30 days Tobacco use date assessed: 01/12/25 Fall risk assessment: 1 Fall in past year Last assessed Fall Risk: 01/12/25 Dental Screening Dental Screen Date: 07/13/24 HPI Cerebrovascular accident HPI Details History of Present Illness The patient is a 74-year-old female presenting for management of multiple chronic conditions including diabetes mellitus, cardiomyopathy, and hypercholesterolemia. The patient has a history of diabetes mellitus with a hemoglobin A1c of 6.6, indicating controlled blood glucose levels. She cannot tolerate statins, which complicates the management of her hypercholesterolemia, with an LDL cholesterol level of 180 mg/dL. The patient has a history of cardiomyopathy with an ejection fraction that improved from 40-45% to 50-55% as of August 2024. She continues on carvedilol and lisinopril for management. The patient has a history of right breast cancer and has undergone appropriate screenings, with her mammogram being up to date. She experiences Raynaud's phenomenon and major depressive disorder, both of which are managed with ongoing treatment. 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 She is prescribed pregabalin for symptom management. The patient has experienced syncope episodes, likely due to orthostatic hypotension, particularly while exercising. A recent head CT in November 2024 was negative, ruling out acute intracranial pathology. Her preventative care is up to date with colonoscopy and mammogram, but bone density screening is due. Health Maintenance - Colonoscopy is up to date - Mammogram is up to date - Bone density screening is due Social History Review of Systems - Cardiovascular: Reports syncope episodes, likely orthostatic in nature. Denies chest pain or palpitations. - Neurological: Reports peripheral neuropathy symptoms. Denies headaches or dizziness. Physical Exam Results - Echocardiogram in August 2024: Ejection fraction of 50-55%, mild mitral regurgitation - Head CT in November 2024: Negative for acute intracranial pathology - Nerve conduction tests: 2009 and 2020 showed axonal sensory neuropathy; 2023 showed moderately severe sensory motor neuropathy with demyelination - Coronary CTA: No significant coronary artery disease - Myocardial perfusion in October 2024: No clear ischemia Plan Patient was informed and verbally consented to the use of an ambient scribe for clinic note documentation during this visit. 1. Diabetes Mellitus The patient's diabetes mellitus is currently managed with a hemoglobin A1c of 6.6, indicating controlled blood glucose levels. Discussion Notes Patient Instructions [facility] Medical History (Updated 01/06/25 @ 14:19 by Robel Chávez MD) Peripheral neuropathy Alteration in cognition Neuropathy Cervicalgia Gait disorder Sleep disorder Screening for viral disease Distal radius fracture, left Post-menopausal Infiltrating ductal carcinoma of right breast History of breast cancer Anxiety and depression Left bundle branch block Tubular adenoma of colon History of breast cancer Hypercholesterolemia Cardiomyopathy Type 2 diabetes mellitus with hyperglycemia Surgical History History of colonoscopy H/O left breast biopsy History of lumpectomy of right breast Family History Father CVD (cardiovascular disease) Myocardial infarct Mother HTN (hypertension) Cancer Uterine cancer Arthritis Paternal Aunt Myocardial infarct Paternal Uncle Myocardial infarct Brother No problems noted. Social History Household Members: None Housing: House Alcohol intake: current Alcohol intake frequency: holidays/special occasions only Patient Tobacco Use Status: Never used Tobacco Tobacco use type: Cigarette e-Cigarette/Vaping Use: Never Used Second Hand Smoke Exposure: No service: No Current occupational status: retired Current occupation: rt hand Cognitive needs: No Hearing needs: No Vision needs: Yes (Glasses) Questionnaire Thrive Questionnaire Date Thrive assessed: 09/16/24 I am a: Patient What is your living situation today?: I have a steady place to live Within the past 12 months, did the food you bought not last and you didn't have the money to get more?: Never true Within the past 12 months, did you worry whether your food would run out before you got money to buy more?: Never true Do you have trouble paying for medicines?: No Do you have trouble getting transportation to medical appointments?: No Do you have trouble paying your heating and electricity bill?: No Do you have trouble taking care of your child, family member or friend?: No Do you have trouble with day-to-day activities such as bathing, preparing meals, shopping, managing finances, etc.?: Yes Are you currently unemployed and looking for a job?: No Are you interested in more education?: No Please select the resources that you would like help with: None Currently or been in a relationship where the following occur: No concerns reported THRIVE Score: 0 ROBER-7 AMB Questionnaire ROBER-7 Date ROBER - 7 assessed: 07/13/24 Source: Developed by Drs. Noel Rouse, Brenda Sheffield, Gulshan Jamison and colleagues, with an educational [email or web address] from [employer]. Physical exam (Primary Care) Vital Signs: Last Vital Signs Temp 97.3 F 01/12/25 14:26 Pulse 75 01/12/25 14:26 BP 110/66 01/12/25 14:26 Pulse Ox 98 01/12/25 14:26 Oxygen Delivery Method Room Air 01/12/25 14:26 BMI result Body Mass Index 20.4 Tobacco/Smoking Status: Tobacco use Status Tobacco use date assessed 01/12/25 01/12/25 14:34 Patient Tobacco Use Status Never used Tobacco 01/12/25 14:23 Tobacco use type Cigarette 01/12/25 14:23 e-Cigarette/Vaping Use Never Used 01/12/25 14:23 Thrive Assessment: Date of Thrive Assessment Date Thrive assessed 09/16/24 01/12/25 14:23 Currently or been in a relationship where the following occur: No concerns reported Const General: alert; No acute distress Eyes Conjunctivae: conjunctivae normal Resp Auscultation: clear to auscultation bilaterally Cardio Rate: regular rate Rhythm: regular rhythm GI Inspection: Yes normal to inspection Extrem General: Yes normal to inspection and No edema Results AMB Hemoglobin A1c AMB Hemoglobin A1c 6.7 % Last Edit by ADY Ramirez on 01/12/25 14:39 Results Reviewed Results Reviewed: Laboratory Last Values Hgb A1c (Clinic) 6.7 % (4.0-6.0) H 01/12/25 14:23 Coding Level of Care Code Est Pt Level 4 (21898) Complex EM visit Add On G2211 Diagnoses Type 2 diabetes mellitus with hyperglycemia, without long-term current use of insulin E11.65 Diabetes mellitus long distance operator insulin use: without long-term use Cardiomyopathy, unspecified type I42.9 Cardiomyopathy type: unspecified Hypercholesterolemia E78.00 Tinnitus of both ears H93.13 Laterality: bilateral History of breast cancer Z85.3 CVA (cerebral vascular accident) I63.9 Assessment & Plan Assessment & Plan (1) Type 2 diabetes mellitus with hyperglycemia: Code(s): E11.65 - Type 2 diabetes mellitus with hyperglycemia Category: Medical Qualifiers: Diabetes mellitus long-term insulin use: without long distance operator use Qualified Code(s): E11.65 - Type 2 diabetes mellitus with hyperglycemia Plan: Decrease the amount of carbohydrate intake, pasta, bread, rice and potatoes are all sugar and that is aside from all the sweet stuff, remember that fruits are good but they are Sweet also. Hemoglobin A1c goal of less than 7.0. Patient on diet control (2) Cardiomyopathy: Comment: Sees Dr. King echocardiogram March 2023 Code(s): I42.9 - Cardiomyopathy, unspecified Category: Medical Qualifiers: Cardiomyopathy type: unspecified Qualified Code(s): I42.9 - Cardiomyopathy, unspecified Plan: Continue to follow up with Cardiology. Control the cholesterol, weight, blood pressure, diabetes (3) Hypercholesterolemia: Comment: ardio Code(s): E78.00 - Pure hypercholesterolemia, unspecified Category: Medical Plan: Avoid fried foods, chicken skin, eggs, butter margarine, pastries and meat. Be it pork or beef they have a lot of cholesterol LDL goal of less than 70 and triglyceride of less than 150 patient on Zetia. Patient is statin intolerant (4) Tinnitus: Comment: chronic - relate dto hearing loss, anxiety Code(s): H93.19 - Tinnitus, unspecified ear Category: Medical Qualifiers: Laterality: bilateral Qualified Code(s): H93.13 - Tinnitus, bilateral Plan: Conservative management (5) History of breast cancer: Comment: 2000 right lumpectomy chemo and radiation Dr. Moody, MRI November 2015 Code(s): Z85.3 - Personal history of malignant neoplasm of breast Category: Medical Plan: Continue to have regular mammogram (6) CVA (cerebral vascular accident): Comment: August 2024 intraparenchymal hemorrhage with SAH Code(s): I63.9 - Cerebral infarction, unspecified Category: Medical Plan: Stable Plan History of Present Illness The patient is a 74-year-old female presenting with ongoing symptoms following a concussion with a brain bleed. She reports not feeling the same since the incident and has been experiencing persistent dizziness and a foggy sensation in her head. The patient adhered to medical advice by staying home for 14 weeks post-injury and has only recently resumed minimal physical activity. The patient has a history of hypertension, but she is not currently on antihypertensive medication. She monitors her blood pressure regularly, noting a recent reading of 110 mmHg systolic, which is lower than usual. The patient reports recurrent eye infections diagnosed as dermatitis, with episodes of swelling and redness. She denies any changes in laundry detergent or other potential allergens. The patient has been diagnosed with sinusitis, although she denies experiencing typical symptoms such as congestion or post-nasal drip. The patient has a history of neuropathy, previously managed with gabapentin, which was discontinued due to gastrointestinal side effects. She is now experiencing increased neuropathic symptoms, particularly in her legs. The patient has tinnitus, which she reports has worsened since her fall. The patient's diabetes mellitus is currently under control, but her hemoglobin A1c levels have been gradually increasing, from 6.5% in June to 6.7% recently. Health Maintenance - Regular monitoring of blood pressure and blood glucose levels - Encouraged to engage in regular physical activity without weights Social History - Exercise: Previously active, now limited to minimal activity due to health concerns - Living situation: Lives alone, uses a walker, and is cautious about driving Review of Systems - Neurological: Reports dizziness and foggy sensation in the head, denies headaches - Cardiovascular: Reports low blood pressure readings, denies chest pain - Respiratory: Denies congestion or post-nasal drip - Dermatological: Reports recurrent eye swelling and redness - Endocrine: Reports increased urination, denies changes in appetite Physical Exam - Cardiovascular: Blood pressure 110 mmHg systolic Results - Labs: Hemoglobin A1c increased from 6.5% in June to 6.7% recently Plan Patient was informed and verbally consented to the use of an ambient scribe for clinic note documentation during this visit. 1. Concussion With Brain Bleed The patient continues to experience symptoms such as dizziness and a foggy sensation following a concussion with a brain bleed. She has been advised to gradually resume physical activity and monitor symptoms closely. 2. Hypertension The patient is not currently on antihypertensive medication and is advised to continue monitoring her blood pressure regularly. Recent readings have been lower than usual, and she should report any significant changes. 3. Sinusitis The patient has been diagnosed with sinusitis but denies typical symptoms. Consideration for allergy medication such as Claritin was discussed to manage potential underlying allergies. 4. Eye Dermatitis The patient experiences recurrent eye dermatitis, with episodes of swelling and redness. She has been advised to avoid potential allergens and consider using allergy medications like Claritin. 5. Neuropathy The patient reports increased neuropathic symptoms in her legs. Pregabalin has been prescribed to help manage these symptoms, pending insurance approval. 6. Tinnitus The patient reports worsening tinnitus since her fall. She is advised to monitor symptoms and report any significant changes. 7. Diabetes Mellitus The patient's diabetes is under control, but her hemoglobin A1c levels have been increasing. She is encouraged to maintain regular physical activity and monitor her blood glucose levels closely. Discussion Notes During the visit, we discussed the patient's ongoing symptoms following her concussion and brain bleed, emphasizing the importance of gradually resuming physical activity and monitoring symptoms. We reviewed her blood pressure management, noting the recent lower readings and advising continued monitoring. For her sinusitis, we considered the use of allergy medications such as Claritin to manage potential underlying allergies. We addressed her recurrent eye dermatitis, advising avoidance of potential allergens and considering allergy medications. We discussed the management of her neuropathy with pregabalin, pending insurance approval, and the importance of monitoring her diabetes mellitus closely due to rising hemoglobin A1c levels. Patient Instructions - Gradually resume physical activity and monitor symptoms closely. - Continue regular monitoring of blood pressure and report any significant changes. - Consider using Claritin for sinusitis and eye dermatitis management. - Avoid potential allergens to prevent eye dermatitis flare-ups. - Monitor blood glucose levels closely and maintain regular physical activity. Orders: Orders AMB Hemoglobin A1c Today E11.65 - Type 2 diabetes mellitus with hyperglycemia
[2025-01-12 14:26] VITALS: BP 110/66; PULSE 75; TEMP 36.3; O2SAT 98; BMI 20.4
--- OUTSIDE RECORDS SUMMARY | 2025-01-12 15:09 | XMS_ITS | Clinical Summary ---
Author Organization [facility] Address [address] [address] Phone Care Team Providers Care Mine Wirer Name Role Phone Savana De lCastillo MD Primary Care Provider [phone] Allergies Active Allergy Reactions Criticality Noted Date Comments Morphine 06/29/2019 Medications lisinopril (PRINIVIL,ZESTR IL) 2.5 MG tablet Take 2.5 mg by mouth. Active glucosamine-cho ndroitin 500-400 mg tablet Take 1 tablet by mouth. Active carvedilol (COREG) 3.125 MG tablet Take 3.125 mg by mouth. Active clonazePAM (KLONOPIN) 1 MG tablet Take 1 mg by mouth 2 (two) times a day as needed. Active ezetimibe (ZETIA) 10 mg tablet Take 10 mg by mouth daily. Active DULoxetine (CYMBALTA) 60 MG capsule 9 Active imiquimod (ALDARA) 5 % cream APPLY SPARINGLY MON, WED & SAT NIGHTS X 4 WEEKS 0 Active aspirin 81 MG EC tablet 1 tablet Orally Once a day for 30 day(s) Active ezetimibe-atorv astatin 10-10 mg Tab Ezetimibe Active multivit with min-folic acid 0.4 mg Tab 1 tablet Orally Once a day for 30 day(s) Active atorvastatin (LIPITOR) 20 MG tablet Take 20 mg by mouth daily. Active Active Problems Problem Noted Date Diagnosed Date Aspirin long-term use 07/17/2023 Diverticular disease of colon 07/17/2023 History of adenomatous polyp of colon 07/17/2023 Immunizations Immunization Administration Dates Next Due INFLUENZA, SPLIT VIRUS, TRIV ALENT W/ PRESERVATIVE IM 05/03/2015 Influenza High-Dose Quadriva lent Preservative Free IM 02/20/2021 Influenza High-Dose Trivalen t Preservative Free IM 03/20/2019,02/25/2018,05/21/2017,03/12,03/16/2016 Influenza Quadrivalent Adjuv anted Preservative Free IM 02/04/2023,05/07/2022,02/19/2020 Pneumococcal conjugate PCV20 02/07/2022 Pneumococcal polysaccharide PPSV23 09/19/2015 RSV Vaccine (bivalent) 05/16/2023 Tdap 06/30/2015 Zoster live 06/23/2015 Social History Tobacco Use Types Packs/Day Years Used Date Smoking Tobacco: Never Smokeless Tobacco: Never Tobacco Cessation:Counseling Given: Not Answered Education Answer Date Recorded Are you interested [...] on file Sexual Orientation Not on file Last Filed Vital Signs Vital Sign Reading Time Taken Comments Blood Pressure 120/78 07/17/2023 10:03 AM EST Pulse 79 07/17/2023 10:03 AM EST Temperature 36.7 C (98.1 F) 07/17/2023 10:03 AM EST Respiratory Rate 18 07/17/2023 10:03 AM EST Oxygen Saturation 98% 07/17/2023 10:03 AM EST Inhaled Oxygen Concentration - - Weight 57.2 kg (126 lb) 08/16/2019 11:02 AM EDT Height 172.7 cm (5' 8 ) 08/16/2019 11:02 AM EDT Body Mass Index 19.16 08/16/2019 11:02 AM EDT Plan of Treatment Health Maintenance Due Date Last Done Comments CREATININE LEVEL 1950 LIPID PANEL 1950 POTASSIUM LEVEL 1950 DEPRESSION SCREENING 1962 HEPATITIS C SCREENING 1968 MAMMOGRAM 1990 COLOGUARD 08/04/1995 COLONOSCOPY 08/04/1995 COLORECTAL CANCER SCREENING 08/04/1995 FIT TEST 08/04/1995 FOBT 08/04/1995 SIGMOIDOSCOPY 08/04/1995 VIRTUAL COLONOSCOPY 08/04/1995 OSTEOPOROSIS SCREENING INITI AL (ONE-TIME) 08/04/2015 ZOSTER VACCINES (2 of 3) 08/18/2015 06/23/2015 COVID-19 VACCINE (4 - 2023-2 5 season) 2024 05/10/2021, 07/14/2020, 06/16/2020 Adult Td,Tdap Booster 06/30/2025 06/30/2015 PNEUMOCOCCAL VACCINES (50+ years) Completed 02/07/2022, 09/19/2015 RSV VACCINE Completed 05/16/2023 SMOKING STATUS SCREENING (On ce After 26 Yrs) Completed 07/17/2023 HEPATITIS A VACCINES Aged Out No long er eligible based on patient's age to complete this topic HIB VACCINES Aged Out No longer eligi ble based on patient's age to complete this topic MENINGOCOCCAL VACCINES (ACWY) Aged Out No longer eligible based on patient's age to complete this topic MENINGOCOCCAL VACCINES (B) Aged Out N o longer eligible based on patient's age to complete this topic Medical Devices Not on file Insurance MEDICARE PART A & B [employer] MEDEX SUPPLEMENT MEDICARE PART A & B Member Subscriber Plan / Payer (Ef fective 2015-Present) Name:Susan Raya Member ID:[id number] Relation to Subscriber:Self Name:Susan Raya Subscriber ID:[id number] Payer ID:[id number] Group ID:Not on file Type:Medicare Address: [facility].[address] [address] [facility] MEDEX SUPPLEMENT MEDICARE PART A & B [employer] SUPPLEMENT MEDICARE PART A & B [employer] SUPPLEMENT MEDICARE PART A & B [employer] SUPPLEMENT MEDICARE PART A & B [employer] SUPPLEMENT MEDICARE PART A & B [employer] SUPPLEMENT MEDICARE PART A & B [employer] SUPPLEMENT MEDICARE PART A & B [employer] MEDEX SUPPLEMENT Care Teams Mine Wirer Relationship Specialty Start Date End Date Savana Del Castillo MD [address] [place] [phone] PCP - General Internal Medicine 06/29/19 Additional Source Comments The information contained in this document represents components of the legal health record. It is not the complete legal health record.[facility]
--- OUTSIDE RECORDS SUMMARY | 2025-01-12 15:09 | XMS_ITS | Patient Health Record ---
Author Organization [facility] Address [address] [place] [address] Care Team Providers Care Life Sciences Director Name Role Phone Savana Del Castillo MD Primary Care Provider Noel Meraz [phone] Allergies Allergen (clinical drug ingredient) Drug/Non Drug [...] Problem Status W/U Status Risk Notes Problem 601049335 Encounter for screening for malignant neoplasm of colon (Z12.11) Active confirmed Problem 689433715 History of adenomatous polyp of colon (Z86.010) Active confirmed Problem Personal history of colonic polyps (Z86.010) Active confirmed Problem Diverticular disease of colon (535658940) Diverticulosis of large intestine without perforation or abscess without bleeding (K57.30) Active confirmed Problem 172919369868429 Preprocedural examination (Z01.818) Active confirmed Problem 407319931976077 Aspirin long-ter m use (Z79.82) Active confirmed Plan Of Treatment Future Test Test Name Order Date COLONOSCOPY 02/04/2015 COLONOSCOPY 11/23/2020 Insurance Providers Payer Name Payer Address Payer Phone Subscriber Number Group Number Insured Name Patient Relationship to Insured Coverage Start Date Coverage End Date MEDICARE OF [place] [address] [place] [address] [phone] [id number] ROJELIO ANGLIN Self - patient is the insured MEDEX ATTN CLAIMS [address] [place] [address] [id number] ROJELIO ANGLIN Self - patient is the insured Medical (General) History Medical History History ICD Code Dizziness/Equilibrium issues--saw Dr. Rob fitzgerald Left bundle branch block-see s cardiology [place] [facility]had an ETT and a cardiac Echo-Dr. King Right-sided Breast cancer--1998--2 Lumpe ctomies, chemo and XRT Negative colonoscopy in 04/[address] Phipps, except for small internal hemorrhoids Hyperlipidemia HTN Denies RI,CVA,Lung disease,renal disease Persistent Tinnitus after he r 2nd Moderna vaccine in 06/2020--seeing Dr. Contreras Colonoscopy 05/2015 with a small tubular adenoma Diet-controlled DM Surgical History Surgery Date(Month/Year) 2 lumpectomies as above for breast cance r
--- OUTSIDE RECORDS SUMMARY | 2025-01-12 15:09 | XMS_ITS | Patient Health Record ---
[facility] Address [address] [place] [address] Care Team Providers Care Casey Saw Operator Name Role Phone Savana Del Castillo Primary Care Provider Rivera Chavarria Unavailable [phone] Allergies Allergen (clinical drug ingredient) Drug/Non Drug Allergy documented on EMR Reaction Allergy Type Onset Date Status morphine Morphine Unknown Drug Allergy Active Substance with 9-uqmchto-3-methylgluta ryl-coenzyme A reductase inhibitor mechanism of action [...] Status Risk Notes Problem Acquired hallux valgus (11349945) Hallux valgus (acquired), right foot (M20.11) Active confirmed Problem Acquired hallux rigidus (5342278) Hallux rigidus, left foot (M20.22) Active confirmed Problem Raynaud's disease (104729434) Raynaud's disease without gangrene (I73.00) Active confirmed Problem Preproliferative diabetic retinopathy (166153732) Preproliferative diabetic retinopathy (E11.3499) Active confirmed Plan Of Treatment Pending Test Test Name Order Date X ray : Foot, left 3V 08/16/2021 X ray : Foot, right 3V 08/16/2021 Insurance Providers Payer Name Payer Address Payer Phone Subscriber Number Group Number Insured Name Patient Relationship to Insured Coverage Start Date Coverage End Date Medicare National [employer] [address] [place] [address] [id number] Susan Ann Self - patient is the insured [facility] [address] [place] [address] [id number] Susan Ann Self - patient is the insured Medical (General) History Medical History History ICD Code Anxiety Arthritis Back,Hip,and Knee pain Broken bones CAD (Cholesterol) Cancer Depression Headaches/Migraines Heart disease High blood pressure Numbness Rheumatic fever Measles Mumps tinnitus Hot flash Left bundle branch block (LBBB) Pre type II diabetes Surgical History Surgery Date(Month/Year) Hospitalization History Reason Date(Month/Year) [facility] [place] [facility]- Broke L Wrist 02/2021
== END 2025-01-12 15:27 | disposition home or self-care (01) ==
LOC: HO.HMCH 14:11
PROVIDERS: PCP Internal Medicine; Visit Provider Internal Medicine
DX: E11.65 Type 2 diabetes mellitus with hyperglycemia (principal); I42.9 Cardiomyopathy, unspecified; I63.9 Cerebral infarction, unspecified; E78.00 Pure hypercholesterolemia, unspecified; H93.13 Tinnitus, bilateral; Z85.3 Personal history of malignant neoplasm of breast

== ENCOUNTER → 2025-01-12 14:10 | Outpatient (BNVA) | payer MEDICARE, SELFPAY | PROVIDERS: PCP Internal Medicine; Visit Provider Internal Medicine | DX: E11.65 Type 2 diabetes mellitus with hyperglycemia (principal); I42.9 Cardiomyopathy, unspecified; E78.00 Pure hypercholesterolemia, unspecified; H93.13 Tinnitus, bilateral; Z85.3 Personal history of malignant neoplasm of breast; Z86.73 Personal history of transient ischemic attack (TIA), and cerebral infarction without residual deficits | CPT/HCPCS: 83036; 99212 ==

== ENCOUNTER 2025-03-09 13:48 | Outpatient (AMB) | payer MEDICARE, SELFPAY ==
--- OUTSIDE RECORDS SUMMARY | 2019-06-29 16:15 | XMS_ITS | Encounter Summary ---
Author Organization [facility] Address [address] [facility] [address] [address] Phone Care Team Providers Care Cane Burner Name Role Phone Savana Del Castillo MD Primary Care Provider Encounter Details Date Type Department Care Team (Late st Contact Info) Description 06/29/2019 3:15 PM EST Hospital Encounter [facility] [address] [place] [address] Philipp Melara, GUILLAUME [address] [place] [address] [place] [address] Social History Tobacco Use Types Packs/Day Years [...] the knee. No acute bony injury. POS [id number] Narrative 06/29/2019 3:35 PM EST 5 views. [...] the knee. No acute bony injury. POS [id number] Philipp Melara AUTOMOBILE CONTRACT CLERK IMG XR LOWER EXTREMITY Final Re sult documented in this encounter Visit Diagnoses Not on filedocumented in this encounter Additional Health Concerns Infection Onset Date Last Indicated Resolved Time CoV-Risk 07/17/2023 07/17/2023 07/28/2023 1:21 AM EST documented as of this encounter Care Teams Cane Burner Relationship Specialty Start Date End Date Savana Del Castillo MD [address] [place] [address] Drive [address] [place] [phone] PCP - General Internal Medicine 06/29/19 documented as of this encounter Additional Source Comments The information contained in this document represents components of the legal health record. It is not the complete legal health record.[facility]
--- NOTE | 2025-03-09 13:59 | A.OFFVIS_ITS ---
Intake Visit Reasons: Follow up sooner appt Allergies gabapentin Adverse Reaction (Intermediate, Verified 01/12/25 14:25) Nausea morphine (MORPHINE) Adverse Reaction (Mild, Verified 01/12/25 14:25) VOMITING, sensitivity atorvastatin Adverse Reaction (Unknown, Verified 01/12/25 14:25) Muscle cramps rosuvastatin (Crestor) Adverse Reaction (Unknown, Verified 01/12/25 14:25) muscle ache simvastatin Adverse Reaction (Unknown, Verified 01/12/25 14:25) Muscle cramps Medication List - Last Reconciled 03/09/25 by Robel Chávez MD alpha lipoic acid 300 mg PO DAILY alprazolam 0.5 mg PO DAILY PRN blood sugar diagnostic (FreeStyle Lite Strips) As directed check the BS QD calcium carbonate (Oyster Shell Calcium) 500 mg PO DAILY cholecalciferol (vitamin D3) 25 mcg PO DAILY ezetimibe (Zetia) 10 mg PO DAILY mastectomy bra As directed meclizine 25 mg PO TID mirtazapine 30 mg PO BEDTIME multivitamin 1 tab PO DAILY pregabalin 75 mg PO BID 30 days HPI Comments Details: Getting 3-4 hrs a night only. Yesterday got up from a chair and fell over and hit left hip and shoulder and lightly her head. BP was 169/73 after. Had been home all day and was about to drive to a alevism dinner. She had got up slowly became suddenly clammy and fell , but no LOC. No CP or palpitation. No further syncopal symptoms. Improving mental fog and cognitive issues since head trauma in July 2024 , she had a syncopal episode while exercising at [employer] and doing jumping jacks. She became sweaty and saw a yellow light and passed out for about a minute. Struck her occiput and had a scalp laceration. She was incoherent for 10 minutes. Was admitted to [facility] for 6 days. MRI, CTA, EEG were apparently negative.She has a 30 day event monitor. She had some cerebral hemorrhages from trauma.?It really bothers her and makes her anxious and depressed. She has chronic tinnitus. Had normal hearing test. Saw Dr. Contreras and had negative CT head . Had an MRA which was normal in 2015. Vision is not clear. Syncope in October 2015? after walking 2 miles, and was standing and nauseated and everything turned yellow then passed out for a few minutes. Hands and feet get cold and painful. Sugar was OK . Has a LBBB and had cardiac workup. Feels off balance type of dizziness almost daily and has to hold on to the wall. No vertigo. Feels in a fog even sitting down. She has a 10 year numbness , tingling in both LE. 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 passed in Apr 2019. She was prescribed Pregabalin for her neuropathy but has not started it yet. COUNTS INCLUDE 234 BEDS AT THE [facility] Medical History (Updated 03/09/25 @ 14:14 by Robel Chávez MD) Peripheral neuropathy Alteration in cognition Neuropathy Cervicalgia Gait disorder Sleep disorder Screening for viral disease Distal radius fracture, left Post-menopausal Infiltrating ductal carcinoma of right breast History of breast cancer Anxiety and depression Left bundle branch block Tubular adenoma of colon History of breast cancer Hypercholesterolemia Cardiomyopathy Type 2 diabetes mellitus with hyperglycemia Surgical History History of colonoscopy H/O left breast biopsy History of lumpectomy of right breast Family History Father CVD (cardiovascular disease) Myocardial infarct Mother HTN (hypertension) Cancer Uterine cancer Arthritis Paternal Aunt Myocardial infarct Paternal Uncle Myocardial infarct Brother No problems noted. Social History Household Members: None Housing: House Alcohol intake: current Alcohol intake frequency: holidays/special occasions only Patient Tobacco Use Status: Never used Tobacco Tobacco use type: Cigarette e-Cigarette/Vaping Use: Never Used Second Hand Smoke Exposure: No service: No Current occupational status: retired Current occupation: rt hand Cognitive needs: No Hearing needs: No Vision needs: Yes (Glasses) Review of Systems Const Details: Sleep:? Difficulty getting to sleepadmits.? Difficulty maintaining sleepadmits.? Urge to move legsadmits.? Teeth grindingadmits.? Shouting or Kicking during sleep denies.? Abnormal behavior during sleepadmits.? Excessive sleepdenies.? Snoring denies.? Daytime sleepinessdenies. ???General/Constitutional:? Change in appetitedenies.? Chillsdenies.? Fatigueadmits.? Feverdenies.? Weight gaindenies.? Weight lossdenies. ???Ophthalmologic:? Blurred visionadmits.? Diminished visual acuitydenies. ???ENT:? Stuffinessdenies.? Decreased hearingdenies.? Dry mouthdenies.? Ear paindenies.? Nosebleeddenies.? Ringing in the earsadmits.? Sinus paindenies.? Sore throat denies.? Swollen glandsdenies. ???Endocrine:? Cold intolerancedenies.? Excessive thirstdenies.? Frequent urinationdenies.? Heat intolerancedenies. ???Respiratory:? Shortness of breathdenies.? Chest paindenies.? Coughdenies. ???Breast:? Breast lumpdenies.? Nipple dischargedenies. ???Cardiovascular:? Chest pain at restdenies.? Chest pain with exertiondenies.? Claudicationdenies .? Dizzinessdenies.? Fluid accumulation in the legsdenies.? Irregular heartbeat denies.? Palpitationsadmits. ???Gastrointestinal:? Abdominal paindenies.? Constipationdenies.? Diarrheadenies.? Difficulty swallowingdenies.? Heartburnadmits.? Nauseadenies.? Rectal bleedingdenies. ???Hematology:? Easy bruisingadmits.? Prolonged bleedingdenies. ???Genitourinary:? Frequent urinationadmits.? Urgencydenies.? Incontinencedenies.? Erectile Dysfunctiondenies. ???Musculoskeletal:? Neck paindenies.? Back painadmits.? Muscle achesadmits.? Painful jointsadmits.? Sciaticadenies.? Weaknessdenies. ???Podiatric:? Difficulty walkingdenies.? Foot numbnessdenies. ???Neurologic:? Difficulty swallowingdenies.? Balance difficultyadmits.? Coordinationnormal.? Difficulty speakingdenies.? Dizzinessadmits.? Faintingdenies.? Gait abnormality denies.? Headacheadmits.? Loss of strengthdenies.? Loss of use of extremity denies.? Low back paindenies.? Memory lossdenies.? Seizuresdenies.? Ticsdenies.? Tingling/Numbnessadmits?bilateral lower extremities.? Transient loss of vision denies.? Tremordenies. ???Psychiatric:? Anxietyadmits.? Auditory/visual hallucinationsdenies.? Delusionsdenies.? De pressed moodadmits.? Stressorsdenies.? Substance abusedenies.? Suicidal thoughts denies. Physical Exam Neuro Other: Neurological: Abnormal neurological findings:??Absent ankle reflexes. Decreased vibration sensation below the ankle on the left at the mid tarsal level the right..?Mental Status:??alert and oriented X 3,?Normal attention, orientation, memory and affect.?Cranial Nerves:??Pupils are equal, round and reactive to light. Fundoscopy shows normal disc bilaterally. External occular muscles are intact. Visual call are full, no ptosis. Face is symmetrical, no facial weakness or droop. Facial sensations are normal. Tongue protrudes in midline. Palate elevates symmetrically. Shoulder shrugging is normal..?Motor Examination:??Normal muscle tone, bulk and strength,?No atrophy or fasciculations,?No drift of the extended upper extremities,?Deep tendon reflexes are 2+ with absent ankle reflexes?,?Plantars are flexor?.?Straight Leg Raising:??90 degrees.?Sensory Exam:??Normal light touch, temperature, pinprick, impaired vibration and joint-position sensations as described above?,?Rhomberg sign is absent.?Coordination:??no ataxia,?no titubation,?vqrpsk-xy-bfsy, xnfm-ymab-fsba test and rapid alternating movements were normal.?Gait Exam:??Within normal limits.?Cerebellar Signs:??Pieltd-mp-tqal and wymt-sn-bgok is normal,?no dysdiadochokinesia?.?Extrapyramidal System:??No tremor, rigidity with normal facial expressions,?No bradykinesia, no bradyphrenia. Normal arm swing and posture. No propulsion or retropulsion.?Speech:??Normal,?no dysphasia or dysarthria..? Mini Mental Status Exam: Level of Consciousness:??Alert.?Orientation:??Knows correct year, month, date, day and season,?Knows correct city, county and state. Knows correct location and floor.?Registration:??Able to register 3 objects.?Attention:??Serial 7's performed accurately.?Recall:??Able to recall 3 out of 3 objects.?Language:??Normal spontaneous speech, fluency, repetition,naming, comprehension, reading and writing.?Total Score:??30/30.? General Examination: GENERAL APPEARANCE:??normal,?in no acute distress.?HEART:??S1, S2 normal,?no murmurs.?LUNGS:??clear anteriorly and posteriorly.?MUSCULOSKELETAL:??normal.?EXTREMITIES:??no edema.?PSYCH:??alert, oriented,?cognitive function intact,?cooperative with exam.? Assessment & Plan Assessment & Plan (1) Peripheral neuropathy: Comment: 2009 NCV and 02/07/21 Axonal sensory-motor peripheral neuropathy. 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 Code(s): G62.9 - Polyneuropathy, unspecified Category: Medical (2) Syncope: Comment: Recurrent syncope unexplained. Will do 48 hr EEG Code(s): R55 - Syncope and collapse Category: Medical Plan Will start Pregabalin 75mg hs for 2 weeks then 1 bid for symptomatic treatment of worsening neuropathic symptoms. 48 hr EEG Orders: Orders EEG 48hr Ambulatory 4 Weeks R55 - Syncope and collapse Medications: New ketotifen fumarate 0.025%(0.035%) (Zaditor) administer at least 8 hours apart 1 drp ophthalmic (eye) BID 5 mL 0RF levocetirizine 5 mg PO DAILY 30 tabs 0RF Coding Level of Care Code Est Pt Level 4 (20735) Diagnoses Peripheral neuropathy G62.9 Syncope R55
--- OUTSIDE RECORDS SUMMARY | 2025-03-09 18:23 | XMS_ITS | Clinical Summary ---
Author Organization [facility] Address [address] [address] Phone Care Team Providers Care Director Of Digital Platforms Name Role Phone Savana Del Castillo MD Primary Care Provider [phone] Allergies Active Allergy Reactions Criticality Noted Date [...] SIGMOIDOSCOPY 08/04/1995 VIRTUAL COLONOSCOPY 08/04/1995 OSTEOPOROSIS SCREENING INITIAL (ONE-TIME) 08/04/2015 ZOSTER VACCINES (2 of 3) 08/18/2015 06/23/2015 INFLUENZA VACCINE (#1) 2024 3, 05/07/2022, 02/20/2021, Additional history exists COVID-19 VACCINE ( season) 2025 05/10/2021, 07/14/2020, 06/16/2020 Adult Td,Tdap Booster 06/30/2025 06/30/2015 PNEUMOCOCCAL VACCINES (50+ years) Completed 02/07/2022, 09/19/2015 RSV VACCINE Completed 05/16/2023 SMOKING STATUS SCREENING (Once After 26 Yrs) Completed 07/17/2023 HEPATITIS A [...] file Insurance MEDICARE PART A & B [facility] MEDEX SUPPLEMENT MEDICARE PART A & B [employer] MEDEX SUPPLEMENT MEDICARE PART A & B [employer] MEDEX SUPPLEMENT MEDICARE PART A & B [employer] MEDEX SUPPLEMENT MEDICARE PART A & B [employer] MEDEX SUPPLEMENT MEDICARE PART A & B [employer] MEDEX SUPPLEMENT MEDICARE PART A & B [employer] MEDEX SUPPLEMENT MEDICARE PART A & B [employer] MED[employer] SUPPLEMENT MEDICARE PART A & B [employer] MEDEX SUPPLEMENT Care Teams Director Of Digital Platforms Relationship Specialty Start Date End Date Savana Del Castillo MD [address] [place] [phone] PCP - General Internal Medicine 06/29/19 Additional Source Comments The information contained in this document represents components of the legal health record. It is not the complete legal health record.[facility]
== END 2025-03-09 14:24 | disposition home or self-care (01) ==
LOC: HO.HSM 13:49
PROVIDERS: PCP Internal Medicine; Visit Provider Psychiatry & Neurology Neurology
DX: G62.9 Polyneuropathy, unspecified (principal); R55 Syncope and collapse
CPT/HCPCS: 99214

== ENCOUNTER → 2025-03-09 13:48 | Outpatient (BNVA) | payer MEDICARE, SELFPAY | PROVIDERS: PCP Internal Medicine; Visit Provider Psychiatry & Neurology Neurology | DX: G62.9 Polyneuropathy, unspecified (principal); R55 Syncope and collapse | CPT/HCPCS: 99212 ==

== ENCOUNTER → 2025-03-30 13:59 | Outpatient (REF) | payer MEDICARE, SELFPAY ==
--- OUTSIDE RECORDS SUMMARY | 2019-06-29 15:15 | XMS_ITS | Encounter Summary ---
Author Organization [facility] Address [address] [facility] [address] [place] [address] Phone Care Team Providers Care Director Of Business Continuity Name Role Phone Savana Del Castillo MD Primary Care Provider [phone] Encounter Details Date Type Department Care Team (Late st Contact Info) Description 06/29/2019 3:15 PM EST Hospital Encounter [facility] [address] [place] [address] Philipp Melara, GUILLAUME [address] [place] [address] [place] [address] Social History Tobacco Use Types Packs/Day Years [...] the knee. No acute bony injury. POS [id number] Narrative 06/29/2019 3:35 PM EST 5 views. [...] the knee. No acute bony injury. POS [id number] Philipp Melara MANAGING CONSULTANT CLINICAL PROFESSOR IMG XR LOWER EXTREMITY Final Re sult documented in this encounter Visit Diagnoses Not on filedocumented in this encounter Additional Health Concerns Infection Onset Date Last Indicated Resolved Time CoV-Risk 07/17/2023 07/17/2023 07/28/2023 1:21 AM EST documented as of this encounter Care Teams Director Of Business Continuity Relationship Specialty Start Date End Date Savana Del Castillo MD [address] [place] [address] Drive [address] [place] [address] [phone] PCP - General Internal Medicine 06/29/19 documented as of this encounter Additional Source Comments The information contained in this document represents components of the legal health record. It is not the complete legal health record.[facility]
--- NOTE | 2025-03-30 14:02 | CA_ITS ---
Transthoracic Echocardiogram Patient (Last, First, Middle): Susan Raya A Gender: F Date of : 1950 Age: 74 Procedure Date: 03/30/2025 Procedure Type: Transthoracic Echocardiogram Location: OP Height: 172.72 cm Weight: 60.78 kg BSA: 1.72 m2 Heart Rate: bpm BP: 110 / 66 mmHg Staff Command And Control Officer: LATRICE Referring MD: Heber King MD Metal Cutter: Oswaldo Tracy MD Symptoms: I42.8 - Other cardiomyopathies Study Quality: Adequate ECG Rhythm: Sinus with PVCs Conclusions: - 1. Low normal LV ejection fraction 50-55% with impaired relaxation filling pattern 2. Normal cardiac valvular Dopplers 3. Normal RV systolic pressure 4. No gross pericardial effusion Findings Left Ventricle Normal left ventricular cavity size. There is normal left ventricular wall thickness. The left ventricular systolic function is low normal. The visually estimated ejection fraction is between 50-55%. There is paradoxical septal motion consistent with a left bundle branch block. Spectral Doppler is indicative of an impaired relaxation filling pattern. E/E prime ratio is between 8 and 15 consistent with indeterminate filling pressures. Right Ventricle Normal right ventricular cavity size and systolic function. Atria The left atrium is normal in size. There is no evidence of interatrial shunt. The right atrium is normal in size. Aortic Valve The aortic valve structure and function is likely normal. There is no aortic valve stenosis. There is no aortic valve regurgitation. Mitral Valve Normal mitral valve structure and function. There is trace mitral valve regurgitation. There is no mitral valve stenosis. Pulmonic Valve The pulmonic valve is likely normal. There is trace pulmonic valve regurgitation. Tricuspid Valve Normal tricuspid valve structure. There is trace tricuspid valve regurgitation. The right ventricular systolic pressure is normal. The right ventricular systolic pressure is 32 mmHg. Normal right atrial pressure. There is no evidence of pulmonary hypertension. Great Vessels All visible segments of the aorta are normal in size. The pulmonary artery was not well visualized. There is no dilatation of the ascending aorta measuring 2.90 cm. Venous The inferior vena cava is normal in size and collapses greater than 50% with inspiration. Pericardium/Pleural There is no evidence of pericardial effusion. Prior Study Comparison Changes noted compared to prior study dated: 03/29/2023. LV ejection fraction has marginally improved Measurements 2D Linear Measurements IVSd: 0.89 0.6-0.9/0.6-1.0 cm LVIDd: 4.84 3.9-5.3/4.2-5.9 cm LVIDd Index: 2.81 2.4-3.2/2.2-3.1 cm/m2 LVIDs: 3.51 2.0-3.6 cm LVPWd: 0.90 0.7-1.1 cm LA Diam: 3.90 2.7-3.8/3.0-4.0 cm LAIDs Index: 2.27 1.5-2.3 cm/m2 LV Mass: 184.35 67-162/88-224 g LV Mass Index: 107.18 43-95/49-115 g/m2 LVOT Diam: 2.00 3.0+(-)1.3 cm 2D Systolic Function EF 4C: 54.40 >55% EF 2C: 50.20 >55% EF BiP: 53.90 >55% Mitral Valve MV Pk E: 0.72 MV PK A: 0.97 MV Decel Time: 154.00 E/A: 0.70 E'Lateral: 5.77 E'Medial: 4.13 E/E' Med: 17.30 E/E' Lat: 12.40 PHT: 45.00 MVA PHT: 4.89 Decel Stutsman: 4.64 Aortic Valve AoV Pk Rede: 1.51 AoV Mn Reed: 1.05 AoV VTI: 0.35 AoV Pk Grad: 9.00 Aov Mn Grad: 5.00 CALEB Cont.VTI: 2.07 LVOT LVOT Pk Reed: 1.06 LVOT Mn Reed: 0.80 LVOT VTI: 0.23 LVOT Pk Grad: 4.00 LVOT Mn Grad: 3.00 LVOT Diam: 2.00 LVOT Area: 3.14 Diastolic Function MV Pk E: 0.72 MV Pk A: 0.97 E/A: 0.70 E'Medial: 4.13 E/E' Med: 17.30 E' Laterial: 5.77 E/E' Lat: 12.40 Right Ventricle TAPSE (mm): 20.10 TVS' Reed: 11.50 Tricuspid Valve TR Pk Reed: 2.67 TR Pk Grad: 29.00 RA Press: 3.00 RVSP: 32.00 Great Vessels Aorta Sinus of Valsalva: 2.90 2.0-3.5 cm Ao Asc: 2.90 2.1-3.4 cm Pulmonary Veins Pulm Vein S/D 0.80 Updated in Other Vendor System with Status of Final Oswaldo Tracy MD electronically signed on 03/31/2025 5:01:58 PM with status of Final
--- OUTSIDE RECORDS SUMMARY | 2025-03-30 15:37 | XMS_ITS | Clinical Summary ---
Author Organization [facility] Address [address] [address] Phone Care Team Providers Care Grinder Lap Name Role Phone Savana Del Castillo MD Primary Care Provider Allergies Active Allergy Reactions Criticality Noted Date [...] 3) 08/18/2015 06/23/2015 INFLUENZA VACCINE (#1) 2024 , 05/07/2022, 02/20/2021, Additional history exists COVID-19 VACCINE [...] on patient's age to complete this topic IPV VACCINES Aged Out No longer eligi ble based on patient's age to complete this topic MENINGOCOCCAL VACCINES (ACWY) Aged Out No longer eligible based on patient's age to complete this topic MENINGOCOCCAL VACCINES (B) Aged Out N o longer eligible based on patient's age to complete this topic Medical Devices Not on file Insurance MEDICARE PART A & B [employer] SUPPLEMENT MEDICARE PART A & B [employer] SU[employer] MEDICARE PART A & B [employer] SU[employer] MEDICARE PART A & B [employer] SU[employer] MEDICARE PART A & B [employer] SUPPLEMENT MEDICARE PART A & B [employer] SU[employer]LEMENT MEDICARE PART A & B [employer] SU[employer]LEMENT MEDICARE PART A & B [employer] MED[employer] SU[employer]LEMENT MEDICARE PART A & B [employer] MEDEX SUPPLEMENT Care Teams Grinder Lap Relationship Specialty Start Date End Date Savana Del Castillo MD [address] [place] [phone] PCP - General Internal Medicine 06/29/19 Additional Source Comments The information contained in this document represents components of the legal health record. It is not the complete legal health record.[facility]
--- OUTSIDE RECORDS SUMMARY | 2025-03-30 15:37 | XMS_ITS | Patient Health Record ---
[facility] Address [address] [place] [address] Care Team Providers Care Linking Machine Operator Name Role Phone Savana Del Castillo Primary Care Provider Rivera Anand Unavailable [phone] Allergies Allergen (clinical drug ingredient) Drug/Non Drug Allergy documented on EMR Reaction Allergy Type Onset Date Status morphine Morphine Unknown Drug Allergy Active Substance with 0-nxllxrt-2-methylgluta ryl-coenzyme A reductase inhibitor mechanism of action [...] Status Risk Notes Problem Acquired hallux valgus (05345388) Hallux valgus (acquired), right foot (M20.11) Active confirmed Problem Acquired hallux rigidus (7425412) Hallux rigidus, left foot (M20.22) Active confirmed Problem Raynaud's disease (772192600) Raynaud's disease without gangrene (I73.00) Active confirmed Problem Preproliferative diabetic retinopathy (929226722) Preproliferative diabetic retinopathy (E11.3499) Active confirmed Plan Of Treatment Pending Test Test Name Order Date X ray : Foot, left 3V 08/16/2021 X ray : Foot, right 3V 08/16/2021 Insurance Providers Payer Name Payer Address Payer Phone Subscriber Number Group Number Insured Name Patient Relationship to Insured Coverage Start Date Coverage End Date Medicare National Govt Svcs Inc [address] [place] [address] [id number] Susan Ann Self - patient is the insured [facility] [address] [place] [address] [phone] [id number] Susan Ann Self - patient is the insured Medical (General) History Medical History History ICD Code Anxiety Arthritis Back,Hip,and Knee pain Broken bones CAD (Cholesterol) Cancer Depression Headaches/Migraines Heart disease High blood pressure Numbness Rheumatic fever Measles Mumps tinnitus Hot flash Left bundle branch block (LBBB) Pre type II diabetes Surgical History Surgery Date(Month/Year) Hospitalization History Reason Date(Month/Year[place] [facility] [place]
--- OUTSIDE RECORDS SUMMARY | 2025-03-30 15:37 | XMS_ITS | Patient Health Record ---
Author Organization [facility] Address [address] [place] [address] Care Team Providers Care Warehouse Specialist Name Role Phone Savana Del Castillo MD Primary Care Provider Noel Meraz [phone] Allergies Allergen (clinical drug ingredient) Drug/Non Drug [...] 81 MG 1 tablet Orally Once a day; Duration: 30 day(s) Active Multivitamin - 1 tablet Orally Once a day; Duration: 30 day(s) Active Immunizations Vaccine Route Administration Date Status Comme nts Influenza Unknown 01/19/2020 Administered Problems Problem Type SNOMED Code ICD Code Onset Dates Problem Status W/U Status Risk Notes Problem Screening for malignant neoplasm of colon (338326255) Encounter for screening for malignant neoplasm of colon (Z12.11) Active confirmed Problem History of adenomatous polyp of colon (842234731) History of adenomatous polyp of colon (Z86.010) Active confirmed Problem History of polyp of colon (situation) (262933263) Personal history of colonic polyps (Z86.010) Active confirmed Problem Diverticular disease of colon (441817842) Diverticulosis of large intestine without perforation or abscess without bleeding (K57.30) Active confirmed Problem Preprocedural examination (868361315722309) Preprocedural examination (Z01.818) Active confirmed Problem Long-term current use of aspirin (768545336665083) Aspirin long-term use (Z79.82) Active confirmed Plan Of Treatment Future Test Test Name Order Date COLONOSCOPY 02/04/2015 COLONOSCOPY 11/23/2020 Insurance Providers Payer Name Payer Address Payer Phone Subscriber Number Group Number Insured Name Patient Relationship to Insured Coverage Start Date Coverage End Date MEDICARE OF [place] [address] [place] [address] [id number] ROJELIO ANGLIN Self - patient is the insured [employer] CLAIMS [address] [place] [address] [id number] ROJELIO ANGLIN Self - patient is the insured Medical (General) History Medical History History ICD Code Dizziness/Equilibrium issues--saw Dr. Rob fitzgerald Left bundle branch block-[place] [facility] [place]had an ETT and a cardiac Echo-Dr. King Right-sided Breast cancer--1998--2 Lumpe ctomies, chemo and XRT Negative colonoscopy in 04/[address] Phipps, except for small internal hemorrhoids Hyperlipidemia HTN Denies AK,CVA,Lung disease,renal disease Persistent Tinnitus after he r 2nd Moderna vaccine in 06/2020--seeing Dr. Contreras Colonoscopy 05/2015 with a small tubular adenoma Diet-controlled DM Surgical History Surgery Date(Month/Year) 2 lumpectomies as above for breast cance r
== END ==
LOC: HO.CARD 13:59
PROVIDERS: PCP Internal Medicine; Visit Provider Internal Medicine
DX: I42.8 Other cardiomyopathies (principal)
CPT/HCPCS: 93306

== ENCOUNTER → 2025-03-30 14:02 | Outpatient (BNV) | payer MEDICARE, SELFPAY | PROVIDERS: PCP Internal Medicine; Visit Provider Internal Medicine Cardiovascular Disease | DX: I42.8 Other cardiomyopathies (principal) | CPT/HCPCS: 93306 ==

== ENCOUNTER 2025-04-06 13:13 | Outpatient (AMB) | payer MEDICARE, SELFPAY ==
--- OUTSIDE RECORDS SUMMARY | 2019-06-29 15:15 | XMS_ITS | Encounter Summary ---
Author Organization [facility] Address [address] [facility] [address] [place] [address] Phone Care Team Providers Care Pc Tech Name Role Phone Savana Del Castillo MD Primary Care Provider [phone] Encounter Details Date Type Department Care Team (Late st Contact Info) Description 06/29/2019 3:15 PM EST Hospital Encounter [facility] [address] [place] [address] Philipp Melara, GUILLAUME [address] [place] [address] [place] [address] Social History Tobacco Use Types Packs/Day Years [...] the knee. No acute bony injury. POS [id number] Narrative 06/29/2019 3:35 PM EST 5 views. [...] the knee. No acute bony injury. POS [id number] Philipp Melara SUPPLIER MANAGER IMG XR LOWER EXTREMITY Final Re sult documented in this encounter Visit Diagnoses Not on filedocumented in this encounter Additional Health Concerns Infection Onset Date Last Indicated Resolved Time CoV-Risk 07/17/2023 07/17/2023 07/28/2023 1:21 AM EST documented as of this encounter Care Teams Pc Tech Relationship Specialty Start Date End Date Savana Del Castillo MD [address] [place] [address] Drive [address] [place] [phone] PCP - General Internal Medicine 06/29/19 documented as of this encounter Additional Source Comments The information contained in this document represents components of the legal health record. It is not the complete legal health record.[facility]
[2025-04-06 13:19] VITALS: BP 130/62; PULSE 78; BMI 20.2
--- NOTE | 2025-04-06 13:19 | MHC.OFFVIS ---
Vital Signs 04/06/25 13:19 Height 5 ft 8 in Weight 132 lb 11.492 oz BMI 20.2 BP 130/62 Blood Pressure Location Lt brachial Position Sitting Pulse 78 Pulse Source Pulse Oximeter Intake Visit Reasons: f/up per HS [employer] Attendant Required: No Accompanied by: Self / Same As Patient Allergies gabapentin Adverse Reaction (Intermediate, Verified 01/12/25 14:25) Nausea morphine (MORPHINE) Adverse Reaction (Mild, Verified 01/12/25 14:25) VOMITING, sensitivity atorvastatin Adverse Reaction (Unknown, Verified 01/12/25 14:25) Muscle cramps rosuvastatin (Crestor) Adverse Reaction (Unknown, Verified 01/12/25 14:25) muscle ache simvastatin Adverse Reaction (Unknown, Verified 01/12/25 14:25) Muscle cramps Medication List - Last Reconciled 04/06/25 by Heber King MD alpha lipoic acid 300 mg PO DAILY alprazolam 0.5 mg PO DAILY PRN blood sugar diagnostic (FreeStyle Lite Strips) As directed check the BS QD calcium carbonate (Oyster Shell Calcium) 500 mg PO DAILY cholecalciferol (vitamin D3) 25 mcg PO DAILY ezetimibe (Zetia) 10 mg PO DAILY ketotifen fumarate 0.025%(0.035%) (Zaditor) 1 drp ophthalmic (eye) BID levocetirizine 5 mg PO DAILY mastectomy bra As directed meclizine 25 mg PO TID mirtazapine 30 mg PO BEDTIME multivitamin 1 tab PO DAILY pregabalin 75 mg PO BID 30 days HPI Comments Details: Susan returns for follow-up regarding cardiomyopathy as well as left bundle-branch block. She lost her few years ago and since then has been quite depressed. In prior visits, she has had lots of nonspecific complaints including tinnitus, musculoskeletal complaints extra. Then, she had a syncopal episode during jumping jacks exercise and in that setting she was taken to [facility]. Workup had shown intraparenchymal hemorrhage /subarachnoid hemorrhage. However, with conservative care she improved and she was eventually discharged home. Not entirely clear if it is like an orthostatic type picture that led to the syncope. However, blood pressure is rather in the normal range and not too low. Last visit, we had actually stopped her Coreg or lisinopril and she states she feels just about the same as before and no different. She thinks as though she is living in a 'fog' all the time. Additionally, she also has some neuropathy and hence not clear if that is causing problems as opposed to cardiogenic etiology from hypotension. Overall, she is just about the same as before with similar complaints. Rapid body movements can still provoke symptoms of unsteadiness. [facility] Medical History Peripheral neuropathy Alteration in cognition Neuropathy Cervicalgia Gait disorder Sleep disorder Screening for viral disease Distal radius fracture, left Post-menopausal Infiltrating ductal carcinoma of right breast History of breast cancer Anxiety and depression Left bundle branch block Tubular adenoma of colon History of breast cancer Hypercholesterolemia Cardiomyopathy Type 2 diabetes mellitus with hyperglycemia Surgical History History of colonoscopy H/O left breast biopsy History of lumpectomy of right breast Family History Father CVD (cardiovascular disease) Myocardial infarct Mother HTN (hypertension) Cancer Uterine cancer Arthritis Paternal Aunt Myocardial infarct Paternal Uncle Myocardial infarct Brother No problems noted. Social History Household Members: None Housing: House Alcohol intake: current Alcohol intake frequency: holidays/special occasions only Patient Tobacco Use Status: Never used Tobacco Tobacco use type: Cigarette e-Cigarette/Vaping Use: Never Used Second Hand Smoke Exposure: No service: No Current occupational status: retired Current occupation: rt hand Cognitive needs: No Hearing needs: No Vision needs: Yes (Glasses) Review of Systems Const Denies chills, Denies fatigue, Denies fever(s), Denies frequent falls, Denies weakness, Denies weight gain and Denies weight loss ENT Denies dizziness Card Denies chest pain, Denies leg edema, Denies lightheadedness, Denies palpitations, Denies dyspnea and Denies dyspnea on exertion Resp Denies cough, Denies dyspnea and Denies dyspnea on exertion GI Denies hematochezia Musc Denies abnormal gait, Denies muscle weakness, Denies numbness, Denies radiating pain into limb and Denies tingling Neuro Denies abnormal gait, Denies dizziness, Denies frequent falls, Denies numbness, Denies tingling and Denies weakness Endo Denies fatigue and Denies palpitations Physical Exam Vital Signs: Last Vital Signs Pulse 78 04/06/25 13:19 BP 130/62 04/06/25 13:19 BMI result Body Mass Index 20.2 Const General: comfortable and no acute distress Orientation/consciousness: patient oriented x3 HEENT Other: Unremarkable Head: Yes normal to inspection Neck Neck: Yes normal visual inspection Chest Chest palpation & inspection: normal inspection of the chest Resp Auscultation: clear to auscultation bilaterally Cardio Palpation: normal PMI Heart sounds: S1 normal heart sound present, S2 normal heart sound present, no gallops, no murmurs and no rubs GI Palpation (GI): Soft to palpation Back/Spine/Pelvis Other: unremarkable Skin General skin exam: no rashes or lesions noted Neuro General: patient oriented x3 Extrem General: Yes normal to inspection Psych Mental Status: mental status grossly normal Assessment & Plan Assessment & Plan (1) Syncope and collapse: Code(s): R55 - Syncope and collapse Category: Medical (2) NICM (nonischemic cardiomyopathy): Code(s): I42.8 - Other cardiomyopathies Category: Medical (3) Left bundle branch block: Code(s): I44.7 - Left bundle-branch block, unspecified Category: Medical Plan In the most recent echocardiogram, LVEF is 50-55%. In the prior study from [facility] from August, similar findings. Previously, LVEF 40-45% from [place] echocardiogram 2022. Carotid ultrasound from [facility] with no significant stenosis. Myocardial perfusion imaging study from 10/2024 shows no clear ischemia or infarction. Fixed defect thought to be from left bundle-branch block. Gated LVEF was 53%. Coronary CTA in the past did not reveal any significant coronary disease. There was mild eccentric distal left main plaque; minimal disease elsewhere. In the Holter monitor, underlying rhythm is sinus with an average rate of 77/Min. PVCs noted with a burden of about 6.7%. Otherwise unremarkable. Overall, with regard to the question of syncope/unsteadiness, not entirely clear if it is from hypotension from orthostasis versus neuropathy and gait issue. Could be very well the latter. Previously, no clear hypotension readings on home blood pressure diary. In the home orthostatic vital signs, blood pressure was actually going up rather than going down. Off carvedilol/lisinopril but no changes in symptoms. To be cautious with changing positions and also avoid any strenuous activity. We will complete the workup with a tilt-table test for definitive diagnosis or exclusion of orthostatic hypotension. Follow up after the same. She is also undergoing concurrent neurology workup. Discussion Notes I discussed with the patient that the cause of her dizziness remains unclear, with possibilities including neurppathy vs drop in blood pressure with position changes. To investigate a potential cardiac cause, I recommended a tilt table test for more definitive evaluation of her blood pressure and pulse response to positional changes. I explained the procedure, noting that it will be done at [facility] and involves measuring her vitals as she is slowly brought to an upright position on a special table. We acknowledged her other concerns, including worsening neuropathy, which is being managed by her other doctor with gabapentin. I also reassured her that her recent echocardiogram was good and not a source of concern. Patient was informed and verbally consented to the use of an ambient scribe for clinic note documentation during this visit. Orders: Orders ECG Tilt Table Test Today R55 - Syncope and collapse Patient Instructions: - We will set you up for a tilt table test to investigate the cause of your dizziness. - Continue to be careful and change positions slowly when you stand up to help prevent falls. Coding Level of Care Code Est Pt Level 4 (40429) Complex EM visit Add On G2211 Diagnoses Syncope and collapse R55 NICM (nonischemic cardiomyopathy) I42.8 Left bundle branch block I44.7
--- OUTSIDE RECORDS SUMMARY | 2025-04-07 05:41 | XMS_ITS | Patient Health Record ---
Author Organization [facility] Address [address] [place] [address] Care Team Providers Care Funeral Driver Name Role Phone Savana Del Castillo Primary Care Provider Rivera Anand Unavailable [phone] Allergies Allergen (clinical drug ingredient) Drug/Non Drug Allergy documented on EMR Reaction Allergy Type Onset Date Status morphine Morphine Unknown Drug Allergy Active Substance with 2-jxylebw-7-methylgluta ryl-coenzyme A reductase inhibitor mechanism of action [...] Status Risk Notes Problem Acquired hallux valgus (59161116) Hallux valgus (acquired), right foot (M20.11) Active confirmed Problem Acquired hallux rigidus (7868013) Hallux rigidus, left foot (M20.22) Active confirmed Problem Raynaud's disease (127296331) Raynaud's disease without gangrene (I73.00) Active confirmed Problem Preproliferative diabetic retinopathy (535387589) Preproliferative diabetic retinopathy (E11.3499) Active confirmed Plan Of Treatment Pending Test Test Name Order Date X ray : Foot, left 3V 08/16/2021 X ray : Foot, right 3V 08/16/2021 Insurance Providers Payer Name Payer Address Payer Phone Subscriber Number Group Number Insured Name Patient Relationship to Insured Coverage Start Date Coverage End Date Medicare National Govt Svcs Inc [address] [place] [address] [id number] Susan Ann Self - patient is the insured [facility] [address] [place] [address] [phone] [id number] Susan Ann Self - patient is the insured Medical (General) History Medical History History ICD Code Anxiety Arthritis Back,Hip,and Knee pain Broken bones CAD (Cholesterol) Cancer Depression Headaches/Migraines Heart disease High blood pressure Numbness Rheumatic fever Measles Mumps tinnitus Hot flash Left bundle branch block (LBBB) Pre type II diabetes Surgical History Surgery Date(Month/Year) Hospitalization History Reason Date(Month/Year) [facility] [place] L Wrist 02/2021
--- OUTSIDE RECORDS SUMMARY | 2025-04-07 05:41 | XMS_ITS | Clinical Summary ---
Author Organization [facility] Address [address] [address] Phone Care Team Providers Care Java User Interface Developer Name Role Phone Savana Del Castillo MD Primary Care Provider [phone] Allergies Active Allergy Reactions Criticality Noted Date [...] file Insurance MEDICARE PART A & B [employer] MEDEX SUPPLEMENT MEDICARE PART A & B [employer] MED[employer] SUPPLEMENT MEDICARE PART A & B [employer] MED[employer] SUPPLEMENT MEDICARE PART A & B [employer] MED[employer] SUPPLEMENT MEDICARE PART A & B [employer] MED[employer] SUPPLEMENT MEDICARE PART A & B [employer] MED[employer] SUPPLEMENT MEDICARE PART A & B [employer] MED[employer] SUPPLEMENT MEDICARE PART A & B [employer] MEDEX SUPPLEMENT MEDICARE PART A & B [employer] CROSS MEDEX SUPPLEMENT Care Teams Java User Interface Developer Relationship Specialty Start Date End Date Savana Del Castillo MD [address] [place] [phone] PCP - General Internal Medicine 06/29/19 Additional Source Comments The information contained in this document represents components of the legal health record. It is not the complete legal health record.[facility]
--- OUTSIDE RECORDS SUMMARY | 2025-04-07 05:41 | XMS_ITS | Clinical Summary ---
Author Organization [facility] Address [address] [place] [address] Care Team Providers Care Tray Checker Name Role Phone Savana Del Castillo MD Primary Care Provider [phone] Surgical History Surgery Date Site/Laterality Comments BREAST LUMPECTOMY PROCEDURE: HISTORICAL BREAST LUMPECTOMY; COMMENT: 2 Medical History Medical History Date Comments Actinic keratosis, hx of DX:Acti corbin keratosis, hx of Essential hypertension DX:Essent ial hypertension Anxiety state DX:Anxiety state Pre-diabetes DX:Pre-diabetes Social History Tobacco Use Types Packs/Day Years Used Date Smoking Tobacco: Never Smokeless Tobacco: Never Comments Unknown Sex and Gender Information Value Date Recorded Sex Assigned at Not on file Legal Sex Female 7:14 AM EST Gender Identity Not on file Sexual Orientation Not on file Obstetrics History Last Filed Vital Signs Vital Sign Reading Time Taken Comments Blood Pressure - - Pulse - - Temperature - - Respiratory Rate - - Oxygen Saturation - - Inhaled Oxygen Concentration - - Weight - - Height 170.2 cm (5' 7 ) 03/06/2024 9:35 AM EDT Body Mass Index - - Plan of Treatment Upcoming Encounters Date Type Department Care Team (Late st Contact Info) Description 07/13/2025 1:45 PM EST Appointment [facility] X[address] [place] [address] Health Maintenance Due Date Last Done Comments Breast Cancer Screening 1950 Colorectal Cancer Screening: Colonoscopy 1950 DTaP,Tdap,and Td Vaccines (1 - Tdap) 1969 Pneumococcal Vaccine: 50+ Ye ars (1 of 1 - PCV) 2000 Zoster Vaccines (1 of 2) 2000 Falls Risk Assessment 04/14/2024 Hepatitis C Screening 04/14/2024 Medicare Annual Wellness Visit 04/14/2024 Osteoporosis Screening (Bone Density Screening) 04/14/2024 Social Influencers of Health Screening 04/14/2024 Depression Screening 05/20/2024 COVID-19 Vaccine (1 - 2024-2 6 season) 2025 Influenza Vaccine (#1) 2025 RSV Immunization Adult Patie nts (1 - 1-dose 75+ series) 2025 HIB Vaccines Aged Out No longer eligi ble based on patient's age to complete this topic HPV Vaccines Aged Out No longer eligi ble based on patient's age to complete this topic Hepatitis A Vaccines Aged Out No long er eligible based on patient's age to complete this topic Hepatitis B Vaccines Aged Out No long er eligible based on patient's age to complete this topic IPV Vaccines Aged Out No longer eligi ble based on patient's age to complete this topic MMR Vaccines Aged Out No longer eligi ble based on patient's age to complete this topic Meningococcal ACWY Vaccine Aged Out N o longer eligible based on patient's age to complete this topic Meningococcal B Vaccine Aged Out No l onger eligible based on patient's age to complete this topic RSV Immunization Patients Un josie 20 months Aged Out No longer eligible b ased on patient's age to complete this topic Varicella Vaccines Aged Out No longer eligible based on patient's age to complete [place] [id number] Care Teams Tray Checker Relationship Specialty Start Date End Date Savana Del Castillo MD [address] [place] [address] [address] [facility] [place] [address] PCP - General Internal Medicine 06/15/19
--- OUTSIDE RECORDS SUMMARY | 2025-04-07 05:42 | XMS_ITS | Patient Health Record ---
Author Organization [facility] Address [address] [place] [address] Care Team Providers Care Metal Wire Technician Name Role Phone Savana Del Castillo MD Primary Care Provider Noel Meraz [phone] Allergies Allergen (clinical drug ingredient) Drug/Non Drug Allergy documented on EMR Reaction Allergy Type Onset Date Status morphine Morphine Sulfate Unknown Drug Allergy Active Reason For Referral No Information Medications Medication SIG (Take, Route, Frequency, Duration) Notes Start Date End Date Status Carvedilol 3.125 MG Tablet 1 tablet with food Orally Twice a day Active Lisinopril 2.5 MG Tablet 1 tablet Orally Once a day Active Ezetimibe Active Aspirin Adult Low Dose 81 MG Tablet Delayed Release 1 tablet Orally Once a day; Duration: 30 day(s) Active Multivitamin - Tablet 1 tablet Orally On ce a day; Duration: 30 day(s) Active Immunizations Vaccine Route Administration Date Status Comme nts Influenza Unknown 01/19/2020 Administered Social History Social History Additional Details Category Social Info Options Details Miscellaneous: Marital status: Single Occupation: 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 alcohol Nonsmoker; no sig. alcohol Problems Problem Type SNOMED Code ICD Code Onset Dates Problem Status W/U Status Risk Notes Problem Screening for malignant neoplasm of colon (546025547) Encounter for screening for malignant neoplasm of colon (Z12.11) Active confirmed Problem History of adenomatous polyp of colon (518454145) History of adenomatous polyp of colon (Z86.010) Active confirmed Problem History of polyp of colon (situation) (960709033) Personal history of colonic polyps (Z86.010) Active confirmed Problem Diverticular disease of colon (192896085) Diverticulosis of large intestine without perforation or abscess without bleeding (K57.30) Active confirmed Problem Preprocedural examination (899349436715949) Preprocedural examination (Z01.818) Active confirmed Problem Long-term current use of aspirin (535389624750150) Aspirin long-term use (Z79.82) Active confirmed Plan Of Treatment Future Test Test Name Order Date COLONOSCOPY 02/04/2015 COLONOSCOPY 11/23/2020 Insurance Providers Payer Name Payer Address Payer Phone Subscriber Number Group Number Insured Name Patient Relationship to Insured Coverage Start Date Coverage End Date MEDICARE OF [place] [address] [place] [address] [id number] ROJELIO ANGLIN Self - patient is the insured [employer] ATT[employer] CLAIMS [address] [place] [address] [phone] [id number] ROJELIO ANGLIN Self - patient is the insured Medical (General) History Medical History History ICD Code Dizziness/Equilibrium issues--saw Dr. Rob fitzgerald Left bundle branch block-see s cardiology at [facility]--had an ETT and a cardiac Echo-Dr. King Right-sided Breast cancer--1998--2 Lumpe ctomies, chemo and XRT Negative colonoscopy in 04/[address] Phipps, except for small internal hemorrhoids Hyperlipidemia HTN Denies [place],CVA,Lung disease,renal disease Persistent Tinnitus after he r 2nd Moderna vaccine in 06/2020--seeing Dr. Contreras Colonoscopy 05/2015 with a small tubular adenoma Diet-controlled DM Surgical History Surgery Date(Month/Year) 2 lumpectomies as above for breast cance r
== END 2025-04-06 13:46 | disposition home or self-care (01) ==
LOC: HO.HCS 13:14
PROVIDERS: PCP Internal Medicine; Visit Provider Internal Medicine
DX: R55 Syncope and collapse (principal); I42.8 Other cardiomyopathies; I44.7 Left bundle-branch block, unspecified
CPT/HCPCS: 99214; G2211

== ENCOUNTER → 2025-04-06 13:13 | Outpatient (BNVA) | payer MEDICARE, SELFPAY | PROVIDERS: PCP Internal Medicine; Visit Provider Internal Medicine | DX: R55 Syncope and collapse (principal); I44.7 Left bundle-branch block, unspecified; I42.8 Other cardiomyopathies | CPT/HCPCS: 99212 ==

== ENCOUNTER 2025-04-19 08:26 | Outpatient (REF) | payer MEDICARE, SELFPAY ==
--- OUTSIDE RECORDS SUMMARY | 2019-06-29 15:15 | XMS_ITS | Encounter Summary ---
Author Organization [facility] Address [address] [facility] [address] [place] [address] Phone Care Team Providers Care Puzzle Assembler Name Role Phone Savana Del Castillo MD Primary Care Provider [phone] Encounter Details Date Type Department Care Team (Late st Contact Info) Description 06/29/2019 3:15 PM EST Hospital Encounter [facility] [address] [place] [address] Philipp Melara, GUILLAUME [address] [place] [address] [place] [address] Social History Tobacco Use Types Packs/Day Years [...] the knee. No acute bony injury. POS [id number] Narrative 06/29/2019 3:35 PM EST 5 views. [...] the knee. No acute bony injury. POS [id number] Philipp Melara PERINATOLOGY PHYSICIAN IMG XR LOWER EXTREMITY Final Re sult documented in this encounter Visit Diagnoses Not on filedocumented in this encounter Additional Health Concerns Infection Onset Date Last Indicated Resolved Time CoV-Risk 07/17/2023 07/17/2023 07/28/2023 1:21 AM EST documented as of this encounter Care Teams Puzzle Assembler Relationship Specialty Start Date End Date Savana Del Castillo MD [address] [place] [address] Drive [address] [place] [phone] PCP - General Internal Medicine 06/29/19 documented as of this encounter Additional Source Comments The information contained in this document represents components of the legal health record. It is not the complete legal health record.[facility]
--- NOTE | 2025-04-19 08:29 | EEG_ITS ---
48 Hour Ambulatory EEG History: Patient reports mental fog and cognitive issues since head trauma in July 2024. Patient was doing jumping jacks and became sweaty and yellow light and passed out for a mintue. Patient fell hitting right occipital part of head. Patient was incoherent for about 10 mintues. Since patient feels off balance and dizzy daily. Medication: alpha lipoic acid, alprazolan, calcium carbonate, Vit D, ezetimibe, meclizine, mirtazapine, multivitamin, pregabalin Technical Description Photic Stimulation: omitted Hyperventilation: omitted Behavioral State: pleasant State of Consciousness: awake and sleep Skull Defect: none Sedation: none Handedness: right Thermometer Production Worker Comments: Day I - Patient reported episode of dizziness. Day II - Patient did not report any symptoms. Description: STEVEND
--- OUTSIDE RECORDS SUMMARY | 2025-04-19 08:41 | XMS_ITS | Clinical Summary ---
Author Organization [facility] Address [address] [address] Phone Care Team Providers Care Flight Readiness Technician Name Role Phone Savana Del Castillo MD Primary Care Provider [phone] Allergies Active Allergy Reactions Criticality Noted Date [...] % cream APPLY SPARINGLY MON, WED & FRI NIGHTS X 4 WEEKS 0 Active aspirin [...] file Insurance MEDICARE PART A & B [facility] MEDEX SUPPLEMENT MEDICARE PART A & B [employer] SUPPLEMENT MEDICARE PART A & B [employer] MEDEX SUPPLEMENT MEDICARE PART A & B [employer] SUPPLEMENT MEDICARE PART A & B [employer] SUPPLEMENT MEDICARE PART A & B [employer] SUPPLEMENT MEDICARE PART A & B [employer] SUPPLEMENT MEDICARE PART A & B [employer] SUPPLEMENT MEDICARE PART A & B [employer] SUPPLEMENT Care Teams Flight Readiness Technician Relationship Specialty Start Date End Date Savana Del Castillo MD [address] [place] [id number] PCP - General Internal Medicine 06/29/19 Additional Source Comments The information contained in this document represents components of the legal health record. It is not the complete legal health record.[facility]
--- OUTSIDE RECORDS SUMMARY | 2025-04-19 08:41 | XMS_ITS | Patient Health Record ---
[facility] Organization [facility] Address [address] [place] [address] Care Team Providers Care Movie Operator Name Role Phone Savana Del Castillo Primary Care Provider Rivera Anand Unavailable [phone] Allergies Allergen (clinical drug ingredient) Drug/Non Drug Allergy documented on EMR Reaction Allergy Type Onset Date Status morphine Morphine Unknown Drug Allergy Active Substance with 5-ijiystd-3-methylgluta ryl-coenzyme A reductase inhibitor mechanism of action [...] Status Risk Notes Problem Acquired hallux valgus (70617791) Hallux valgus (acquired), right foot (M20.11) Active confirmed Problem Acquired hallux rigidus (5411391) Hallux rigidus, left foot (M20.22) Active confirmed Problem Raynaud's disease (185772211) Raynaud's disease without gangrene (I73.00) Active confirmed Problem Preproliferative diabetic retinopathy (669202637) Preproliferative diabetic retinopathy (E11.3499) Active confirmed Plan Of Treatment Pending Test Test Name Order Date X ray : Foot, left 3V 08/16/2021 X ray : Foot, right 3V 08/16/2021 Insurance Providers Payer Name Payer Address Payer Phone Subscriber Number Group Number Insured Name Patient Relationship to Insured Coverage Start Date Coverage End Date Medicare National Govt S[employer] [address] [place] [address] [id number] Susan Ann Self - patient is the insured [facility] [address] [place] [address] [id number] Susan Ann Self - patient is the insured Medical (General) History Medical History History ICD Code Anxiety Arthritis Back,Hip,and Knee pain Broken bones CAD (Cholesterol) Cancer Depression Headaches/Migraines Heart disease High blood pressure Numbness Rheumatic fever Measles Mumps tinnitus Hot flash Left bundle branch block (LBBB) Pre type II diabetes Surgical History Surgery Date(Month/Year) Hospitalization History Reason Date(Month/Year[place] [facility] [place] W[place]
--- OUTSIDE RECORDS SUMMARY | 2025-04-19 08:42 | XMS_ITS | Patient Health Record ---
Author Organization [facility] Address [address] [place] [address] Care Team Providers Care Coater Hand Name Role Phone Savana Del Castillo MD Primary Care Provider Noel Meraz [phone] Allergies Allergen (clinical drug ingredient) Drug/Non Drug [...] Miscellaneous: Marital status: Single Occupation: Retired from [employer] 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 alcohol Nonsmoker; no sig. alcohol Problems Problem Type SNOMED Code ICD Code Onset Dates Problem Status W/U Status Risk Notes Problem Screening for malignant neoplasm of colon (370805517) Encounter for screening for malignant neoplasm of colon (Z12.11) Active confirmed Problem History of adenomatous polyp of colon (250809769) History of adenomatous polyp of colon (Z86.010) Active confirmed Problem History of polyp of colon (situation) (314127901) Personal history of colonic polyps (Z86.010) Active confirmed Problem Diverticular disease of colon (711222298) Diverticulosis of large intestine without perforation or abscess without bleeding (K57.30) Active confirmed Problem Preprocedural examination (422288207416987) Preprocedural examination (Z01.818) Active confirmed Problem Long-term current use of aspirin (280461757374392) Aspirin long-term use (Z79.82) Active confirmed Plan Of Treatment Future Test Test Name Order Date COLONOSCOPY 02/04/2015 COLONOSCOPY 11/23/2020 Insurance Providers Payer Name Payer Address Payer Phone Subscriber Number Group Number Insured Name Patient Relationship to Insured Coverage Start Date Coverage End Date MEDICARE OF [place] [address] [place] [address] [phone] [id number] ROJELIO ANGLIN Self - patient is the insured MED[employer] ATTN CLAIMS [address] [place] [address] [phone] [id number] ROJELIO ANGLIN Self - patient is the [...] for small internal hemorrhoids Hyperlipidemia HTN Denies [place],CVA,Lung disease,renal disease Persistent Tinnitus after he r 2nd Moderna vaccine in 06/2020--seeing Dr. Contreras Colonoscopy 05/2015 with a small tubular adenoma Diet-controlled DM Surgical History Surgery Date(Month/Year) 2 lumpectomies as above for breast cance r
--- OUTSIDE RECORDS SUMMARY | 2025-04-19 08:42 | XMS_ITS | Clinical Summary ---
Author Organization [facility] Address [address] [place] [address] Care Team Providers Care Dock Superintendent Name Role Phone Savana Del Castillo MD Primary Care Provider [phone] Surgical History Surgery Date Site/Laterality Comments BREAST [...] Info) Description 07/13/2025 1:45 PM EST Appointment [facility] Xray [address] [place] [address] Health Maintenance Due Date Last [...] to [place] [id number] Care Teams Dock Superintendent Relationship Specialty Start Date End Date Savana Del Castillo MD [address] [place] [address] [address] [facility] [place] [address] PCP - General Internal Medicine 06/15/19
== END 2025-04-19 08:27 | disposition home or self-care (01) ==
LOC: HO.NEURO 08:26
PROVIDERS: PCP Internal Medicine; Visit Provider Psychiatry & Neurology Neurology
DX: R55 Syncope and collapse (principal)
CPT/HCPCS: 95700; 95705; 95708

== ENCOUNTER → 2025-04-19 08:29 | Outpatient (BNV) | payer MEDICARE, SELFPAY | PROVIDERS: PCP Internal Medicine; Visit Provider Psychiatry & Neurology Neurology | DX: R55 Syncope and collapse (principal) | CPT/HCPCS: 95721 ==

== ENCOUNTER 2025-05-04 14:22 | Outpatient (AMB) | payer MEDICARE, SELFPAY ==
--- OUTSIDE RECORDS SUMMARY | 2019-06-29 15:15 | XMS_ITS | Encounter Summary ---
Author Organization [facility] Address [address] [facility] [address] [place] [address] Phone Care Team Providers Care Coal Pulverizing Operator Name Role Phone Savana Del Castillo MD Primary Care Provider [phone] Encounter Details Date Type Department Care Team (Late st Contact Info) Description 06/29/2019 3:15 PM EST Hospital Encounter [facility] [address] [place] [address] Philipp Melara, GUILLAUME [address] [place] [address] [place] [address] Social History Tobacco Use Types Packs/Day Years [...] the knee. No acute bony injury. POS [id number] Narrative 06/29/2019 3:35 PM EST 5 views. [...] the knee. No acute bony injury. POS [id number] Philipp Melara MACHINE I COREMAKER IMG XR LOWER EXTREMITY Final Re sult documented in this encounter Visit Diagnoses Not on filedocumented in this encounter Additional Health Concerns Infection Onset Date Last Indicated Resolved Time CoV-Risk 07/17/2023 07/17/2023 07/28/2023 1:21 AM EST documented as of this encounter Care Teams Coal Pulverizing Operator Relationship Specialty Start Date End Date Savana Del Castillo MD [address] [place] [address] Drive [address] [place] [phone] PCP - General Internal Medicine 06/29/19 documented as of this encounter Additional Source Comments The information contained in this document represents components of the legal health record. It is not the complete legal health record.[facility]
--- NOTE | 2025-05-04 14:26 | A.OFFPC_ITS ---
Vital Signs 05/04/25 14:30 Height 5 ft 8 in Weight 132 lb 2 oz BMI 20.1 BP 124/66 Blood Pressure Location Lt brachial Position Sitting Pulse 78 Pulse Source Pulse Oximeter Temp 96.9 F Temp Source Temporal Artery Scan Pulse Oximetry (%) 97 Oxygen Delivery Method Room Air Intake Visit Reasons: tinnitus, CVA, DM Intake Note: Patient is here to follow up on Tinnitus, CVA, DM. Director Of Strategic Partnerships Required: No Checker Stocker: Not Required per policy Accompanied by: Self / Same As Patient Allergies gabapentin Adverse Reaction (Intermediate, Verified 05/04/25 14:30) Nausea morphine (MORPHINE) Adverse Reaction (Mild, Verified 05/04/25 14:30) VOMITING, sensitivity atorvastatin Adverse Reaction (Unknown, Verified 05/04/25 14:30) Muscle cramps rosuvastatin (Crestor) Adverse Reaction (Unknown, Verified 05/04/25 14:30) muscle ache simvastatin Adverse Reaction (Unknown, Verified 05/04/25 14:30) Muscle cramps Medication List - Last Reconciled 05/04/25 by Savana Del Castillo MD alpha lipoic acid 300 mg PO DAILY alprazolam 0.5 mg PO DAILY PRN blood sugar diagnostic (FreeStyle Lite Strips) As directed check the BS QD calcium carbonate (Oyster Shell Calcium) 500 mg PO DAILY cholecalciferol (vitamin D3) 25 mcg PO DAILY ezetimibe (Zetia) 10 mg PO DAILY ketotifen fumarate 0.025%(0.035%) (Zaditor) 1 drp ophthalmic (eye) BID levocetirizine 5 mg PO DAILY mastectomy bra As directed meclizine 25 mg PO TID mirtazapine 30 mg PO BEDTIME multivitamin 1 tab PO DAILY pregabalin 75 mg PO BID 30 days Tobacco use date assessed: 05/04/25 Fall risk assessment: 1 Fall in past year Last assessed Fall Risk: 05/04/25 Dental Screening Dental Screen Date: 07/13/24 [facility] Medical History (Reviewed 04/06/25 @ 13:20 by Moira Bowden [facility]) Peripheral neuropathy Alteration in cognition Neuropathy Cervicalgia Gait disorder Sleep disorder Screening for viral disease Distal radius fracture, left Post-menopausal Infiltrating ductal carcinoma of right breast History of breast cancer Anxiety and depression Left bundle branch block Tubular adenoma of colon History of breast cancer Hypercholesterolemia Cardiomyopathy Type 2 diabetes mellitus with hyperglycemia Surgical History History of colonoscopy H/O left breast biopsy History of lumpectomy of right breast Family History Father CVD (cardiovascular disease) Myocardial infarct Mother HTN (hypertension) Cancer Uterine cancer Arthritis Paternal Aunt Myocardial infarct Paternal Uncle Myocardial infarct Brother No problems noted. Social History Household Members: None Housing: House Alcohol intake: current Alcohol intake frequency: holidays/special occasions only Patient Tobacco Use Status: Never used Tobacco Tobacco use type: Cigarette e-Cigarette/Vaping Use: Never Used Second Hand Smoke Exposure: No service: No Current occupational status: retired Current occupation: rt hand Cognitive needs: No Hearing needs: No Vision needs: Yes (Glasses) Questionnaire Thrive Questionnaire Date Thrive assessed: 09/16/24 I am a: Patient What is your living situation today?: I have a steady place to live Within the past 12 months, did the food you bought not last and you didn't have the money to get more?: Never true Within the past 12 months, did you worry whether your food would run out before you got money to buy more?: Never true Do you have trouble paying for medicines?: No Do you have trouble getting transportation to medical appointments?: No Do you have trouble paying your heating and electricity bill?: No Do you have trouble taking care of your child, family member or friend?: No Do you have trouble with day-to-day activities such as bathing, preparing meals, shopping, managing finances, etc.?: Yes Are you currently unemployed and looking for a job?: No Are you interested in more education?: No Please select the resources that you would like help with: None Currently or been in a relationship where the following occur: No concerns reported THRIVE Score: 0 ROBER-7 AMB Questionnaire ROBER-7 Date ROBER - 7 assessed: 07/13/24 Source: Developed by Drs. Noel Rouse, Brenda Sheffield, Gulshan Jamison and colleagues, with an educational kimberley from [employer]. Physical exam (Primary Care) Vital Signs: Last Vital Signs Temp 96.9 F 05/04/25 14:30 Pulse 78 05/04/25 14:30 BP 124/66 05/04/25 14:30 Pulse Ox 97 05/04/25 14:30 Oxygen Delivery Method Room Air 05/04/25 14:30 BMI result Body Mass Index 20.1 Tobacco/Smoking Status: Tobacco use Status Tobacco use date assessed 05/04/25 05/04/25 14:39 Patient Tobacco Use Status Never used Tobacco 05/04/25 14:27 Tobacco use type Cigarette 05/04/25 14:27 e-Cigarette/Vaping Use Never Used 05/04/25 14:27 Thrive Assessment: Date of Thrive Assessment Date Thrive assessed 09/16/24 05/04/25 14:27 Currently or been in a relationship where the following occur: No concerns reported Const General: alert; No acute distress Eyes Conjunctivae: conjunctivae normal Resp Auscultation: clear to auscultation bilaterally Cardio Rate: regular rate Rhythm: regular rhythm GI Inspection: Yes normal to inspection Extrem General: Yes normal to inspection and No edema Office Procedures Flu Questionnaire Does the patient have a severe egg allergy?: No Does the patient have severe life threatening allergies?: No Does the patient have a fever or illness today?: No Has the patient ever had Guillain-Kinmundy Syndrome?: No Has the patient ever had any past reaction to a flu shot?: No Results AMB Hemoglobin A1c AMB Hemoglobin A1c 6.2 % Last Edit by ADY Ramirez on 05/04/25 14:45 Immunizations Fluarix [id number] (PF) 45 mcg (15 mcg x 3)/0.5 mL IM syringe Performing Provider: Savana Del Castillo MD [facility] Administered by: Shauna De Anda LPN on 05/04/25 15:25 Dose Route Admin Location Dispensed Lot Number Expiration Date [facility] [employer]ic 0.5 mL IM Left Deltoid 0.5 mL [id number] 11/16/25 [id number] [employer] VIS Given Date VIS Provided VIS Publication Date 05/04/25 Single Vaccine 24 Eligibility Eligibility Date Funding Source Not [facility] Eligible 05/04/25 Private Results Reviewed Results Reviewed: Laboratory Last Values Hgb A1c (Clinic) 6.2 % (4.0-6.0) H 05/04/25 14:25 Coding Level of Care Code Est Pt Level 4 (06931) Add On Problem Visit Only Diagnoses NICM (nonischemic cardiomyopathy) I42.8 Hypercholesterolemia E78.00 Type 2 diabetes mellitus with hyperglycemia, without long-term current use of insulin E11.65 Diabetes mellitus terminal makeup operator insulin use: without skilled nursing use Tinnitus of both ears H93.13 Laterality: bilateral Overactive bladder N32.81 History of breast cancer Z85.3 Syncope R55 Moderate episode of recurrent major depressive disorder F33.1 Active/Remission status: currently active Major depression episode severity: moderate Assessment & Plan Assessment & Plan (1) NICM (nonischemic cardiomyopathy): Code(s): I42.8 - Other cardiomyopathies Category: Medical Plan: Patient continued to be following up my cardiology recent echocardiogram ejection fraction low normal 50-55% so far workup for cardiac causes of syncope is negative (2) Hypercholesterolemia: Comment: ardio Code(s): E78.00 - Pure hypercholesterolemia, unspecified Category: Medical Plan: Avoid fried foods, chicken skin, eggs, butter margarine, pastries and meat. Be it pork or beef they have a lot of cholesterol LDL goal of less than 100 preferably less than 70 on Zetia (3) Type 2 diabetes mellitus with hyperglycemia: Code(s): E11.65 - Type 2 diabetes mellitus with hyperglycemia Category: Medical Qualifiers: Diabetes mellitus skilled nursing insulin use: without terminal makeup operator use Qualified Code(s): E11.65 - Type 2 diabetes mellitus with hyperglycemia Plan: Decrease the amount of carbohydrate intake, pasta, bread, rice and potatoes are all sugar and that is aside from all the sweet stuff, remember that fruits are good but they are Sweet also. Diet controlled (4) Tinnitus: Comment: chronic - relate dto hearing loss, anxiety Code(s): H93.19 - Tinnitus, unspecified ear Category: Medical Qualifiers: Laterality: bilateral Qualified Code(s): H93.13 - Tinnitus, bilateral Plan: Patient has seen ear nose and throat also, this is chronic (5) Overactive bladder: Code(s): N32.81 - Overactive bladder Category: Medical Plan: Timed voiding meaning every 1-2 hours even if you do not feel like urinating empty the bladder, avoid drinks with high sweet content like juices or caffeine that makes her urinate, 2 hours before you sleep hold liquids so that in the morning you do not get the bladder to be too full. (6) History of breast cancer: Comment: 2000 right lumpectomy chemo and radiation Dr. Moody, MRI November 2015 Code(s): Z85.3 - Personal history of malignant neoplasm of breast Category: Medical Plan: Continue with surveillance with mammogram (7) Syncope: Comment: Recurrent syncope unexplained. Will do 48 hr EEG Code(s): R55 - Syncope and collapse Category: Medical Plan: Workup both being done by Cardiology and Neurology (8) Recurrent major depression: Comment: decline referral for now 07/2022 Code(s): F33.9 - Major depressive disorder, recurrent, unspecified Category: Medical Qualifiers: Active/Remission status: currently active Major depression episode severity: moderate Qualified Code(s): F33.1 - Major depressive disorder, recurrent, moderate Plan: Continue with present medication Orders: Orders Complete Blood Count Auto Diff 2 Months E11. - Type 2 diabetes mellitus with hyperglycemia Comprehensive Met. Panel 2 Months E11. - Type 2 diabetes mellitus with hyperglycemia Ferritin 2 Months E11. - Type 2 diabetes mellitus with hyperglycemia IRON PROFILE 2 Months E11. - Type 2 diabetes mellitus with hyperglycemia Vitamin D 25-OH Total 2 Months E11. - Type 2 diabetes mellitus with hyperglycemia Creatinine Urine 2 Months E11. - Type 2 diabetes mellitus with hyperglycemia AMB Hemoglobin A1c Today - Type 2 diabetes mellitus with hyperglycemia Free T4 (Free Thyroxine) 2 Months E11.65 - Type 2 diabetes mellitus with hyperglycemia Reticulocyte Count 2 Months E11.65 - Type 2 diabetes mellitus with hyperglycemia Hemoglobin A1c 2 Months E11. - Type 2 diabetes mellitus with hyperglycemia Lipid Panel 2 Months E11.65 - Type 2 diabetes mellitus with hyperglycemia, E78.00 - Pure hypercholesterolemia, unspecified Thyroid Stimulating Hormone 2 Months E11.65 - Type 2 diabetes mellitus with hyperglycemia Vitamin B12 and Folate 2 Months E11.65 - Type 2 diabetes mellitus with hyperglycemia Microalbumin, Random (w Creat) 2 Months E11.65 - Type 2 diabetes mellitus with hyperglycemia UA CC w/rflx Micro + Cult 2 Months E11.65 - Type 2 diabetes mellitus with hyperglycemia, R30.0 - Dysuria Uric Acid 2 Months E11.65 - Type 2 diabetes mellitus with hyperglycemia Magnesium 2 Months E11. - Type 2 diabetes mellitus with hyperglycemia Influenza [id number] Immunization Today Z23 - Encounter for immunization Medications: Refilled alprazolam 0.5 mg PO DAILY 90 tabs 1RF 90 days F41.9 - Anxiety disorder, unspecified
[2025-05-04 14:30] VITALS: BP 124/66; PULSE 78; TEMP 36.1; O2SAT 97; BMI 20.1
--- OUTSIDE RECORDS SUMMARY | 2025-05-04 18:39 | XMS_ITS | Clinical Summary ---
Author Organization [facility] Address [address] [place] [address] Care Team Providers Care Carpenter Prototype Name Role Phone Savana Del Castillo MD Primary Care Provider [phone] Surgical History Surgery Date Site/Laterality Comments BREAST [...] Info) Description 07/13/2025 1:45 PM EST Appointment [facility] Xray [address] [place] [address] Health Maintenance Due Date Last [...] age to complete this topic Insurance MEDICARE Care Teams Carpenter Prototype Relationship Specialty Start Date End Date Savana Del Castillo MD [address] [place] [address] [address] [facility] In Internal Medicine [place], [place] [id number] PCP - General Internal Medicine 06/15/19
--- OUTSIDE RECORDS SUMMARY | 2025-05-04 18:39 | XMS_ITS | Clinical Summary ---
Author Organization [facility] Address [address] [address] Phone Care Team Providers Care Advertising Associate Name Role Phone Savana Del Castillo MD Primary Care Provider [phone] Allergies Active Allergy Reactions Criticality Noted Date [...] file Insurance MEDICARE PART A & B Member Subscriber Plan / Payer (Ef fective 2015-Present) Name:Susan Raya Member ID:[id number] Relation to Subscriber:Self Name:Susan Raya Subscriber ID:[id number] Payer ID:[id number] Group ID:Not on file Type:Medicare Address: [facility] [employer] [facility]. [address] [facility] [place] [address] [facility] MEDEX SUPPLEMENT MEDICARE PART A & B [employer] MEDEX SUPPLEMENT MEDICARE PART A & B [employer] MEDEX SUPPLEMENT MEDICARE PART A & B [employer] MEDEX SUPPLEMENT MEDICARE PART A & B [employer] MEDEX SUPPLEMENT MEDICARE PART A & B [employer] MEDEX SUPPLEMENT MEDICARE PART A & B [employer] MEDEX SUPPLEMENT MEDICARE PART A & B [employer] MEDEX SUPPLEMENT MEDICARE PART A & B [employer] MEDEX SUPPLEMENT Care Teams Advertising Associate Relationship Specialty Start Date End Date Savana Del Castillo MD [address] [facility] [address] [place] [id number] PCP - General Internal Medicine 06/29/19 Additional Source Comments The information contained in this document represents components of the legal health record. It is not the complete legal health record.[facility]
--- OUTSIDE RECORDS SUMMARY | 2025-05-04 18:39 | XMS_ITS | Patient Health Record ---
Author Organization [facility] Address [address] [place] [address] Care Team Providers Care Paper And Pulp Mill Operator Name Role Phone Savana Del Castillo MD Primary Care Provider Noel Meraz [phone] Allergies Allergen (clinical drug ingredient) Drug/Non Drug [...] Miscellaneous: Marital status: Single Occupation: Retired from [employer] ounting [employer]. 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 alcohol Nonsmoker; no sig. alcohol Problems Problem Type SNOMED Code ICD Code Onset Dates Problem Status W/U Status Risk Notes Problem Screening for malignant neoplasm of colon (452484929) Encounter for screening for malignant neoplasm of colon (Z12.11) Active confirmed Problem History of adenomatous polyp of colon (133930930) History of adenomatous polyp of colon (Z86.010) Active confirmed Problem History of polyp of colon (situation) (170536738) Personal history of colonic polyps (Z86.010) Active confirmed Problem Diverticular disease of colon (557834832) Diverticulosis of large intestine without perforation or abscess without bleeding (K57.30) Active confirmed Problem Preprocedural examination (139868500602219) Preprocedural examination (Z01.818) Active confirmed Problem Long-term current use of aspirin (232082211728524) Aspirin long-term use (Z79.82) Active confirmed Plan Of Treatment Future Test Test Name Order Date COLONOSCOPY 02/04/2015 COLONOSCOPY 11/23/2020 Insurance Providers Payer Name Payer Address Payer Phone Subscriber Number Group Number Insured Name Patient Relationship to Insured Coverage Start Date Coverage End Date MEDICARE OF [place] [address] [facility] [address] [id number] ROJELIO ANGLIN Self - patient is the insured MED[employer] ATTN CLAIMS [address] [place] [address] [id number] ROJELIO ANGLIN Self - patient is the insured Medical (General) History Medical History History ICD Code Dizziness/Equilibrium issues--saw Dr. Rob fitzgerald Left bundle branch block-see s cardiology at [facility]--had an ETT and a cardiac Echo-Dr. King Right-sided Breast cancer--1998--2 Lumpe ctomies, chemo and XRT Negative colonoscopy in 04/[address] Phipps, except for small internal hemorrhoids Hyperlipidemia HTN Denies UT,CVA,Lung disease,renal disease Persistent Tinnitus after he r 2nd Moderna vaccine in 06/2020--seeing Dr. Contreras Colonoscopy 05/2015 with a small tubular adenoma Diet-controlled DM Surgical History Surgery Date(Month/Year) 2 lumpectomies as above for breast cance r
--- OUTSIDE RECORDS SUMMARY | 2025-05-04 18:39 | XMS_ITS | Patient Health Record ---
Author [facility] Address [address] [facility] [place] [address] Care Team Providers Care Trigonometry Teacher Name Role Phone Savana Del Castillo Primary Care Provider Rivera Anand Unavailable [phone] Allergies Allergen (clinical drug ingredient) Drug/Non Drug Allergy documented on EMR Reaction Allergy Type Onset Date Status morphine Morphine Unknown Drug Allergy Active Substance with 0-yrmujqv-1-methylgluta ryl-coenzyme A reductase inhibitor mechanism of action [...] Status Risk Notes Problem Acquired hallux valgus (00151342) Hallux valgus (acquired), right foot (M20.11) Active confirmed Problem Acquired hallux rigidus (9848842) Hallux rigidus, left foot (M20.22) Active confirmed Problem Raynaud's disease (711633735) Raynaud's disease without gangrene (I73.00) Active confirmed Problem Preproliferative diabetic retinopathy (066772280) Preproliferative diabetic retinopathy (E11.3499) Active confirmed Plan Of Treatment Pending Test Test Name Order Date X ray : Foot, left 3V 08/16/2021 X ray : Foot, right 3V 08/16/2021 Insurance Providers Payer Name Payer Address Payer Phone Subscriber Number Group Number Insured Name Patient Relationship to Insured Coverage Start Date Coverage End Date Medicare National [employer] [address] [place] [address] [id number] Susan Ann Self - patient is the insured [facility] [address] [place] [address] [id number] Susan Ann Self - patient is the insured Medical (General) History Medical History History ICD Code Anxiety Arthritis Back,Hip,and Knee pain Broken bones CAD (Cholesterol) Cancer Depression Headaches/Migraines Heart disease High blood pressure Numbness Rheumatic fever Measles Mumps tinnitus Hot flash Left bundle branch block (LBBB) Pre type II diabetes Surgical History Surgery Date(Month/Year) Hospitalization History Reason Date(Month/Year[place] [facility] W[place]
== END 2025-05-04 15:23 | disposition home or self-care (01) ==
LOC: HO.HMCH 14:23
PROVIDERS: PCP Internal Medicine; Visit Provider Internal Medicine
DX: E11.65 Type 2 diabetes mellitus with hyperglycemia (principal); I42.8 Other cardiomyopathies; F33.1 Major depressive disorder, recurrent, moderate; E78.00 Pure hypercholesterolemia, unspecified; H93.13 Tinnitus, bilateral; N32.81 Overactive bladder; Z85.3 Personal history of malignant neoplasm of breast; R55 Syncope and collapse; Z23 Encounter for immunization

== ENCOUNTER → 2025-05-04 14:22 | Outpatient (BNVA) | payer MEDICARE, SELFPAY | PROVIDERS: PCP Internal Medicine; Visit Provider Internal Medicine | DX: E11.65 Type 2 diabetes mellitus with hyperglycemia (principal); I42.8 Other cardiomyopathies; E78.00 Pure hypercholesterolemia, unspecified; H93.13 Tinnitus, bilateral; N32.81 Overactive bladder; R55 Syncope and collapse; F33.1 Major depressive disorder, recurrent, moderate; Z85.3 Personal history of malignant neoplasm of breast; Z23 Encounter for immunization | CPT/HCPCS: 83036; 90471; 90656; 99212 ==

== ENCOUNTER 2025-05-05 13:45 | Outpatient (AMB) | payer MEDICARE, SELFPAY ==
--- OUTSIDE RECORDS SUMMARY | 2019-06-29 15:15 | XMS_ITS | Encounter Summary ---
Author Organization [facility] Address [address] [facility] [address] [place] [address] Phone Care Team Providers Care Home Health Travel Ot Name Role Phone Savana Del Castillo MD Primary Care Provider [phone] Encounter Details Date Type Department Care Team (Late st Contact Info) Description 06/29/2019 3:15 PM EST Hospital Encounter [facility] [address] [place] [address] Philipp Melara, GUILLAUME [address] [place] [address] [place] [address] Social History Tobacco Use Types Packs/Day Years Used Date Smoking Tobacco: Never Smokeless Tobacco: Never Education Answer Date Recorded Are you interested in more education? Not on spencer e 09/14/2022 Are you concerned about learning? Not on file 09/14/2022 No 09/14/2022 No 09/14/2022 Digital Access Answer Date Recorded No 10/13/2022 No 10/13/2022 Reliable internet access at home? Not on file 10/13/2022 Device with a working camera? Not on file Comments Unknown Sex and Gender Information Value Date Recorded Sex Assigned at Not on file Legal Sex Female 2:51 PM EST Gender Identity Not on file Sexual Orientation Not on file documented as of this encounter Plan of Treatment Not on file documented as of this encounter Procedures Procedure Name Priority Date/Time Associated Diagnosis Comments XR KNEE 4 OR MORE VIEWS (LEFT) Routine 06/29/2019 3:33 PM EST Contusion of left knee, initial encounter documented in this encounter Results * XR KNEE 4 OR MORE VIEWS (LEFT) (06/29/2019 3:33 PM EST) Anatomical Region Laterality Modality Knee Left Radiographic Olinda ging 06/29/2019 3:34 PM EST Impressions 06/29/2019 3:35 PM EST Unremarkable plain film appearance of the knee. No acute bony injury. POS [id number] Narrative 06/29/2019 3:35 PM EST 5 views. No comparison No fracture or dislocation. No arthritic changes or other underlying bony abnormality No gross joint effusion Procedure Note Raymond Corbett MD - 06/29/2019 5 views. No comparison No fracture or dislocation. No arthritic changes or other underlying bony abnormality No gross joint effusion IMPRESSION: Unremarkable plain film appearance of the knee. No acute bony injury. POS [id number] Philipp Melara PRACTICAL MINISTRIES PROFESSOR IMG XR LOWER EXTREMITY Final Re sult documented in this encounter Visit Diagnoses Not on filedocumented in this encounter Additional Health Concerns Infection Onset Date Last Indicated Resolved Time CoV-Risk 07/17/2023 07/17/2023 07/28/2023 1:21 AM EST documented as of this encounter Care Teams Home Health Travel Ot Relationship Specialty Start Date End Date Savana Del Castillo MD [address] [place] [address] Drive [address] [place] [phone] PCP - General Internal Medicine 06/29/19 documented as of this encounter Additional Source Comments The information contained in this document represents components of the legal health record. It is not the complete legal health record.[facility]
--- NOTE | 2025-05-05 14:21 | A.OFFVIS_ITS ---
Intake Visit Reasons: 2m Allergies gabapentin Adverse Reaction (Intermediate, Verified 05/04/25 14:30) Nausea morphine (MORPHINE) Adverse Reaction (Mild, Verified 05/04/25 14:30) VOMITING, sensitivity atorvastatin Adverse Reaction (Unknown, Verified 05/04/25 14:30) Muscle cramps rosuvastatin (Crestor) Adverse Reaction (Unknown, Verified 05/04/25 14:30) muscle ache simvastatin Adverse Reaction (Unknown, Verified 05/04/25 14:30) Muscle cramps HPI Comments Details: Still gets dizziness. Gets 1-2 secs of a flutter in front of eyes even sitting. Has been hydrating well and takes a break every 10 min to drink water and stay hydrated. Getting 3-4 hrs a night only. Yesterday got up from a chair and fell over and hit left hip and shoulder and lightly her head. BP was 169/73 after. Had been home all day and was about to drive to a baptism dinner. She had got up slowly became suddenly clammy and fell , but no LOC. No CP or palpitation. No further syncopal symptoms. Improving mental fog and cognitive issues since head trauma in July 2024 , she had a syncopal episode while exercising at [employer] and doing jumping jacks. She became sweaty and saw a yellow light and passed out for about a minute. Struck her occiput and had a scalp laceration. She was incoherent for 10 minutes. Was admitted to [facility] [place] for 6 days. MRI, CTA, EEG were apparently negative.She has a 30 day event monitor. She had some cerebral hemorrhages from trauma.?It really bothers her and makes her anxious and depressed. She has chronic tinnitus. Had normal hearing test. Saw Dr. Contreras and had negative CT head . Had an MRA which was normal in 2015. Vision is not clear. Syncope in October 2015? after walking 2 miles, and was standing and nauseated and everything turned yellow then passed out for a few minutes. Hands and feet get cold and painful. Sugar was OK . Has a LBBB and had cardiac workup. Feels off balance type of dizziness almost daily and has to hold on to the wall. No vertigo. Feels in a fog even sitting down. She has a 10 year numbness , tingling in both LE. 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 passed in Apr 2019. She was prescribed Pregabalin for her neuropathy but has not started it yet. 04/19/2025 48 hr EEG rare left temporal sharp transient. otherwise normal. 10/28/23 MRI brain : There are chronic microvascular ischemic changes and there is diffuse volume loss. [facility] Medical History Peripheral neuropathy Alteration in cognition Neuropathy Cervicalgia Gait disorder Sleep disorder Screening for viral disease Distal radius fracture, left Post-menopausal Infiltrating ductal carcinoma of right breast History of breast cancer Anxiety and depression Left bundle branch block Tubular adenoma of colon History of breast cancer Hypercholesterolemia Cardiomyopathy Type 2 diabetes mellitus with hyperglycemia Surgical History History of colonoscopy H/O left breast biopsy History of lumpectomy of right breast Family History Father CVD (cardiovascular disease) Myocardial infarct Mother HTN (hypertension) Cancer Uterine cancer Arthritis Paternal Aunt Myocardial infarct Paternal Uncle Myocardial infarct Brother No problems noted. Social History Household Members: None Housing: House Alcohol intake: current Alcohol intake frequency: holidays/special occasions only Patient Tobacco Use Status: Never used Tobacco Tobacco use type: Cigarette e-Cigarette/Vaping Use: Never Used Second Hand Smoke Exposure: No service: No Current occupational status: retired Current occupation: rt hand Cognitive needs: No Hearing needs: No Vision needs: Yes (Glasses) Review of Systems Const Details: Sleep:? Difficulty getting to sleepadmits.? Difficulty maintaining sleepadmits.? Urge to move legsadmits.? Teeth grindingadmits.? Shouting or Kicking during sleep denies.? Abnormal behavior during sleepadmits.? Excessive sleepdenies.? Snoring denies.? Daytime sleepinessdenies. ???General/Constitutional:? Change in appetitedenies.? Chillsdenies.? Fatigueadmits.? Feverdenies.? Weight gaindenies.? Weight lossdenies. ???Ophthalmologic:? Blurred visionadmits.? Diminished visual acuitydenies. ???ENT:? Stuffinessdenies.? Decreased hearingdenies.? Dry mouthdenies.? Ear paindenies.? Nosebleeddenies.? Ringing in the earsadmits.? Sinus paindenies.? Sore throat denies.? Swollen glandsdenies. ???Endocrine:? Cold intolerancedenies.? Excessive thirstdenies.? Frequent urinationdenies.? Heat intolerancedenies. ???Respiratory:? Shortness of breathdenies.? Chest paindenies.? Coughdenies. ???Breast:? Breast lumpdenies.? Nipple dischargedenies. ???Cardiovascular:? Chest pain at restdenies.? Chest pain with exertiondenies.? Claudicationdenies .? Dizzinessdenies.? Fluid accumulation in the legsdenies.? Irregular heartbeat denies.? Palpitationsadmits. ???Gastrointestinal:? Abdominal paindenies.? Constipationdenies.? Diarrheadenies.? Difficulty swallowingdenies.? Heartburnadmits.? Nauseadenies.? Rectal bleedingdenies. ???Hematology:? Easy bruisingadmits.? Prolonged bleedingdenies. ???Genitourinary:? Frequent urinationadmits.? Urgencydenies.? Incontinencedenies.? Erectile Dysfunctiondenies. ???Musculoskeletal:? Neck paindenies.? Back painadmits.? Muscle achesadmits.? Painful jointsadmits.? Sciaticadenies.? Weaknessdenies. ???Podiatric:? Difficulty walkingdenies.? Foot numbnessdenies. ???Neurologic:? Difficulty swallowingdenies.? Balance difficultyadmits.? Coordinationnormal.? Difficulty speakingdenies.? Dizzinessadmits.? Faintingdenies.? Gait abnormality denies.? Headacheadmits.? Loss of strengthdenies.? Loss of use of extremity denies.? Low back paindenies.? Memory lossdenies.? Seizuresdenies.? Ticsdenies.? Tingling/Numbnessadmits?bilateral lower extremities.? Transient loss of vision denies.? Tremordenies. ???Psychiatric:? Anxietyadmits.? Auditory/visual hallucinationsdenies.? Delusionsdenies.? Depressed moodadmits.? Stressorsdenies.? Substance abusedenies.? Suicidal thoughtsdenies. Physical Exam Neuro Other: Neurological: Abnormal neurological findings:??Absent ankle reflexes. Decreased vibration sensation below the ankle on the left at the mid tarsal level the right..?Mental Status:??alert and oriented X 3,?Normal attention, orientation, memory and affect.?Cranial Nerves:??Pupils are equal, round and reactive to light. F undoscopy shows normal disc bilaterally. External occular muscles are intact. Visual call are full, no ptosis. Face is symmetrical, no facial weakness or droop. Facial sensations are normal. Tongue protrudes in midline. Palate elevates symmetrically. Shoulder shrugging is normal..?Motor Examination:??Normal muscle tone, bulk and strength,?No atrophy or fasciculations,?No drift of the extended upper extremities,?Deep tendon reflexes are 2+ with absent ankle reflexes?,?Plantars are flexor?.?Straight Leg Raising:??90 degrees.?Sensory Exam:??Normal light touch, temperature, pinprick, impaired vibration and joint-position sensations as described above?,?Rhomberg sign is absent.?Coordination:??no ataxia,?no titubation,?tufxok-ep-fspj, hhjc-injq-bhnz test and rapid alternating movements were normal.?Gait Exam:??Within normal limits.?Cerebellar Signs:??Nsmmky-xq-bezh and axsu-mw-dycw is normal,?no dysdiadochokinesia?.?Extrapyramidal System:??No tremor, rigidity with normal facial expressions,?No bradykinesia, no bradyphrenia. Normal arm swing and posture. No propulsion or retropulsion.?Speech:??Normal,?no dysphasia or dysarthria..? Mini Mental Status Exam: Level of Consciousness:??Alert.?Orientation:??Knows correct year, month, date, day and season,?Knows correct city, county and state. Knows correct location and floor.?Registration:??Able to register 3 objects.?Attention:??Serial 7's performed accurately.?Recall:??Able to recall 3 out of 3 objects.?Language:??Normal spontaneous speech, fluency, repetition,naming, comprehension, reading and writing.?Total Score:??30/30.? General Examination: GENERAL APPEARANCE:??normal,?in no acute distress.?HEART:??S1, S2 normal,?no murmurs.?LUNGS:??clear anteriorly and track repair supervisor iorly.?MUSCULOSKELETAL:??normal.?EXTREMITIES:??no edema.?PSYCH:??alert, oriented,?cognitive function intact,?cooperative with exam.? Assessment & Plan Assessment & Plan (1) Peripheral neuropathy: Comment: 2009 NCV and 02/07/21 Axonal sensory-motor peripheral neuropathy. 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 Code(s): G62.9 - Polyneuropathy, unspecified Category: Medical (2) Syncope: Comment: Recurrent syncope unexplained. Will do 48 hr EEG Code(s): R55 - Syncope and collapse Category: Medical Plan Did not start Pregabalin 75mg hs for 2 weeks then 1 bid for symptomatic treatment of worsening neuropathic symptoms. 48 hr EEG negative. Coding Level of Care Code Est Pt Level 4 (14734) Diagnoses Peripheral neuropathy G62.9 Syncope R55
--- OUTSIDE RECORDS SUMMARY | 2025-05-05 18:20 | XMS_ITS | Patient Health Record ---
Author Organization [facility] Address [address] [place] [address] Care Team Providers Care Hydrogen Plant Operator Name Role Phone Savana Del Castillo MD Primary Care Provider Noel Meraz [phone] Allergies Allergen (clinical drug ingredient) Drug/Non Drug [...] Miscellaneous: Marital status: Single Occupation: Retired from [employer] 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 alcohol Nonsmoker; no sig. alcohol Problems Problem Type SNOMED Code ICD Code Onset Dates Problem Status W/U Status Risk Notes Problem Screening for malignant neoplasm of colon (297034798) Encounter for screening for malignant neoplasm of colon (Z12.11) Active confirmed Problem History of adenomatous polyp of colon (974150884) History of adenomatous polyp of colon (Z86.010) Active confirmed Problem History of polyp of colon (situation) (180097898) Personal history of colonic polyps (Z86.010) Active confirmed Problem Diverticular disease of colon (560301143) Diverticulosis of large intestine without perforation or abscess without bleeding (K57.30) Active confirmed Problem Preprocedural examination (192294296045340) Preprocedural examination (Z01.818) Active confirmed Problem Long-term current use of aspirin (852269661157943) Aspirin long-term use (Z79.82) Active confirmed Plan Of Treatment Future Test Test Name Order Date COLONOSCOPY 02/04/2015 COLONOSCOPY 11/23/2020 Insurance Providers Payer Name Payer Address Payer Phone Subscriber Number Group Number Insured Name Patient Relationship to Insured Coverage Start Date Coverage End Date MED[place] OF [place] [address] [place] [address] [phone] [id number] ROJELIO ANGLIN Self - patient is the insured [employer] ATT[employer] CLAIMS [address] [place] [address] [id number] ROJELIO ANGLIN Self - patient is the insured Medical (General) History Medical History History ICD Code Dizziness/Equilibrium issues--saw Dr. Rob fitzgerald Left bundle branch block-see s cardiology at [facility]--had an ETT and a cardiac [...]
--- OUTSIDE RECORDS SUMMARY | 2025-05-05 18:20 | XMS_ITS | Clinical Summary ---
Author Organization [facility] Address [address] [address] Phone Care Team Providers Care Rn Gynecology Name Role Phone Savana Del Castillo MD Primary Care Provider [phone] Allergies Active Allergy Reactions Criticality Noted Date [...] file Insurance MEDICARE PART A & B [facility] MEDEX SUPPLEMENT MEDICARE PART A & B [employer] MEDEX SUPPLEMENT MEDICARE PART A & B [place] MEDEX SUPPLEMENT MEDICARE PART A & B [employer] MEDEX SUPPLEMENT MEDICARE PART A & B [employer] MEDEX SUPPLEMENT MEDICARE PART A & B [employer] MEDEX SUPPLEMENT MEDICARE PART A & B [employer] MEDEX SUPPLEMENT MEDICARE PART A & B [employer] MEDEX SUPPLEMENT MEDICARE PART A & B [employer] MEDEX SUPPLEMENT Care Teams Rn Gynecology Relationship Specialty Start Date End Date Savana Del Castillo MD [address] [place] [phone] PCP - General Internal Medicine 06/29/19 Additional Source Comments The information contained in this document represents components of the legal health record. It is not the complete legal health record.[facility]
--- OUTSIDE RECORDS SUMMARY | 2025-05-05 18:20 | XMS_ITS | Clinical Summary ---
Author Organization [facility] Address [address] [place] [address] Care Team Providers Care Studio Producer Name Role Phone Savana Del Castillo MD Primary Care Provider [phone] Surgical History Surgery Date Site/Laterality Comments [...] Info) Description 07/13/2025 1:45 PM EST Appointment [facility] [address] [place] [address] Health Maintenance Due Date Last [...] complete this topic Insurance MEDICARE Care Teams Studio Producer Relationship Specialty Start Date End Date Savana Del Castillo MD [address] [place] [address] [address] [facility] In Internal Medicine [place], [place] [phone] PCP - General Internal Medicine 06/15/19
--- OUTSIDE RECORDS SUMMARY | 2025-05-05 18:20 | XMS_ITS | Patient Health Record ---
Author Organization [facility] Address [address] [place] [address] Care Team Providers Care Full Stack Java Developer Name Role Phone Savana Del Castillo Primary Care Provider Rivera Anand Unavailable [phone] Allergies Allergen (clinical drug ingredient) Drug/Non Drug Allergy documented on EMR Reaction Allergy Type Onset Date Status morphine Morphine Unknown Drug Allergy Active Substance with 9-sclbcoq-5-methylgluta ryl-coenzyme A reductase inhibitor mechanism of action [...] Status Risk Notes Problem Acquired hallux valgus (27165580) Hallux valgus (acquired), right foot (M20.11) Active confirmed Problem Acquired hallux rigidus (5505280) Hallux rigidus, left foot (M20.22) Active confirmed Problem Raynaud's disease (161427481) Raynaud's disease without gangrene (I73.00) Active confirmed Problem Preproliferative diabetic retinopathy (877417985) Preproliferative diabetic retinopathy (E11.3499) Active confirmed Plan Of Treatment Pending Test Test Name Order Date X ray : Foot, left 3V 08/16/2021 X ray : Foot, right 3V 08/16/2021 Insurance Providers Payer Name Payer Address Payer Phone Subscriber Number Group Number Insured Name Patient Relationship to Insured Coverage Start Date Coverage End Date Medicare [employer] [address] [place] [place] [address] [id number] Susan Ann Self - patient is the insured [facility] [address] [place] [address] [id number] Susan Ann Self - patient is [...]
== END 2025-05-05 14:44 | disposition home or self-care (01) ==
LOC: HO.HSM 13:46
PROVIDERS: PCP Internal Medicine; Visit Provider Psychiatry & Neurology Neurology
DX: G62.9 Polyneuropathy, unspecified (principal); R55 Syncope and collapse
CPT/HCPCS: 99214

== ENCOUNTER → 2025-05-05 13:45 | Outpatient (BNVA) | payer MEDICARE, SELFPAY | PROVIDERS: PCP Internal Medicine; Visit Provider Psychiatry & Neurology Neurology | DX: R55 Syncope and collapse (principal); G62.9 Polyneuropathy, unspecified | CPT/HCPCS: 99212 ==